=== PATIENT | male | born 1955 | race American Indian/Alaskan Native ===

== ENCOUNTER 2017-05-12 18:43 | Emergency (ER) | payer MEDICAID ==
[2017-05-12 19:01] VITALS: BP 141/79; PULSE 91; RESP 18; TEMP 97.7; O2SAT 96
--- NOTE | 2017-05-12 19:04 | EDPHY ---
H & P Stated Complaint: ETOH, fall R knee pain, cough Time Seen by Provider: 05/12/17 19:04 - Personal History Current Tetanus/Diphtheria Vaccine: Unsure Current Tetanus Diphtheria and Acellular Pertussis (TDAP): Unsure - Medical/Surgical History Hx Asthma: No Hx Chronic Respiratory Disease: No Hx Diabetes: Yes Hx Cardiac Disease: Yes Hx Renal Disease: No Hx Cirrhosis: No Hx Alcoholism: Yes Hx HIV/AIDS: No Hx Splenectomy or Spleen Trauma: No Other PMH: HTN, pre diabetes- non compliant with meds, meth/ETOH addiction - Social History Smoking Status: Current every day smoker Constitutional: Initial Vital Signs Temperature (C) 36.5 C 05/12/17 18:55 Heart Rate 91 05/12/17 18:55 Respiratory Rate 18 05/12/17 18:55 Blood Pressure 141/79 H 05/12/17 18:55 O2 Sat (%) 96 05/12/17 18:55 O2 Delivery Mode Room Air Allergies/Adverse Reactions: mushroom Allergy (Verified 01/18/16 05:50) Home Medications: Medication Instructions Recorded NK [No Known Home Meds] 01/10/16 Medical Decision Making ED Course/Re-evaluation: CHIEF COMPLAINT: Right knee pain, alcohol intoxication HISTORY OF PRESENT ILLNESS: The patient is a 61 y/o male with a history of alcoholism arriving via EMS, complaining of right knee pain after falling because his "knee gave out" on him. He is currently intoxicated. No chest pain, shortness of breath, abdominal pain, urinary or bowel complaints, fever. REVIEW OF SYSTEMS: A 10 point review of systems was performed and is negative with the exception of the elements mentioned in the history of present illness. PHYSICAL EXAM: HR, BP, O2 Sat, RR. Temp noted General Appearance: Alert, slurred speech, well hydrated, appropriate, and non- toxic appearing. Head: Atraumatic without scalp tenderness or obvious injury Eyes: Pupils equal, round, reactive to light and accommodation, EOMI, no trauma , no injection. Ears: Clear bilaterally, no perforation, normal landmarks Nose: Atraumatic, no rhinorrhea, clear. Throat: There is no erythema or exudates, no lesions, normal tonsils, mucus membranes moist. Neck: Supple, 2+ carotid upstroke, nontender, no lymphadenopathy. Respiratory: No retractions, no distress, no wheezes, and no accessory muscle use. Lungs are clear to auscultation bilaterally. Cardiovascular: Regular rate and rhythm, no murmurs, rubs, or gallops. Bilateral carotid, radial, dorsalis pedis, and posterior tibial pulses intact. Good capillary refill all extremities. Gastrointestinal: Abdomen is soft, nontender, non-distended, no masses, no rebound, no guarding, no peritoneal signs. Musculoskeletal: Normal active ROM of all extremities, atraumatic. Neurological: Alert, appropriate, and interactive. Non-focal neuro. Skin: No rashes, good turgor, no nodules on palpation. Past medical history: Hypertension, pre-diabetes (non compliant with meds), meth /alcohol addiction Past surgical history: Denies Family history: Denies Social history: Alcoholic, lives in [place] DIFFERENTIAL DIAGNOSIS: The differential diagnosis for the patient's altered mental status included but was not limited to hypoglycemia, infectious process, electrolyte abnormality, head injury, neurologic process, anemia, cardiac process, and intoxicants. MEDICAL DECISION MAKING: I serially examined this patient since the patient's arrival here in the emergency department. The patient continues to become more and more sober with each examination. I serially questioned the patient and the patient's story given initially has not changed. The patient still denies any trauma, any head injury, and any illicit drug use. At this point, the patient is walking the department freely and is clinically sober. We're discharging the patient to the [facility] in stable condition. Departure - Departure Disposition: Home, Routine, Self-Care Clinical Impression: Alcoholic intoxication Qualifiers: Complication of substance-induced condition: uncomplicated Qualified Code(s): F10.920 - Alcohol use, unspecified with intoxication, uncomplicated Condition: Good Instructions: Alcohol Intoxication (ED), Abuse of Alcohol (ED) Additional Instructions: 1. Please refrain from abusing alcohol. 2. Return to the emergency department immediately for fever, vomiting, confusion , headache, abdominal pain or other worsening of condition. 3. Followup with your primary care physician within 72 hours for reevaluation. Referrals: [facility] Detox 24 Hours [Outside] - As per Instructions Report Scribed for: Ke Strong Report Scribed by: Siria Meza Date of Report: 05/12/17 Time of Report: 19:07
== END 2017-05-12 19:39 | disposition home or self-care (01) ==
LOC: EDUNIT#
DX: F10.920 Alcohol use, unspecified with intoxication, uncomplicated (principal); I10 Essential (primary) hypertension; F17.200 Nicotine dependence, unspecified, uncomplicated; W18.39XA Other fall on same level, initial encounter; Y99.8 Other external cause status

== ENCOUNTER 2017-08-07 10:00 | Emergency (ER) | payer SELFPAY ==
[2017-08-07 10:06] VITALS: BP 199/92
--- NOTE | 2017-08-07 10:13 | EDPHY ---
H & P Stated Complaint: bilat feet and leg swelling/off all meds x 6 months/diabetic Time Seen by Provider: 08/07/17 10:13 - Personal History Current Tetanus/Diphtheria Vaccine: No - Medical/Surgical History Hx Asthma: No Hx Chronic Respiratory Disease: No Hx Diabetes: Yes Hx Cardiac Disease: Yes Hx Renal Disease: No Hx Cirrhosis: No Hx Alcoholism: Yes Hx HIV/AIDS: No Hx Splenectomy or Spleen Trauma: No Other PMH: HTN, pre diabetes- non compliant with meds, meth/ETOH addiction - Social History Smoking Status: Current every day smoker Constitutional: Initial Vital Signs Temperature (C) 36.7 C 08/07/17 10:03 Heart Rate 88 08/07/17 10:03 Respiratory Rate 18 08/07/17 10:03 Blood Pressure 199/92 H 08/07/17 10:03 O2 Sat (%) 96 08/07/17 10:03 O2 Delivery Mode Room Air Allergies/Adverse Reactions: mushroom Allergy (Verified 08/07/17 10:03) Home Medications: Medication Instructions Recorded NK [No Known Home Meds] 01/10/16 Medical Decision Making ED Course/Re-evaluation: CHIEF COMPLAINT: Leg swelling HISTORY OF PRESENT ILLNESS: This patient is a 62 year old male with history of hypertension and diabetes complaining of swelling in his feet and legs. This has been ongoing for several months. He denies ever taking medication for this in the past. The patient additional states he has not taken any medications fo this diabetes or hypertension in several months. He generally follows up at the [facility]. He presents today primarily for evaluation of his swollen legs as he has not seen a physician in a while. He denies fever, difficulty breathing, chest pain, vomiting, diarrhea, or other associated symptoms. He has no further complaints at this time. REVIEW OF SYSTEMS: A 10 point review of systems was performed and is negative with the exception of the elements mentioned in the history of present illness. PHYSICAL EXAM: HR, BP, O2 Sat, RR. Temp noted General Appearance: Alert, well hydrated, appropriate, and non-toxic appearing. Head: Atraumatic without scalp tenderness or obvious injury Eyes: Pupils equal, round, reactive to light and accommodation, EOMI, no trauma , no injection. Ears: Clear bilaterally, no perforation, normal landmarks Nose: Atraumatic, no rhinorrhea, clear. Throat: There is no erythema or exudates, no lesions, normal tonsils, mucus membranes moist. Neck: Supple, 2+ carotid upstroke, nontender, no lymphadenopathy. Respiratory: No retractions, no distress, no wheezes, and no accessory muscle use. Lungs are clear to auscultation bilaterally. Cardiovascular: Regular rate and rhythm, no murmurs, rubs, or gallops. Bilateral carotid, radial, dorsalis pedis, and posterior tibial pulses intact. Good capillary refill all extremities. Gastrointestinal: Abdomen is soft, nontender, non-distended, no masses, no rebound, no guarding, no peritoneal signs. Musculoskeletal: Bilateral edema in lower extremities. Normal active ROM of all extremities, atraumatic. Neurological: Alert, appropriate, and interactive. The patient has normal DTRs and non-focal cranial nerves, motor, sensory, and cerebellar exam. Skin: No cellulitis. No rashes, good turgor, no nodules on palpation. Past medical history: Diabetes, hypertension. History of methamphetamine/ alcohol abuse. Past surgical history: Noncontributory Family history: Noncontributory. Social history: Transient. Lives in [place]. Single. DIAGNOSTICS/PROCEDURES/CRITICAL CARE TIME: None necessary. DIFFERENTIAL DIAGNOSIS: The differential diagnosis for the patient's leg swelling included but was not limited to hypoalbuminemia, congestive heart failure, cor pulmonale, venous stasis, trauma, and DVT. MEDICAL DECISION MAKIN62 year old male presents with bilateral swollen feet and legs. He has followed up with [facility] in the past but has been off his prescribed medications for several months. He states the swelling has slowly increased over a long time , so I do not see a need for any urgent or emergent interventions at this time. Blood pressure at triage 199/92, but patient has known hypertension and has not taken his antihypertensives in several months. Plan to consult with case management. This patient will need to re-establish care with a primary care provider for medication compliance and regular followup. Spoke with case management. The patient is scheduled for an appointment at the [facility] tomorrow at 2:45pm. Plan to discharge home in good condition. Follow up and return precautions discussed. He is comfortable with this plan. Departure - Departure Disposition: Home, Routine, Self-Care Clinical Impression: Peripheral edema, Nonadherence to medication Hypertension Qualifiers: Hypertension type: unspecified Qualified Code(s): I10 - Essential (primary) hypertension Condition: Good Instructions: Leg Edema (ED), Hypertension (ED) Additional Instructions: 1. Please follow up with the [facility] for discussion of your medication regimen and to re-establish primary care. You have an appointment tomorrow afternoon at 2:45pm. PLEASE arrive on time. The contact information for the clinic: The [address] 2. Return to the emergency department for fever, chest pain, shortness of breath , or other worsening of condition. Referrals: [facility],. [Clinic] - As per Instructions Report Scribed for: Ke Strong Report Scribed by: Maris Black Date of Report: 08/07/17 Time of Report: 10:13
--- NOTE | 2017-08-07 10:36 | ASMTCMCOM ---
CM Note CM Note Notes: [facility] contacted regarding patient follow up. Patient is not current with the clinic as he has not followed up there within the past year. I was able to schedule an appointment for the patient for tomorrow at 1445 (arrival time). and have faxed a copy of the patient's ER report to the clinic . Contact information for the clinic provided to patient in his discharge paperwork. I met with patient to discuss the importance of following up with this appointment. He tells me that he understands and will follow up with this appointment. Patient reports that he has an apartment at this time ([address]) which he obtained through the "[employer]" program. Date Signed: 08/07/2017 10:35 AM Electronically Signed By:Carlota Sierra RN
== END 2017-08-07 10:44 | disposition home or self-care (01) ==
DX: R60.0 Localized edema (principal); I10 Essential (primary) hypertension; F17.200 Nicotine dependence, unspecified, uncomplicated; Z91.14 Patient's other noncompliance with medication regimen

== ENCOUNTER 2017-10-02 19:57 | Inpatient (IN) | payer MEDICAID ==
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
[2017-10-02 20:08] LABS: PLATELET COUNT 113 10^3/uL (150-400)
[2017-10-02] MEDS ORDERED: levETIRAcetam 1000MG/NACL 100 ML IV ONE (20:33)
[2017-10-02] MEDS ORDERED: niCARdipine/NACL 200 ML IV ONE (20:35)
[2017-10-02 21:14] LABS: INR 1.81 (0.83-1.16); PROTIME(PATIENT) 21.1 SEC (12.0-15.0)
[2017-10-02] MEDS ORDERED: ONDANSETRON 4 MG/2 ML VIAL IVP PRN (21:18)
[2017-10-02] MEDS ORDERED: PHYTONADIONE 10 MG in NS 50 ML IV ONE (21:42)
[2017-10-02] MEDS ORDERED: FLUMAZENIL 0.5 MG/5 ML MDV IVP PRN (21:44)
[2017-10-02] MEDS: THIAMINE HCL 500 MG in NS 100 ML IV SCH (22:16)
[2017-10-02] MEDS: niCARdipine/NACL 200 ML IV SCH (22:16)
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
--- NOTE | 2017-10-02 23:25 | PDCONSULT ---
Dress Marker Note: Neurosurgery Consult Follow Up I re-examined the patient in the ICU at approximately 22:05. He was more awake than during my prior exam. He was now able to state his full name, Benjamin York, and his , 1955. He followed commands as before with both arms. He was now spontaneously moving both legs, and had sensation to noxious stimulation. He did not move legs to command. I then accompanied patient to radiology for repeat head CT. On my preliminary view, his frontal and temporal intracerebral hemorrhages have increased in size. There is now more conspicuous left frontal subdural hematoma. The right temporal and parietal extra-axial hemorrhages are stable. There are still no surgical indications. Plan neuro checks every hour and repeat CT head in AM. I discussed the new CT and plan with Dr. Goss.
[2017-10-02] MEDS: ACETAMINOPHEN 650 MG SUPP PR SCH (23:31)
[2017-10-03] MEDS: LORazepam 2 MG/ML INJ IVP PRN ×10 (00:04→22:31)
[2017-10-03] MEDS: niCARdipine/NACL 200 ML IV SCH ×7 (01:24→14:25)
[2017-10-03] MEDS ORDERED: ONDANSETRON 4 MG/2 ML VIAL ONE (02:07)
[2017-10-03 04:30] LABS: PLATELET COUNT 137 10^3/uL (150-400)
[2017-10-03 04:38] LABS: INR 1.71 (0.83-1.16); PROTIME(PATIENT) 20.2 SEC (12.0-15.0)
[2017-10-03] MEDS: ACETAMINOPHEN 650 MG SUPP PR SCH ×4 (06:12→21:21)
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
[2017-10-03] MEDS: THIAMINE HCL 500 MG in NS 100 ML IV SCH (08:22)
[2017-10-03] MEDS: PANTOPRAZOLE SODIUM 40 MG VIAL IVP SCH (08:22)
[2017-10-03] MEDS: FOLIC ACID 1 MG TAB PO SCH (08:23)
[2017-10-03] MEDS: MULTIVITAMINS 1 EACH TAB PO SCH (08:23)
--- NOTE | 2017-10-03 09:19 | CPEKG ---
Heart Rate: 106 RR Interval: 566 P-R Interval: 144 QRSD Interval: 100 QT Interval: 360 QTC Interval: 479 P [place]: 67 QRS [place]: 84 T Wave [place]: 54 EKG Severity - ABNORMAL ECG - EKG Impression: SINUS TACHYCARDIA EKG Impression: BORDERLINE RIGHT AXIS DEVIATION EKG Impression: BORDERLINE ST DEPRESSION, ANTEROLATERAL LEADS EKG Impression: BORDERLINE PROLONGED QT INTERVAL Electronically Signed By: Mason Purcell 03-Oct-2017 21:29:00
[2017-10-03] MEDS ORDERED: D50W 25 GM/50 ML SYR IVP PRN (09:45)
[2017-10-03] MEDS: INSULIN REGULAR, HUMAN 100 UNIT/1 ML VIAL LOW SC SCH ×4 (09:57→21:42)
[2017-10-03] MEDS ORDERED: PHYTONADIONE 10 MG in NS 50 ML IV ONE (10:43)
[2017-10-03] MEDS ORDERED: NS 500 ML IV ONE (10:45)
[2017-10-03] MEDS ORDERED: *PHM DO NOT USE-LORazepam 1 MG/ML IV NEWBORN SYR IV PRN (10:49)
--- NOTE | 2017-10-03 10:54 | TRAUMAPNT ---
Trauma Tertiary Progress Note New Findings: None. patient reported "paralysis" last PM but is moving all extremities this AM. Per case management, this "homeless" patient has qualified for a home (x2 years) and is no longer homeless. He is sober in general but when he drinks apparently his interactions become unacceptable. Assessment/Plan: 10/03/2017 Assessment: He became agitated this AM and required ativan. In general a sternal rub is required to get a response. he does withdraw to painful stimuli. FU CT shows a slight further blossom of contusions. INR down minimally (1.7). Dr. Anderson does not feel that chasing it further with FFP is necessary but will continue vit K. Further scans per neurosurgery. SBP maintained < 140 with Cardizem drip at 10mg/hr. Diabetic management. I have asked the hospitalist service to become involved with ETOH withdrawal and diabetic management. Urine output just below minimums. Bolus ordered. Will stop routine CIWA management at this time and just use intermittent Ativan doses Will hand off to Neurosurgery at this time. Subjective: minimally responsive Objective: Vital Signs Temp Pulse Resp BP Pulse Ox 38.1 C 107 H 29 H 139/39 H 96 10/03/17 10:00 10/03/17 10:00 10/03/17 10:00 10/03/17 10:00 10/03/17 10:00 Laboratory Results 10/03/17 04:20 10/03/17 04:20 10/02/17 10/03/17 10/04/17 05:59 05:59 05:59 Intake Total 4528 Output Total 700 Balance 3828 PT 20.2 SEC (12.0-15.0) H 10/03/17 04:20 INR 1.71 (0.83-1.16) H 10/03/17 04:20 - C-Spine Clearance Cervical Spine Cleared: No Physical Exam - Physical Exam General Appearance: WD/WN, no apparent distress, other (Miminally responsive - thought to be due to TBI) EENT: PERRL/EOMI Neck: other (Collar in place) Respiratory: chest non-tender, lungs clear, normal breath sounds Cardiac/Chest: regular rate, rhythm Abdomen: normal bowel sounds, non-tender, soft Male Genitalia: deferred, other (drew in place) Rectal: deferred Skin: normal color, warm/dry Neuro/Psych: other (obtunded, not interactive, spontaneously moves right lower extremity, withdraws left to pain) Time Spent w/Patient (minutes): 35
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
[2017-10-03] MEDS: levETIRAcetam 1000MG/NACL 100 ML IV SCH ×2 (11:15→20:47)
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
--- NOTE | 2017-10-03 15:02 | PDHOSCONS ---
History and Physical - Chief Complaint found down - History of Present Illness 62 yo M found down in [employer] parking lot and brought in as Dewayne Noel. Patient has a hx of HTN and DM and was intoxicated at the time of arrival to the ER. It was noted his BAL was > 200 and he had a GCS of 5. Patient found to have SDH and frontal contusions. He has been noted to be unable to move his lower extremities. Neurosurgery, tratiffaniem have been monitoring and directing his care. At the time of my evaluation patient is able to grunt in response to questions but is otherwise still unresponsive and therefore this history is obtained entirely by chart review. At the time of my eval he is able to move all 4 extremities and follow simple commands. Consult at request of Dr. Goss for eval/mgmt of issues like HTN, DM, etoh abuse. History Information - Allergies/Home Medication List Allergies/Adverse Reactions: No Known Allergies Allergy (Unverified 10/02/17 20:29) Home Medications: NK [No Known Home Meds] 10/02/17 [Last Taken Unknown] I have personally reviewed and updated: family history, medical history, social history, surgical history - Past Medical History diabetes type 2, hypertension Additional medical history: alcohol abuse - Surgical History Reports: no pertinent surgical hx - Family History Additional family history: unoobtainable from patient and not available by chart review - Social History Smoking Status: Unknown if ever smoked Alcohol Use: Heavy Additional social history: social history unknown Review of Systems Review of Systems: unobtainble Physical Exam Physical Exam: Temp Pulse Resp BP Pulse Ox 38.0 C 102 H 27 H 128/42 H 95 10/03/17 14:00 10/03/17 14:00 10/03/17 14:00 10/03/17 14:00 10/03/17 14:00 Constitutional: no apparent distress, appears nourished, unkempt Eyes: PERRL Ears, Nose, Mouth, Throat: poor dentition Cardiovascular: regular rate and rhythym, systolic murmur, edema Respiratory: no respiratory distress, no rales or rhonchi Gastrointestinal: normoactive bowel sounds, soft, non-tender abdomen Skin: warm, normal color Musculoskeletal: full muscle strength Neurologic: No AAOx3 Psychiatric: encephalopathic Lab Data & Imaging Review 10/03/17 04:20 10/03/17 04:20 WBC 9.81 10^3/uL (3.80-9.50) H 10/03/17 04:20 RBC 4.00 10^6/uL (4.40-6.38) L 10/03/17 04:20 Hgb 9.0 g/dL (13.7-17.5) L 10/03/17 04:20 POC Hgb 11.2 gm/dL (13.7-17.5) L 10/02/17 20:13 Hct 29.2 % (40.0-51.0) L 10/03/17 04:20 POC Hct 33 % (40-51) L 10/02/17 20:13 MCV 73.0 fL (81.5-99.8) L 10/03/17 04:20 MCH 22.5 pg (27.9-34.1) L 10/03/17 04:20 MCHC 30.8 g/dL (32.4-36.7) L 10/03/17 04:20 RDW 18.5 % (11.5-15.2) H 10/03/17 04:20 Plt Count 137 10^3/uL (150-400) L 10/03/17 04:20 MPV 9.5 fL (8.7-11.7) 10/03/17 04:20 Neut % (Auto) 83.3 % (39.3-74.2) H 10/03/17 04:20 Lymph % (Auto) 9.2 % (15.0-45.0) L 10/03/17 04:20 Republic % (Auto) 7.0 % (4.5-13.0) 10/03/17 04:20 Eos % (Auto) 0.0 % (0.6-7.6) L 10/03/17 04:20 Baso % (Auto) 0.1 % (0.3-1.7) L 10/03/17 04:20 Nucleat RBC Rel Count 0.0 % (0.0-0.2) 10/03/17 04:20 Absolute Neuts (auto) 8.17 10^3/uL (1.70-6.50) H 10/03/17 04:20 Absolute Lymphs (auto) 0.90 10^3/uL (1.00-3.00) L 10/03/17 04:20 Absolute Monos (auto) 0.69 10^3/uL (0.30-0.80) 10/03/17 04:20 Absolute Eos (auto) 0.00 10^3/uL (0.03-0.40) L 10/03/17 04:20 Absolute Basos (auto) 0.01 10^3/uL (0.02-0.10) L 10/03/17 04:20 Absolute Nucleated RBC 0.00 10^3/uL (0-0.01) 10/03/17 04:20 Immature Gran % 0.4 % (0.0-1.1) 10/03/17 04:20 Immature Gran # 0.04 10^3/uL (0.00-0.10) 10/03/17 04:20 PT 20.2 SEC (12.0-15.0) H 10/03/17 04:20 INR 1.71 (0.83-1.16) H 10/03/17 04:20 Puncture Site LEFT RADIAL 10/02/17 19:55 Patient Temperature 37.0 DEGREES 10/02/17 19:55 pCO2 30 mmHg (34-38) L 10/02/17 19:55 pO2 62 mmHg (65-75) L 10/02/17 19:55 Total CO2 18 mEq/L (23-27) L 10/02/17 19:55 ABG pH 7.38 (7.35-7.45) 10/02/17 19:55 ABG HCO3 17 mEq/L (22-26) L 10/02/17 19:55 ABG O2 Saturation 89 % (92-95) L 10/02/17 19:55 ABG Base Excess -6.4 mEq/L (-2.5-2.5) L 10/02/17 19:55 O2 Concentration % % (0-100) 10/02/17 19:55 POC Sodium 146 mEq/L (135-145) H 10/02/17 20:13 Sodium 142 mEq/L (135-145) 10/03/17 04:20 POC Potassium 3.6 mEq/L (3.3-5.0) 10/02/17 20:13 Potassium 4.1 mEq/L (3.3-5.0) 10/03/17 04:20 POC Chloride 112 mEq/L (97-110) H 10/02/17 20:13 Chloride 116 mEq/L (97-110) H 10/03/17 04:20 Carbon Dioxide 13 mEq/l (22-31) L 10/03/17 04:20 Anion Gap 13 mEq/L (8-16) 10/03/17 04:20 POC BUN 4 mg/dL (7-23) L 10/02/17 20:13 BUN 12 mg/dL (7-23) 10/03/17 04:20 Creatinine 1.0 mg/dL (0.7-1.3) 10/03/17 04:20 POC Creatinine 1.1 mg/dL (0.7-1.3) 10/02/17 20:13 Estimated GFR > 60 10/03/17 04:20 Glucose 203 mg/dL (70-100) H 10/03/17 04:20 POC Glucose 175 mg/dL (70-100) H 10/03/17 11:42 Calcium 8.0 mg/dL (8.5-10.4) L 10/03/17 04:20 Total Bilirubin 2.3 mg/dL (0.1-1.4) H 10/03/17 04:20 Conjugated Bilirubin 0.7 mg/dL (0.0-0.5) H 10/03/17 04:20 Unconjugated Bilirubin 1.6 mg/dL (0.0-1.1) H 10/03/17 04:20 AST 49 IU/L (17-59) 10/03/17 04:20 ALT 29 IU/L (21-72) 10/03/17 04:20 Alkaline Phosphatase 107 IU/L (38-126) 10/03/17 04:20 NT-Pro-B Natriuret Pep 446 pg/mL (0-125) H 10/03/17 04:20 Total Protein 8.0 g/dL (6.3-8.2) 10/03/17 04:20 Albumin 3.6 g/dL (3.5-5.0) 10/03/17 04:20 TSH 2.070 uIU/mL (0.465-4.680) 10/03/17 04:20 Urine Opiates Screen NEGATIVE (NEGATIVE) 10/02/17 22:50 Urine Barbiturates NEGATIVE (NEGATIVE) 10/02/17 22:50 Ur Phencyclidine Scrn NEGATIVE (NEGATIVE) 10/02/17 22:50 Ur Amphetamine Screen NEGATIVE (NEGATIVE) 10/02/17 22:50 U Benzodiazepines Scrn NEGATIVE (NEGATIVE) 10/02/17 22:50 Urine Cocaine Screen NEGATIVE (NEGATIVE) 10/02/17 22:50 U Marijuana (THC) Screen NEGATIVE (NEGATIVE) 10/02/17 22:50 Ethyl Alcohol 225 mg/dL (0-10) H 10/02/17 19:45 Patient ABO/Rh A POSITIVE 10/02/17 20:00 Visualized and Interpreted imaging results: Yes Interpretation: Head CT : right SDH, early epidural hematoma Assessment & Plan Assessment: Traumatic intraparenchymal hemorrhage (Acute) 62 yo w/ hx of etoh abuse, DM2, and HTN found down with traumatic SDH # SDH: s/p trauma with associated parietal skull fracture and coagulopathy, nsg evaluated and following. Repeat head ct with evolution of contusions but overall stable. Will continue to monitor clinically. BP control, no hyponatremia # acute encephalopathy: with GCS of 5 on arrival, in setting of above also acute intoxication and perhaps some withdrawal. He is slowly showing some improvement, working to minimize sedating meds and monitoring # alcohol abuse: with high risk of withdrawal and intoxication on arrival, on ciwa, as above # dm2: continue ssi # htn: currently on cardene drip with goal sbp < 140 # IP status, patient admitted to trauma service Patient new to my care. Care plan reviewed with Dr. Goss.
[2017-10-03] MEDS: NS 1,000 ML IV SCH ×2 (20:48→22:31)
[2017-10-03] MEDS: NS IV SCH (20:50)
[2017-10-03] MEDS: NICARDIPINE IV SCH (20:50)
[2017-10-03] MEDS: DEXMEDETOMIDINE IN 0.9 % NACL 100 ML IV SCH (23:18)
[2017-10-04] MEDS: NS IV SCH ×2 (01:38→21:30)
[2017-10-04] MEDS: NICARDIPINE IV SCH ×2 (01:38→21:30)
[2017-10-04] MEDS: DEXMEDETOMIDINE IN 0.9 % NACL 100 ML IV SCH ×2 (01:47→11:30)
[2017-10-04] MEDS: INSULIN REGULAR, HUMAN 100 UNIT/1 ML VIAL LOW SC SCH ×5 (08:02→22:08)
--- NOTE | 2017-10-04 08:34 | NEUSURGPN ---
Assessment/Plan: 62 yo male sp trauma and has R temporal parietal skull fxs with small SDH and bi frontal temporal contusion -INR elevated on admission possibly from ETOH -On CIWA. ativan and precedex helping with agitation. -RN to discuss low urine output with hospitalist team -Neuro checks continue q1 today -Neuro: Starting to wake up more, not following commands, but to pain stimulus moves everything and opens eyes and localizes -Continue 10mg Vit K daily for 3 days, check INR daily -Repeat CT scan done 10/03 shows small evolution of contusions but overall stable -No planned repeat CT scans today unless exam drastically changes -No sodium goal normal. -Continue strict BP goals 90-14 , continue Cardene -Discussed with Dr. Anderson Subjective: Pt in bed. Chart reviewed. No verbal response. Objective: Pt sleeping in bed VSS NAD PERRL C collar in place MAEx4 withdraws from pain Grunts in response to painful stim Not following commands Urinary Catheter in Place: Yes Urinary Catheter Indication: Acute Urinary Retention Catheter Insertion Date: 10/02/17 - Physician Discussed Patient with Dr.: Other (Justin) Neurosurgery Physical Exam - Vitals, I&O, Labs I and O 10/03/17 10/04/17 10/05/17 05:59 05:59 05:59 Intake Total 4528 6006.3 Output Total 700 600 Balance 3828 5406.3 Weight 108.4 kg Intake: Oral (ml) 0 0 IV Intake (ml) 500 IV Infused (ml) 3461 5506.3 Dexmedetomidine in 0.9 % 85 NaCl 100 ml @ Per Protocol IV CONT JUANA Rx#: [id number] Ns 1,000 ml @ 100 mls/hr 592 3698 IV CONT JUANA Rx#: [id number] niCARdipine 50 mg In Ns 1023.3 500 ml @ Per Protocol IV CONT JUANA Rx#:[id number] niCARdipine/NACL 200 ml @ 869 700 Titrate IV CONT JUANA Rx#: [id number] Fresh Frozen Plasma (ml) 1067 Output: Urine (ml) 700 600 Catheter 200 600 Other: Number of Voids 1 Number of Stools Catheter 0 2 Vital Signs Temp Pulse Resp BP Pulse Ox 36.9 C 73 25 H 112/52 L 96 10/04/17 08:00 10/04/17 08:00 10/04/17 08:00 10/04/17 08:00 10/04/17 08:00 Laboratory Results 10/03/17 04:20 10/04/17 03:30 ICD10 Worksheet Patient Problems: Problems Problem Status Onset Traumatic intraparenchymal hemorrhage Acute
[2017-10-04] MEDS: PANTOPRAZOLE SODIUM 40 MG VIAL IVP SCH (09:28)
[2017-10-04] MEDS: THIAMINE HCL 500 MG in NS 100 ML IV SCH (09:28)
[2017-10-04] MEDS: FOLIC ACID 1 MG TAB PO SCH (09:31)
[2017-10-04] MEDS: levETIRAcetam 1000MG/NACL 100 ML IV SCH ×2 (09:31→22:15)
[2017-10-04] MEDS: MULTIVITAMINS 1 EACH TAB PO SCH (09:31)
[2017-10-04 09:42] LABS: INR 2.01 (0.83-1.16); PROTIME(PATIENT) 22.8 SEC (12.0-15.0)
[2017-10-04] MEDS ORDERED: NS 1,000 ML IV ONE (10:22)
[2017-10-04] MEDS ORDERED: LORazepam 2 MG/ML INJ IVP PRN (10:24)
--- NOTE | 2017-10-04 11:52 | ASMTCMCOM ---
CM Note CM Note Notes: Patient remains unresponsive. Brionna is patient's shelter case manager at [facility] ([phone]). Search for family for MDPOA remains in progress. CM will follow. Date Signed: 10/04/2017 11:52 AM Electronically Signed By:Anabel Ortiz LCSW
--- NOTE | 2017-10-04 13:12 | PDINTPN ---
Stable Cleaner Progress Note Assessment/Plan: Assessment: S/P right temporoparietal non-displaced skull fracture with Bifrontal hemorrhagic contusions, SAH and small subdural/epidural hematoma: Clinically unchanged, with expected depression of mental status. Alcohol intoxication: On admission. History of alcohol abuse, but apparently has been in an alcohol treatment program. ? acute vs. longstanding relapse, risk for withdrawal is uncertain. HTN: Normotensive now Diabetes. BSs mid-100s on SSI. Prophylaxis: PPI. SCDs. No SQ heparin due to ICH. Plan: Continue Precedex with vacations 2-x/day. Will start low-dose scheduled Ativan to help reduce risk of EtOH withdrawal. 10/04/17 13:19 10/04/17 13:21 Subjective: Remains minimally responsive, some agitation and moving all extremities when sedation off, not answering questions. Objective: Vital Signs Temp Pulse Resp BP Pulse Ox 36.6 C 64 25 H 113/93 H 96 10/04/17 12:00 10/04/17 12:00 10/04/17 12:00 10/04/17 12:00 10/04/17 12:00 Laboratory Results 10/03/17 04:20 10/04/17 03:30 10/03/17 10/04/17 10/05/17 05:59 05:59 05:59 Intake Total 4528 6006.3 Output Total 700 600 Balance 3828 5406.3 PT 22.8 SEC (12.0-15.0) H 10/04/17 03:30 INR 2.01 (0.83-1.16) H 10/04/17 03:30 Physical Exam - Physical Exam General Appearance: alert, no apparent distress EENT: normal ENT inspection Neck: normal inspection, other (hard collar), No lymphadenopathy (R), No lymphadenopathy (L) Respiratory: lungs clear, normal breath sounds Cardiac/Chest: regular rate, rhythm, No edema Abdomen: normal bowel sounds, non-tender Skin: normal color, warm/dry Extremities: normal inspection Neuro/Psych: No alert, No normal mood/affect, No oriented x 3 ICD10 Worksheet Patient Problems: Problems Problem Status Onset Traumatic intraparenchymal hemorrhage Acute
--- NOTE | 2017-10-04 13:39 | GCON ---
[f rep st] CONSULTATION PULMONARY/CRITICAL CARE CONSULTATION DATE OF CONSULTATION: 10/03/2017 REFERRING PHYSICIAN: Colin Goss MD REASON FOR CONSULTATION: Evaluation and management of acute alcohol intoxication/withdrawal and head injury. HISTORY: The patient is a 62-year-old male with a history of alcohol abuse who was found down in the parking lot yesterday. He was found to have a subdural hematoma, frontal contusions, and a right-si ded skull fracture. He has been unable to respond to give further history. Since his hospitalizatio n, he has had some tongue fasciculations and intermittent agitation, felt possibly due to alcohol wit hdrawal, so he has received some Ativan. PAST MEDICAL HISTORY: 1. Type 2 diabetes. 2. Hypertension. 3. Alcohol abuse. It is unclear if the patient has been drinking heavily recently. MEDICATIONS: Unknown. ALLERGIES: Unknown. SOCIAL HISTORY: Alcohol abuse as above. Smoking history is unknown. FAMILY HISTORY: Unknown. REVIEW OF SYSTEMS: Unobtainable. PHYSICAL EXAMINATION: GENERAL: The patient is somnolent and has also received some sedation. He is minimally responsive, but does withdraw all 4 extremities to noxious stimuli. He is not following a ny commands. VITAL SIGNS: Blood pressure 140/49 with a heart rate of 103. He is afebrile. Oxygen saturations are 97% on room air. HEENT: Normocephalic and atraumatic. No icterus. NECK: A C-arsen ar is in place. No adenopathy. Trachea is midline. CHEST: Clear to auscultation. CARDIAC: Regula r rate and rhythm without murmur. ABDOMEN: Soft, nontender. Bowel sounds are present. EXTREMITIES : No clubbing, cyanosis, or edema. NEURO: The patient is somnolent and is able to move all extremi ties to noxious stimuli, but is not following commands. Pupils are small and reactive. He has a gag and corneal reflexes. LAB: The chemistry group is unremarkable. Glucose is 203. A hemoglobin is 9.0, down from 10.3. Wh ite blood count is 9.8 and a platelet count is 137. A urine tox screen is negative. Alcohol level w as 225 on admission. IMAGING: A CT scan of the head shows bifrontal contusions/hemorrhage. He has a right parietal tempo ral fracture that is nondisplaced. There is some subarachnoid blood. Images reviewed by me. [place] al spine CT scan shows no definite fracture, but some severe degenerative disk disease. ASSESSMENT: 1. Head injury. The patient has a right temporoparietal fracture with intraparenchymal and subarach noid blood, as well as possible subdural or epidural bleeding near the fracture site. He has a marke dly depressed mental status consistent with head injury. Alcohol intoxication could also be playing a role. 2. Alcohol intoxication. The patient has a history of chronic alcohol use. He is likely at risk of withdrawal symptoms, and has been receiving some low-dose benzodiazepines for some signs of agitatio n. 3. Diabetes. The patient's blood sugars are in the upper 100s to low 200s. 4. History of hypertension. The patient initially had a systolic blood pressure over 180. He was s tarted on a Cardizem drip and this has been able to keep his blood pressure down. Cardizem is now of f. RECOMMENDENDATIONS: 1. Continue to use Cardizem p.r.n. hypertension. 2. Continue frequent neuro checks. 3. Sliding scale insulin for blood sugar control. 4. To use low-dose benzodiazepines to help reduce the risk of alcohol withdrawal seizures. Will als o use Precedex for some mild intermittent agitation. If the patient has escalating signs of alcohol withdrawal, the patient will be placed on [facility] protocol. /[id number]/MODL
[2017-10-04] MEDS: ACETAMINOPHEN 650 MG SUPP PR SCH ×2 (14:47→21:53)
--- NOTE | 2017-10-04 15:55 | HOSPPROG ---
Hospitalist Progress Note Assessment/Plan: 62 yo w/ hx of etoh abuse, DM2, and HTN found down with traumatic SDH # SDH: s/p trauma with associated parietal skull fracture and coagulopathy, nsg evaluated and following. Repeat head ct with evolution of contusions but overall stable. BP controlled off of cardene gtt. # acute encephalopathy: with GCS of 5 on arrival, in setting of above also acute intoxication and perhaps some withdrawal. He is slowly showing some improvement, working to minimize sedating meds and monitoring. Difficult to be sure if there is withdrawal contributing. # alcohol abuse: with high risk of withdrawal and intoxication on arrival, difficult to assess as above, on scheduled ativan for now # dm2: continue ssi # htn: currently on cardene drip with goal sbp < 140 # IP status Care plan reviewed with Dr. Pedroza Subjective: no significant overnight events, patient is still only minimally responsive but does move all extremiteis Objective: Vital Signs Temp Pulse Resp BP Pulse Ox 37.2 C 75 24 H 125/57 H 97 10/04/17 15:00 10/04/17 15:00 10/04/17 15:00 10/04/17 15:00 10/04/17 15:00 Laboratory Results 10/03/17 04:20 10/04/17 03:30 10/03/17 10/04/17 10/05/17 05:59 05:59 05:59 Intake Total 4528 6006.3 Output Total 700 600 Balance 3828 5406.3 PT 22.8 SEC (12.0-15.0) H 10/04/17 03:30 INR 2.01 (0.83-1.16) H 10/04/17 03:30 Constitutional: no apparent distress, appears nourished, unkempt Eyes: PERRL Ears, Nose, Mouth, Throat: poor dentition Cardiovascular: regular rate and rhythym, systolic murmur, edema Respiratory: no respiratory distress, no rales or rhonchi Gastrointestinal: normoactive bowel sounds, soft, non-tender abdomen Skin: warm, normal color Musculoskeletal: full muscle strength Neurologic: No AAOx3 Psychiatric: encephalopathic ICD10 Worksheet Patient Problems: Problems Problem Status Onset Traumatic intraparenchymal hemorrhage Acute
[2017-10-04] MEDS: HYDROmorphONE/DILAUDID 1 MG/ML INJ IVP PRN (21:08)
[2017-10-04 22:19] LABS: INR 1.96 (0.83-1.16); PROTIME(PATIENT) 22.4 SEC (12.0-15.0)
[2017-10-05] MEDS: NS 1,000 ML IV SCH ×2 (02:21→23:47)
[2017-10-05] MEDS: hydrALAZINE 20 MG/ML VIAL IVP PRN ×2 (03:10→07:51)
[2017-10-05 05:23] LABS: INR 1.95 (0.83-1.16); PROTIME(PATIENT) 22.3 SEC (12.0-15.0)
[2017-10-05] MEDS: ACETAMINOPHEN 650 MG SUPP PR SCH ×3 (06:11→20:31)
--- NOTE | 2017-10-05 07:25 | NEUSURGPN ---
Assessment/Plan: 62 yo male sp trauma and has R temporal parietal skull fxs with small SDH and bi frontal temporal contusion -INR elevated on admission possibly from ETOH -On CIWA. ativan and precedex helping with agitation. -urine output improved -Neuro checks continue q1 today -Neuro: Starting to wake up more, not following commands, but to pain stimulus moves everything and opens eyes and localizes -Continue 10mg Vit K daily for 3 days, check INR daily - last INR 1.9 - will give 2 units FFP. Received 2 units FFP yesterday. Goal is INR of 1.6 or better -Repeat CT scan done 10/03 shows small evolution of contusions but overall stable -No planned repeat CT scans today unless exam drastically changes -No sodium goal normal. -Continue strict BP goals 90-14 , continue Cardene/hydralazine PRN -Discussed with Dr. Wilhelm Subjective: Unable to obtain. Pt grunts in response to painful stim. Chart reviewed. Objective: Pt resting in bed C collar in place PERRL Not following commands Grunts in response to painful stim. MAEx4 in response to painful stim Urinary Catheter in Place: Yes Urinary Catheter Indication: Acute Urinary Retention, Accurate I & O Required Catheter Insertion Date: 10/02/17 - Physician Discussed Patient with : [facility] Physical Exam - Vitals, I&O, Labs I and O 10/04/17 10/05/17 10/06/17 05:59 05:59 05:59 Intake Total 6006.3 3959 Output Total 600 775 Balance 5406.3 3184 Intake: Oral (ml) 0 IV Intake (ml) 500 IV Infused (ml) 5506.3 3959 Dexmedetomidine in 0.9 % 85 140 NaCl 100 ml @ Per Protocol IV CONT JUANA Rx#: [id number] Ns 1,000 ml @ 100 mls/hr 3698 2274 IV CONT JUANA Rx#: [id number] Ns 1,000 ml @ 3000 mls/hr 1000 IV ONCE ONE Rx#: [id number] levETIRAcetam 1000MG/NACL 100 100 ml @ 400 mls/hr IV BID JUANA Rx#:[id number] niCARdipine 50 mg In Ns 1023.3 445 500 ml @ Per Protocol IV CONT JUANA Rx#:[id number] niCARdipine/NACL 200 ml @ 700 Titrate IV CONT JUANA Rx#: [id number] Output: Urine (ml) 600 775 Catheter 600 775 Other: Number of Stools Catheter 2 0 Vital Signs Temp Pulse Resp BP Pulse Ox 37.0 C 80 26 H 133/54 H 97 10/05/17 06:00 10/05/17 06:00 10/05/17 06:00 10/05/17 06:00 10/05/17 06:00 Laboratory Results 10/03/17 04:20 10/04/17 03:30 ICD10 Worksheet Patient Problems: Problems Problem Status Onset Traumatic intraparenchymal hemorrhage Acute
[2017-10-05] MEDS: PANTOPRAZOLE SODIUM 40 MG VIAL IVP SCH (08:04)
[2017-10-05] MEDS: INSULIN REGULAR, HUMAN 100 UNIT/1 ML VIAL LOW SC SCH ×4 (08:04→20:50)
[2017-10-05] MEDS: levETIRAcetam 1000MG/NACL 100 ML IV SCH ×2 (08:04→21:00)
[2017-10-05] MEDS: FOLIC ACID 1 MG TAB PO SCH (08:12)
[2017-10-05] MEDS: MULTIVITAMINS 1 EACH TAB PO SCH (08:13)
[2017-10-05] MEDS: THIAMINE HCL 100 MG TAB PO SCH (08:13)
--- NOTE | 2017-10-05 08:41 | HOSPPROG ---
Hospitalist Progress Note Assessment/Plan: #SDH: bilateral frontal/temporal -Cardene for HTN, Precedex for sedation #DM: SSI #Microcytic anemia: no active bleeding here. May need outpatient colonoscopy #Acute encephalopathy: multifactorial with SDH, possible Etoh w/d -followed some commands this morning #Alcohol dependence: PRN Ativan #Social: lives with brother here in [place], sister in [facility] #Dietl IVFs #DVT ppx: SCDs Disp: cont inpatient admission for BP control, neuro checks Subjective: followed some commands this morning Objective: Vital Signs Temp Pulse Resp BP Pulse Ox 37.0 C 94 29 H 161/64 H 100 10/05/17 08:00 10/05/17 08:00 10/05/17 08:00 10/05/17 08:19 10/05/17 08:00 Laboratory Results 10/03/17 04:20 10/04/17 03:30 10/04/17 10/05/17 10/06/17 05:59 05:59 05:59 Intake Total 6006.3 3959 Output Total 600 775 Balance 5406.3 3184 PT 22.3 SEC (12.0-15.0) H 10/05/17 05:00 INR 1.95 (0.83-1.16) H 10/05/17 05:00 - Time Spent With Patient Time Spent with Patient: greater than 35 minutes Time Spent with Patient: Greater than 35 minutes spent on this patients care, greater than 50% of time spent counseling, educating, and coordinating care regarding the above mentioned plan. ICD10 Worksheet Patient Problems: Problems Problem Status Onset Traumatic intraparenchymal hemorrhage Acute
[2017-10-05] MEDS: NICARDIPINE IV SCH (08:48)
[2017-10-05] MEDS: NS IV SCH (08:48)
[2017-10-05] MEDS: LORazepam 2 MG/ML INJ IVP PRN (08:48)
--- NOTE | 2017-10-05 12:06 | PDINTPN ---
Pin Attacher Progress Note Assessment/Plan: Assessment: S/P right temporoparietal non-displaced skull fracture with Bifrontal hemorrhagic contusions, SAH and small subdural/epidural hematoma: Clinically unchanged, with expected depression of mental status. Alcohol intoxication: On admission 10/02. History of alcohol abuse, but apparently has been in an alcohol treatment program. ? acute vs. longstanding relapse, risk for withdrawal is uncertain. HTN: Normotensive now Diabetes. BSs mid-100s on SSI. Prophylaxis: PPI. SCDs. No SQ heparin due to ICH. Anemia: Mild Plan: Will continue low-dose scheduled Ativan to help reduce risk of EtOH withdrawal, in addition to PRN Precedex and Ativan. Recheck H/H 10/05/17 12:06 Subjective: Opened eyes spontaneously, but not following commands. Got quite agitated this morning so sedated again with Precedex and Ativan IVP. Objective: Vital Signs Temp Pulse Resp BP Pulse Ox 36.5 C 79 22 H 103/56 L 98 10/05/17 11:00 10/05/17 11:00 10/05/17 11:00 10/05/17 11:00 10/05/17 11:00 Laboratory Results 10/03/17 04:20 10/04/17 03:30 10/04/17 10/05/17 10/06/17 05:59 05:59 05:59 Intake Total 6006.3 3959 Output Total 600 775 Balance 5406.3 3184 PT 22.3 SEC (12.0-15.0) H 10/05/17 05:00 INR 1.95 (0.83-1.16) H 10/05/17 05:00 Physical Exam - Physical Exam General Appearance: no apparent distress, No alert EENT: normal ENT inspection Neck: normal inspection Respiratory: lungs clear, normal breath sounds Cardiac/Chest: regular rate, rhythm, No edema Abdomen: normal bowel sounds, non-tender Skin: normal color, warm/dry Extremities: normal inspection Neuro/Psych: No alert ICD10 Worksheet Patient Problems: Problems Problem Status Onset Traumatic intraparenchymal hemorrhage Acute
[2017-10-05] MEDS: LORazepam 2 MG/ML INJ IVP SCH ×2 (14:23→20:36)
[2017-10-05] MEDS: DEXMEDETOMIDINE IN 0.9 % NACL 100 ML IV SCH ×2 (14:23→20:36)
[2017-10-05 15:14] LABS: PLATELET COUNT 73 10^3/uL (150-400)
--- NOTE | 2017-10-05 15:25 | ASMTCMCOM ---
CM Note CM Note Notes: Pt on Precedex for increased agitation 2/2 withdrawal. He is still not following commands. CM will continue to follow. Date Signed: 10/05/2017 03:24 PM Electronically Signed By:DUSTIN Vences
[2017-10-06 04:46] LABS: INR 1.81 (0.83-1.16); PROTIME(PATIENT) 21.1 SEC (12.0-15.0)
[2017-10-06] MEDS: ACETAMINOPHEN 650 MG SUPP PR SCH ×3 (04:55→21:15)
--- NOTE | 2017-10-06 06:49 | NEUSURGPN ---
Assessment/Plan: 62 yo male sp trauma and has R temporal parietal skull fxs with small SDH and bi frontal temporal contusion -INR elevated on admission possibly from ETOH - slowly trending down with FFP -On CIWA. ativan and precedex helping with agitation. -urine output improved -Neuro checks continue q1 today -Neuro: Starting to wake up more, following commands for RN yesterday but got very agitated. Continue with precedex. D/w RN we need to give breaks from sedation ofr neuro checks. -Check INR daily - last INR 1.81 - will give 2 units FFP. Received 2 units FFP yesterday. Goal is INR of 1.6 or better -Repeat CT scan done 10/03 shows small evolution of contusions but overall stable -No planned repeat CT scans today unless exam drastically changes -No sodium goal normal. -Continue strict BP goals 90-140 , continue Cardene/hydralazine PRN -Discussed with Dr. Wilhelm Subjective: Pt states "I'm trying" w/mumbled speech when asked to move toes Objective: Sleeping but awakens to voice VSS, NAD Pupils equal C collar on moving arms to command not following commands with legs grimaces in response to painful stim Urinary Catheter in Place: Yes Urinary Catheter Indication: Acute Urinary Retention Catheter Insertion Date: 10/02/17 - Physician Discussed Patient with : [facility] Physical Exam - Vitals, I&O, Labs I and O 10/05/17 10/06/17 10/07/17 05:59 05:59 05:59 Intake Total 3959 2326 Output Total 775 500 Balance 3184 1826 Intake: IV Infused (ml) 3959 1726 Dexmedetomidine in 0.9 % 140 269 NaCl 100 ml @ Per Protocol IV CONT JUANA Rx#: [id number] Ns 1,000 ml @ 100 mls/hr 2274 1234 IV CONT JUANA Rx#: [id number] Ns 1,000 ml @ 3000 mls/hr 1000 IV ONCE ONE Rx#: [id number] levETIRAcetam 1000MG/NACL 100 100 ml @ 400 mls/hr IV BID JUANA Rx#:[id number] niCARdipine 50 mg In Ns 445 223 500 ml @ Per Protocol IV CONT JUANA Rx#:[id number] Fresh Frozen Plasma (ml) 600 Output: Urine (ml) 775 500 Catheter 775 500 Other: Number of Stools Catheter 0 1 Vital Signs Temp Pulse Resp BP Pulse Ox 36.1 C 93 19 120/62 100 10/05/17 20:00 10/06/17 05:00 10/06/17 05:00 10/06/17 05:00 10/06/17 05:00 Laboratory Results 10/05/17 14:34 10/06/17 04:20 ICD10 Worksheet Patient Problems: Problems Problem Status Onset Traumatic intraparenchymal hemorrhage Acute
--- NOTE | 2017-10-06 07:38 | CPEKG ---
Heart Rate: 97 RR Interval: 619 QRSD Interval: 100 QT Interval: 364 QTC Interval: 463 QRS [place]: 23 T Wave [place]: 22 EKG Severity - ABNORMAL ECG - EKG Impression: ATRIAL FIBRILLATION, V-RATE 75-109 Electronically Signed By: Luigi Bowen 06-Oct-2017 09:05:26
[2017-10-06] MEDS: FOLIC ACID 1 MG TAB PO SCH (09:01)
[2017-10-06] MEDS: INSULIN REGULAR, HUMAN 100 UNIT/1 ML VIAL LOW SC SCH ×4 (09:01→21:14)
[2017-10-06] MEDS: MULTIVITAMINS 1 EACH TAB PO SCH (09:02)
[2017-10-06] MEDS: THIAMINE HCL 100 MG TAB PO SCH (09:02)
[2017-10-06] MEDS: levETIRAcetam 1000MG/NACL 100 ML IV SCH ×2 (09:04→21:23)
[2017-10-06] MEDS: PANTOPRAZOLE SODIUM 40 MG VIAL IVP SCH (09:05)
--- NOTE | 2017-10-06 09:45 | HOSPPROG ---
Hospitalist Progress Note Assessment/Plan: #New atrial fibrillation: (EKG personally reviewed). IV Metoprolol. No AC with SDH #SDH: bilateral frontal/temporal -Cardene for goal SBP<140, Precedex for sedation. Transfusing 2 FFP now #DM: SSI #Microcytic anemia: no active bleeding here. May need outpatient colonoscopy #Acute encephalopathy: multifactorial with SDH, possible Etoh w/d -followed some commands this morning #Alcohol dependence: Precedex. Hold BZs today to prevent prolonged delirium #Social: lives with brother here in [place] but cannot reach. CM to speak with sister about being MDPOA #Dietl IVFs #DVT ppx: SCDs Disp: cont inpatient admission for BP control, neuro checks Subjective: agitated when off precedex Objective: Vital Signs Temp Pulse Resp BP Pulse Ox 36.5 C 92 20 149/88 H 100 10/06/17 08:00 10/06/17 08:00 10/06/17 08:00 10/06/17 08:00 10/06/17 08:00 Laboratory Results 10/05/17 14:34 10/06/17 04:20 10/05/17 10/06/17 10/07/17 05:59 05:59 05:59 Intake Total 3959 3760 Output Total 775 1450 Balance 3184 2310 PT 21.1 SEC (12.0-15.0) H 10/06/17 04:20 INR 1.81 (0.83-1.16) H 10/06/17 04:20 - Time Spent With Patient Time Spent with Patient: greater than 35 minutes Time Spent with Patient: Greater than 35 minutes spent on this patients care, greater than 50% of time spent counseling, educating, and coordinating care regarding the above mentioned plan. ICD10 Worksheet Patient Problems: Problems Problem Status Onset Traumatic intraparenchymal hemorrhage Acute
[2017-10-06] MEDS: METOPROLOL TARTRATE 5 MG/5 ML INJ IVP SCH ×4 (09:52→23:24)
[2017-10-06] MEDS: LORazepam 2 MG/ML INJ IVP SCH (09:54)
--- NOTE | 2017-10-06 11:04 | PDINTPN ---
Tray Packer Progress Note Assessment/Plan: Assessment: S/P right temporoparietal non-displaced skull fracture with Bifrontal hemorrhagic contusions, SAH and small subdural/epidural hematoma: Clinically unchanged, with expected depression of mental status. Alcohol intoxication: On admission 10/02. History of alcohol abuse, but apparently has been in an alcohol treatment program. ? acute vs. longstanding relapse, risk for withdrawal is uncertain. HTN: Normal BP-mild hypertension now Diabetes. BSs [id number] on SSI. Prophylaxis: PPI. SCDs. No SQ heparin due to ICH. Anemia: H/H down today. Hypernatremia: Plan: Will stop scheduled Ativan, which is being used to treat EtOH withdrawal ( however not clear that he's been drinking regularly recently), but could be contributing to prolonged delirium/agitation from his head injury. If he shows signs of EtOH withdrawal, Ativan can be restarted PRN. Change IVF to 1/2 NS Follow BP, H/H 10/06/17 11:09 Subjective: Agitated when Precedex overnight, now sedated and minimally responsive on low- dose Precedex. Objective: Vital Signs Temp Pulse Resp BP Pulse Ox 36.5 C 97 20 149/88 H 100 10/06/17 08:00 10/06/17 09:52 10/06/17 08:00 10/06/17 09:52 10/06/17 08:00 Laboratory Results 10/05/17 14:34 10/06/17 04:20 10/05/17 10/06/17 10/07/17 05:59 05:59 05:59 Intake Total 3959 3760 Output Total 771 1450 Balance 3184 2310 PT 21.1 SEC (12.0-15.0) H 10/06/17 04:20 INR 1.81 (0.83-1.16) H 10/06/17 04:20 Physical Exam - Physical Exam General Appearance: alert, no apparent distress EENT: normal ENT inspection Neck: normal inspection Respiratory: lungs clear, normal breath sounds Cardiac/Chest: regular rate, rhythm, No edema Abdomen: normal bowel sounds, non-tender Skin: normal color, warm/dry Extremities: normal inspection Neuro/Psych: alert, normal mood/affect, oriented x 3 ICD10 Worksheet Patient Problems: Problems Problem Status Onset Traumatic intraparenchymal hemorrhage Acute
[2017-10-06] MEDS: 1/2 NS 1,000 ML IV SCH (12:44)
[2017-10-06] MEDS: NS IV SCH ×2 (14:42→15:57)
[2017-10-06] MEDS: NICARDIPINE IV SCH ×2 (14:42→15:57)
[2017-10-06] MEDS: hydrALAZINE 20 MG/ML VIAL IVP PRN (14:59)
[2017-10-06] MEDS: DEXMEDETOMIDINE IN 0.9 % NACL 100 ML IV SCH (15:55)
[2017-10-06] MEDS: LORazepam 2 MG/ML INJ IVP PRN ×2 (17:36→23:21)
[2017-10-06] MEDS: HYDROmorphONE/DILAUDID 1 MG/ML INJ IVP PRN (23:33)
[2017-10-07] MEDS: DEXMEDETOMIDINE IN 0.9 % NACL 100 ML IV SCH ×3 (01:01→21:26)
[2017-10-07] MEDS: NS IV SCH ×3 (02:26→20:17)
[2017-10-07] MEDS: NICARDIPINE IV SCH ×3 (02:26→20:17)
[2017-10-07] MEDS: ACETAMINOPHEN 650 MG SUPP PR SCH ×2 (05:36→13:17)
[2017-10-07] MEDS: METOPROLOL TARTRATE 5 MG/5 ML INJ IVP SCH ×2 (05:42→13:17)
[2017-10-07 06:19] LABS: INR 1.87 (0.83-1.16); PROTIME(PATIENT) 21.6 SEC (12.0-15.0)
--- NOTE | 2017-10-07 07:43 | NEUSURGPN ---
Assessment/Plan: 62 yo male sp trauma and has R temporal parietal skull fxs with small SDH and bi frontal temporal contusion -INR elevated on admission possibly from ETOH - slowly trending down with FFP. INR 1.8 today -On CIWA. ativan and precedex helping with agitation. -Neuro checks continue q1 today -Neuro: Following commands with decreased Precedex per RN, I was unable to to appreciate this on exam this am. Continue with precedex. D/w RN we need to give breaks from sedation ofr neuro checks. -Will get repeat CT head today, if stable may liberalize SBP to 150 and will assess need for more FFP -Will defer to Proof Sorter for nutritional access-consider adding oral hypertensives if able -Repeat CT scan done 10/03 shows small evolution of contusions but overall stable -No sodium goal normal. -Continue strict BP goals 90-140 , continue Cardene/hydralazine PRN -Discussed with Dr. Anderson Subjective: Unable to assess Objective: PERRLA +cough/gag On Precedex-not following commands Withdrawals extremities x4 to painful stim Neuro Check Frequency: per routine Urinary Catheter in Place: Yes Urinary Catheter Indication: Other (Use Comment) Catheter Insertion Date: 10/02/17 - Physician Discussed Patient with Dr.: Other (Dr Anderson) Neurosurgery Physical Exam - Vitals, I&O, Labs I and O 10/06/17 10/07/17 10/08/17 05:59 05:59 05:59 Intake Total 3760 4283 Output Total 1450 1250 Balance 2310 3033 Weight 119.8 kg Intake: IV Intake (ml) 250 IV Infused (ml) 3160 3433 1/2 Ns 1,000 ml @ 100 mls 2192 /hr IV CONT JUANA Rx#: [id number] Dexmedetomidine in 0.9 % 356 179 NaCl 100 ml @ Per Protocol IV CONT JUANA Rx#: [id number] Ns 1,000 ml @ 100 mls/hr 2481 IV CONT JUANA Rx#: [id number] levETIRAcetam 1000MG/NACL 100 100 ml @ 400 mls/hr IV BID JUANA Rx#:[id number] niCARdipine 50 mg In Ns 223 1062 500 ml @ Per Protocol IV CONT JUANA Rx#:[id number] Fresh Frozen Plasma (ml) 600 600 Output: Urine (ml) 1450 1250 Catheter 1450 1250 Other: Number of Stools Catheter 1 Incontinence 2 Vital Signs Temp Pulse Resp BP Pulse Ox 37.8 C 76 22 H 133/58 H 97 10/07/17 06:00 10/07/17 06:00 10/07/17 06:00 10/07/17 06:00 10/07/17 06:00 Laboratory Results 10/05/17 14:34 10/07/17 05:50 ICD10 Worksheet Patient Problems: Problems Problem Status Onset Traumatic intraparenchymal hemorrhage Acute
[2017-10-07] MEDS: INSULIN REGULAR, HUMAN 100 UNIT/1 ML VIAL LOW SC SCH ×3 (07:57→17:57)
[2017-10-07] MEDS: 1/2 NS 1,000 ML IV SCH (07:57)
[2017-10-07] MEDS: PANTOPRAZOLE SODIUM 40 MG VIAL IVP SCH (07:57)
[2017-10-07] MEDS: levETIRAcetam 1000MG/NACL 100 ML IV SCH (07:57)
[2017-10-07] MEDS: FOLIC ACID 1 MG TAB PO SCH (07:58)
[2017-10-07] MEDS: MULTIVITAMINS 1 EACH TAB PO SCH (07:58)
--- NOTE | 2017-10-07 08:35 | PDINTPN ---
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 -repeat CT today * Alcohol intoxication: On admission 10/02. History of alcohol abuse, but apparently has been in an alcohol treatment program. ? acute vs. longstanding relapse, risk for withdrawal is uncertain. -continue CIWA protocol * HTN: Mildly hypertensive now. -continue on Cardene -systolic pressures to remain under 140 * Diabetes- BSs low-[id number] -continue sliding scale * Prophylaxis: PPI. SCDs. No SQ heparin due to ICH. * Anemia: H/H down today. * Hypernatremia: Subjective: Sedated. Poorly responsive. Periods of agitation per nursing. Objective: Vital Signs Temp Pulse Resp BP Pulse Ox 38 C 82 26 H 133/54 H 93 10/07/17 08:00 10/07/17 08:00 10/07/17 08:00 10/07/17 08:00 10/07/17 08:00 Laboratory Results 10/05/17 14:34 10/07/17 05:50 10/06/17 10/07/17 10/08/17 05:59 05:59 05:59 Intake Total 3760 4283 Output Total 1450 1250 Balance 2310 3033 PT 21.6 SEC (12.0-15.0) H 10/07/17 05:50 INR 1.87 (0.83-1.16) H 10/07/17 05:50 - Time Spent With Patient Time Spent With Patient: 35 min of time spent with patient, over 1/2 involved with coordination of care or counseling. Case discussed with nursing. Physical Exam - Physical Exam General Appearance: other (Sedated), No alert EENT: PERRL/EOMI Neck: No lymphadenopathy (R), No lymphadenopathy (L) Respiratory: chest non-tender, lungs clear, normal breath sounds Peripheral Pulses: 2+: carotid (R), carotid (L), femoral (R), femoral (L), dorsalis-pedis (R), dorsalis-pedis (L) Abdomen: normal bowel sounds, non-tender, soft Male Genitalia: deferred Rectal: deferred Skin: normal color, warm/dry Extremities: non-tender Neuro/Psych: No alert ICD10 Worksheet Patient Problems: Problems Problem Status Onset Traumatic intraparenchymal hemorrhage Acute
[2017-10-07] MEDS: D5W 1,000 ML IV SCH ×2 (11:42→20:17)
--- NOTE | 2017-10-07 11:58 | ASMTCMCOM ---
CM Note CM Note Notes: Medical Proxy CM contacted patient's sisterMalka [phone] Address: [address] [place] [phone]. Malka reports that they have a brother, Fernando, who is not interested in knowing about the patient. She said that they are patient's only family and she has no idea who his friends might be. Malka has agreed to be the patient's Medical Proxy. Date Signed: 10/07/2017 11:57 AM Electronically Signed By:Petty Wilde LCSW
--- NOTE | 2017-10-07 12:18 | ASMTCMCOM ---
CM Note CM Note Notes: Patient to have a CT Scan, following some commands, needs a feeding tube. Sister, Malka Bailon gave consent for feeding tube. She reports having a spinal disability, so it's difficult for her to take long rides in the car. She appreciates learning how her brother is doing and would appreciate calls from MD's. She is also interested in participating by phone in a Family Meeting later in the week. Date Signed: 10/07/2017 12:17 PM Electronically Signed By:Petty Wilde LCSW
[2017-10-07] MEDS: THIAMINE HCL 100 MG TAB PO SCH (13:14)
[2017-10-07] MEDS ORDERED: amLODIPine BESYLATE 5 MG TAB PO SCH (14:00)
[2017-10-07] MEDS: amLODIPine BESYLATE 5 MG TAB TUBE SCH (15:37)
--- NOTE | 2017-10-07 16:02 | HOSPPROG ---
Hospitalist Progress Note Assessment/Plan: #New atrial fibrillation: due to acute illness. Now NSR. No AC with SDH. Metoprolol BID #SDH: bilateral frontal/temporal: CTH today stable -Cardene for goal SBP<140, Precedex for sedation. Transfused 2 units FFP #HTN: add Norvasc and uptitrate. Lisinopril would be beneficial with DM once Cr improved #Hypernatremia: Na 150, D5W, repeat BMP this evening #DM: q6hr glucose with TFs #Microcytic anemia: H/H down, likely dilutionsl. No active bleeding here. Rec outpatient colonoscopy #Acute encephalopathy: multifactorial with SDH, possible Etoh w/d -followed some commands this morning #KYLE: monitor closely #Alcohol dependence: Precedex. Hold BZs today to prevent prolonged delirium #Social: lives with brother here in [place] but cannot reach. Sister agreed to be MDPOA #Diet: tube feeds #DVT ppx: SCDs Disp: cont inpatient admission for BP control, neuro checks Subjective: agitated overnight Objective: Vital Signs Temp Pulse Resp BP Pulse Ox 37.3 C 82 21 H 147/51 H 96 10/07/17 15:00 10/07/17 15:00 10/07/17 15:00 10/07/17 15:37 10/07/17 15:00 Laboratory Results 10/05/17 14:34 10/07/17 14:05 10/06/17 10/07/17 10/08/17 05:59 05:59 05:59 Intake Total 3760 4283 Output Total 1450 1250 Balance 2310 3033 PT 21.6 SEC (12.0-15.0) H 10/07/17 05:50 INR 1.87 (0.83-1.16) H 10/07/17 05:50 - Time Spent With Patient Time Spent with Patient: greater than 35 minutes Time Spent with Patient: Greater than 35 minutes spent on this patients care, greater than 50% of time spent counseling, educating, and coordinating care regarding the above mentioned plan. - Physical Exam Constitutional: no apparent distress Eyes: PERRL Ears, Nose, Mouth, Throat: moist mucous membranes Cardiovascular: regular rate and rhythym Respiratory: no respiratory distress Gastrointestinal: normoactive bowel sounds, soft, non-tender abdomen Genitourinary: drew in urethra Skin: warm Musculoskeletal: other (neck collar in place) Psychiatric: encephalopathic ICD10 Worksheet Patient Problems: Problems Problem Status Onset Traumatic intraparenchymal hemorrhage Acute
[2017-10-07] MEDS: hydrALAZINE 20 MG/ML VIAL IVP PRN ×2 (16:29→19:50)
--- NOTE | 2017-10-07 16:36 | WOCRNPDOC ---
WOCRJoe Advanced Assessment Note - Skin Integrity Problem, Advanced Assess Left Jaw Pressure Injury Dressing Type: Open to Air Exudate Amount: Minimal Exudate Characteristic(s): Serous Sandy Wound Tissue: Blanching, Erythema, Non-blanching Wound Bed Constitution: Draining Serous Blister Site Measurement - Head-to-Toe Length X Width X Depth (cm): 1x4.3x0 Pressure Injury Stage: Deep Tissue Injury (DTI), [employer] Related Pressure Injury (C collar) Pressure Injury Present on Admit: No Skin Integrity Problem Comment: Linear pressure injury from plastic edge of C collar pressing on patient's mandible. Patient just switched from a Large size to a Salomon and hopefully this will help. Please cover area with non border mepilex 4x4 foam. Wound care will round again later this week to visualize. RN Marleny in room for care and stabilzed neck and took off collar for wound RN to visualize. Right Jaw Pressure Injury Dressing Type: Open to Air Exudate Amount: None Sandy Wound Tissue: Blanching, Erythema, Non-blanching Site Measurement - Head-to-Toe Length X Width X Depth (cm): 1.2x5x0 Pressure Injury Stage: Deep Tissue Injury (DTI), [employer] Related Pressure Injury (C collar) Pressure Injury Present on Admit: No Skin Integrity Problem Comment: Linear wound from plastic edge of larger c collar pressing along mandible. Left Upper Back Pressure Injury Dressing Type: Open to Air Exudate Amount: None Site Measurement - Head-to-Toe Length X Width X Depth (cm): 6.4x1x0 Pressure Injury Stage: Deep Tissue Injury (DTI), [employer] Related Pressure Injury Skin Integrity Problem Comment: Wound intact at this time. Etiology is the distal portion of C collar pressing on scapula/upper back area. Right Upper Back Pressure Injury Dressing Type: Open to Air Site Measurement - Head-to-Toe Length X Width X Depth (cm): 2x0.3x0 Pressure Injury Stage: Deep Tissue Injury (DTI), [employer] Related Pressure Injury (c collar) Pressure Injury Present on Admit: No Skin Integrity Problem Comment: Wound intact at this time. Etiology is the distal portion of C collar pressing on scapula/upper back area.
[2017-10-07] MEDS: LORazepam 2 MG/ML INJ IVP PRN (17:56)
[2017-10-07] MEDS: levETIRAcetam 500 MG/5 ML UDCUP TUBE SCH (19:50)
[2017-10-07] MEDS: METOPROLOL TARTRATE 25 MG TAB TUBE SCH (19:50)
[2017-10-08] MEDS: INSULIN REGULAR, HUMAN 100 UNIT/1 ML VIAL LOW SC SCH ×4 (00:03→17:13)
[2017-10-08] MEDS: DEXMEDETOMIDINE IN 0.9 % NACL 50 ML IV SCH ×2 (03:10→06:16)
[2017-10-08] MEDS: NS IV SCH ×2 (05:18→09:35)
[2017-10-08] MEDS: NICARDIPINE IV SCH ×2 (05:18→09:35)
[2017-10-08] MEDS: D5W 1,000 ML IV SCH (05:18)
[2017-10-08] MEDS: hydrALAZINE 20 MG/ML VIAL IVP PRN (07:41)
--- NOTE | 2017-10-08 07:48 | NEUSURGPN ---
Assessment/Plan: 62 yo male sp trauma and has R temporal parietal skull fxs with small SDH and bi frontal temporal contusion -INR elevated on admission possibly from ETOH - slowly trending down. Has been given a total of 6 units of FFP. INR 1.87 yesterday, will recheck today -Pt with increased labored breathing this am, pupils pinpoint. Not following commands, precedex just turned off by RN. Will get stat head CT. If patient's neuro status improves while awaiting CT can cancel the scan. -On CIWA. ativan and precedex helping with agitation. -Neuro checks continue q1 today -Neuro: Has been intermittently following commands with decreased Precedex per RN, unable to to appreciate this on exam this am. Continue with precedex. D/w RN we need to give breaks from sedation for neuro checks. -BP goal less than 150, antihypertensives pRN -Will defer to Plant Operations Coordinator for nutritional access-consider adding oral hypertensives if able -Repeat CT scan done 10/07 was stable. -Sodium goal = normal. -Pt seen and discussed with Dr. Anderson Subjective: Unable to obtain Objective: Pt resting in bed Sedated on precedex - RN has just turned off this medication. VSS C collar on Pupils pinpoint Not following commands Not withdrawing from painful stim this am, not arousing with sternal rub Urinary Catheter in Place: Yes Urinary Catheter Indication: Acute Urinary Retention Catheter Insertion Date: 10/02/17 - Physician Discussed Patient with Dr.: Other (Justin) Patient Seen by Dr.: Other (Justin) Neurosurgery Physical Exam - Vitals, I&O, Labs I and O 10/07/17 10/08/17 10/09/17 05:59 05:59 05:59 Intake Total 4283 4935 Output Total 1250 1025 Balance 3033 3910 Weight 124.2 kg Intake: IV Intake (ml) 250 IV Infused (ml) 3433 4559 1/2 Ns 1,000 ml @ 100 mls 2192 /hr IV CONT JUANA Rx#: [id number] D5w 1,000 ml @ 125 mls/hr 2767 IV CONT JUANA Rx#: [id number] Dexmedetomidine in 0.9 % 179 278 NaCl 100 ml @ Per Protocol IV CONT JUANA Rx#: [id number] niCARdipine 50 mg In Ns 1062 1514 500 ml @ Per Protocol IV CONT JUANA Rx#:[id number] Tube Feeding (ml) 226 Tube Flush (ml) 150 Fresh Frozen Plasma (ml) 600 Output: Urine (ml) 1250 1025 Catheter 1250 1025 Other: Number of Stools Catheter 0 Incontinence 2 Vital Signs Temp Pulse Resp BP Pulse Ox 37.1 C 79 26 H 139/88 H 94 10/08/17 06:00 10/08/17 07:00 10/08/17 07:00 10/08/17 07:00 10/08/17 07:00 Laboratory Results 10/05/17 14:34 10/08/17 05:25 ICD10 Worksheet Patient Problems: Problems Problem Status Onset Traumatic intraparenchymal hemorrhage Acute
[2017-10-08] MEDS: levETIRAcetam 500 MG/5 ML UDCUP TUBE SCH ×2 (08:09→19:37)
[2017-10-08] MEDS: METOPROLOL TARTRATE 25 MG TAB TUBE SCH ×2 (08:10→19:37)
[2017-10-08] MEDS: LANSOPRAZOLE SUSP 30MG/10ML UDSYR (Adult) TUBE SCH (08:10)
[2017-10-08] MEDS: FOLIC ACID 1 MG TAB TUBE SCH (08:10)
[2017-10-08] MEDS: amLODIPine BESYLATE 5 MG TAB TUBE SCH (08:10)
[2017-10-08] MEDS: THIAMINE HCL 100 MG TAB TUBE SCH (08:42)
[2017-10-08] MEDS ORDERED: amLODIPine BESYLATE 5 MG TAB TUBE SCH (09:00)
--- NOTE | 2017-10-08 09:08 | PDINTPN ---
Copier Technician Progress Note Assessment/Plan: Assessment/plan: * S/P right temporoparietal non-displaced skull fracture with Bifrontal hemorrhagic contusions, SAH and small subdural/epidural hematoma: Clinically unchanged, with expected depression of mental status. * Alcohol intoxication: On admission 10/02. History of alcohol abuse, but apparently has been in an alcohol treatment program. ? acute vs. longstanding relapse, risk for withdrawal is uncertain. -continue CIWA protocol * Tachypnea-blowing down pCO2. Etiology which is unclear. -will check chest x-ray * HTN: Mildly hypertensive now. -continue on Cardene -systolic pressures to remain under 140 * Diabetes- BSs [id number] -continue sliding scale * Prophylaxis: PPI. SCDs. No SQ heparin due to ICH. * Anemia: H/H down today. * Hypernatremia: Subjective: Obtained. No improvement from mental status standpoint. Tachypnea. Objective: Vital Signs Temp Pulse Resp BP Pulse Ox 37.1 C 81 30 H 147/48 H 96 10/08/17 06:00 10/08/17 08:00 10/08/17 08:00 10/08/17 08:00 10/08/17 08:00 Laboratory Results 10/05/17 14:34 10/08/17 05:25 10/07/17 10/08/17 10/09/17 05:59 05:59 05:59 Intake Total 4283 4935 Output Total 1250 1025 Balance 3033 3910 PT 21.6 SEC (12.0-15.0) H 10/07/17 05:50 INR 1.87 (0.83-1.16) H 10/07/17 05:50 Laboratory Results 10/05/17 14:34 10/08/17 05:25 10/08/17 10/08/17 08:08 05:25 Patient Temperature 37.5 DEGREES DEGREES POC ABG pH 7.44 (7.35 - 7.45) POC ABG pCO2 21 mmHg L mmHg (34 - 38) POC ABG pO2 57 mmHg L mmHg (65 - 75) POC ABG HCO3 14 mEq/L L mEq/L (22 - 26) POC ABG Total CO2 15 mEq/L L mEq/L (23 - 27) POC ABG O2 Sat 90 % L % (92 - 95) POC ABG Base Excess -10.0 mEq/L L mEq/L (-2.5 - 2.5) POC FiO2 21.0000 % % POC Lactic Acid Arter 1.9 mmol/L H mmol/L (0.5 - 1.6) Calcium 7.9 mg/dL L mg/dL (8.5 - 10.4) - Time Spent With Patient Time Spent With Patient: 35 min of time spent with patient, over 1/2 involved with coordination of care or counseling. Case discussed with Nursing and Respiratory therapy Physical Exam - Physical Exam General Appearance: No alert EENT: PERRL/EOMI Neck: other (C collar) Respiratory: lungs clear, other (Acute) Cardiac/Chest: normal peripheral pulses, regular rate, rhythm, systolic murmur Peripheral Pulses: 2+: carotid (R), carotid (L), femoral (R), femoral (L), dorsalis-pedis (R), dorsalis-pedis (L) Abdomen: normal bowel sounds, non-tender, soft Male Genitalia: deferred Rectal: deferred Skin: normal color, warm/dry Extremities: non-tender Neuro/Psych: No alert ICD10 Worksheet Patient Problems: Problems Problem Status Onset Traumatic intraparenchymal hemorrhage Acute
[2017-10-08] MEDS ORDERED: amLODIPine BESYLATE 5 MG TAB TUBE ONE (09:24)
--- NOTE | 2017-10-08 09:27 | HOSPPROG ---
Hospitalist Progress Note Assessment/Plan: #New atrial fibrillation: due to acute illness. Now NSR. No AC with SDH. Metoprolol BID #KYLE: Cr up 1.6 today, check urine lytes, UA #Mild pulm edema: BNP >7000, echo pending. Hold fluids, gentle diuresis #Fever: low-grade, + UA, cultures pending. Ceftriaxone #SDH: bilateral frontal/temporal: CTH today stable -Cardene for goal SBP<140, Precedex for sedation. Transfused 2 units FFP #HTN: increase Norvasc to 10mg. Hold Lisinopril with KYLE. Sched Hydral if not controlled #Hypernatremia: improved with D5W, change to 1/2 NS #DM: q6hr glucose with TFs #Microcytic anemia: H/H down, likely dilutionsl. No active bleeding here. Rec outpatient colonoscopy #Acute encephalopathy: not much improvement. Multifactorial with SDH, Etoh w/d -followed some commands this morning #Alcohol dependence: Precedex. Hold BZs today to prevent prolonged delirium #Social: lives with brother here in [place] but cannot reach. [facility]alk[facility] (sister ) [facility]. Only visitors she wants: family, friend Cirilo #Diet: tube feeds #DVT ppx: SCDs Disp: cont inpatient admission for BP control, neuro checks Critical care time spent: 40 min bedside, reviewing imaging, d/w Dr. Crowe and updating sister Subjective: agitated this morning Objective: Vital Signs Temp Pulse Resp BP Pulse Ox 37.1 C 81 30 H 147/48 H 96 10/08/17 06:00 10/08/17 08:00 10/08/17 08:00 10/08/17 08:00 10/08/17 08:00 Laboratory Results 10/05/17 14:34 10/08/17 05:25 10/07/17 10/08/17 10/09/17 05:59 05:59 05:59 Intake Total 4283 4935 Output Total 1250 1025 Balance 3033 3910 PT 21.6 SEC (12.0-15.0) H 10/07/17 05:50 INR 1.87 (0.83-1.16) H 10/07/17 05:50 - Time Spent With Patient Time Spent with Patient: greater than 35 minutes Time Spent with Patient: Greater than 35 minutes spent on this patients care, greater than 50% of time spent counseling, educating, and coordinating care regarding the above mentioned plan. - Physical Exam Cardiovascular: regular rate and rhythym, edema (+ 2 pitting edema) Respiratory: no respiratory distress Gastrointestinal: normoactive bowel sounds, soft, non-tender abdomen Genitourinary: no bladder fullness Musculoskeletal: other (pulling at NG , C-collar in place) Psychiatric: encephalopathic ICD10 Worksheet Patient Problems: Problems Problem Status Onset Traumatic intraparenchymal hemorrhage Acute
[2017-10-08] MEDS ORDERED: 1/2 NS 1,000 ML IV SCH (09:30)
[2017-10-08 10:12] LABS: INR 1.86 (0.83-1.16); PROTIME(PATIENT) 21.5 SEC (12.0-15.0)
[2017-10-08] MEDS: ACETAMINOPHEN 650 MG/20.3 ML UDCUP TUBE PRN ×2 (12:15→19:37)
[2017-10-08] MEDS ORDERED: FUROSEMIDE 20 MG/2 ML VIAL IVP ONE (15:14)
--- NOTE | 2017-10-08 15:43 | ECHO ---
[email or web address] [address] [address] Main: [phone] Fax: Transthoracic Echocardiogram Name: ANDREW ANTONIO MR#: [id number] Study Date: 10/08/2017 Study Time: 01:25 PM Date of : 1955 Age: 62 year(s) Height: 182.9 cm (72 in.) Weight: 123.83 kg (273 lb.) BSA: 2.43 m2 Gender: Male Examination: Echo Indication: Pt found down, ETOH, Elevated BNP Image Quality: Contrast: Requested by: Shaylee Sumner BP: 125 mmHg/52 mmHg Heart Rate: Rhythm: Normal sinus rhythm Indication: Pt found down, ETOH, Elevated BNP Procedure Staff Sales Representative Adding Machines: Ugo Hunter RDCS Reading Physician: Micky Jara MD Requesting Provider: Conclusions: No pericardial effusion. Normal left ventricular size and function with concentric left ventricular hypertrophy. Ejection fraction 74%. No significant valvular abnormalities by Doppler or 2 dimensional study. Measurements: Chambers Valvular Assessment AV/MV Valvular Assessment TV/PV Normal Normal Normal Name Value Range Name Value Range Name Value Range Ao Precious (MM): 2.8 cm (2.2 cm-3.7 LVOT Vmax: 1.26 m/s (0.7 m/s-1.1 TR Vmax: 3.09 mm/s ( - ) cm) m/s) TR PGmax: 38 mmHg ( - ) IVSd (2D): 1.1 cm (0.6 cm-1.1 MV E Vmax: 1.33 m/s ( - ) syst. PAP: 43 mmHg ( - ) cm) MV A Vmax: 0.77 m/s ( - ) LVDd (2D): 5.9 cm (4.2 cm-5.9 MV E/A: 1.73 ( - ) cm) LVDs (2D): 3.4 cm (2.1 cm-4 cm) LVPWd (2D): 1.1 cm (0.6 cm-1 cm) LVEF (2D): 74 (>=54 %) Continued Measurements: Chambers Valvular Assessment AV/MV Valvular Assessment TV/PV Name Value Name Value Name Value LADs Lon.1 cm MV E/E' Lateral: 8.60 CVP (est.): 5 mmHg LA Area: 22.9 cm2 LA Volume: 72 ml LA Volume Index: 29.6 ml/m2 Patient: ANDREW ANTONIO Study Date: 10/08/2017 Page 1 of 2 01:25 PM Findings: Left Ventricle: Normal size left ventricle. Mild concentric LV hypertrophy. Global hypercontractility of the left ventricle. EF is 74 %. No regional wall motion abnormality. Diastolic dysfunction is present. . Right Ventricle: Normal size right ventricle. Normal RV function. Left Atrium: The left atrium is normal in size. Right Atrium: The right atrium is normal in size. Mitral Valve: The mitral valve is normal in appearance and function. There is no mitral valve regurgitation. Aortic Valve: The aortic valve is tri-leaflet. The aortic valve is normal in appearance and function. Tricuspid Valve: The tricuspid valve is normal in appearance and function. Trivial to mild tricuspid valve regurgitation. The pulmonary artery pressure is normal. Pulmonic Valve: The pulmonic valve is normal in appearance and function. Aorta: The aorta is normal. Pericardium: No pericardial effusion. (No Signature Object) Patient: ANDREW ANTONIO Study Date: 10/08/2017 Page 2 of 2 01:25 PM [id number]
[2017-10-09] MEDS: ACETAMINOPHEN 650 MG/20.3 ML UDCUP TUBE PRN ×3 (04:11→19:44)
[2017-10-09] MEDS: LORazepam 2 MG/ML INJ IVP PRN ×2 (04:12)
[2017-10-09] MEDS: hydrALAZINE 20 MG/ML VIAL IVP PRN ×2 (04:12→10:05)
[2017-10-09] MEDS: INSULIN REGULAR, HUMAN 100 UNIT/1 ML VIAL LOW SC SCH ×4 (06:01→17:40)
[2017-10-09] MEDS: 1/2 NS 1,000 ML IV SCH ×2 (07:13→16:23)
[2017-10-09] MEDS: amLODIPine BESYLATE 5 MG TAB TUBE SCH (07:20)
[2017-10-09] MEDS: levETIRAcetam 500 MG/5 ML UDCUP TUBE SCH ×2 (08:01→21:34)
[2017-10-09] MEDS: METOPROLOL TARTRATE 25 MG TAB TUBE SCH ×2 (08:01→21:34)
[2017-10-09] MEDS: FOLIC ACID 1 MG TAB TUBE SCH (08:01)
[2017-10-09] MEDS: LANSOPRAZOLE SUSP 30MG/10ML UDSYR (Adult) TUBE SCH (08:02)
[2017-10-09] MEDS: THIAMINE HCL 100 MG TAB TUBE SCH (08:02)
--- NOTE | 2017-10-09 08:45 | PDINTPN ---
Section Laborer Progress Note Assessment/Plan: Assessment/plan: * S/P right temporoparietal non-displaced skull fracture with Bifrontal hemorrhagic contusions, SAH and small subdural/epidural hematoma: Clinically unchanged, with expected depression of mental status. * Mental status- no improvement * Fluid overload- improved with diuresis. Echo normal -continue Lasix * Alcohol intoxication: On admission 10/02. History of alcohol abuse, but apparently has been in an alcohol treatment program. ? acute vs. longstanding relapse, risk for withdrawal is uncertain. -continue CIWA protocol * Tachypnea-blowing down pCO2. Etiology which is unclear. Unchanged -chest x-ray with mild fluid overload * HTN: No change -continue on Cardene -systolic pressures to remain under 140 * Diabetes- BSs [id number] -continue sliding scale * Prophylaxis: PPI. SCDs. No SQ heparin due to ICH. * Anemia: H/H down today. * Hypernatremia: Improved * Disposition-slow to improve Subjective: Obtunded, poorly arousable Objective: Vital Signs Temp Pulse Resp BP Pulse Ox 38.1 C 87 34 H 163/56 H 92 10/09/17 08:00 10/09/17 08:00 10/09/17 08:00 10/09/17 08:00 10/09/17 08:00 Laboratory Results 10/09/17 04:20 10/09/17 04:20 10/08/17 10/09/17 10/10/17 05:59 05:59 05:59 Intake Total 4935 2929 Output Total 1025 1500 Balance 3910 1429 PT 21.5 SEC (12.0-15.0) H 10/08/17 09:50 INR 1.86 (0.83-1.16) H 10/08/17 09:50 Chest [id number] by myself. There is mild diffuse pulmonary edema. Cardiac silhouette is enlarged. - Time Spent With Patient Time Spent With Patient: 35 min of time spent with patient, over 1/2 involved with coordination of care or counseling. Case discussed with Respiratory therapy and Nursing Physical Exam - Physical Exam General Appearance: unresponsive, No alert EENT: PERRL/EOMI Neck: other (C collar) Respiratory: chest non-tender, rales (Bibasilar), other (Tachypnea), No wheezing Cardiac/Chest: normal peripheral pulses, regular rate, rhythm Peripheral Pulses: 2+: carotid (R), carotid (L), femoral (R), femoral (L), dorsalis-pedis (R), dorsalis-pedis (L) Abdomen: normal bowel sounds, non-tender, soft Male Genitalia: deferred Rectal: deferred Skin: normal color, warm/dry Extremities: normal range of motion, non-tender, normal inspection, normal capillary refill Neuro/Psych: No alert ICD10 Worksheet Patient Problems: Problems Problem Status Onset Traumatic intraparenchymal hemorrhage Acute
--- NOTE | 2017-10-09 08:53 | SOAPPROG ---
SOAP Progress Note Assessment/Plan: Assessment: 62 yo male sp trauma and has R temporal parietal skull fxs with small SDH and bi frontal temporal contusion. ETOH withdrawal. -INR elevated on admission possibly from ETOH- currently 1.8. - Has been given a total of 6 units of FFP. -Pt with ongoing labored breathing this am. Per RN, Dr. Crowe aware. - Not following commands. He received 2mg of Ativan at 0412 today. -On CIWA. ativan and precedex helping with agitation. -Neuro checks continue q1 today -Neuro: eyes open but not FC. - D/w RN we need to give breaks from sedation for neuro checks. -BP goal less than 150, antihypertensives PRN -Dobhoff in place -Repeat CT scan done 10/07 was stable. -Sodium goal = normal. -Discussed with Dr. Anderson.He does not think CTH is indicated at this time given pt's ETOH w/d and recent Ativan. Will follow exam today. Subjective: Lying in bed, eyes open, mildly labored breathing. Pt was restless overnight and did receive 2mg of Ativan at 0412. He is not following commands or moving limbs spontaneously. Objective: Vital Signs Temp Pulse Resp BP Pulse Ox 38.1 C 87 34 H 163/56 H 92 10/09/17 08:00 10/09/17 08:00 10/09/17 08:00 10/09/17 08:00 10/09/17 08:00 Laboratory Results 10/09/17 04:20 10/09/17 04:20 10/08/17 10/09/17 10/10/17 05:59 05:59 05:59 Intake Total 4935 2929 Output Total 1025 1500 Balance 3910 1429 PT 21.5 SEC (12.0-15.0) H 10/08/17 09:50 INR 1.86 (0.83-1.16) H 10/08/17 09:50 Neuro: Eyes open. PERRLA. Moaning not following commands Moves feet to plantar stimulation Prior to Ativan dose per RN patient was grabbing purposefully for NG tube Urine and blood CX pending. ICD10 Worksheet Patient Problems: Problems Problem Status Onset Traumatic intraparenchymal hemorrhage Acute
[2017-10-09] MEDS ORDERED: METOPROLOL TARTRATE 25 MG TAB TUBE ONE (11:39)
[2017-10-09] MEDS ORDERED: ALTEPLASE 2 MG VIAL IVP PRN (11:42)
--- NOTE | 2017-10-09 11:42 | HOSPPROG ---
Hospitalist Progress Note Assessment/Plan: #New atrial fibrillation: NSR now. BB, no AC with SDH #KYLE: Cr 1.8. Intravascularly dry with diarrhea. Dose albumin, D5W. Stop saline since free-spacing. Discussed with Dr. Zacarias. If not improved, needs formal renal consult #Volume overload: >20kg since admission. Diastolic HF on echo. Diuresis once Cr improved, stable on RA #Mixed metabolic acidosis/resp alkalosis: repeat ABG, check urine Cl. Give albumin #Fever: Enterococcus UTI. Change to Vanc, renally-dosed #SDH: bilateral frontal/temporal: repeat CTH stable #HTN: increase Norvasc 10mg, hydral 25mg TID. Hold ALIE-I for KYLE #Hypernatremia: change to D5W, free water boluses with TFs #DM: q6hr glucose with TFs #Microcytic anemia: H/H. No active bleeding here. Rec outpatient colonoscopy #Acute encephalopathy: not much improvement. Multifactorial with SDH, Etoh w/d. Hold sedative medications and reassess #Alcohol dependence: monitor off benzos to assess MS #Social: lives with brother here in [place] but cannot reach. Malka (sister ) is [facility]. Only visitors she wants: family, friend Cirilo #Diet: tube feeds #DVT ppx: SCDs 50 mii Disp: cont inpatient admission for BP control, neuro checks Critical care time spent: 45 min bedside, reviewing labs. Consulting with Dr. Zacarias, d/w Dr. Crowe Subjective: not following commands Objective: Vital Signs Temp Pulse Resp BP Pulse Ox 38.1 C 88 36 H 157/56 H 93 10/09/17 08:00 10/09/17 11:00 10/09/17 11:00 10/09/17 11:00 10/09/17 11:00 Laboratory Results 10/09/17 04:20 10/09/17 04:20 10/08/17 10/09/17 10/10/17 05:59 05:59 05:59 Intake Total 8814 2929 Output Total 1025 1500 Balance 3910 1429 PT 21.5 SEC (12.0-15.0) H 10/08/17 09:50 INR 1.86 (0.83-1.16) H 10/08/17 09:50 - Time Spent With Patient Time Spent with Patient: greater than 35 minutes Time Spent with Patient: Greater than 35 minutes spent on this patients care, greater than 50% of time spent counseling, educating, and coordinating care regarding the above mentioned plan. ICD10 Worksheet Patient Problems: Problems Problem Status Onset Traumatic intraparenchymal hemorrhage Acute
[2017-10-09] MEDS: hydrALAZINE 10 MG TAB TUBE SCH ×2 (15:01→22:28)
--- NOTE | 2017-10-09 15:29 | ASMTCMCOM ---
CM Note CM Note Notes: Spoke with Malka, patient's sister today and she states she does not need the family meeting by phone since the nurses have been keeping her up to date. She will call us if she needs one in the future. CM will follow. Date Signed: 10/09/2017 03:28 PM Electronically Signed By:Anabel Ortiz LCSW
[2017-10-09] MEDS ORDERED: VANCOMYCIN HCL/NORMAL SALINE 250 ML IV ONE (16:22)
[2017-10-09] MEDS: NICARDIPINE IV SCH (16:23)
[2017-10-09] MEDS: NS IV SCH (16:23)
[2017-10-09] MEDS ORDERED: ALBUMIN 25% 50 ML IV ONE (16:40)
[2017-10-09] MEDS: D5W 1,000 ML IV SCH (16:55)
[2017-10-09] MEDS: VANCOMYCIN HCL/NORMAL SALINE 250 ML IV SCH (17:20)
[2017-10-09] MEDS: HYDROmorphONE/DILAUDID 1 MG/ML INJ IVP PRN (23:50)
[2017-10-10] MEDS: D5W 1,000 ML IV SCH (02:18)
[2017-10-10] MEDS: VANCOMYCIN HCL/NORMAL SALINE 250 ML IV SCH (04:29)
[2017-10-10] MEDS: INSULIN REGULAR, HUMAN 100 UNIT/1 ML VIAL LOW SC SCH ×4 (04:29→18:00)
--- NOTE | 2017-10-10 07:06 | NEUSURGPN ---
Assessment/Plan: Assessment: 62 yo male sp trauma and has R temporal parietal skull fxs with small SDH and bi frontal temporal contusion. ETOH withdrawal. -INR elevated on admission possibly from ETOH- currently 1.86 on 10/08, has been given a total of 6 units of FFP. -Pt with ongoing labored breathing this am. Per RN, Dr. Crowe aware. -Not following commands. He received IV dilaudid appx 3 am today -On CIWA. ativan and precedex helping with agitation - try to limit sedatives -Neuro checks continue q1 today -Neuro: eyes open but not FC. -D/w RN we need to give breaks from sedation for neuro checks. -BP goal less than 150, antihypertensives PRN -Dobhoff in place -Has been on Keppra x 1 week. Will stop this. -C collar on. Unable to clear C spine d/t neuro status -Repeat CT scan done 10/07 was stable. -Sodium goal = normal. 147 this am. -Discussed with Dr. Anderson. He does not think CTH is indicated at this time given pt's ETOH w/d, hepatic encephalopathy, diffuse TBI. Will follow exam today. Subjective: Unable to obtain. Chart reviewed. No overnight events per RN. Objective: Pt sleeping in bed VSS C collar on Pupils equal, not tracking Grunts in response to painful stim, maex4 in response to painful stim not following commands Urinary Catheter in Place: No Catheter Insertion Date: 10/02/17 - Physician Discussed Patient with Dr.: Other (Justin) Neurosurgery Physical Exam - Vitals, I&O, Labs I and O 10/09/17 10/10/17 10/11/17 05:59 05:59 05:59 Intake Total 2929 6383 Output Total 1500 1165 Balance 1429 5218 Weight 128 kg Intake: IV Intake (ml) 50 IV Infused (ml) 1399 3167 1/2 Ns 1,000 ml @ 100 mls 767 /hr IV CONT JUANA Rx#: [id number] 1/2 Ns 1,000 ml @ 100 mls 770 /hr IV CONT JUANA Rx#: [id number] D5w 1,000 ml @ 125 mls/hr 1818 IV CONT JUANA Rx#: [id number] niCARdipine 50 mg In Ns 579 500 ml @ Per Protocol IV CONT JUANA Rx#:[id number] niCARdipine/NACL 200 ml @ 632 Titrate IV CONT JUANA Rx#: [id number] Tube Feeding (ml) 1130 1966 Tube Flush (ml) 400 1200 Output: Urine (ml) 1500 1165 Catheter 1500 850 Incontinence 315 Other: Number of Stools Incontinence 3 0 Vital Signs Temp Pulse Resp BP Pulse Ox 37 C 63 28 H 142/53 H 97 10/10/17 06:00 10/10/17 06:00 10/10/17 06:00 10/10/17 06:00 10/10/17 06:00 Laboratory Results 10/09/17 04:20 10/10/17 05:50 ICD10 Worksheet Patient Problems: Problems Problem Status Onset Traumatic intraparenchymal hemorrhage Acute
[2017-10-10] MEDS: THIAMINE HCL 100 MG TAB TUBE SCH (08:06)
[2017-10-10] MEDS: LANSOPRAZOLE SUSP 30MG/10ML UDSYR (Adult) TUBE SCH (08:06)
[2017-10-10] MEDS: hydrALAZINE 10 MG TAB TUBE SCH ×3 (08:06→21:40)
[2017-10-10] MEDS: FOLIC ACID 1 MG TAB TUBE SCH (08:07)
[2017-10-10] MEDS: METOPROLOL TARTRATE 25 MG TAB TUBE SCH ×2 (08:07→21:39)
--- NOTE | 2017-10-10 09:10 | PDINTPN ---
Sex Crimes Detective Progress Note Assessment/Plan: Assessment/plan: * S/P right temporoparietal non-displaced skull fracture with Bifrontal hemorrhagic contusions, SAH and small subdural/epidural hematoma * Mental status- no improvement * Fluid overload- improved with diuresis. Echo normal -hold further diuresis for now * Acute renal failure-creatinine up to 2.1 -consider nephrology consult. -hold further diuresis * Alcohol intoxication: On admission 10/02. History of alcohol abuse, but apparently has been in an alcohol treatment program. ? acute vs. longstanding relapse, risk for withdrawal is uncertain. -continue CIWA protocol * Tachypnea-blowing down pCO2. Etiology which is unclear. Unchanged -chest x-ray with mild fluid overload * HTN: Controlled -continue on Cardene -systolic pressures to remain under 140 * Diabetes- well controlled -continue sliding scale * Prophylaxis: PPI. SCDs. No SQ heparin due to ICH. * Anemia: H/H down today. * Hypernatremia: Improved * Disposition-slow to improve Subjective: No change in altered mental status. Nonverbal. Not waking up. Objective: Vital Signs Temp Pulse Resp BP Pulse Ox 37 C 66 33 H 132/59 H 91 L 10/10/17 06:00 10/10/17 08:07 10/10/17 07:00 10/10/17 08:07 10/10/17 07:00 Laboratory Results 10/09/17 04:20 10/10/17 05:50 10/09/17 10/10/17 10/11/17 05:59 05:59 05:59 Intake Total 2929 6383 Output Total 1500 1165 Balance 1429 5218 PT 21.5 SEC (12.0-15.0) H 10/08/17 09:50 INR 1.86 (0.83-1.16) H 10/08/17 09:50 - Time Spent With Patient Time Spent With Patient: 35 min of time spent with patient, over 1/2 involved with coordination of care or counseling. Case discussed with nursing Physical Exam - Physical Exam General Appearance: no apparent distress, obtunded, unresponsive, No alert EENT: PERRL/EOMI Neck: other (C collar) Respiratory: rhonchi (Few basilar), No respiratory distress, No wheezing Cardiac/Chest: normal peripheral pulses, regular rate, rhythm Peripheral Pulses: 2+: carotid (R), carotid (L), femoral (R), femoral (L), dorsalis-pedis (R), dorsalis-pedis (L) Abdomen: normal bowel sounds, non-tender, soft Male Genitalia: deferred Rectal: deferred Skin: normal color, warm/dry Extremities: non-tender Neuro/Psych: No alert ICD10 Worksheet Patient Problems: Problems Problem Status Onset Traumatic intraparenchymal hemorrhage Acute
[2017-10-10] MEDS ORDERED: D5W NS W/ 20 KCl/L 1,000 ML IV SCH (11:00)
--- NOTE | 2017-10-10 12:13 | WOCRNPDOC ---
WOJoe Advanced Assessment Note - Skin Integrity Problem, Advanced Assess Left Jaw Pressure Injury Dressing Type: Mepilex, Non-Bordered Foam Dressing Description: Clean/Dry, Intact Exudate Amount: Scant Exudate Color: Yellow Exudate Characteristic(s): Dried, Serosanguinous Integumentary Issue Intervention: Visualized Under Dressing Sandy Wound Tissue: Erythema, Swollen Sandy Wound Swelling: Moderate Wound Bed Color: Rector, Red Wound Bed Constitution: Red/Rector - Non Granular Tissue (100%) Site Measurement - Head-to-Toe Length X Width X Depth (cm): 1.1x0.8x0.1 Pressure Injury Stage: Stage 2, Granite Cutter Related Pressure Injury Skin Integrity Problem Comment: lead shipper related partial thickness pressure injury. Patient responsive only to pain stimulus from KATHIE Bolaños and KATHIE Umanzor. Patient has generalized edema, including to torso, head, and neck. Patient is obtunded and was leaning heavily to left side, placing more pressure on patient's left mandible and upper back. KATHIE Bolaños and KATHIE Umanzor both assisted in sitting up patient and positioning of patient in order to visualize wound. Wound bed cleaned with normal saline and patted dry. Wound may continue to devolve from depp tissue injury. Please reconsult if wound worsens. Wound Care will round again next week. Right Jaw Pressure Injury Dressing Type: Mepilex, Non-Bordered Foam Dressing Description: Clean/Dry, Intact Exudate Amount: None Integumentary Issue Intervention: Visualized Under Dressing Sandy Wound Tissue: Swollen Sandy Wound Swelling: Moderate Site Measurement - Head-to-Toe Length X Width X Depth (cm): 1.2x5x0 Pressure Injury Stage: Deep Tissue Injury (DTI), Granite Cutter Related Pressure Injury Skin Integrity Problem Comment: lead shipper related deep tissue injury from cervical collar. Wound has not changed since previous assessment. KATHIE Bolaños handing over care to KATHIE Umanzor, both present in room for care. Skin is still intact. Please reconsult Wound Care if wound opens or devolves. Wound care will round again next week. Left Upper Back Pressure Injury Dressing Type: Allevyn Life Dressing Description: Clean/Dry, Intact Exudate Amount: Minimal Exudate Color: Reddish/Yellow Exudate Characteristic(s): Serosanguinous Integumentary Issue Intervention: Dressing Changed Sandy Wound Tissue: Erythema, Swollen Sandy Wound Swelling: Moderate Wound Bed Color: Rector, Red Wound Bed Constitution: Red/Rector - Non Granular Tissue Site Measurement - Head-to-Toe Length X Width X Depth (cm): 0.8x1.2x0.1 medial opening, 0.4x0.4x0.1 lateral opening Pressure Injury Stage: Stage 2, Granite Cutter Related Pressure Injury Skin Integrity Problem Comment: lead shipper related pressure injury from cervical collar with 2 partial thickness openings along deep tissue injury. The medial partial thickness opening measures approximately 0.8x1.2x0.1. The deep tissue injury is approximately 6.5x1.2x0. Wound bed cleaned with normal saline and patted dry with gauze. Wound care will round again next week. Right Upper Back Pressure Injury Dressing Type: Allevyn Life Dressing Description: Clean/Dry, Intact Exudate Amount: None Integumentary Issue Intervention: Visualized Under Dressing Site Measurement - Head-to-Toe Length X Width X Depth (cm): 2x0.2x0 Pressure Injury Stage: Deep Tissue Injury (DTI), Granite Cutter Related Pressure Injury Skin Integrity Problem Comment: Wound is unchanged from previous assessment. Skin is intact. Please reconsult if wound opens or devolves. Wound care will round again next week.
--- NOTE | 2017-10-10 13:26 | HOSPPROG ---
Hospitalist Progress Note Assessment/Plan: #New atrial fibrillation: NSR now. BB, no AC with SDH #KYLE: Cr 1.8. Intravascularly dry with diarrhea. Dose albumin, D5W. Stop saline since free-spacing. Previously d/w with Dr. Zacarias -Cr is worse today -will hold off on further diuresis -May need albumin, BP is currently ok #Volume overload: >20kg since admission. Diastolic HF on echo. Diuresis once Cr improved, stable on RA -would give Lasix with Albumin once Cr is improving #Mixed metabolic acidosis/resp alkalosis: repeat ABG, check urine Cl. Give albumin #Fever: Enterococcus UTI. cont Vanc #SDH: bilateral frontal/temporal: repeat CTH stable #HTN: increase Norvasc 10mg, hydral 25mg TID. Hold ALIE-I for KYLE -goal BP is less than 150mmHg per NS #Hypernatremia: -free water boluses with TFs -change IVF to d51/2NS #DM: q6hr glucose with TFs -Hyperglycemia noted -check A1C -cont ISS #Microcytic anemia: H/H. No active bleeding here. Rec outpatient colonoscopy #Acute encephalopathy: not much improvement. Multifactorial with SDH, Etoh w/d. Hold sedative medications and reassess -Traumatic Brain Injury #Alcohol dependence: monitor off benzos to assess MS #Social: lives with brother here in [place] but cannot reach. Malka (sister ) is [facility]. Only visitors she wants: family, friend Cirilo #Diet: tube feeds #DVT ppx: SCDs Disp: cont inpatient admission for BP control, neuro checks Plan: -Cr and BUN is worse likely due to diuresis. He is getting both IVF and fluids per tube. Will hold diuresis today. -He has pedal edema and signs of volume overload including pulm vascular congestion. Will monitor today. May need Albumin vs albumin/Lasix -Cont Vancomycin for Enterococcus UTI -Check ammonia, although encephalopathy is likely as result of TBI -Cont tube feeds -Cont BP mgmt with goals per above -recheck BMP, Cr now total critical care time spent on the mgmt of this patient with volume overload , KYLE, and encephalopathy is 40 minutes. D/W ICU staff. Subjective: does not follow commands. Objective: Vital Signs Temp Pulse Resp BP Pulse Ox 36.9 C 59 L 32 H 151/64 H 93 10/10/17 13:00 10/10/17 13:00 10/10/17 13:00 10/10/17 13:00 10/10/17 13:00 Laboratory Results 10/09/17 04:20 10/10/17 05:50 10/09/17 10/10/17 10/11/17 05:59 05:59 05:59 Intake Total 2929 6383 Output Total 1500 1165 125 Balance 1429 5218 -125 PT 21.5 SEC (12.0-15.0) H 10/08/17 09:50 INR 1.86 (0.83-1.16) H 10/08/17 09:50 - Physical Exam Constitutional: no apparent distress Eyes: PERRL Ears, Nose, Mouth, Throat: moist mucous membranes Cardiovascular: regular rate and rhythym, edema Respiratory: no respiratory distress, reduced air movement Gastrointestinal: normoactive bowel sounds, soft, non-tender abdomen Skin: warm Neurologic: AAOx3 Psychiatric: encephalopathic Lymph, Heme, Immunologic: No petechiae ICD10 Worksheet Patient Problems: Problems Problem Status Onset Traumatic intraparenchymal hemorrhage Acute
[2017-10-10] MEDS ORDERED: D5W 1/2 NS W/ 20 KCl/L 1,000 ML IV SCH (13:30)
[2017-10-10] MEDS ORDERED: ALBUMIN 25% 50 ML IV ONE (13:47)
[2017-10-10] MEDS ORDERED: NS 500 ML IV ONE (15:11)
[2017-10-10 16:35] LABS: CREATINE KINASE 76 IU/L (0-224)
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
[2017-10-10] MEDS ORDERED: VANCOMYCIN HCL/NORMAL SALINE 250 ML IV ONE (17:00)
[2017-10-10 17:34] LABS: PLATELET COUNT 168 10^3/uL (150-400)
[2017-10-11] MEDS: INSULIN REGULAR, HUMAN 100 UNIT/1 ML VIAL LOW SC SCH ×3 (01:04→12:23)
[2017-10-11 06:04] LABS: PLATELET COUNT 136 10^3/uL (150-400)
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
[2017-10-11] MEDS: METOPROLOL TARTRATE 25 MG TAB TUBE SCH ×2 (08:18→21:53)
[2017-10-11] MEDS: THIAMINE HCL 100 MG TAB TUBE SCH (08:18)
[2017-10-11] MEDS: hydrALAZINE 10 MG TAB TUBE SCH ×3 (08:18→21:52)
[2017-10-11] MEDS: LANSOPRAZOLE SUSP 30MG/10ML UDSYR (Adult) TUBE SCH (08:19)
[2017-10-11] MEDS: FOLIC ACID 1 MG TAB TUBE SCH (08:24)
--- NOTE | 2017-10-11 09:11 | ECHO ---
[email or web address] [address] [address] Main: [phone] Fax: Transthoracic Echocardiogram Name: ANDREW ANTONIO MR#: [id number] Study Date: 10/11/2017 Study Time: 07:42 AM Date of : 1955 Age: 62 year(s) Height: 182.9 cm (72 in.) Weight: 127.91 kg (282 lb.) BSA: 2.47 m2 Gender: Male Examination: Echo Indication: F/U Cardiomegaly, Pulmonary Edema, LE Edema Image Quality: Contrast: Requested by: Lisbet Khan BP: 139 mmHg/53 mmHg Heart Rate: Rhythm: Indication: F/U Cardiomegaly, Pulmonary Edema, LE Edema Procedure Staff Pump Mechanic: Ugo Hunter RDCS Reading Physician: Dewayne Erwin MD Requesting Provider: Conclusions: Left ventricle upper limits of normal. Mild concentric LV hypertrophy. Global hypercontractility of the left ventricle. EF is 86 %. The left atrium is mildly dilated. The mitral valve is normal in appearance and function. The aortic valve is tri-leaflet and functions normally. The tricuspid valve is normal in appearance and function. The pulmonary artery pressure is mild to moderately increased. Pulmonary valve not well visualized. Compared to the previous exam of 10/08/17 there has been a increase in the pulmonary pressures. The LV remains hyperdynamic.. Measurements: Chambers Valvular Assessment AV/MV Valvular Assessment TV/PV Normal Normal Normal Name Value Range Name Value Range Name Value Range Ao Precious (MM): 2.9 cm (2.2 cm-3.7 AV Vmax: 2.12 m/s (1 m/s-1.7 TR Vmax: 3.31 mm/s ( - ) cm) m/s) TR PGmax: 44 mmHg ( - ) IVSd (2D): 1.0 cm (0.6 cm-1.1 AV maxP mmHg ( - ) syst. PAP: 54 mmHg ( - ) cm) LVOT Vmax: 1.50 m/s (0.7 m/s-1.1 PV Vmax: 1.29 m/s (0.6 m/s-0.9 LVDd (2D): 6.0 cm (4.2 cm-5.9 m/s) m/s) cm) MV E Vmax: 1.31 m/s ( - ) PV PGmax: 7 mmHg ( - ) LVDs (2D): 2.6 cm (2.1 cm-4 MV A Vmax: 0.84 m/s ( - ) cm) MV E/A: 1.56 ( - ) LVPWd (2D): 1.0 cm (0.6 cm-1 cm) LVEF (2D): 86 (>=54 %) RVDd(2D): 5.2 cm (1.9 cm-3.8 cmmm) Patient: ANDREW ANTONIO Study Date: 10/11/2017 Page 1 of 2 07:42 AM Continued Measurements: Chambers Valvular Assessment AV/MV Valvular Assessment TV/PV Name Value Name Value Name Value LADs: 3.7 cm MV E' Septal: 0.07 m/s CVP (est.): 10 mmHg LADs Lon.8 cm MV E/E' Septal: 18.70 LA Area: 23.9 cm2 MV E/E' Lateral: 34.50 LA Volume: 99 ml LA Volume Index: 40.1 ml/m2 Findings: Left Ventricle: Left ventricle upper limits of normal. Mild concentric LV hypertrophy. Global hypercontractility of the left ventricle. EF is 86 %. No regional wall motion abnormality. Diastolic dysfunction is present. . Right Ventricle: Normal size right ventricle. Normal RV function. Left Atrium: The left atrium is mildly dilated. Right Atrium: The right atrium is normal in size. Mitral Valve: The mitral valve is normal in appearance and function. There is no mitral valve regurgitation. Aortic Valve: The aortic valve is tri-leaflet. The aortic valve is tri-leaflet and functions normally. Tricuspid Valve: The tricuspid valve is normal in appearance and function. The pulmonary artery pressure is mild to moderately increased. Pulmonic Valve: Pulmonary valve not well visualized. Aorta: The aorta is normal. Pericardium: No pericardial effusion. Exam Comments: Compared to the previous exam of 10/08/17 there has been a increase in the pulmonary pressures. The LV remains hyperdynamic.. (No Signature Object) Patient: ANDREW ANTONIO Study Date: 10/11/2017 Page 2 of 2 07:42 AM [id number]
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
--- NOTE | 2017-10-11 13:46 | SOAPPROG ---
SOAP Progress Note Assessment/Plan: Assessment: 1. arf: severely prerenal urinary indices but massively overloaded. Echo with hyperdynamic LV, no comment on dilated RV. LFT's essentially normal but likely some element of liver disease given INR. Rec'd single dose of iv lasix 2 days ago and volume yesterday, neither of which appear to have altered course, though creat increased more today s/p volume yesterday. I question if he could be essentially abdominal compartment syndrome from overload, will check bladder pressure. No indication for hd yet, most likely to develop would be volume. Will challenge with high-dose diuretics and observe response to this. If he continues to decline I think sig discussion should be had re: goals of care prior to proceeding with hd. 2. Overload: massively overloaded but hyperdynamic LV. Will try high-dose diuretics as above. 3. Hyperphos: likely sequela of prerenal state and aggressive proximal tubular reabsorption. Now on renal TF's. 4. Head trauma: doing poorly overall, would stop to consider goals of care prior to dialyzing as above. Plan: 10/11/17 13:39 Subjective: Moans/grunts but no meaningful responses. Off nicardipine currently. Objective: Vital Signs Temp Pulse Resp BP Pulse Ox 36.4 C 58 L 30 H 119/60 93 10/11/17 10:00 10/11/17 12:00 10/11/17 12:00 10/11/17 12:00 10/11/17 12:00 Microbiology 10/08/17 15:15 Urine Culture - Final Urine,Catheterized Enterococcus Faecalis One [place] Type Laboratory Results 10/11/17 05:50 10/11/17 05:50 10/10/17 10/11/17 10/12/17 05:59 05:59 05:59 Intake Total 6383 2177 Output Total 1165 520 Balance 5218 1657 PT 21.5 SEC (12.0-15.0) H 10/08/17 09:50 INR 1.86 (0.83-1.16) H 10/08/17 09:50 Physical Exam - Physical Exam General Appearance: obtunded, obese Respiratory: other (good air entry anteriorly, bs obscured by moaning) Cardiac/Chest: regular rate, rhythm Abdomen: normal bowel sounds, other (obese, +abd wall edema; moans to palpation) Extremities: swelling (++LE/dependent edema; feet warm) ICD10 Worksheet Patient Problems: Problems Problem Status Onset Traumatic intraparenchymal hemorrhage Acute
--- NOTE | 2017-10-11 13:58 | HOSPPROG ---
Hospitalist Progress Note Assessment/Plan: #New atrial fibrillation: NSR now. BB, no AC with SDH -decrease Metoprolol to 12.5 mg bid given slight bradycardia #coagulopathy, likely from liver disease #KYLE: -Nephrology following -will get trial of high dose Lasix today + Zaroxolyn #Volume overload: >20kg since admission. Diastolic HF on echo. Diuresis once Cr improved, stable on RA #Mixed metabolic acidosis/resp alkalosis: #Fever: Enterococcus UTI. -change Vanco to Ancef given sensitivities #SDH: bilateral frontal/temporal: repeat CTH stable #HTN: increase Norvasc 10mg, hydral 25mg TID, Metoprolol 12.5mg bid. Hold ALIE-I for KYLE -goal BP is less than 150mmHg per NS -monitor closely for hypotension given Lasix per above #Hypernatremia: -free water boluses with TFs #DM: q6hr glucose with TFs -Hyperglycemia noted -cont ISS, but will increased to high dose -A1C ordered and pending. May need long acting insulin pending studies and clinical course #Microcytic anemia: H/H. No active bleeding here. Rec outpatient colonoscopy #Acute encephalopathy: not much improvement. Multifactorial -Traumatic Brain Injury vs hepatic encephalopathy vs other vs combination -trial of Lactulose #Alcohol dependence: monitor off benzos to assess MS #Social: lives with brother here in [place] but cannot reach. Malka (sister ) is MDPOA. Only visitors she wants: family, friend Cirilo #Diet: tube feeds #DVT ppx: SCDs Disp: cont inpatient admission for BP control, neuro checks Subjective: encephalopathic. VSS. Cr has increased. Minimal urine output Objective: Vital Signs Temp Pulse Resp BP Pulse Ox 36.4 C 58 L 30 H 119/60 93 10/11/17 10:00 10/11/17 12:00 10/11/17 12:00 10/11/17 12:00 10/11/17 12:00 Microbiology 10/08/17 15:15 Urine Culture - Final Urine,Catheterized Enterococcus Faecalis One [place] Type Laboratory Results 10/11/17 05:50 10/11/17 05:50 10/10/17 10/11/17 10/12/17 05:59 05:59 05:59 Intake Total 6383 2177 Output Total 1165 520 Balance 5218 1657 PT 21.5 SEC (12.0-15.0) H 10/08/17 09:50 INR 1.86 (0.83-1.16) H 10/08/17 09:50 - Physical Exam Constitutional: no apparent distress Eyes: PERRL Ears, Nose, Mouth, Throat: moist mucous membranes Cardiovascular: regular rate and rhythym, edema Respiratory: no respiratory distress, reduced air movement Gastrointestinal: normoactive bowel sounds, soft, non-tender abdomen Skin: warm Neurologic: No AAOx3 Psychiatric: encephalopathic Lymph, Heme, Immunologic: No petechiae ICD10 Worksheet Patient Problems: Problems Problem Status Onset Traumatic intraparenchymal hemorrhage Acute
[2017-10-11] MEDS: FUROSEMIDE 100 MG/10 ML VIAL IVP SCH ×2 (14:15→21:53)
[2017-10-11] MEDS: HYDROmorphONE/DILAUDID 1 MG/ML INJ IVP PRN (14:16)
[2017-10-11] MEDS: LACTULOSE 20 GM/30 ML UDCUP TUBE SCH ×2 (15:42→21:53)
[2017-10-11] MEDS: METOLAZONE 5 MG TAB PO SCH (15:42)
--- NOTE | 2017-10-11 15:49 | ASMTCMCOM ---
CM Note CM Note Notes: PT/OT are recommending SNF for patient at d/c. Patient's sister Malka will need to choose facilities she is interested in. Her number is [phone]. CM will follow. Date Signed: 10/11/2017 03:49 PM Electronically Signed By:Anabel Ortiz LCSW
[2017-10-11] MEDS: INSULIN LISPRO 100 UNIT/ML SC SCH (18:23)
[2017-10-12] MEDS: HYDROmorphONE/DILAUDID 1 MG/ML INJ IVP PRN ×3 (00:08→17:40)
[2017-10-12 03:33] LABS: INR 1.84 (0.83-1.16); PROTIME(PATIENT) 21.3 SEC (12.0-15.0)
[2017-10-12 03:53] LABS: PLATELET COUNT 102 10^3/uL (150-400)
[2017-10-12] MEDS: FUROSEMIDE 100 MG/10 ML VIAL IVP SCH ×3 (05:40→22:00)
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
[2017-10-12] MEDS: INSULIN LISPRO 100 UNIT/ML SC SCH ×3 (08:58→18:20)
--- NOTE | 2017-10-12 09:03 | PDINTPN ---
Photographer Apprentice Lithographic Progress Note Assessment/Plan: Assessment/plan: * S/P right temporoparietal non-displaced skull fracture with Bifrontal hemorrhagic contusions, SAH and small subdural/epidural hematoma * Mental status- still no improvement. On lactulose for mildly elevated ammonia * Nausea and vomiting-query possible aspiration. -placed NG tube * Fluid overload- improved with diuresis. Echo normal -hold further diuresis for now * Acute renal failure-creatinine up to 2.6 -per nephrology * Respiratory-improved. Tachypnea improved. Off supplemental oxygen at this time. -check chest x-ray * HTN: Controlled -continue on Cardene -systolic pressures to remain under 140 * Diabetes- well controlled -continue sliding scale * Prophylaxis: PPI. SCDs. No SQ heparin due to ICH. * Anemia: H/H down today. * Hypernatremia: Improved * Disposition-slow to improve -will call patient's proxy Subjective: Poorly responsive. Moaning. Objective: Vital Signs Temp Pulse Resp BP Pulse Ox 36.5 C 75 26 H 131/51 H 88 L 10/12/17 07:00 10/12/17 08:44 10/12/17 08:44 10/12/17 08:00 10/12/17 08:44 Microbiology 10/08/17 11:45 Blood Panel (PCR) - Final Blood Staph Coagulase Negative Laboratory Results 10/12/17 03:20 10/12/17 03:20 10/11/17 10/12/17 10/13/17 05:59 05:59 05:59 Intake Total 2177 1285 Output Total 520 2000 Balance 1657 -715 PT 21.3 SEC (12.0-15.0) H 10/12/17 03:20 INR 1.84 (0.83-1.16) H 10/12/17 03:20 - Time Spent With Patient Time Spent With Patient: 35 min of time spent with patient, over 1/2 involved with coordination of care or counseling. Case discussed with Nursing, Respiratory therapy and neurosurgery Physical Exam - Physical Exam General Appearance: obtunded, No alert EENT: PERRL/EOMI Neck: other (C collar) Respiratory: rhonchi (Scattered), No respiratory distress, No accessory muscle use, No wheezing Cardiac/Chest: normal peripheral pulses, regular rate, rhythm, systolic murmur Peripheral Pulses: 2+: carotid (R), carotid (L), femoral (R), femoral (L), dorsalis-pedis (R), dorsalis-pedis (L) Abdomen: normal bowel sounds, non-tender, soft Male Genitalia: deferred Rectal: deferred Skin: normal color, warm/dry Extremities: normal range of motion, non-tender, normal inspection, normal capillary refill Neuro/Psych: No alert ICD10 Worksheet Patient Problems: Problems Problem Status Onset Traumatic intraparenchymal hemorrhage Acute
[2017-10-12] MEDS: FOLIC ACID 1 MG TAB TUBE SCH (09:40)
[2017-10-12] MEDS: METOPROLOL TARTRATE 25 MG TAB TUBE SCH (09:40)
[2017-10-12] MEDS: THIAMINE HCL 100 MG TAB TUBE SCH (09:40)
[2017-10-12] MEDS: LANSOPRAZOLE SUSP 30MG/10ML UDSYR (Adult) TUBE SCH (09:40)
[2017-10-12] MEDS: LACTULOSE 20 GM/30 ML UDCUP TUBE SCH ×2 (09:40→16:11)
[2017-10-12] MEDS: METOLAZONE 5 MG TAB PO SCH (09:40)
[2017-10-12] MEDS: hydrALAZINE 10 MG TAB TUBE SCH ×2 (09:40→16:11)
--- NOTE | 2017-10-12 11:16 | HOSPPROG ---
Hospitalist Progress Note Assessment/Plan: 62 yo male admitted following trauma with subsequent SDH and likely TBI: #New atrial fibrillation: NSR now. BB, no AC with SDH -decrease Metoprolol to 12.5 mg bid given slight bradycardia -Monitor closely #coagulopathy, likely from liver disease #KYLE: -Nephrology following -continue high dose Lasix today + Zaroxolyn #Volume overload: >20kg since admission. Diastolic HF on echo. -diuresis per above, modest uop overnight #Mixed metabolic acidosis/resp alkalosis: #Enterococcus UTI. -Ancef #SDH: bilateral frontal/temporal: repeat CTH stable -Neurosurgery following #HTN: -goal BP is less than 150mmHg per NS -cont with scheduled Norvasc, Hydralazine, and Metoprolol. Holding ALIE-I #Hypernatremia: -free water boluses with TFs -slightly increased today #DM: q6hr glucose with TFs -cont with ISS -A1C is 5.7 #Microcytic anemia: H/H. No active bleeding here. Rec outpatient colonoscopy #Acute encephalopathy: not much improvement. Multifactorial -Traumatic Brain Injury vs hepatic encephalopathy vs other vs combination -cont trial of Lactulose #Alcohol dependence: monitor off benzos to assess MS #Social: lives with brother here in [place] but cannot reach. Malka (sister ) is [facility]. Only visitors she wants: family, friend Cirilo #Diet: tube feeds #DVT ppx: SCDs Disp: cont inpatient Plan: very slow progress. Volume overload is improving but still very volume overloaded. CM to arrange family meeting. I will order a palliative consult. Had emesis today, NGT placed, TF's stopped. Will f/u CXR. monitor Resp status. Subjective: good uop. had emesis today. NGT placed. TF's stopped Objective: Vital Signs Temp Pulse Resp BP Pulse Ox 36.5 C 72 23 H 150/56 H 100 10/12/17 07:00 10/12/17 10:00 10/12/17 10:00 10/12/17 10:00 10/12/17 10:00 Microbiology 10/08/17 11:45 Blood Panel (PCR) - Final Blood Staph Coagulase Negative Laboratory Results 10/12/17 03:20 10/12/17 03:20 10/11/17 10/12/17 10/13/17 05:59 05:59 05:59 Intake Total 2177 1285 Output Total 520 1999 Balance 1657 -715 PT 21.3 SEC (12.0-15.0) H 10/12/17 03:20 INR 1.84 (0.83-1.16) H 10/12/17 03:20 - Physical Exam Constitutional: no apparent distress Ears, Nose, Mouth, Throat: moist mucous membranes Cardiovascular: regular rate and rhythym Respiratory: no respiratory distress, reduced air movement, other Gastrointestinal: normoactive bowel sounds Skin: warm Neurologic: No AAOx3 Psychiatric: encephalopathic Lymph, Heme, Immunologic: No petechiae ICD10 Worksheet Patient Problems: Problems Problem Status Onset Traumatic intraparenchymal hemorrhage Acute
[2017-10-12] MEDS: PANTOPRAZOLE SODIUM 40 MG VIAL IVP SCH ×2 (13:48→22:00)
--- NOTE | 2017-10-12 13:49 | SOAPPROG ---
SOAP Progress Note Assessment/Plan: Assessment: KYLE, nonoliguric, rate of rise is slowing hypernatremia (brain trauma) anasarca, diuretics on hold resp failure, on vent HTN, on IV nicardipine vomiting earlier today, op oral meds hydral, zarox, lopressor remains on Ancef Plan: continue supportive care no urgent dialysis needs, with rate of rise of creat slowing, hopefully will start to see renal recovery in the next couple of days sodium levels per neurosurg recs 10/12/17 13:44 Objective: Vital Signs Temp Pulse Resp BP Pulse Ox 36.6 C 69 19 145/57 H 100 10/12/17 12:00 10/12/17 12:00 10/12/17 12:00 10/12/17 12:00 10/12/17 12:00 Microbiology 10/08/17 11:45 Blood Panel (PCR) - Final Blood Staph Coagulase Negative Laboratory Results 10/12/17 11:45 10/12/17 03:20 10/11/17 10/12/17 10/13/17 05:59 05:59 05:59 Intake Total 2177 1285 Output Total 520 2000 Balance 1657 -715 PT 21.3 SEC (12.0-15.0) H 10/12/17 03:20 INR 1.84 (0.83-1.16) H 10/12/17 03:20 Physical Exam - Physical Exam General Appearance: unresponsive Respiratory: other (coarse bs bilat with rales and occas wh) Cardiac/Chest: other (reg, no rub) Abdomen: other (quiet except for NG) Extremities: other (diffuse edema/anasarca) Neuro/Psych: other (unresponsive on the vent) ICD10 Worksheet Patient Problems: Problems Problem Status Onset Traumatic intraparenchymal hemorrhage Acute
[2017-10-13] MEDS: HYDROmorphONE/DILAUDID 1 MG/ML INJ IVP PRN ×5 (01:00→22:03)
[2017-10-13] MEDS: METOPROLOL TARTRATE 25 MG TAB TUBE SCH ×2 (01:18→04:18)
[2017-10-13] MEDS: hydrALAZINE 10 MG TAB TUBE SCH ×2 (01:18→10:34)
[2017-10-13] MEDS: LACTULOSE 20 GM/30 ML UDCUP TUBE SCH ×4 (01:18→21:04)
[2017-10-13] MEDS: hydrALAZINE 20 MG/ML VIAL IVP PRN ×2 (03:12→19:53)
[2017-10-13] MEDS: METOLAZONE 5 MG TAB PO SCH (04:18)
[2017-10-13 05:31] LABS: INR 1.93 (0.83-1.16); PROTIME(PATIENT) 22.1 SEC (12.0-15.0)
[2017-10-13 06:02] LABS: PLATELET COUNT 60 10^3/uL (150-400)
--- NOTE | 2017-10-13 07:32 | NEUSURGPN ---
Assessment/Plan: 62 yo male sp trauma and has R temporal parietal skull fxs with small SDH and bi frontal temporal contusion stable on repeat imaging and continued encephalopathy. Neuro stable, maybe minor improvement. -Will Speak to medicine about taking over as primary today at this point as primary issues continue to be medical. -INR elevated on admission possibly from ETOH, appreciate critical care management -On CIWA. ativan and precedex helping with agitation. -management of KYLE and other issues per medical team -Neuro checks q2 -continue to follow INR, 1.93 today, trending up, -No planned repeat CT scans today unless exam drastically changes -continue CCollar until can clear. -Normal sodium goal. -Continue BP goals 90-150, continue Cardene/hydralazine PRN -Discussed with Dr. Anderson Subjective: no definitive progress with neuro status, dw with nursing team. Medicine continues to manage HTN and fluid overload. Objective: VSS opens eyes spontaneously, does not appear to track PEARLA moaning May have briefly lifted left arm to command but did not repeat any other commands. withdraws to painful stimuli Catheter Insertion Date: 10/02/17 Neurosurgery Physical Exam - Vitals, I&O, Labs I and O 10/12/17 10/13/17 10/14/17 05:59 05:59 05:59 Intake Total 1285 193 0 Output Total 1999 8200 Balance -715 -8007 0 Weight 128.8 kg Intake: Oral (ml) 0 IV Intake (ml) 82 123 Tube Feeding (ml) 903 70 Tube Flush (ml) 300 Output: Urine (ml) 2000 7400 Catheter 200 7400 Incontinence 1800 Liquid Stool (ml) 150 Catheter 150 Emesis (ml) 250 NG Tube Output (ml) 400 Small Bore (5-12 [place]) 400 Weighted Left Naris Stomach Other: Number of Stools Catheter 20 Incontinence 3 Microbiology 10/08/17 11:45 Blood Panel (PCR) - Final Blood Staph Coagulase Negative Vital Signs Temp Pulse Resp BP Pulse Ox 36.6 C 68 16 169/65 H 100 10/13/17 07:00 10/13/17 07:00 10/13/17 07:00 10/13/17 07:00 10/13/17 07:00 Laboratory Results 10/13/17 05:00 10/13/17 05:00 ICD10 Worksheet Patient Problems: Problems Problem Status Onset Traumatic intraparenchymal hemorrhage Acute
[2017-10-13] MEDS: POTASSIUM Cl (KCl) 100 ML IV SCH ×6 (07:36→19:56)
[2017-10-13] MEDS: FUROSEMIDE 100 MG/10 ML VIAL IVP SCH (07:38)
[2017-10-13] MEDS: INSULIN LISPRO 100 UNIT/ML SC SCH ×3 (08:58→18:18)
--- NOTE | 2017-10-13 09:04 | PDINTPN ---
Weight Loss Consultant Progress Note Assessment/Plan: Assessment/plan: * S/P right temporoparietal non-displaced skull fracture with Bifrontal hemorrhagic contusions, SAH and small subdural/epidural hematoma * Mental status- still no improvement. On lactulose for mildly elevated ammonia * Nausea and vomiting-query possible aspiration. -placed NG tube * Fluid overload- improved with diuresis. Echo normal -hold further diuresis for now * Acute renal failure-creatinine up as well as BUN. -per nephrology. Query if patient will require dialysis * Respiratory-improved. Tachypnea improved. Off supplemental oxygen at this time. -check chest x-ray * Hypernatremia * HTN: Controlled -continue on Cardene -systolic pressures to remain under 140 * Diabetes- well controlled -continue sliding scale * Prophylaxis: PPI. SCDs. No SQ heparin due to ICH. * Anemia * Disposition-little to no improvement in the last week. -family meeting next week Subjective: Obtunded. Opens eyes. Moaning. Objective: Vital Signs Temp Pulse Resp BP Pulse Ox 36.6 C 61 17 168/65 H 100 10/13/17 07:00 10/13/17 08:00 10/13/17 08:00 10/13/17 08:00 10/13/17 08:00 Microbiology 10/08/17 11:45 Blood Panel (PCR) - Final Blood Staph Coagulase Negative Laboratory Results 10/13/17 05:00 10/13/17 05:00 10/12/17 10/13/17 10/14/17 05:59 05:59 05:59 Intake Total 1285 193 0 Output Total 2000 8200 Balance -715 -8007 0 PT 22.1 SEC (12.0-15.0) H 10/13/17 05:00 INR 1.93 (0.83-1.16) H 10/13/17 05:00 - Time Spent With Patient Time Spent With Patient: 35 min of time spent with patient, over 1/2 involved with coordination of care or counseling Physical Exam - Physical Exam General Appearance: No alert EENT: PERRL/EOMI Neck: other (C collar) Respiratory: rhonchi (Bibasilar) Cardiac/Chest: normal peripheral pulses, regular rate, rhythm Peripheral Pulses: 2+: carotid (R), carotid (L), femoral (R), femoral (L), dorsalis-pedis (R), dorsalis-pedis (L) Abdomen: normal bowel sounds, non-tender, soft Male Genitalia: deferred Rectal: deferred Skin: normal color, warm/dry Extremities: non-tender Neuro/Psych: No alert ICD10 Worksheet Patient Problems: Problems Problem Status Onset Traumatic intraparenchymal hemorrhage Acute
[2017-10-13] MEDS: FOLIC ACID 1 MG TAB TUBE SCH (10:33)
[2017-10-13] MEDS: PANTOPRAZOLE SODIUM 40 MG VIAL IVP SCH ×2 (10:34→19:57)
[2017-10-13] MEDS: THIAMINE HCL 100 MG TAB TUBE SCH (10:34)
--- NOTE | 2017-10-13 11:38 | HOSPPROG ---
Hospitalist Progress Note Assessment/Plan: 62 yo male admitted following trauma with subsequent SDH and likely TBI: #GIB -Hgb is stable -cont Protonix IV BID -NGT -Hold tube feeds -Hold off on GI consult for now #New atrial fibrillation: NSR now. BB, no AC with SDH -As TF are off, stop oral Metoprolol and schedule IV Metoprolol #coagulopathy, likely from liver disease -Monitor INR closely #KYLE: -Nephrology following. Query dialysis -will stop diuretics given high Na and BUN. Cr slightly increased from yesterday -If further diuresis is needed, would consider Diuretics/albumin combo #Volume overload: improving with diuretics which will be held temporarily #Mixed metabolic acidosis/resp alkalosis: #Enterococcus UTI. -Ancef #SDH: bilateral frontal/temporal: repeat CTH stable -Neurosurgery following -No plans for reimaging at this time #HTN: -Hold Norvasc, Hydralazine, and Metoprolol as not tube feeds -schedule Hydralazine and Metoprolol -Hydralazine PRN -Holding ALIE-I #Hypernatremia: -free water boluses with TFs are on hold -significantly increased today, will start D5W #DM: q6hr glucose with TFs -cont with ISS -A1C is 5.7 -Hyperglycemia today due to not giving Insulin per scale, this will be restarted today #Microcytic anemia: H/H. No active bleeding here. Rec outpatient colonoscopy #Acute encephalopathy: not much improvement. Multifactorial -Traumatic Brain Injury vs hepatic encephalopathy vs other vs combination -cont trial of Lactulose although suspect underlying etiology is TBI #Alcohol dependence: monitor off benzos to assess MS #Social: lives with brother here in [place] but cannot reach. Malka (sister ) is [facility]. Only visitors she wants: family, friend Cirilo -Family meeting this afternoon #Diet: NPO #DVT ppx: SCDs Disp: cont inpatient Plan: family meeting today to discuss goals of care medical mgmt per above await nephrology reccs monitor platelets, hgb, and INR closely total critical care time is 35 minutes for mgmt of this pt with active GI bleed , HTN, acute renal failure, intravascular depletion. Subjective: does not follow commands. Went into afib last night. BP elevated overnight, now better Objective: Vital Signs Temp Pulse Resp BP Pulse Ox 36.6 C 65 20 144/45 H 100 10/13/17 07:00 10/13/17 10:00 10/13/17 10:00 10/13/17 10:00 10/13/17 10:00 Microbiology 10/08/17 11:45 Blood Panel (PCR) - Final Blood Staph Coagulase Negative Laboratory Results 10/13/17 05:00 10/13/17 05:00 10/12/17 10/13/17 10/14/17 05:59 05:59 05:59 Intake Total 1285 193 0 Output Total 1999 8200 Balance -123 -7748 0 PT 22.1 SEC (12.0-15.0) H 10/13/17 05:00 INR 1.93 (0.83-1.16) H 10/13/17 05:00 - Physical Exam Constitutional: no apparent distress Eyes: PERRL Ears, Nose, Mouth, Throat: dry mucous membranes Cardiovascular: regular rate and rhythym, edema Respiratory: no respiratory distress, reduced air movement Gastrointestinal: normoactive bowel sounds Skin: warm Neurologic: No AAOx3 Psychiatric: encephalopathic, No interacting appropriately Lymph, Heme, Immunologic: No petechiae ICD10 Worksheet Patient Problems: Problems Problem Status Onset Traumatic intraparenchymal hemorrhage Acute
[2017-10-13] MEDS: METOPROLOL TARTRATE 5 MG/5 ML INJ IVP SCH ×2 (12:17→18:18)
[2017-10-13] MEDS ORDERED: POTASSIUM Cl (KCl) 100 ML IV ONE (13:40)
[2017-10-13] MEDS: hydrALAZINE 20 MG/ML VIAL IVP SCH ×2 (14:26→21:51)
[2017-10-13] MEDS: D5W 1,000 ML IV SCH (14:33)
--- NOTE | 2017-10-13 14:37 | SOAPPROG ---
SOAP Progress Note Assessment/Plan: Assessment: KYLE, nonoliguric, rate of rise is slowing hypernatremia (brain trauma) target leve for Na now 135-145 anasarca, diuretics on hold, had a brisk free water diuresis yesterday resp failure, off vent today HTN, on IV nicardipine, op oral meds hydral, zarox, lopressor vomiting Saturday, possible aspiration remains on Ancef hypokalemia Plan: continue supportive care no urgent dialysis needs, with rate of rise of creat slowing, hopefully will start to see renal recovery in the next couple of days sodium levels per neurosurg recs supplement K follow Na and K levels closely family at bedside, discussed renal issues, still no urgent HD needs 10/12/17 13:44 10/13/17 14:33 Subjective: off vent seems to respond to stimuli moving both upper extremities Objective: Vital Signs Temp Pulse Resp BP Pulse Ox 36.7 C 66 17 164/51 H 99 10/13/17 12:00 10/13/17 14:00 10/13/17 14:00 10/13/17 14:26 10/13/17 14:00 Microbiology 10/08/17 11:45 Blood Panel (PCR) - Final Blood Staph Coagulase Negative Laboratory Results 10/13/17 05:00 10/13/17 05:00 10/12/17 10/13/17 10/14/17 05:59 05:59 05:59 Intake Total 1285 193 0 Output Total 1999 8200 1850 Balance -715 -5527 -5270 PT 22.1 SEC (12.0-15.0) H 10/13/17 05:00 INR 1.93 (0.83-1.16) H 10/13/17 05:00 Physical Exam - Physical Exam General Appearance: other (not communicative, off vent) Neck: normal inspection Cardiac/Chest: regular rate, rhythm, edema (better), No friction rub Abdomen: normal bowel sounds, non-tender, soft Extremities: pedal edema (moving upper extremities on his own today) ICD10 Worksheet Patient Problems: Problems Problem Status Onset Traumatic intraparenchymal hemorrhage Acute
[2017-10-14] MEDS: METOPROLOL TARTRATE 5 MG/5 ML INJ IVP SCH ×5 (00:10→23:57)
[2017-10-14] MEDS: POTASSIUM Cl (KCl) 100 ML IV SCH ×4 (01:16→08:49)
[2017-10-14] MEDS: HYDROmorphONE/DILAUDID 1 MG/ML INJ IVP PRN ×2 (04:06→04:56)
[2017-10-14] MEDS ORDERED: LORazepam 2 MG/ML INJ IVP ONE (04:48)
[2017-10-14] MEDS: hydrALAZINE 20 MG/ML VIAL IVP SCH ×3 (05:25→21:32)
--- NOTE | 2017-10-14 05:44 | NEUSURGPN ---
Assessment/Plan: 62 yo male sp trauma and has R temporal parietal skull fxs with small SDH and bi frontal temporal contusion stable on repeat imaging and continued encephalopathy. -HCT this am: with slight increase in left subdural hygroma. Overall stable with evolving changes -INR elevated on admission possibly from ETOH, appreciate critical care management -On CIWA. ativan and precedex helping with agitation. -management of KYLE and other issues per medical team -Neuro checks q2 -continue CCollar until can clear clinically or for 6wks. -Normal sodium goal. -Continue BP goals 90-150, continue Cardene/hydralazine PRN -Patient received sedative medications for CT scan today. If exam stable this afternoon will s/o and follow peripherally. -Discussed with Dr. Anderson Subjective: Unable to obtain, aphasia. Objective: Oz WINTERS Catheter Insertion Date: 10/02/17 - Physician Discussed Patient with Dr.: Other (navid) Neurosurgery Physical Exam - Vitals, I&O, Labs I and O 10/12/17 10/13/17 10/14/17 05:59 05:59 05:59 Intake Total 3908 168 6989 Output Total 1999 8200 5800 Balance -694 -3033 -1491 Weight 128.8 kg 113 kg Intake: Oral (ml) 0 IV Intake (ml) 82 123 906 IV Infused (ml) 1197 D5w 1,000 ml @ 75 mls/hr 1197 IV CONT JUANA Rx#: [id number] Tube Feeding (ml) 903 70 Tube Flush (ml) 300 Output: Urine (ml) 2000 7400 5200 Catheter 200 7400 5200 Incontinence 1800 Liquid Stool (ml) 150 0 Catheter 150 0 Emesis (ml) 250 NG Tube Output (ml) 400 600 Right Naris Stomach 600 Small Bore (5-12 [place]) 400 Weighted Left Naris Stomach Other: Number of Stools Catheter 20 Incontinence 3 Microbiology 10/08/17 11:45 Blood Panel (PCR) - Final Blood Staph Coagulase Negative Vital Signs Temp Pulse Resp BP Pulse Ox 36.8 C 71 13 140/50 H 87 L 10/14/17 04:00 10/14/17 05:15 10/14/17 05:15 10/14/17 05:15 10/14/17 05:15 Laboratory Results 10/14/17 04:15 ICD10 Worksheet Patient Problems: Problems Problem Status Onset Traumatic intraparenchymal hemorrhage Acute
[2017-10-14] MEDS: INSULIN LISPRO 100 UNIT/ML SC SCH ×4 (06:08→23:56)
[2017-10-14] MEDS: THIAMINE HCL 100 MG TAB TUBE SCH (08:58)
[2017-10-14] MEDS: FOLIC ACID 1 MG TAB TUBE SCH (08:58)
[2017-10-14] MEDS: LACTULOSE 20 GM/30 ML UDCUP TUBE SCH (08:58)
[2017-10-14] MEDS: PANTOPRAZOLE SODIUM 40 MG VIAL IVP SCH ×2 (08:59→21:36)
--- NOTE | 2017-10-14 09:30 | SOAPPROG ---
SOAP Progress Note Assessment/Plan: Assessment: 1. KYLE Hemodynamic plus/minus ATN, peaked at 2.7, now 2.1. Polyuric. This could be an osmotic diuresis, but need to rule out DI. He is total body overloaded, and may be returning to better volume status. Continue to monitor. 2. Hypernatremia I suspect this is due to an osmotic diuresis post ATN, and hyperglycemia. Latter may be exacerbated by his lactulose, and his dextrose containing IVF's. Will check urine osmolality. Will continue hypotonic IVF, and try to correct hyperglycemia. I will discuss whether we can hold his lactulose. 3. Hypokalemia He has received 20 meq this am. He will need more. 4. Neuro Sedated. Underlying status difficult to assess. NS following. 5. Plan of Care Sister is GUR[facility]. She is to come from [facility] to meet with team. 6. BP Controlled with IV Meds, goal 110 to 150 per NS 7. Anemia Slight downward drift, no indication for transfusion. 8. Thrombocytopenia Stable. No obvious new bleeding. Plan: 10/14/17 09:22 10/14/17 09:23 Subjective: Sedated, snoring Objective: Vital Signs Temp Pulse Resp BP Pulse Ox 36.8 C 63 14 127/43 H 97 10/14/17 04:00 10/14/17 06:00 10/14/17 06:00 10/14/17 06:00 10/14/17 06:00 Microbiology 10/08/17 11:45 Blood Culture - Final Blood Staphylococcus Sp Coag Neg Blood Panel (PCR) - Final Staph Coagulase Negative 10/08/17 12:00 Blood Culture - Final Blood Laboratory Results 10/14/17 04:11 10/14/17 04:15 10/13/17 10/14/17 10/15/17 05:59 05:59 05:59 Intake Total 193 2103 Output Total 8200 5800 Balance -8007 -3697 PT 22.1 SEC (12.0-15.0) H 10/13/17 05:00 INR 1.93 (0.83-1.16) H 10/13/17 05:00 Physical Exam - Physical Exam General Appearance: obtunded Respiratory: other (rhonchi, upper airway sounds) Cardiac/Chest: regular rate, rhythm Abdomen: soft, distended Male Genitalia: other (drew) Extremities: pedal edema ICD10 Worksheet Patient Problems: Problems Problem Status Onset Traumatic intraparenchymal hemorrhage Acute
[2017-10-14] MEDS ORDERED: D50W 25 GM/50 ML SYR IVP PRN (10:33)
[2017-10-14] MEDS: INSULIN GLARGINE 100 UNITS/ML UNIT SC SCH (11:43)
--- NOTE | 2017-10-14 12:26 | HOSPPROG ---
Hospitalist Progress Note Assessment/Plan: 62 yo male admitted following trauma with subsequent SDH and likely TBI: #GIB, stable or stopped, Hgb slightly decreased -cont Protonix IV BID -NGT -Hold tube feeds -Hold off on GI consult for now #New atrial fibrillation: NSR now. BB, no AC with SDH -As TF are off, schedule IV Metoprolol #coagulopathy, likely from liver disease -Monitor INR closely #KYLE with likely osmotic diuresis -Nephrology following. No urgent needs for dialysis #Volume overload #Mixed metabolic acidosis/resp alkalosis: #Enterococcus UTI. -Ancef #SDH: bilateral frontal/temporal: repeat CTH stable -Neurosurgery following -repeat scan shows improvement, NS will follow peripherally #HTN: -Hold Norvasc, Hydralazine, and Metoprolol as no tube feeds -cont schedule IV Hydralazine and IV Metoprolol -Hydralazine PRN -Holding ALIE-I #Hypernatremia: -free water boluses with TFs are on hold -cont D5W, will increase slightly pending renal reccs #DM: q6hr glucose with TFs -cont with ISS -A1C is 5.7 -unclear why ISS was stopped. He will be started on Lantus and ISS restarted #Microcytic anemia: H/H. No active bleeding here. Rec outpatient colonoscopy #Acute encephalopathy: not much improvement. Multifactorial -Traumatic Brain Injury vs hepatic encephalopathy vs other vs combination -stop Lactulose. Has not been getting it. Difficult to correct electrolytes. #Alcohol dependence: monitor off benzos to assess MS #Social: lives with brother here in [place] but cannot reach. Malka (sister ) is [facility]. Only visitors she wants: family, friend Cirilo -Family meeting this afternoon #Diet: NPO #DVT ppx: SCDs Disp: cont inpatient Plan: Await Nephrology reccs cont D5W at 100 while awaiting reccs Stop Lactulose Start Lantus and ISS Await decision from family regarding goals of care. Palliative care will arrange a meeting as well. monitor platelets, hgb, and INR closely Cont Cefazolin Cont Protonix total critical care time is 30 minutes for mgmt of this pt with active GI bleed , osmotic diuresis, hypernatremia. 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 Encephalopathic Objective: Vital Signs Temp Pulse Resp BP Pulse Ox 36.8 C 63 14 127/43 H 97 10/14/17 04:00 10/14/17 06:00 10/14/17 06:00 10/14/17 06:00 10/14/17 06:00 Microbiology 10/08/17 11:45 Blood Culture - Final Blood Staphylococcus Sp Coag Neg Blood Panel (PCR) - Final Staph Coagulase Negative 10/08/17 12:00 Blood Culture - Final Blood Laboratory Results 10/14/17 04:11 10/14/17 04:15 10/13/17 10/14/17 10/15/17 05:59 05:59 05:59 Intake Total 193 2103 Output Total 8200 5800 Balance -9748 -9508 PT REJ 10/14/17 10:08 INR REJ 10/14/17 10:08 - Physical Exam Constitutional: no apparent distress, not in pain Eyes: PERRL Cardiovascular: regular rate and rhythym, edema Respiratory: reduced air movement Gastrointestinal: normoactive bowel sounds, distension Skin: warm Neurologic: No AAOx3 Psychiatric: encephalopathic, No interacting appropriately Lymph, Heme, Immunologic: No petechiae ICD10 Worksheet Patient Problems: Problems Problem Status Onset Traumatic intraparenchymal hemorrhage Acute
[2017-10-14 14:00] LABS: INR 1.97 (0.83-1.16); PROTIME(PATIENT) 22.5 SEC (12.0-15.0)
--- NOTE | 2017-10-14 14:55 | PDINTPN ---
[employer] Progress Note Assessment/Plan: Assessment: 62-year-old chronic alcoholic admitted 10/02 with a severe closed head injury. Multiple issues present as outlined below. The primary ongoing problem is his mental status: He remains unresponsive after 12 days, with no signs of significant improvement. * S/P right temporoparietal non-displaced skull fracture with Bifrontal hemorrhagic contusions, SAH and small subdural/epidural hematoma follow-up CT scan of the head evolving/improving. * Mental status- still no improvement. Secondary to above. Has been on lactulose for mildly elevated pneumonia. Will stop this today as hepatic encephalopathy likely not playing a a significant role at this time. * History of chronic alcohol abuse. BAL 225 on admission. CIWA difficult to assess secondary to closed head injury. * Nausea and vomiting-query possible aspiration. -placed NG tube * Fluid overload- improved with diuresis. Echo normal -hold further diuresis for now * Acute renal failure-creatinine up as well as BUN. Osmotic diuresis present with elevated sodium -per nephrology. * Respiratory-improved. Tachypnea improved. Off supplemental oxygen at this time. -check chest x-ray * Hypernatremia: Doubt DI. Sodium 153. On hypotonic fluids. * Coag-negative staph in blood cultures, urine. On cephazolin. No evidence of sepsis. * HTN: Controlled -continue on Cardene as needed -systolic pressures to remain under 140 * Diabetes- glucoses well controlled -continue sliding scale * Prophylaxis: PPI. SCDs. No SQ heparin due to ICH. * Anemia: Hematocrit 27.5. Stable. Without evidence of active bleeding. * Nutrition: On tube feedings * Disposition-little to no improvement in the last week. -family meeting later this week Plan: Continue supportive care, antibiotics, hypotonic fluids. Renal issues per Dr. Mai. Increase insulin sliding scale and add Lantus. Follow laboratory, x-ray. Repeat ABG in the a.m.. Continue tube feedings. Continue other medications. I will try to arrange a family conference with the patient' s sister and POA for later this week. Prognosis appears to be poor. Cor status needs to be discussed. Palliative care and possibly even comfort measures need to be discussed. 35 min of critical care time spent directly with the patient. Discussed with family members present this morning, nursing, respiratory, psychiatric social worker supervisor, and the ICU multi disciplinary team. Subjective: Sleeping, arouses weakly. Not verbal, will not track or follow commands. Objective: Vital Signs Temp Pulse Resp BP Pulse Ox 36.8 C 65 14 131/59 H 97 10/14/17 08:00 10/14/17 14:00 10/14/17 14:00 10/14/17 14:00 10/14/17 14:00 Microbiology 10/08/17 11:45 Blood Culture - Final Blood Staphylococcus Sp Coag Neg Blood Panel (PCR) - Final Staph Coagulase Negative 10/08/17 12:00 Blood Culture - Final Blood Laboratory Results 10/14/17 04:11 10/14/17 04:15 10/13/17 10/14/17 10/15/17 05:59 05:59 05:59 Intake Total 193 2103 Output Total 8200 5800 1250 Balance -8007 -3697 -1250 PT 22.5 SEC (12.0-15.0) H 10/14/17 13:10 INR 1.97 (0.83-1.16) H 10/14/17 13:10 Laboratory Tests 10/10/17 10/14/17 10/14/17 13:40 04:15 11:30 PT INR Calcium 8.1 L Phosphorus 4.4 Urine Osmolality 458.5 Ur Random Sodium < 5 L 10/14/17 13:10 PT 22.5 H INR 1.97 H Calcium Phosphorus Urine Osmolality Ur Random Sodium Repeat CT scan of the head: Overall improved. Evolving/resolving intraparenchymal hemorrhage. Subarachnoid hemorrhage much better Physical Exam - Physical Exam General Appearance: obtunded (Arouses weakly), No alert, No no apparent distress EENT: PERRL/EOMI, other (Nasal cannula in place.) Neck: normal inspection (Large neck) Respiratory: lungs clear (Anteriorly), decreased breath sounds (At bases), No rhonchi Cardiac/Chest: regular rate, rhythm Abdomen: normal bowel sounds, non-tender, soft Skin: warm/dry Extremities: pedal edema Neuro/Psych: cognition abnormalities (Unchanged, largely unresponsive), No no motor/sensory deficits ICD10 Worksheet Patient Problems: Problems Problem Status Onset Traumatic intraparenchymal hemorrhage Acute
--- NOTE | 2017-10-14 15:18 | ASMTCMCOM ---
CM Note CM Note Notes: Our Medicaid rep is checking with patient's employer to determine his Medicaid eligibility. He will need Medicaid for possible LTC. Date Signed: 10/14/2017 03:17 PM Electronically Signed By:Petty Wilde LCSW
--- NOTE | 2017-10-14 15:49 | WOCRNPDOC ---
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 Partial thickness, no evidence of infection and wound care has no concerns. Healing very well. Wound care will check in again in a couple of weeks. KATHIE Gavin in room for care. Right Jaw Pressure Injury Dressing Type: Mepilex Wound Bed Constitution: Healed Left Upper Back Pressure Injury Dressing Type: Allevyn Life Dressing Description: Clean/Dry, Intact Exudate Amount: None Integumentary Issue Intervention: Dressing Changed Site Measurement - Head-to-Toe Length X Width X Depth (cm): 8.5x1x0 Pressure Injury Stage: Deep Tissue Injury (DTI), Gas Truck Driver Related Pressure Injury (C collar) Pressure Injury Present on Admit: No Skin Integrity Problem Comment: DTPI that is continuing to evolve.. no presents as mostly a thin layer of eshcar with one very small area (less than 0.5x0.5x0.1 ) of partial thickness opening. However there are still a few areas within the linear wound that are dark purple and have not yet declared themselves. Allevyn life removed and replaced with allevyn gentle dressing to continue to pad the area. Wound care will follow. Right Upper Back Pressure Injury Dressing Type: Mepilex Integumentary Issue Intervention: Visualized Under Dressing Wound Bed Constitution: Healed
[2017-10-14] MEDS ORDERED: LACTULOSE 20 GM/30 ML UDCUP PO SCH (16:00)
[2017-10-14] MEDS ORDERED: POTASSIUM Cl (KCl) 100 ML IV ONE (18:15)
[2017-10-15] MEDS: POTASSIUM Cl (KCl) 50 ML IV SCH ×2 (01:01→02:03)
[2017-10-15 04:15] LABS: INR 1.98 (0.83-1.16); PROTIME(PATIENT) 22.6 SEC (12.0-15.0)
[2017-10-15 04:17] LABS: PLATELET COUNT 58 10^3/uL (150-400)
[2017-10-15] MEDS: INSULIN LISPRO 100 UNIT/ML SC SCH ×3 (05:54→17:56)
[2017-10-15] MEDS: hydrALAZINE 20 MG/ML VIAL IVP SCH ×3 (05:55→21:28)
[2017-10-15] MEDS: METOPROLOL TARTRATE 5 MG/5 ML INJ IVP SCH ×3 (05:56→17:47)
--- NOTE | 2017-10-15 07:52 | SOAPPROG ---
SOAP Progress Note Assessment/Plan: Assessment: KYLE, nonoliguric, creat improving hypernatremia (brain trauma) target level for Na now 135-145, continues to increase, will increase D5W to 100 and increase free water TF flush to 75cc/hr, Uosm about 460 (can concentrate his urine) anasarca, diuretics on hold, had a brisk free water diuresis yesterday resp failure, off vent today HTN, on IV nicardipine, op oral meds hydral, zarox, lopressor vomiting Saturday, possible aspiration remains on Ancef hypokalemia, supplement Plan: continue supportive care no urgent dialysis needs, with rate of rise of creat slowing, hopefully will start to see renal recovery in the next couple of days sodium levels per neurosurg recs supplement K follow Na and K levels closely still no urgent HD needs 10/12/17 13:44 10/13/17 14:33 10/15/17 07:49 Subjective: eyes open, tracks me when I move around not able to answer questions moaning Objective: Vital Signs Temp Pulse Resp BP Pulse Ox 37.6 C 80 19 131/57 H 93 10/15/17 05:58 10/15/17 05:58 10/15/17 05:58 10/15/17 05:58 10/15/17 05:58 Microbiology 10/08/17 11:45 Blood Culture - Final Blood Staphylococcus Sp Coag Neg Blood Panel (PCR) - Final Staph Coagulase Negative 10/08/17 12:00 Blood Culture - Final Blood Laboratory Results 10/15/17 04:00 10/14/17 10/15/17 10/16/17 05:59 05:59 05:59 Intake Total 2103 2760 Output Total 3388 2675 Balance -5992 -574 PT 22.6 SEC (12.0-15.0) H 10/15/17 04:00 INR 1.98 (0.83-1.16) H 10/15/17 04:00 Physical Exam - Physical Exam General Appearance: other (awake) Neck: normal inspection Respiratory: rhonchi, No wheezing Cardiac/Chest: other (reg, no rub) Abdomen: other (bs+ mild dist nt) Extremities: swelling (awake, tracks me with his eyes) ICD10 Worksheet Patient Problems: Problems Problem Status Onset Traumatic intraparenchymal hemorrhage Acute
[2017-10-15] MEDS: POTASSIUM Cl (KCl) 100 ML IV SCH ×6 (08:13→22:29)
[2017-10-15] MEDS: INSULIN GLARGINE 100 UNITS/ML UNIT SC SCH (09:55)
[2017-10-15] MEDS: PANTOPRAZOLE SODIUM 40 MG VIAL IVP SCH ×2 (09:58→21:27)
--- NOTE | 2017-10-15 10:30 | HOSPPROG ---
Hospitalist Progress Note Assessment/Plan: 62 yo male admitted following trauma with subsequent SDH and likely TBI: GIB, stable or stopped, Hgb slightly decreased cont Protonix IV BID NGT no evidence of blood loss- can likely restart tube feeds New atrial fibrillation: NSR now. BB, no AC with SDH As TF are off, schedule IV Metoprolol follow coagulopathy, likely from liver disease Monitor INR closely KYLE with likely osmotic diuresis Nephrology following. No urgent needs for dialysis cr trending down Volume overload Mixed metabolic acidosis/resp alkalosis: Enterococcus UTI. Ancef SDH: bilateral frontal/temporal: repeat CTH stable Neurosurgery following 10/14 scan shows improvement following commands, apparently for first time today HTN: Hold Norvasc, Hydralazine, and Metoprolol as no tube feeds cont schedule IV Hydralazine and IV Metoprolol Hydralazine PRN Holding ALIE-I Hypernatremia: free water boluses restarted today cont D5W, will increase slightly pending renal recs appreciate renal input DM: q6hr glucose with TFs cont with ISS A1C is 5.7 unclear why ISS was stopped. He will be started on Lantus and ISS restarted Microcytic anemia: H/H. No active bleeding here. Rec outpatient colonoscopy Acute encephalopathy: perhaps improved in that follwoing commands today this is my first day w him Traumatic Brain Injury vs hepatic encephalopathy vs other vs combination stop Lactulose. Has not been getting it. Difficult to correct electrolytes. Alcohol dependence: monitor off benzos to assess MS Social: lives with brother here in [place] but cannot reach. Malka (sister) is MDPOA. Only visitors she wants: family, friend Cirilo Diet: NPO DVT ppx: SCDs Disp: cont inpatient Subjective: case d/w dr regalado. abdominal film w feeding tube and NG tube in stomach Objective: Vital Signs Temp Pulse Resp BP Pulse Ox 36.7 C 82 22 H 132/59 H 94 10/15/17 08:00 10/15/17 08:00 10/15/17 08:00 10/15/17 08:00 10/15/17 08:00 Microbiology 10/08/17 11:45 Blood Culture - Final Blood Staphylococcus Sp Coag Neg Blood Panel (PCR) - Final Staph Coagulase Negative 10/08/17 12:00 Blood Culture - Final Blood Laboratory Results 10/15/17 04:00 10/15/17 07:30 10/14/17 10/15/17 10/16/17 05:59 05:59 05:59 Intake Total 4970 1010 Output Total 6720 8948 400 Balance -3697 -765 -400 PT 22.6 SEC (12.0-15.0) H 10/15/17 04:00 INR 1.98 (0.83-1.16) H 10/15/17 04:00 - Physical Exam Constitutional: no apparent distress, appears nourished Eyes: PERRL, anicteric sclera Ears, Nose, Mouth, Throat: moist mucous membranes, hearing normal Cardiovascular: regular rate and rhythym, no murmur, rub, or gallop Respiratory: no respiratory distress, other (rhoncorous anterolat) Gastrointestinal: normoactive bowel sounds, soft, non-tender abdomen Genitourinary: drew in urethra Skin: warm, normal color Musculoskeletal: other (BLOCK) Neurologic: other (following simple commands but remains encephalopathic), No AAOx3 ICD10 Worksheet Patient Problems: Problems Problem Status Onset Traumatic intraparenchymal hemorrhage Acute
[2017-10-15] MEDS: POTASSIUM CL 20 MEQ/15 ML UDCUP PO SCH (11:22)
--- NOTE | 2017-10-15 15:29 | PDINTPN ---
[employer] Progress Note Assessment/Plan: Assessment: 62-year-old chronic alcoholic admitted 10/02 with a severe closed head injury. Multiple issues present as outlined below. The primary ongoing problem is his mental status: He remains poorly responsive after 12 days, but is now showing some signs of improvement. * S/P right temporoparietal non-displaced skull fracture with Bifrontal hemorrhagic contusions, SAH and small subdural/epidural hematoma follow-up CT scan of the head evolving/improving. * Mental status- some improvement today. Metabolic issues likely contributing. Hepatic encephalopathy unlikely. * History of chronic alcohol abuse. BAL 225 on admission. CIWA was difficult to assess secondary to closed head injury. Likely over any withdrawal as he has been here 2 weeks now. * Nausea and vomiting-query possible aspiration. Resolved. * Fluid overload- improved with diuresis. Echo normal -hold further diuresis for now * Acute renal failure-creatinine up as well as BUN comma but stable. Osmotic diuresis present with elevated sodium - per nephrology. * Respiratory-improved. Tachypnea improved. Off supplemental oxygen at this time. Still with left basilar atelectasis/effusion. * Hypernatremia: Doubt DI. Sodium 156. On hypotonic fluids. * Coag-negative staph in blood cultures, urine. On cephazolin. No evidence of sepsis. * HTN: Controlled -continue on Cardene as needed -systolic pressures to remain under 140 * Diabetes- glucoses well controlled -continue sliding scale * Prophylaxis: PPI. SCDs. No SQ heparin due to ICH. * Anemia: Hematocrit 28.5. Stable. Without evidence of active bleeding. * Nutrition: On tube feedings * Disposition-some improvement in his mental status as of today, but prognosis for meaningful recovery may be poor.. -family meeting later this week Plan: Continue supportive care, antibiotics, hypotonic fluids. Renal issues per Dr. Mai. Continue insulin sliding scale and Lantus. Follow laboratory, x-ray. Continue tube feedings and other medications. I will try to arrange a family conference with the patient's sister and POA for later this week. Prognosis may be poor. Cor status needs to be discussed. Palliative care and possibly even comfort measures need to be discussed. 40 min of critical care time spent directly with the patient. Discussed with nursing, respiratory, medical social worker, and the ICU multi disciplinary team. Subjective: Machine Hand today, moaning. Response to some simple commands. Has simple verbal responses at times. Objective: Vital Signs Temp Pulse Resp BP Pulse Ox 36.8 C 68 23 H 112/59 L 98 10/15/17 12:00 10/15/17 14:00 10/15/17 14:00 10/15/17 14:02 10/15/17 14:00 Laboratory Results 10/15/17 04:00 10/15/17 07:30 10/14/17 10/15/17 10/16/17 05:59 05:59 05:59 Intake Total 2103 2760 Output Total 5800 3525 400 Balance -3697 -765 -400 PT 22.6 SEC (12.0-15.0) H 10/15/17 04:00 INR 1.98 (0.83-1.16) H 10/15/17 04:00 CXR: Left basilar opacity/atelectasis/effusion/consolidation persists. Physical Exam - Physical Exam General Appearance: mild distress, obtunded (Machine Hand, moaning), obese EENT: PERRL/EOMI, other (On room air. NG tube in place) Neck: other Respiratory: decreased breath sounds (Course), rales (Few rales at bases), wheezing (Minimal), No rhonchi Cardiac/Chest: regular rate, rhythm, No gallop Abdomen: normal bowel sounds (Tolerating tube feeding), non-tender, soft ( Overweight) Male Genitalia: other (Pizarro catheter in place, good urine output. Slowing down compared to 2 days ago.) Skin: normal color, warm/dry Extremities: pedal edema (Trace +) Neuro/Psych: no motor/sensory deficits (Moves all extremities), cognition abnormalities (A little director of religious activities today, starting to respond a bit more to simple commands. Some limited verbal responses well.) ICD10 Worksheet Patient Problems: Problems Problem Status Onset Traumatic intraparenchymal hemorrhage Acute
[2017-10-15] MEDS: D5W 1,000 ML IV SCH ×2 (16:50)
[2017-10-15] MEDS: HYDROmorphONE/DILAUDID 1 MG/ML INJ IVP PRN (22:34)
[2017-10-16] MEDS: INSULIN LISPRO 100 UNIT/ML SC SCH ×4 (00:17→18:10)
[2017-10-16] MEDS: METOPROLOL TARTRATE 5 MG/5 ML INJ IVP SCH ×4 (00:17→18:09)
[2017-10-16] MEDS: D5W 1,000 ML IV SCH ×2 (00:21→11:37)
[2017-10-16] MEDS ORDERED: POTASSIUM Cl (KCl) 50 ML IV ONE ×2 (00:30→01:30)
[2017-10-16] MEDS: hydrALAZINE 20 MG/ML VIAL IVP SCH ×2 (06:16→16:14)
[2017-10-16 06:19] LABS: PLATELET COUNT 59 10^3/uL (150-400)
--- NOTE | 2017-10-16 07:22 | SOAPPROG ---
SOAP Progress Note Assessment/Plan: Assessment: KYLE, nonoliguric, creat improving hypernatremia (brain trauma) target level for Na now 135-145 Na 158 yesterday, appropriately down to 151 today Uosm about 460 (can concentrate his urine) anasarca, diuretics on hold, had a brisk free water diuresis yesterday resp failure, off vent today HTN, on IV nicardipine, op oral meds hydral, zarox, lopressor, BP good today, 122/57 vomiting Saturday, possible aspiration, Ancef hypokalemia, supplement Plan: continue supportive care no urgent dialysis needs, creat improving sodium levels target 135-145, continue free water supps as is for now, appropriate decrease in Na level supplement K follow Na and K levels closely still no urgent HD needs 10/12/17 13:44 10/13/17 14:33 10/15/17 07:49 10/16/17 07:19 10/16/17 07:25 Subjective: opens eyes to stimuli not following commands unable to answer questions Objective: Vital Signs Temp Pulse Resp BP Pulse Ox 37.1 C 73 22 H 122/57 H 94 10/16/17 06:00 10/16/17 06:16 10/16/17 06:00 10/16/17 06:16 10/16/17 06:00 Laboratory Results 10/16/17 06:05 10/16/17 06:05 10/15/17 10/16/17 10/17/17 05:59 05:59 05:59 Intake Total 2760 5749 Output Total 3525 2700 Balance -765 3049 PT 22.6 SEC (12.0-15.0) H 10/15/17 04:00 INR 1.98 (0.83-1.16) H 10/15/17 04:00 Physical Exam - Physical Exam General Appearance: other (awake, eyes open, moans) Neck: normal inspection Respiratory: No rhonchi, No wheezing Cardiac/Chest: regular rate, rhythm, edema, systolic murmur Abdomen: normal bowel sounds, non-tender Extremities: swelling Neuro/Psych: other (awake, not responding to commands) ICD10 Worksheet Patient Problems: Problems Problem Status Onset Traumatic intraparenchymal hemorrhage Acute
[2017-10-16] MEDS: INSULIN GLARGINE 100 UNITS/ML UNIT SC SCH (09:22)
[2017-10-16] MEDS: POTASSIUM CL 20 MEQ/15 ML UDCUP PO SCH (09:22)
[2017-10-16] MEDS: PANTOPRAZOLE SODIUM 40 MG VIAL IVP SCH ×2 (09:22→21:19)
--- NOTE | 2017-10-16 10:31 | HOSPPROG ---
Hospitalist Progress Note Assessment/Plan: 62 yo male admitted following trauma with subsequent SDH and likely TBI: GIB, stable or stopped, Hgb slightly decreased cont Protonix IV BID NGT no evidence of blood loss- can likely restart tube feeds New atrial fibrillation: NSR now. BB, no AC with SDH As TF are off, schedule IV Metoprolol follow coagulopathy, likely from liver disease Monitor INR closely KYLE with likely osmotic diuresis Nephrology following. No urgent needs for dialysis cr trending down Volume overload Mixed metabolic acidosis/resp alkalosis: Enterococcus UTI. had been treated w ancef which will not cover enetrococcus dc abx and follow clear urine SDH: bilateral frontal/temporal: repeat CTH stable Neurosurgery following 10/14 scan shows improvement following commands, apparently for first time today HTN: restart scheduled hydralazine abdominal distension: film 10/15 w no air (interp by me) remove NGT Hypernatremia: free water boluses restarted today cont D5W, will increase slightly pending renal recs appreciate renal input 151 this AM appropriate rate of [id number] DM: q6hr glucose with TFs cont with ISS A1C is 5.7 unclear why ISS was stopped. He will be started on Lantus and ISS restarted Microcytic anemia: H/H. No active bleeding here. Rec outpatient colonoscopy Acute encephalopathy: perhaps improved in that following commands today this is my first day w him Traumatic Brain Injury vs hepatic encephalopathy vs other vs combination stop Lactulose. Has not been getting it. Difficult to correct electrolytes. Alcohol dependence: monitor off benzos to assess MS Social: lives with brother here in [place] but cannot reach. Malka (sister) is MDPOA. Only visitors she wants: family, friend Cirilo Diet: NPO DVT ppx: SCDs Disp: cont inpatient Subjective: sodium trending down. case d/w dr regalado Objective: Vital Signs Temp Pulse Resp BP Pulse Ox 37.3 C 76 22 H 125/45 H 94 10/16/17 10:00 10/16/17 10:00 10/16/17 10:00 10/16/17 10:00 10/16/17 10:00 Laboratory Results 10/16/17 06:05 10/16/17 06:05 10/15/17 10/16/17 10/17/17 05:59 05:59 05:59 Intake Total 0180 5749 Output Total 5595 7963 Balance -765 9389 PT 22.6 SEC (12.0-15.0) H 10/15/17 04:00 INR 1.98 (0.83-1.16) H 10/15/17 04:00 - Physical Exam Constitutional: no apparent distress, other (withdraws w interaction but not following commands. somnolent) Eyes: PERRL, anicteric sclera Ears, Nose, Mouth, Throat: moist mucous membranes, hearing normal Cardiovascular: regular rate and rhythym, no murmur, rub, or gallop Respiratory: no respiratory distress, no rales or rhonchi Gastrointestinal: normoactive bowel sounds, soft, non-tender abdomen, distension Genitourinary: drew in urethra Skin: warm, normal color Musculoskeletal: No full muscle strength Neurologic: No AAOx3 Psychiatric: No interacting appropriately ICD10 Worksheet Patient Problems: Problems Problem Status Onset Traumatic intraparenchymal hemorrhage Acute
[2017-10-16] MEDS ORDERED: INSULIN GLARGINE 100 UNITS/ML UNIT SC SCH (15:06)
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
[2017-10-16] MEDS ORDERED: hydrALAZINE 20 MG/ML VIAL IVP PRN (16:14)
[2017-10-16] MEDS: hydrALAZINE 10 MG TAB TUBE SCH ×2 (16:42→21:18)
[2017-10-17] MEDS: INSULIN LISPRO 100 UNIT/ML SC SCH ×4 (00:26→18:00)
[2017-10-17] MEDS: METOPROLOL TARTRATE 5 MG/5 ML INJ IVP SCH ×2 (00:26→06:16)
[2017-10-17 05:01] LABS: PLATELET COUNT 55 10^3/uL (150-400)
[2017-10-17] MEDS ORDERED: POTASSIUM CL 20 MEQ/15 ML UDCUP PO ONE (06:07)
[2017-10-17] MEDS: PANTOPRAZOLE SODIUM 40 MG VIAL IVP SCH (08:39)
[2017-10-17] MEDS: hydrALAZINE 10 MG TAB TUBE SCH ×3 (08:39→22:12)
[2017-10-17] MEDS: POTASSIUM CL 20 MEQ/15 ML UDCUP PO SCH (08:39)
[2017-10-17] MEDS: D5W 1,000 ML IV SCH (08:40)
--- NOTE | 2017-10-17 09:19 | SOAPPROG ---
SOAP Progress Note Assessment/Plan: Assessment: KYLE, nonoliguric, creat improving hypernatremia (brain trauma) target level for Na now 135-145 Na 158 yesterday, appropriately down to 151 yesterday Uosm about 460 (can concentrate his urine) anasarca, diuretics on hold resp failure, off vent today HTN, on IV nicardipine, op oral meds hydral, zarox, lopressor, BP good today, 131/63 vomiting Saturday, possible aspiration, Ancef hypokalemia, supplement Plan: continue supportive care no urgent dialysis needs, creat improving sodium levels target 135-145, continue free water supps, increas TF flush to 100cc/hr, follow Na supplement K as needed follow Na and K levels closely still no urgent HD needs 10/12/17 13:44 10/13/17 14:33 10/15/17 07:49 10/16/17 07:19 10/16/17 07:25 10/17/17 09:15 Objective: Vital Signs Temp Pulse Resp BP Pulse Ox 37.5 C 81 20 131/63 H 93 10/17/17 08:00 10/17/17 08:00 10/17/17 08:00 10/17/17 08:39 10/17/17 08:00 Laboratory Results 10/17/17 04:35 10/17/17 04:35 10/16/17 10/17/17 10/18/17 05:59 05:59 05:59 Intake Total 5749 4767 Output Total 2700 2100 Balance 3049 2667 PT 22.6 SEC (12.0-15.0) H 10/15/17 04:00 INR 1.98 (0.83-1.16) H 10/15/17 04:00 Physical Exam - Physical Exam General Appearance: other (eyes open, not following commands) Neck: normal inspection Respiratory: No rhonchi, No wheezing, No pleural rub Cardiac/Chest: regular rate, rhythm, edema, No friction rub Abdomen: normal bowel sounds, non-tender Skin: warm/dry Extremities: swelling Neuro/Psych: other (not following commands) ICD10 Worksheet Patient Problems: Problems Problem Status Onset Traumatic intraparenchymal hemorrhage Acute
[2017-10-17] MEDS ORDERED: INSULIN GLARGINE 100 UNITS/ML UNIT SC SCH (09:34)
[2017-10-17] MEDS ORDERED: FUROSEMIDE 40 MG/4 ML VIAL IVP ONE (09:38)
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
[2017-10-17] MEDS: LANSOPRAZOLE SUSP 30MG/10ML UDSYR (Adult) TUBE SCH (22:15)
[2017-10-18] MEDS: INSULIN LISPRO 100 UNIT/ML SC SCH ×4 (00:19→17:50)
[2017-10-18] MEDS: HYDROmorphONE/DILAUDID 1 MG/ML INJ IVP PRN (00:41)
[2017-10-18 05:37] LABS: PLATELET COUNT 61 10^3/uL (150-400)
[2017-10-18] MEDS: LANSOPRAZOLE SUSP 30MG/10ML UDSYR (Adult) TUBE SCH ×2 (09:13→21:32)
[2017-10-18] MEDS: POTASSIUM CL 20 MEQ/15 ML UDCUP PO SCH (09:13)
[2017-10-18] MEDS: hydrALAZINE 10 MG TAB TUBE SCH ×3 (09:13→21:31)
[2017-10-18] MEDS ORDERED: FUROSEMIDE 40 MG/4 ML VIAL IVP ONE (09:54)
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
--- NOTE | 2017-10-18 11:08 | ASMTCMCOM ---
CM Note CM Note Notes: Spoke with [facility] who states they have obtained some of patient's paychecks and will be able to make some progress on qualifying patient for Medicaid. We are still awaiting the outcome of his application. Patient will need Medicaid to receive any LTC. CM will follow. Date Signed: 10/18/2017 11:07 AM Electronically Signed By:Anabel Ortiz LCSW
[2017-10-18] MEDS: HYDROCOD/APAP 7.5/325 IN 15ML UDCUP PO PRN ×2 (13:11→21:30)
--- NOTE | 2017-10-18 13:15 | SOAPPROG ---
SOAP Progress Note Assessment/Plan: Assessment: 1. arf: now essentially resolved. 2. Overload: remains sig overloaded but much improved from a week ago. Diurese ad ally, watch Na. May require higher doses based on response last weekend. 3. 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 Off D5W, can titrate enteral water as needed. Will be impacted by successful diuresis and therefore may need to be increased as this occurs. Will sign off, please call with questions. Plan: 10/11/17 13:39 10/18/17 13:11 Subjective: Hemodynamically stable, has been more responsive than when I last saw him a week ago. Objective: Vital Signs Temp Pulse Resp BP Pulse Ox 37 C 79 20 119/59 L 95 10/18/17 12:00 10/18/17 12:00 10/18/17 12:00 10/18/17 12:00 10/18/17 08:00 Laboratory Results 10/18/17 04:20 10/18/17 04:20 10/17/17 10/18/17 10/19/17 05:59 05:59 05:59 Intake Total 4767 3902 Output Total 2100 2750 Balance 2667 1152 PT 22.6 SEC (12.0-15.0) H 10/15/17 04:00 INR 1.98 (0.83-1.16) H 10/15/17 04:00 Physical Exam - Physical Exam General Appearance: no apparent distress Respiratory: lungs clear (anteriorly) Cardiac/Chest: regular rate, rhythm Abdomen: non-tender, distended Extremities: swelling (dependent edema but much improved from a week ago) ICD10 Worksheet Patient Problems: Problems Problem Status Onset Traumatic intraparenchymal hemorrhage Acute
[2017-10-18] MEDS ORDERED: MIDAZOLAM 2 MG/2 ML VIAL IVP ONE (13:47)
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
[2017-10-19] MEDS: INSULIN LISPRO 100 UNIT/ML SC SCH ×4 (00:07→17:43)
[2017-10-19] MEDS: HYDROCOD/APAP 7.5/325 IN 15ML UDCUP PO PRN ×2 (04:04→16:36)
[2017-10-19 04:27] LABS: PLATELET COUNT 62 10^3/uL (150-400)
[2017-10-19] MEDS: POTASSIUM CL 20 MEQ/15 ML UDCUP PO SCH (08:20)
[2017-10-19] MEDS: INSULIN GLARGINE 100 UNITS/ML UNIT SC SCH (08:20)
[2017-10-19] MEDS: LANSOPRAZOLE SUSP 30MG/10ML UDSYR (Adult) TUBE SCH ×2 (08:20→21:26)
[2017-10-19] MEDS: hydrALAZINE 10 MG TAB TUBE SCH ×3 (08:21→21:24)
[2017-10-19] MEDS ORDERED: POTASSIUM CL 20 MEQ/15 ML UDCUP PO ONE (09:22)
--- NOTE | 2017-10-19 09:25 | HOSPPROG ---
Hospitalist Progress Note Assessment/Plan: 62 yo male admitted following trauma with subsequent SDH and likely TBI: back pain: no fracture on ct's Volume overload: daily lasix Mixed metabolic acidosis/resp alkalosis: Enterococcus UTI. had been treated w ancef which will not cover enterococcus dc abx and follow clear urine follow off abx SDH: bilateral frontal/temporal: repeat CTH stable Neurosurgery following 10/14 scan shows improvement following commands, apparently for first time today HTN: restart scheduled hydralazine abdominal distension: film 10/15 w no air (interp by me) remove NGT Hypernatremia: free water boluses restarted today at 100 q4 has improved w lasix follow bid GIB: stable or stopped, Hgb slightly decreased cont Protonix IV BID appears to have resolved New atrial fibrillation: NSR now. BB, no AC with SDH As TF are off, schedule IV Metoprolol follow none recently (10/19 none on tele) stop BB coagulopathy, likely from liver disease Monitor INR closely has received vit K x 2 KYLE with likely osmotic diuresis Nephrology following. No urgent needs for dialysis cr trending down DM: q6hr glucose with TFs cont with ISS A1C is 5.7 unclear why ISS was stopped. He will be started on Lantus and ISS restarted Microcytic anemia: H/H. No active bleeding here. Rec outpatient colonoscopy Acute encephalopathy: perhaps improved in that following commands today has been stable over last few days suspected will improve w normalization of sodium Alcohol dependence: monitor off benzos to assess MS Social: lives with brother here in [place] but cannot reach. Malka (sister) is MDPOA. Only visitors she wants: family, friend Cirilo Diet: tube feeds DVT ppx: SCDs Disp: cont inpatient Subjective: more alert. able to answer simple questions. case d/w dr regalado Objective: Vital Signs Temp Pulse Resp BP Pulse Ox 36.9 C 82 20 122/54 H 93 10/19/17 08:00 10/19/17 08:00 10/19/17 08:00 10/19/17 08:00 10/19/17 08:00 Laboratory Results 10/19/17 04:15 10/19/17 04:15 10/18/17 10/19/17 10/20/17 05:59 05:59 05:59 Intake Total 3902 2944 Output Total 2750 1975 Balance 1152 969 PT 22.6 SEC (12.0-15.0) H 10/15/17 04:00 INR 1.98 (0.83-1.16) H 10/15/17 04:00 - Physical Exam Constitutional: no apparent distress, appears nourished Eyes: PERRL, anicteric sclera Ears, Nose, Mouth, Throat: moist mucous membranes, hearing normal, other (neck in hard collar) Cardiovascular: regular rate and rhythym, no murmur, rub, or gallop Respiratory: no respiratory distress, no rales or rhonchi Gastrointestinal: normoactive bowel sounds, soft, non-tender abdomen Genitourinary: no bladder fullness, drew in urethra Skin: warm, normal color Musculoskeletal: full muscle strength Neurologic: other (weak LLE), No AAOx3 Psychiatric: No interacting appropriately ICD10 Worksheet Patient Problems: Problems Problem Status Onset Traumatic intraparenchymal hemorrhage Acute
[2017-10-19] MEDS: ENOXAPARIN 40 MG/0.4 ML SYR SC SCH (11:04)
[2017-10-19] MEDS: FUROSEMIDE 40 MG/4 ML VIAL IVP SCH (11:04)
--- NOTE | 2017-10-19 12:38 | PDINTPN ---
Case Preparer And Liner Progress Note Assessment/Plan: Assessment: 62-year-old chronic alcoholic admitted 10/02 with a severe closed head injury. Multiple issues present as outlined below. The primary ongoing problem has been his mental status: Over the last several days he has demonstrated significant improvement. Now verbal, appropriate at times, but remains lethargic. * S/P right temporoparietal non-displaced skull fracture with bifrontal hemorrhagic contusions, SAH and small subdural/epidural hematoma. Follow-up CT scans of the head evolving/improving. * Mental status- improvement over the last few days: Significant head injury certainly involved. Metabolic issues likely contributing but also improving. Hepatic encephalopathy unlikely. * History of chronic alcohol abuse. BAL 225 on admission. CIWA was difficult to assess secondary to closed head injury. Likely over any withdrawal as he has been here 2 weeks now. * Nausea and vomiting-query possible aspiration. Resolved. * Fluid overload- volume overloaded with edema/anasarca. Diuresing again with improvement. * Acute renal failure - improving BUN and creatinine. Osmotic diuresis resolved - Nephrology following. * Respiratory-improved. Tachypnea resolved. On room air. Has had left basilar atelectasis/effusion on x-ray. * Hypernatremia: Improving. Sodium 145, stable. On hypotonic fluids and free water flushes. * Coag-negative staph in blood cultures, urine. Off cephazolin after a full course. Did not have signs or symptoms of sepsis.. * HTN: Controlled. On hydralazine. Amlodipine on hold. Getting daily Lasix. * Diabetes- glucoses remain high -on increased sliding scale coverage and Lantus * Prophylaxis: PPI. SCDs. Can start low molecular weight heparin. * Anemia: Hematocrit 28.5. Stable. No evidence of active bleeding. Thrombocytopenia noted. Approximately 60,000, stable. Will follow. * Nutrition: On tube feedings * Disposition-continued slow improvement in neurologic status, prognosis appears better. Sister is medical proxy. Now with Medicaid pending. Plan: Continue supportive care, cont hypotonic fluids, blood pressure control. Renal continuing to follow. Continue insulin sliding scale and Lantus. Follow laboratory, x-ray intermittently. Continue tube feedings and other medications. Swallow evaluation as he continues to wake up. May need video swallow study. If cannot swallow safely at some point he will need a PEG tube. Continue to work with therapies: Advance as tolerated. He can transfer to a medical-surgical/neuro bed from my standpoint. Began to look at long term facility placement. 35 min of critical care time spent directly with the patient. Discussed with nursing, hospitalist, and the ICU multi disciplinary team. Subjective: Unchanged. Still with some back pain. Somnolent, arousable. Moaning at times. Some short appropriate verbal responses. Oriented to person and place Objective: Vital Signs Temp Pulse Resp BP Pulse Ox 36.9 C 82 20 122/54 H 93 10/19/17 08:00 10/19/17 08:00 10/19/17 08:00 10/19/17 08:00 10/19/17 08:00 Laboratory Results 10/19/17 04:15 10/19/17 04:15 10/18/17 10/19/17 10/20/17 05:59 05:59 05:59 Intake Total 3902 2944 Output Total 2750 1975 Balance 1152 969 PT 22.6 SEC (12.0-15.0) H 10/15/17 04:00 INR 1.98 (0.83-1.16) H 10/15/17 04:00 Laboratory Tests 10/19/17 04:15 Calcium 7.5 L Phosphorus 3.8 Total Bilirubin 1.0 AST 74 H ALT 48 Albumin 2.4 L [address] and thoracic CT scans were negative regarding the spine. Rib fracture noted right 10th rib Physical Exam - Physical Exam General Appearance: no apparent distress, obtunded (Lethargic, arouses), obese EENT: PERRL/EOMI, other (On room air) Neck: No normal inspection (Collar in place) Respiratory: lungs clear (Anteriorly), decreased breath sounds (At bases) Cardiac/Chest: regular rate, rhythm (Distant heart tones) Abdomen: normal bowel sounds, non-tender, soft (Obese, mildly distended), other (Tolerating tube feeding) Male Genitalia: other (Catheter in place) Skin: normal color, warm/dry Extremities: pedal edema (1+) Neuro/Psych: no motor/sensory deficits (Not moving left leg), cognition abnormalities (About the same, improved but remains quite slow with limited responses) ICD10 Worksheet Patient Problems: Problems Problem Status Onset Traumatic intraparenchymal hemorrhage Acute
[2017-10-20] MEDS: INSULIN LISPRO 100 UNIT/ML SC SCH ×4 (00:21→22:01)
[2017-10-20 06:07] LABS: PLATELET COUNT 62 10^3/uL (150-400)
[2017-10-20] MEDS: HYDROCOD/APAP 7.5/325 IN 15ML UDCUP PO PRN (08:59)
[2017-10-20] MEDS: FUROSEMIDE 40 MG/4 ML VIAL IVP SCH (09:01)
[2017-10-20] MEDS: POTASSIUM CL 20 MEQ/15 ML UDCUP PO SCH (09:01)
[2017-10-20] MEDS: ENOXAPARIN 40 MG/0.4 ML SYR SC SCH (09:01)
[2017-10-20] MEDS: hydrALAZINE 10 MG TAB TUBE SCH ×3 (09:02→21:56)
[2017-10-20] MEDS ORDERED: HYDROCOD/APAP 7.5/325 IN 15ML UDCUP TUBE PRN (09:33)
[2017-10-20] MEDS: LANSOPRAZOLE SUSP 30MG/10ML UDSYR (Adult) TUBE SCH ×2 (10:36→22:29)
[2017-10-20] MEDS: INSULIN GLARGINE 100 UNITS/ML UNIT SC SCH (12:33)
--- NOTE | 2017-10-20 14:08 | HOSPPROG ---
Hospitalist Progress Note Assessment/Plan: 62 yo male admitted following trauma with subsequent SDH and likely TBI: back pain: no fracture on ct's oropharynx: appreciate care from BODY BUILDER Volume overload: daily lasix Mixed metabolic acidosis/resp alkalosis: Enterococcus UTI. had been treated w ancef which will not cover enterococcus dc abx and follow clear urine follow off abx SDH: bilateral frontal/temporal: repeat CTH stable Neurosurgery following 10/14 scan shows improvement following commands, apparently for first time today HTN: restart scheduled hydralazine abdominal distension: film 10/15 w no air (interp by me) remove NGT Hypernatremia: free water boluses restarted today at 100 q4 has improved w lasix follow bid GIB: stable or stopped, Hgb slightly decreased cont Protonix IV BID appears to have resolved New atrial fibrillation: NSR now. BB, no AC with SDH As TF are off, schedule IV Metoprolol follow none recently (10/19 none on tele) stop BB coagulopathy, likely from liver disease Monitor INR closely has received vit K x 2 KYLE with likely osmotic diuresis Nephrology following. No urgent needs for dialysis cr trending down DM: q6hr glucose with TFs cont with ISS A1C is 5.7 unclear why ISS was stopped. He will be started on Lantus and ISS restarted Microcytic anemia: H/H. No active bleeding here. Rec outpatient colonoscopy Acute encephalopathy: perhaps improved in that following commands today has been stable over last few days suspected will improve w normalization of sodium Alcohol dependence: monitor off benzos to assess MS Social: lives with brother here in [place] but cannot reach. Malka (sister) is MDPOA. Only visitors she wants: family, friend Cirilo Diet: tube feeds DVT ppx: SCDs Disp: cont inpatient Subjective: cxr w no infiltrate (intrerp by me). BODY BUILDER removing a SIGNIFICANT amount of inspissated gunk in oropharynx Objective: Vital Signs Temp Pulse Resp BP Pulse Ox 37.1 C 87 20 125/69 H 92 10/20/17 12:01 10/20/17 12:01 10/20/17 12:01 10/20/17 12:01 10/20/17 12:01 Laboratory Results 10/20/17 05:30 10/20/17 05:30 10/19/17 10/20/17 10/21/17 05:59 05:59 05:59 Intake Total 2947 1475 Output Total 3944 6135 Balance 969 -375 PT 22.6 SEC (12.0-15.0) H 10/15/17 04:00 INR 1.98 (0.83-1.16) H 10/15/17 04:00 - Physical Exam Constitutional: no apparent distress, other (more alert) Eyes: PERRL, anicteric sclera Ears, Nose, Mouth, Throat: other (a lot of dried gunk in oropharynx) Cardiovascular: regular rate and rhythym, no murmur, rub, or gallop Respiratory: no respiratory distress, no rales or rhonchi Gastrointestinal: normoactive bowel sounds, soft, non-tender abdomen Genitourinary: no bladder fullness, No drew in urethra Skin: warm, normal color Musculoskeletal: full muscle strength Neurologic: other (LLE weakness), No AAOx3 ICD10 Worksheet Patient Problems: Problems Problem Status Onset Traumatic intraparenchymal hemorrhage Acute
[2017-10-20] MEDS: MBX SOLN 30 ML BOTTLE PO PRN (14:56)
[2017-10-21] MEDS: INSULIN LISPRO 100 UNIT/ML SC SCH ×4 (01:14→18:44)
[2017-10-21 05:04] LABS: PLATELET COUNT 64 10^3/uL (150-400)
[2017-10-21] MEDS: FUROSEMIDE 40 MG/4 ML VIAL IVP SCH ×2 (09:08→10:32)
[2017-10-21] MEDS: ENOXAPARIN 40 MG/0.4 ML SYR SC SCH (09:08)
[2017-10-21] MEDS: hydrALAZINE 10 MG TAB TUBE SCH ×3 (09:08→21:35)
[2017-10-21] MEDS: INSULIN GLARGINE 100 UNITS/ML UNIT SC SCH (09:10)
[2017-10-21] MEDS: POTASSIUM CL 20 MEQ/15 ML UDCUP TUBE SCH (09:11)
[2017-10-21] MEDS: LANSOPRAZOLE SUSP 30MG/10ML UDSYR (Adult) TUBE SCH ×2 (09:12→21:35)
[2017-10-21] MEDS: FUROSEMIDE 40 MG TAB TUBE SCH (11:09)
--- NOTE | 2017-10-21 11:25 | HOSPPROG ---
Hospitalist Progress Note Assessment/Plan: 62 yo male admitted following trauma with subsequent SDH and likely TBI: back pain: no fracture on ct's oropharynx: appreciate care from PILOT PLANT TECHNICIAN this needs to be cleared out before we can do a proper swallow eval as that will determine tghe need for PEG and ultimate disposition Volume overload: daily lasix Mixed metabolic acidosis/resp alkalosis: resolved Enterococcus UTI. had been treated w ancef which will not cover enterococcus dc abx and follow clear urine follow off abx SDH: bilateral frontal/temporal: repeat CTH stable Neurosurgery following 10/14 scan shows improvement following commands, apparently for first time today HTN: restart scheduled hydralazine abdominal distension: film 10/15 w no air (interp by me) remove NGT Hypernatremia: free water boluses restarted today at 100 q4 has improved w lasix follow bid GIB: stable or stopped, Hgb slightly decreased cont Protonix IV BID appears to have resolved New atrial fibrillation: NSR now. BB, no AC with SDH As TF are off, schedule IV Metoprolol follow none recently (10/19 none on tele) stop BB coagulopathy, likely from liver disease has received vit K x 2 check 10/22 currently on LMWHG proph 9started 10/19) KYLE with likely osmotic diuresis Nephrology following. No urgent needs for dialysis cr trending down DM: q6hr glucose with TFs cont with ISS A1C is 5.7 unclear why ISS was stopped. He will be started on Lantus and ISS restarted Microcytic anemia: H/H. No active bleeding here. Rec outpatient colonoscopy Acute encephalopathy: perhaps improved in that following commands today has been stable over last few days suspected will improve w normalization of sodium 10/21- he has become more alert over the last 7 days, but stioll not following commands or really speaking he will need fci placement, possibly LTAC probably depends on outcome of PILOT PLANT TECHNICIAN eval Alcohol dependence: has been in hospital long enough to be out Social: lives with brother here in [place] but cannot reach. Malka (sister) is MDPOA. Only visitors she wants: family, friend Cirilo Diet: tube feeds DVT ppx: SCDs Disp: cont inpatient Subjective: alert, not really following commands Objective: Vital Signs Temp Pulse Resp BP Pulse Ox 37.0 C 83 18 143/63 H 93 10/21/17 08:00 10/21/17 08:00 10/21/17 08:00 10/21/17 09:08 10/21/17 08:00 Laboratory Results 10/21/17 04:44 10/21/17 04:44 10/20/17 10/21/17 10/22/17 05:59 05:59 05:59 Intake Total 1475 950 Output Total 1850 1425 Balance -375 -475 PT 22.6 SEC (12.0-15.0) H 10/15/17 04:00 INR 1.98 (0.83-1.16) H 10/15/17 04:00 - Physical Exam Constitutional: no apparent distress, appears nourished Eyes: PERRL, anicteric sclera Ears, Nose, Mouth, Throat: other (o/p w inspissated gink throughout) Cardiovascular: regular rate and rhythym, no murmur, rub, or gallop Respiratory: no respiratory distress, no rales or rhonchi Gastrointestinal: normoactive bowel sounds, soft, non-tender abdomen Genitourinary: no bladder fullness, No drew in urethra Skin: warm, normal color Musculoskeletal: other (LLE weakness), No full muscle strength Neurologic: No AAOx3 Psychiatric: No interacting appropriately ICD10 Worksheet Patient Problems: Problems Problem Status Onset Traumatic intraparenchymal hemorrhage Acute
--- NOTE | 2017-10-21 16:46 | ASMTCMCOM ---
CM Note CM Note Notes: Pt was found down in a parking lot, hx of homelessness, admitted to hospital with a TBI. Pt has a sister who is mdpoa, pt will need placement but per Arely in [place], we are waiting for his sister to sign Medicaid forms. Pt has a rn case management at [facility] [phone] Referral sent to ALEJANDRO Perez w/f. DC Plan: LTAC vs SNF Date Signed: 10/21/2017 04:45 PM Electronically Signed By:Melissa Romero RN
[2017-10-21] MEDS: MBX SOLN 30 ML BOTTLE PO PRN (21:35)
[2017-10-22] MEDS: INSULIN LISPRO 100 UNIT/ML SC SCH ×4 (01:19→18:13)
[2017-10-22 05:39] LABS: INR 1.76 (0.83-1.16); PROTIME(PATIENT) 20.6 SEC (12.0-15.0)
[2017-10-22] MEDS: ENOXAPARIN 40 MG/0.4 ML SYR SC SCH (09:02)
[2017-10-22] MEDS: FUROSEMIDE 40 MG TAB TUBE SCH (09:03)
[2017-10-22] MEDS: hydrALAZINE 10 MG TAB TUBE SCH (09:03)
[2017-10-22] MEDS: INSULIN GLARGINE 100 UNITS/ML UNIT SC SCH (09:05)
[2017-10-22] MEDS: LANSOPRAZOLE SUSP 30MG/10ML UDSYR (Adult) TUBE SCH ×2 (09:06→21:13)
[2017-10-22] MEDS: POTASSIUM CL 20 MEQ/15 ML UDCUP TUBE SCH (09:06)
[2017-10-22 10:54] LABS: PLATELET COUNT 71 10^3/uL (150-400)
[2017-10-22] MEDS: D5W 1,000 ML IV SCH (11:40)
[2017-10-22] MEDS: hydrALAZINE 25 MG TAB TUBE SCH ×3 (13:50→21:13)
[2017-10-22] MEDS ORDERED: LIDOCAINE 1% 300 MG/30 ML SDV ONE (14:10)
[2017-10-22] MEDS ORDERED: LORazepam 2 MG/ML INJ IVP ONE (14:50)
[2017-10-22] MEDS ORDERED: LORazepam 2 MG/ML INJ ONE (15:12)
--- NOTE | 2017-10-22 17:53 | HOSPPROG ---
Hospitalist Progress Note Assessment/Plan: Assessment: 62 yo male p/w traumatic SDH c/b ongoing encephalopathy Plan: # Acute diastolic CHF exacerbation. Evidenced by LVH/diastolic dysfunction on Echo, bilat infiltrates on CXR (personally interpreted), elevated BNP rising on 10/08/17, ongoing edema -cont lasix # Mixed metabolic acidosis/resp alkalosis. Resolved # Suspected Enterococcus UTI. Repeat UA today w/ ongoing LE/WBC, leukocytosis on CBC, will tx w/ Abx given ongoing impaired mentation -D#04/03 amoxicillin # SDH. Acute, traumatic, bilateral frontal/temporal w/ repeat CTH stable -appreciate NSGY ongoing care, will require outpt f/u # HTN. Chronic, increased hydralazine to qid, cont amlodipine # Ascites. Acute, new problem, further w/u indicated. Unclear if 2/2 liver disease vs. poor oncotic pressure and volume overload -get diagnostic and therapeutic para today -send cytology # Hypernatremia. Acute worsening, cont free water boluses at 150ml q4 + D5W 100/ hr -monitor daily # GIB. Acute, w/ microcytic anemia, likely upper source, cont ppi IV bid -monitor Hgb, rec outpt colonoscopy # New onset atrial fibrillation. Restart bblocker if reoccurs, no anticoagulation/ASA 2/2 SDH -monitor on tele # Coagulopathy, likely from liver disease. S/p Vit K # KYLE. Ongoing osmotic diuresis -monitor daily while giving lasix # DM. Chronic, cont q6hr glucose with TFs -cont with ISS # Acute encephalopathy. Likely multifactoral, 2/2 metabolic effects of acidosis/ KYLE/infxn/hypernatremia + structural effects of SDH -following some commands today -ongoing therapies, working w/ CM for placement when medically stable # Alcoholism. Rec ongoing sobriety Code. Full, Malka (sister) is MDPOA. Only visitors she wants: family, friend Cirilo Diet: tube feeds DVT ppx: SCDs Disp: cont inpatient Subjective: patient resistant to paracentesis, but calmed w/ ativan Objective: Vital Signs Temp Pulse Resp BP Pulse Ox 37.5 C 85 20 146/65 H 91 L 10/22/17 16:43 10/22/17 16:43 10/22/17 16:43 10/22/17 16:43 10/22/17 16:43 Laboratory Results 10/22/17 10:45 10/22/17 10:45 10/21/17 10/22/17 10/23/17 05:59 05:59 05:59 Intake Total 950 1170 Output Total 1425 Balance -475 1170 PT 20.6 SEC (12.0-15.0) H 10/22/17 05:11 INR 1.76 (0.83-1.16) H 10/22/17 05:11 - Physical Exam Constitutional: no apparent distress, not in pain, chronically ill appearing, obese, No uncomfortable Cardiovascular: regular rate and rhythym, no murmur, rub, or gallop, edema (1+ bilat LE) Respiratory: inspiratory crackles (bilat), No reduced air movement, No expiratory wheeze, No bronchial breath sounds Gastrointestinal: normoactive bowel sounds, tenderness (mild), ascites, distension (severe), No guarding Neurologic: weakness (RUE/RLE), No AAOx3 (AAOx0), No facial droop Psychiatric: encephalopathic, flat affect, poor insight, poor memory, other ( follows some commands, minimal verbalization to questions) ICD10 Worksheet Patient Problems: Problems Problem Status Onset Traumatic intraparenchymal hemorrhage Acute
[2017-10-22] MEDS ORDERED: ALBUMIN 25% 100 ML IV ONE (18:30)
[2017-10-22] MEDS: AMOXICILLIN 400 MG/5 ML BTL TUBE SCH (21:13)
[2017-10-23] MEDS: INSULIN LISPRO 100 UNIT/ML SC SCH ×5 (00:18→23:59)
[2017-10-23] MEDS: D5W 1,000 ML IV SCH (04:29)
[2017-10-23] MEDS: hydrALAZINE 25 MG TAB TUBE SCH ×4 (06:08→21:30)
[2017-10-23 06:17] LABS: PLATELET COUNT 50 10^3/uL (150-400)
[2017-10-23] MEDS: INSULIN GLARGINE 100 UNITS/ML UNIT SC SCH (09:55)
[2017-10-23] MEDS: POTASSIUM CL 20 MEQ/15 ML UDCUP TUBE SCH (09:55)
[2017-10-23] MEDS: AMOXICILLIN 400 MG/5 ML BTL TUBE SCH ×2 (09:57→21:31)
[2017-10-23] MEDS: LANSOPRAZOLE SUSP 30MG/10ML UDSYR (Adult) TUBE SCH (12:12)
[2017-10-23] MEDS: ENOXAPARIN 40 MG/0.4 ML SYR SC SCH (12:12)
--- NOTE | 2017-10-23 17:17 | HOSPPROG ---
Hospitalist Progress Note Assessment/Plan: Assessment: 62 yo male p/w traumatic SDH c/b ongoing encephalopathy Plan: # Acute diastolic CHF exacerbation. Evidenced by LVH/diastolic dysfunction on Echo, bilat infiltrates on CXR (personally interpreted), elevated BNP rising on 10/08/17, ongoing edema # Mixed metabolic acidosis/resp alkalosis. Resolved # Suspected Enterococcus UTI. Tx as possible contributor to mental status impairment -D#2/10 amoxicillin # SDH. Acute, traumatic, bilateral frontal/temporal w/ repeat CTH stable -appreciate NSGY ongoing care, will require outpt f/u -care needs d/w case mgmt, currently awaiting [place] to sign appropriate medicaid forms so that patient can appropriately be considered at either LTAC vs. SNF long-term care # HTN. Chronic, cont hydralazine to qid, cont amlodipine, added propranolol # Ascites and suspected end-stage liver disease (cirrhosis). No e/o SBP, 5.5L symptomatically removed via US -restart lasix/aldactone tomorrow -start low dose propranolol as possible varices # Hypernatremia. Increase free water boluses at 200ml q4, stop D5W given edema -monitor daily # GIB. Acute, w/ microcytic anemia, likely upper source and possible varices -stop ppi given potential exacerbation of diarrhea -monitor Hgb, rec outpt colonoscopy # New onset atrial fibrillation. No anticoagulation/ASA 2/2 SDH -monitor on tele # Coagulopathy, likely from liver disease. S/p Vit K # KYLE. Ongoing osmotic diuresis -monitor daily while giving lasix # DM. Chronic, cont q6hr glucose with TFs -cont with ISS # Acute encephalopathy. Likely multifactoral, 2/2 metabolic effects of acidosis/ KYLE/infxn/hypernatremia + structural effects of SDH -following some commands intermittently -ongoing therapies, working w/ CM for placement when medically stable # Alcoholism. Rec ongoing sobriety Code. Full, Malka (sister) is [place]. Only visitors she wants: family, friend Cirilo Diet: tube feeds DVT ppx: lovenox 40 Disp: cont inpatient High level of medical complexity, high risk for worsening morbidity and mortality 2/2 issues outlined above Subjective: patient w/ episode of diarrhea today, no distress, cooperating Objective: Vital Signs Temp Pulse Resp BP Pulse Ox 37.0 C 87 18 137/64 H 94 08/01/18 15:38 10/23/17 15:38 10/23/17 15:38 10/23/17 15:38 10/23/17 15:38 Microbiology 10/22/17 15:50 Gram Stain - Final Peritoneal Fluid - Aspirate Laboratory Results 10/23/17 05:13 10/23/17 05:13 10/22/17 10/23/17 10/24/17 05:59 05:59 05:59 Intake Total 1170 2856 Balance 1170 2856 PT 20.6 SEC (12.0-15.0) H 10/22/17 05:11 INR 1.76 (0.83-1.16) H 10/22/17 05:11 - Physical Exam Constitutional: no apparent distress, not in pain, chronically ill appearing, unkempt, No uncomfortable Cardiovascular: systolic murmur (I/ at sternum), edema (2+ bilat LE), No irregularly irregular, No tachycardia Respiratory: reduced air movement (bilat bases), No expiratory wheeze, No inspiratory crackles, No bronchial breath sounds Gastrointestinal: normoactive bowel sounds, ascites, distension (moderate), No guarding Neurologic: weakness (bilat LE, moving both UE), No AAOx3 (AAOx0), No facial droop Psychiatric: encephalopathic, flat affect, poor insight, poor judgement, poor memory, other (follows some commands) ICD10 Worksheet Patient Problems: Problems Problem Status Onset Traumatic intraparenchymal hemorrhage Acute
[2017-10-23] MEDS: PROPRANOLOL HCL 10 MG TAB TUBE SCH (21:30)
[2017-10-24] MEDS: INSULIN LISPRO 100 UNIT/ML SC SCH ×3 (05:59→17:30)
[2017-10-24] MEDS: hydrALAZINE 25 MG TAB TUBE SCH ×4 (06:00→21:28)
[2017-10-24 08:08] LABS: HEPATITIS A ANTIBODY IGM (BCH) REACTIVE (NEGATIVE); HEPATITIS B CORE AB IGM NEGATIVE (NEGATIVE); HEPATITIS B SURFACE ANTIGEN NEGATIVE (NEGATIVE); HEPATITIS C ANTIBODY TOTAL REACTIVE (NEGATIVE)
[2017-10-24] MEDS: INSULIN GLARGINE 100 UNITS/ML UNIT SC SCH (09:12)
[2017-10-24] MEDS: POTASSIUM CL 20 MEQ/15 ML UDCUP TUBE SCH (09:13)
[2017-10-24] MEDS: PROPRANOLOL HCL 10 MG TAB TUBE SCH ×3 (09:13→21:28)
[2017-10-24] MEDS: ENOXAPARIN 40 MG/0.4 ML SYR SC SCH (09:13)
[2017-10-24] MEDS: AMOXICILLIN 400 MG/5 ML BTL TUBE SCH ×2 (09:14→21:28)
--- NOTE | 2017-10-24 10:00 | SOAPPROG ---
SOAP Progress Note Assessment/Plan: Assessment: 1. Hypernatremia. Was polyuric and Uosm previously was 453 c/w osmotic diuresis, either TFs or post ATN. Recovered now worsening again in setting of frequent diarrhea. Likely free H2O losses d/t diarrhea. 5.5 L free H2O deficit. Will increase free H2O to 200cc/h, check Na this pm. Check uosm/Na to eval for any central DI. UOP/weights not quantified but was polyuric before. 2. Diarrhea. TFs/abx/malabsorption? RD eval for low residue formula. D/c amox when able. Start probiotic. C diff neg. 3. SDH. MSE slowly improving per RN. 4. UTI. On amox. D/c when able. Plan: 10/24/17 10:00 Subjective: Asked to reconsult on this gentleman for hypernatremia. Admitted first half of September, found down in parking lot, had SDH, EtOH intoxication, developed KYLE probably due to ATN, anasarca, hypernatremia due to post ATN diuresis. KYLE and Na normalized but now Na back to 153. Per RN patient has had diarrhea q4h x 3-4 days. D5W stopped several days ago. Getting free H2O flushes currently, TFs at 60cc/h, on amoxicillin for UTI, waking up more. Had 5 L paracentesis yesterday Objective: Vital Signs Temp Pulse Resp BP Pulse Ox 36.5 C 79 19 130/66 H 95 10/24/17 08:00 10/24/17 08:00 10/24/17 08:00 10/24/17 08:00 10/24/17 08:00 Microbiology 10/22/17 15:50 Gram Stain - Final Peritoneal Fluid - Aspirate Laboratory Results 10/23/17 05:13 10/24/17 04:59 10/23/17 10/24/17 10/25/17 05:59 05:59 05:59 Intake Total 2856 2174 Output Total 300 Balance 2856 2174 -300 PT 20.6 SEC (12.0-15.0) H 10/22/17 05:11 INR 1.76 (0.83-1.16) H 10/22/17 05:11 Awake, in c-collar. Nods to questions, does not vocalize. Had incontinent BM/urine. RRR, no m/g/r CTAB Abdom quite distended, dull to percussion 1+ below knee pitting edema ICD10 Worksheet Patient Problems: Problems Problem Status Onset Traumatic intraparenchymal hemorrhage Acute
--- NOTE | 2017-10-24 15:32 | HOSPPROG ---
Hospitalist Progress Note Assessment/Plan: Assessment: 62 yo male p/w traumatic SDH c/b ongoing encephalopathy and recurrent, acute hypernatremia Plan: # Acute diastolic CHF exacerbation. Evidenced by LVH/diastolic dysfunction on Echo, bilat infiltrates on CXR, elevated BNP rising on 10/08/17, ongoing edema # Mixed metabolic acidosis/resp alkalosis. Resolved # Suspected Enterococcus UTI. Tx as possible contributor to mental status impairment -D#06/01 amoxicillin -if diarrhea worsening or not improving w/ imodium, will shorten Abx course # SDH. Acute, traumatic, bilateral frontal/temporal w/ repeat CTH stable -will require outpt NSGY f/u -ANN has signed medicaid manuel, either LTAC vs. SNF long-term care # HTN. Chronic, cont hydralazine to qid, cont amlodipine, added propranolol # Ascites and suspected end-stage liver disease (cirrhosis). No e/o SBP, 5.5L symptomatically removed via US -restart lasix/aldactone once free water needs met -started low dose propranolol as possible varices # Hypernatremia. Increase free water boluses at 200ml q1h, off D5W -d/w Dr. Coombs, consult appreciated, he reports >5L free water deficit and will repeat labs this afternoon -monitor daily # GIB. Acute, w/ microcytic anemia, likely upper source and possible varices -stop ppi given potential exacerbation of diarrhea -monitor Hgb, rec outpt colonoscopy # New onset atrial fibrillation. No anticoagulation/ASA 2/2 SDH -monitor on tele # Coagulopathy, likely from liver disease. S/p Vit K # KYLE. Ongoing osmotic diuresis -monitor daily while giving lasix # DM. Chronic, cont q6hr glucose with TFs -cont with ISS # Acute encephalopathy. Likely multifactoral, 2/2 metabolic effects of acidosis/ KYLE/infxn/hypernatremia + structural effects of SDH -following some commands more consistently today, opening eyes to verbal stim -ongoing therapies, working w/ CM for placement when medically stable # Alcoholism. Rec ongoing sobriety Code. Full, Malka (sister) is MDPOA. Only visitors she wants: family, friend Cirilo Diet: tube feeds DVT ppx: lovenox 40 Disp: cont inpatient High level of medical complexity, high risk for worsening morbidity and mortality 2/2 issues outlined above Subjective: ongoing diarrhea q2 Objective: Vital Signs Temp Pulse Resp BP Pulse Ox 37.3 C 64 18 147/80 H 95 10/24/17 12:00 10/24/17 12:00 10/24/17 12:00 10/24/17 12:00 10/24/17 12:00 Microbiology 10/22/17 15:50 Gram Stain - Final Peritoneal Fluid - Aspirate Laboratory Results 10/23/17 05:13 10/24/17 04:59 10/23/17 10/24/17 10/25/17 05:59 05:59 05:59 Intake Total 2856 2174 240 Output Total 550 Balance 2856 2174 -310 PT 20.6 SEC (12.0-15.0) H 10/22/17 05:11 INR 1.76 (0.83-1.16) H 10/22/17 05:11 - Physical Exam Constitutional: no apparent distress, not in pain, chronically ill appearing, obese, unkempt, No uncomfortable Eyes: EOMI Cardiovascular: edema (1+ bilat LE), No systolic murmur, No irregularly irregular, No tachycardia Respiratory: reduced air movement (bilat bases), No expiratory wheeze, No inspiratory crackles, No bronchial breath sounds, No respiratory distress Gastrointestinal: ascites, distension (moderate), No normoactive bowel sounds, No tenderness, No guarding Neurologic: weakness (bilat LE, movement in RLE, motor 5/5 bilat UE), facial droop (R mouth), No AAOx3 (AAOX2 (person and place)) Psychiatric: not anxious, encephalopathic, flat affect, poor insight, No agitated ICD10 Worksheet Patient Problems: Problems Problem Status Onset Traumatic intraparenchymal hemorrhage Acute
--- NOTE | 2017-10-24 15:59 | ASMTCMCOM ---
CM Note CM Note Notes: Note by CM Isaac Giron not saved in [employer] 10/23/17: Pt still not ready for d/c. His sister Malka (lives in [facility]) is supposed to sign the Medicaid LTC application and send in today per Arely from [facility]. The [facility] Medicaid rep Ebony is checking into other LTACs that accept LTC Medicaid. Currently [facility] is the [facility] a referral has been sent to. CM will continue to follow. Date Signed: 10/24/2017 03:59 PM Electronically Signed By:DUSTIN Baca
[2017-10-24] MEDS: LOPERAMIDE HCL 1 MG/5 ML UDL PO SCH ×2 (17:30→21:28)
[2017-10-25] MEDS: INSULIN LISPRO 100 UNIT/ML SC SCH ×6 (00:33→21:26)
[2017-10-25] MEDS: LOPERAMIDE HCL 1 MG/5 ML UDL PO SCH (05:57)
[2017-10-25] MEDS: hydrALAZINE 25 MG TAB TUBE SCH (05:57)
[2017-10-25] MEDS ORDERED: HYDROCODONE/APAP 5/325 TAB PO PRN (09:26)
[2017-10-25] MEDS ORDERED: AMOXICILLIN 400 MG/5 ML BTL PO SCH (09:30)
[2017-10-25] MEDS ORDERED: POTASSIUM CL 20 MEQ TAB PO SCH (09:30)
[2017-10-25] MEDS ORDERED: PROPRANOLOL HCL 10 MG TAB PO SCH (09:30)
[2017-10-25] MEDS: ENOXAPARIN 40 MG/0.4 ML SYR SC SCH (09:52)
[2017-10-25] MEDS: INSULIN GLARGINE 100 UNITS/ML UNIT SC SCH (09:52)
[2017-10-25] MEDS: PROPRANOLOL HCL 10 MG TAB PO SCH ×3 (10:00→21:58)
[2017-10-25] MEDS: POTASSIUM CL 20 MEQ/15 ML UDCUP PO SCH (10:00)
--- NOTE | 2017-10-25 10:12 | SOAPPROG ---
SOAP Progress Note Assessment/Plan: Assessment: 1. KYLE Resolved. 2. Hypernatremia This has been a recurrent issue. He has often been hyperglycemic. This may be exacerbating an osmotic diuresis. Would recommend adjusting insulin, consider a diabetic tube feed, resolving diarrhea. 3. Hypokalemia His K is ok on scheduled dosing. 4. Neuro Gradual improvement. 5. Plan of Care Sister is GURJIT. She is to come from [facility] to meet with team. 6. BP Controlled with IV Meds, goal 110 to 150 per NS 7. Anemia Hg has decreased. Continue to monitor. 8. Thrombocytopenia Stable but low. Subjective: Arouses Objective: Vital Signs Temp Pulse Resp BP Pulse Ox 36.8 C 72 18 131/65 H 96 10/25/17 08:00 10/25/17 08:00 10/25/17 08:00 10/25/17 08:00 10/25/17 08:00 Microbiology 10/22/17 15:50 Gram Stain - Final Peritoneal Fluid - Aspirate Laboratory Results 10/23/17 05:13 10/25/17 05:05 10/24/17 10/25/17 10/26/17 05:59 05:59 05:59 Intake Total 2174 340 4471 Output Total 850 Balance 2174 -510 4471 PT 20.6 SEC (12.0-15.0) H 10/22/17 05:11 INR 1.76 (0.83-1.16) H 10/22/17 05:11 Physical Exam - Physical Exam General Appearance: mild distress Respiratory: lungs clear Cardiac/Chest: regular rate, rhythm Abdomen: soft Extremities: pedal edema, other (2+ thigh edema) ICD10 Worksheet Patient Problems: Problems Problem Status Onset Traumatic intraparenchymal hemorrhage Acute
[2017-10-25] MEDS: AMOXICILLIN 400 MG/5 ML BTL TUBE SCH (11:04)
[2017-10-25] MEDS: POTASSIUM CL 20 MEQ/15 ML UDCUP TUBE SCH (11:04)
[2017-10-25] MEDS: PROPRANOLOL HCL 10 MG TAB TUBE SCH (11:05)
[2017-10-25] MEDS: hydrALAZINE 25 MG TAB PO SCH ×3 (12:27→21:57)
--- NOTE | 2017-10-25 16:15 | ASMTCMCOM ---
CM Note CM Note Notes: Pt becoming increasingly responsive, communicating a little now. Pt has progressed to dysphagia 1 diet. Pt is still Medicaid pending status. Pt sister Malka has signed Medicaid forms, Medicaid and LTC Mdcd apps have been sent in to [facility] by [employer] staff. left for Malka to update her. Updates sent to [facility], left for Saroj to check on status. At this point pt likely does not qualify for LTAC level of care. Several SNF referrals sent in Xuan. [facility] with [facility] on site today for assessment, he will also communicate with Josie at [facility] for consideration there. Several SNFs have already declined due to lack of Medicaid bed availability. Several referrals pending and Roxy with [facility] to complete on-site. Pt will likely need LTC, ULTC-100 completed today and faxed to [facility]. CM to follow. D/c Plan: SNF vs. LTAC Date Signed: 10/25/2017 04:14 PM Electronically Signed By:DUSTIN Baca
--- NOTE | 2017-10-25 17:21 | HOSPPROG ---
Hospitalist Progress Note Assessment/Plan: Assessment: 62 yo male p/w traumatic SDH c/b ongoing encephalopathy and recurrent, acute hypernatremia, possible UTI Plan: # SDH. Acute, traumatic, bilateral frontal/temporal w/ repeat HCT stable -will require outpt NSGY f/u -ANN has signed medicaid manuel, either LTAC vs. SNF long-term care, currently Medicaid pending # Acute encephalopathy. Likely multifactoral, 2/2 metabolic effects of acidosis/ KYLE/infxn/hypernatremia + structural effects of SDH -following some commands inconsistently today, opening eyes to verbal stim -ongoing therapies, working w/ CM for placement when medically stable # Hypernatremia. High intravascular free water deficit 2/2 diarrheal losses, poor oncotic pressure w/ 3rd spacing/ascites -d/w Dr. Mai, consult appreciated, recs continued q1hr free water boluses via NGT -d/w dietary, the glucerna TF adjustment has increased free water content, so vol of additional free water bolues adjusted appropriately -monitor sNa # Possible Enterococcus and Enterobacter UTIs. Tx as possible contributor to mental status impairment -s/p 4 days of amoxicillin (for E. faecalis), stopping and adjusting to IV Cefepime 2g q8 (for enterobacter), getting ID consult for carbepenemase- resistant organism and guidance on tx # Ascites and suspected end-stage liver disease (cirrhosis). No e/o SBP, 5.5L symptomatically removed via US -restart lasix/aldactone once free water needs met -started low dose propranolol as possible varices # GIB. Acute, w/ microcytic anemia, likely upper source and possible varices -stopped ppi given potential exacerbation of diarrhea -monitor Hgb, rec outpt colonoscopy # New onset atrial fibrillation. No anticoagulation/ASA 2/2 SDH -monitor on tele # KYLE. Ongoing osmotic diuresis -monitor daily while giving lasix # DM w/ hyperglycemia. Chronic, cont q6hr glucose with TFs -cont with ISS # Acute diastolic CHF exacerbation. Evidenced by LVH/diastolic dysfunction on Echo, bilat infiltrates on CXR, ongoing edema # Mixed metabolic acidosis/resp alkalosis. Resolved # HTN. Chronic, cont hydralazine to qid, cont amlodipine, added propranolol # Coagulopathy, likely from liver disease. S/p Vit K # Alcoholism. Rec ongoing sobriety Code. Full, Malka (sister) is MDPOA. Only visitors she wants: family, friend Cirilo Diet: tube feeds DVT ppx: lovenox 40 Disp: cont inpatient High level of medical complexity, high risk for worsening morbidity and mortality 2/2 issues outlined above Subjective: patient intermittently following commands today, denies pain Objective: Vital Signs Temp Pulse Resp BP Pulse Ox 37.8 C 76 18 134/73 H 90 L 10/25/17 16:00 10/25/17 16:00 10/25/17 16:00 10/25/17 16:00 10/25/17 16:00 Microbiology 10/22/17 15:50 Gram Stain - Final Peritoneal Fluid - Aspirate Body Fluid Culture - Final Laboratory Results 10/23/17 05:13 10/25/17 14:20 10/24/17 10/25/17 10/26/17 05:59 05:59 05:59 Intake Total 2174 340 4851 Output Total 850 Balance 2174 -510 4851 PT 20.6 SEC (12.0-15.0) H 10/22/17 05:11 INR 1.76 (0.83-1.16) H 10/22/17 05:11 - Physical Exam Constitutional: no apparent distress, not in pain, chronically ill appearing, obese, unkempt, No uncomfortable Cardiovascular: edema (2+ bilat LE), No systolic murmur, No irregularly irregular, No tachycardia Respiratory: reduced air movement (bilat bases), No expiratory wheeze, No inspiratory crackles, No bronchial breath sounds, No respiratory distress Gastrointestinal: normoactive bowel sounds, ascites, distension (moderate w/ umbilical hernia), No guarding Neurologic: weakness (not moving bilat LE), facial droop (R mouth palsy), other (motor 5/5 bilat sql tech strength), No AAOx3 (AAOx1 (place)) Psychiatric: not anxious, encephalopathic, flat affect, poor insight, poor memory, other (only follows some commands), No agitated ICD10 Worksheet Patient Problems: Problems Problem Status Onset Traumatic intraparenchymal hemorrhage Acute
[2017-10-25] MEDS ORDERED: INSULIN GLARGINE 100 UNITS/ML UNIT SC ONE (17:23)
[2017-10-25] MEDS ORDERED: INSULIN GLARGINE 100 UNITS/ML UNIT SC SCH (17:24)
[2017-10-25] MEDS: CEFEPIME HCL 2 GM in NS 100 ML IV SCH (17:33)
[2017-10-26] MEDS: INSULIN LISPRO 100 UNIT/ML SC SCH ×7 (00:49→23:56)
[2017-10-26] MEDS: CEFEPIME HCL 2 GM in NS 100 ML IV SCH ×2 (02:24→10:00)
[2017-10-26 04:53] LABS: PLATELET COUNT 60 10^3/uL (150-400)
[2017-10-26] MEDS: hydrALAZINE 25 MG TAB PO SCH ×4 (06:23→20:57)
--- NOTE | 2017-10-26 09:58 | SOAPPROG ---
SOAP Progress Note Assessment/Plan: Assessment: 1. KYLE Resolved. 2. Hypernatremia This was due to diarrhea, osmotic diuresis (hyperglycemia), and being unable to drink freely. Diarrhea is better, glucose levels are better, and free water has been increased. Na better today. 3. Hypokalemia His K is ok on scheduled dosing. 4. Neuro Appears clear this am. 5. DM Will resume lantus at half previous dose with change to diabetic tube feeds. He has FSBS and SSI q6h. 10/26/17 09:55 Subjective: Appears more clear Objective: Vital Signs Temp Pulse Resp BP Pulse Ox 37.0 C 84 18 140/75 H 94 10/26/17 07:28 10/26/17 07:28 10/26/17 07:28 10/26/17 07:28 10/26/17 07:28 Microbiology 10/22/17 15:50 Gram Stain - Final Peritoneal Fluid - Aspirate Body Fluid Culture - Final Laboratory Results 10/26/17 04:35 10/26/17 04:35 10/25/17 10/26/17 10/27/17 05:59 05:59 05:59 Intake Total 340 5881 Output Total 850 Balance -510 5881 PT 20.6 SEC (12.0-15.0) H 10/22/17 05:11 INR 1.76 (0.83-1.16) H 10/22/17 05:11 Physical Exam - Physical Exam General Appearance: mild distress Respiratory: lungs clear Cardiac/Chest: regular rate, rhythm Abdomen: soft Extremities: pedal edema (3+ thigh and le edema) Neuro/Psych: oriented x 3 ICD10 Worksheet Patient Problems: Problems Problem Status Onset Traumatic intraparenchymal hemorrhage Acute
[2017-10-26] MEDS: POTASSIUM CL 20 MEQ/15 ML UDCUP PO SCH (11:00)
[2017-10-26] MEDS: PROPRANOLOL HCL 10 MG TAB PO SCH ×3 (11:00→21:15)
[2017-10-26] MEDS: ENOXAPARIN 40 MG/0.4 ML SYR SC SCH (11:01)
[2017-10-26] MEDS: INSULIN GLARGINE 100 UNITS/ML UNIT SC SCH (11:07)
--- NOTE | 2017-10-26 11:48 | GCON ---
[f rep st] CONSULTATION INFECTIOUS DISEASE CONSULTATION DATE OF CONSULTATION: 10/26/2017 REFERRING PHYSICIAN: Dewayne Franco MD REASON FOR CONSULTATION: Possible UTI due to his Enterobacter cloacae which is possible carbapenemas e photo producer. HISTORY OF PRESENT ILLNESS: The patient is a 62-year-old male with a past medical history of alcohol abuse and end-stage liver disease, who was hospitalized on 10/02/2017 after being found down and sub sequently noted to have subdural hematoma. The patient has had persistent encephalopathy which is fe lt to be multifactorial, but has included evaluation for UTI as possible etiology. The patient did h ave preceding indwelling Pizarro catheter, which appears to have been removed on October 20. The patient had urine samples obtained on 10/08/2017 showing 50-182 white blood cells. Culture showed presence o f Enterococcus faecalis with greater than 100,000 colony-forming units. The patient was initially on ceftriaxone and subsequently cefazolin through October 16. On October 22, he was started on amoxicillin w hich was discontinued yesterday. He has had persistent encephalopathy with repeat urine studies perf ormed on the showing 50-182 white blood cells and 50-182 red blood cells with urine culture show ing greater than 100,000 Enterobacter cloacae, which is a possible carbapenemase photo producer; this is ba sed on intermediate susceptibility to ertapenem noting that meropenem susceptibility is retained. Ad ditionally, the isolate is susceptible to several other antimicrobial agents. The patient also has u nderlying ascites and paracentesis was also performed on 10/22/2017 without evidence of SBP. Culture s have remained negative of the ascitic fluid. Serologic testing was performed for acute hepatitis o n 10/24/2017 which showed reactivity for both hepatitis C antibody and hepatitis a IgM. The patient' s liver enzymes have been elevated during the course of his hospitalization, but have not been in exc ess of 184 by AST testing. Today, the patient is able to answer simple questions and follow commands . He complains of back pain. He does not complain of dysuria or abdominal pain. He has now been st arted on cefepime as of 10/25/2017. Based on growth of Enterobacter as outlined above. Given the ab ove findings and possible presence of carbapenemase, I am now asked to assist in his ongoing manageme nt. PAST MEDICAL HISTORY: Probable end-stage liver disease, atrial fibrillation, acute diastolic heart f ailure, diabetes mellitus, history of acute kidney injury which has now resolved, encephalopathy, and subdural hematoma as outlined above; subdural hematoma has been managed conservatively. PAST SURGICAL HISTORY: None reported. CURRENT MEDICATIONS: Cefepime 2 g IV q.8 hours, Norvasc 10 mg orally daily, Lovenox 40 mg subcu nilton y, hydralazine 25 mg p.o. four times daily, Lantus 15 units subcu daily, Humalog sliding scale, Magic Mouthwash as needed, multivitamin p.o. daily, Inderal 10 mg p.o. three times daily, potassium chlori de 20 mEq p.o. daily. ALLERGIES: No known drug allergies. SOCIAL HISTORY: The patient states he previously smoked. Alcohol use noted to be heavy previously. Additional social history cannot be obtained. FAMILY HISTORY: Cannot be obtained. REVIEW OF SYSTEMS: Outside of that noted in the HPI, the remainder of 10-system review is either ladan btainable or unremarkable. PHYSICAL EXAMINATION: VITAL SIGNS: Temperature 37.0, heart rate 84, respiratory rate 18, blood pres sure 140/75, oxygen saturation 94% on room air. GENERAL: Patient is awake, alert and able to follow simple commands. HEENT: There is no scleral icterus, conjunctival injection, or conjunctival petec hiae. The oropharynx shows thick brown coating on tongue with dry mucous membranes. There is no dom al discharge. A feeding tube is in place. NECK: C-collar is in place. CHEST: Clear to auscultati on bilaterally without adventitious sounds. Respiratory effort is normal. CARDIOVASCULAR: Regular rate and rhythm without murmurs, gallops, or rubs. ABDOMEN: Distended with ascites, nontender. The re is no suprapubic tenderness. Bowel sounds are present. No palpable organomegaly although signifi cantly limited by distention. MUSCULOSKELETAL: The patient is in protective foot boots bilaterally. SKIN: Multiple tattoos present. No stigmata of endocarditis. Skin is warm and dry to touch. KESHAWN ROLOGIC: Patient is alert and states he is in [place] at the hospital, but unable to state the year. He is able to calculate 2 + 2. He states he wants to go to [place]. LYMPHATICS: No cervical or supraclavicular nodes. LABORATORY DATA: White blood cell count 4.3, hematocrit 29.3, platelets 60, neutrophils 70%, lymphoc ytes 15%. Serum creatinine 1.0, bicarbonate 25, AST 184, ALT 87, alkaline phosphatase 168, bilirubin 1.0, albumin 2.4. Urinalysis shows 50-182 red blood cells and white blood cells with nitrates being negative. Ascitic fluid shows 231 white blood cells, 1338 red blood cells, neutrophils 5%, protein less than 2. Hepatitis A IgM is positive, hepatitis B surface antigen and core IgM are negative, hep atitis C antibody is positive. Urine culture as outlined in the history of present illness with prev ious urine culture on 10/08/2017 showing Enterococcus faecalis which is ampicillin, vancomycin suscep tible blood. Cultures on 10/08/2017 showed 1 of 2 sets with coagulase-negative Staph. IMPRESSION: 1. Positive urine culture for possible carbapenemase producing enterobacter: The patient has enceph alopathy, which is likely multifactorial given presence of subdural hematoma and underlying cirrhosis . He does not have any urinary complaints currently. I doubt urinary tract infection is contributin g to his persistent encephalopathy. The patient's urinary isolate shows intermediate susceptibility to ertapenem but has retained susceptibility to meropenem which is unusual for hcyfcnd-auxs-qqopyhwug production. The isolate is susceptible to several other antimicrobial classes as well. 2. Positive hepatitis A IgM: Laboratory findings are unusual for acute hepatitis A as typically thi s would be associated with much higher elevations and aminotransferases. Will obtain hepatitis A IgG to determine if he has previously been exposed to hepatitis A. Unclear if this may represent false positive finding due to polyclonal antibody response. 3. Hepatitis C antibody positive: This would portend significantly poor prognosis in the setting of alcoholic liver disease with cirrhosis. RECOMMENDATIONS: 1. Discontinue cefepime and observe off antibiotics. 2. Continue contact precautions. 3. Will check hepatitis A IgG total antibody. 4. Follow clinical course over time. Thank you for this consultation. /[id number]/MODL
--- NOTE | 2017-10-26 15:17 | HOSPPROG ---
Hospitalist Progress Note Assessment/Plan: DIAGNOSES: * acute encephalopathy multifactorial with intoxication, head injury and bleed, acute renal failure, hypernatremia, and notably many other causes present * Improving nicely at this time * acute closed head injury with subdural hematoma, stable on repeat imaging surgery not indicated * acute kidney injury * hypernatremia, likely due to hypovolemia and resolving with replacement * hematuria, urinary white blood cells, uncertain etiology; the timing of onset of this finding corresponds closely with the timing of onset of his acute kidney injury, and I strongly suspect presence of these cells was due to acute kidney injury along with irritation from Pizarro catheter * I agree with Dr. Coffey but this does not likely represent actual infection * Agree with current decision to stop antibiotic * gait instability, multifactorial * new onset atrial fibrillation * off anticoagulant due to subdural hematoma and suspected GI bleeding * type 2 diabetes mellitus * Was with excellent control at home hemoglobin A1c 5.7 * Sugars have been higher here likely due to stress of injuries along with multiple dextrose containing infusions * anemia severe, initially microcytic * Cause of this is unclear but he did have some bleeding here. It is curious that his MCV has gone up after he blood here and not down. The blood bank records indicate that we have given him plasma but no red cells. Certainly he is at risk for both varices from his drinking and liver disease as well as stress ulcer disease from his acute injury and ICU stay. He is also at very high risk given the need for ongoing anticoagulation eventually once risk from subdural hematoma has resolved. * It would seem prudent that we need to assess the cause of his bleeding given all of the above. Has not been seen by Gastroenterology at this time * advanced cirrhosis with ascites (fluid appeared likely transudative but an albumin was not measured at the time of paracentesis) * Patient alcoholism and hepatitis-C * Complicated by coagulopathy as well, and suspect possibly varices * Some mild alcohol induced hepatitis is present * alcoholism * diastolic CHF acute on chronic PLANS: * Continue therapies * Nutrition supplements * Thiamin * Will resume Protonix at this time * Will review the case with Gastroenterology, determine which diagnostic studies to do and when * I will review with Neurosurgery regarding when it is safe to resume anticoagulation, this may not be determined until after they see him in follow- up as an outpatient; * continue off all anticoagulants at this time due to bleeding brain and bleed and had * Continue rate control for AFib * Observe off antibiotics at this time * Continue discharge planning efforts SUBJECTIVE: Patient states " there is nothing wrong. I want to go home." He will not talk to be about anything else at this time. He will not answer any other questions. He does not allow me to examine him at the bedside. OBJECTIVE Vitals reviewed: Mild hypertension otherwise normal without fever Exam: alert; conversation is limited and my ability to examine his mentation is very limited due to this He does not allow physical examination His skin appears of normal color and he does not appear to have any respiratory distress. His nasogastric feeding tube in place and he is receiving standard tube feeds through that iv site ok Laboratory data: CBC stable with improved hemoglobin today at 8.6 Metabolic panel showing improved sodium at 152, improved creatinine at 1.6 Sugars remain a bit high 180-220 Objective: Vital Signs Temp Pulse Resp BP Pulse Ox 37.0 C 84 18 140/75 H 94 10/26/17 07:28 10/26/17 07:28 10/26/17 07:28 10/26/17 07:28 10/26/17 07:28 Microbiology 10/22/17 15:50 Gram Stain - Final Peritoneal Fluid - Aspirate Body Fluid Culture - Final Laboratory Results 10/26/17 04:35 10/26/17 04:35 10/25/17 10/26/17 10/27/17 06:59 06:59 06:59 Intake Total 4811 1410 Output Total 550 Balance 4261 1410 PT 20.6 SEC (12.0-15.0) H 10/22/17 05:11 INR 1.76 (0.83-1.16) H 10/22/17 05:11 ICD10 Worksheet Patient Problems: Problems Problem Status Onset Traumatic intraparenchymal hemorrhage Acute
[2017-10-26] MEDS: PANTOPRAZOLE SODIUM 40 MG TAB PO SCH (20:56)
[2017-10-27] MEDS: INSULIN LISPRO 100 UNIT/ML SC SCH ×5 (04:49→20:30)
[2017-10-27] MEDS: hydrALAZINE 25 MG TAB PO SCH ×3 (05:42→15:45)
[2017-10-27] MEDS: INSULIN GLARGINE 100 UNITS/ML UNIT SC SCH (10:15)
[2017-10-27] MEDS: ENOXAPARIN 40 MG/0.4 ML SYR SC SCH (10:17)
[2017-10-27] MEDS: PROPRANOLOL HCL 10 MG TAB PO SCH ×3 (10:18→21:53)
[2017-10-27] MEDS: PANTOPRAZOLE SODIUM 40 MG TAB PO SCH ×2 (10:18→21:53)
[2017-10-27] MEDS: LOPERAMIDE HCL 1 MG/5 ML UDL PO PRN ×2 (10:19→18:32)
[2017-10-27] MEDS: POTASSIUM CL 20 MEQ/15 ML UDCUP PO SCH (10:19)
--- NOTE | 2017-10-27 11:06 | SOAPPROG ---
SOAP Progress Note Assessment/Plan: Assessment: 1. KYLE Resolved. 2. Hypernatremia This was due to diarrhea, osmotic diuresis (hyperglycemia), and being unable to drink freely. This now appears resolved, with better glucose control, and resolution of diarrhea. Will continue tube flushes at 100ml q2h 3. Hypokalemia His K is ok on scheduled dosing. 4. Neuro Appears clear this am. 5. DM Will increase lantus to 25 units qam 6. Edema Will start diuretics. We will sign off. Thanks! 10/26/17 09:55 10/27/17 11:04 10/27/17 11:06 Subjective: MS clear Objective: Vital Signs Temp Pulse Resp BP Pulse Ox 36.4 C 69 18 137/69 H 92 10/27/17 08:00 10/27/17 08:00 10/27/17 08:00 10/27/17 08:00 10/27/17 08:00 Microbiology 10/22/17 11:15 Urine Culture - Final Urine,Clean Catch Enterobacter Cloacae Cre Laboratory Results 10/26/17 04:35 10/27/17 04:54 10/26/17 10/27/17 10/28/17 05:59 05:59 05:59 Intake Total 5881 Output Total 500 Balance 5881 -500 PT 20.6 SEC (12.0-15.0) H 10/22/17 05:11 INR 1.76 (0.83-1.16) H 10/22/17 05:11 Physical Exam - Physical Exam General Appearance: mild distress, other (uncomfortable being positioned on side. Alerted RN.) Respiratory: lungs clear Cardiac/Chest: regular rate, rhythm Extremities: pedal edema Neuro/Psych: oriented x 3 ICD10 Worksheet Patient Problems: Problems Problem Status Onset Traumatic intraparenchymal hemorrhage Acute
--- NOTE | 2017-10-27 14:30 | ASMTCMCOM ---
CM Note CM Note Notes: I attempted to talk to patient about discharge planning, but he was not very conversant. Unclear whether this is by choice or ability. Per last PT note, he is max assist and volodymyr lift transfer. This doesn't alistair well for him going home. Sadly, he's done well over the past few years, going from homeless to housed and employed. Per his case assembler at [facility], he is at risk of losing his housing if he cannot pay rent (which, without working, he can't). We're waiting to see if he is approved for Medicaid. A few SNFs are considering him - [facility] are to let us know tomorrow. I called [facility] for an update, and they are supposed to let me know, as well. I gave Brionna from [facility] an update today, and she'll visit him tomorrow. Date Signed: 10/27/2017 02:29 PM Electronically Signed By:Starr Stephen RN
[2017-10-27] MEDS ORDERED: FUROSEMIDE 20 MG TAB TUBE SCH (15:00)
--- NOTE | 2017-10-27 17:06 | HOSPPROG ---
Hospitalist Progress Note Assessment/Plan: DIAGNOSES: * acute encephalopathy multifactorial with intoxication, head injury and bleed, acute renal failure, hypernatremia, and notably many other causes present * Improving nicely at this time * acute closed head injury with subdural hematoma, stable on repeat imaging surgery not indicated * acute kidney injury * hypernatremia, likely due to hypovolemia and resolving with replacement * hematuria, urinary white blood cells, uncertain etiology; the timing of onset of this finding corresponds closely with the timing of onset of his acute kidney injury, and I strongly suspect presence of these cells was due to acute kidney injury along with irritation from Pizarro catheter * I agree with Dr. Coffey but this does not likely represent actual infection * Agree with current decision to stop antibiotic * gait instability, multifactorial * new onset atrial fibrillation * off anticoagulant due to subdural hematoma and suspected GI bleeding * type 2 diabetes mellitus * Was with excellent control at home hemoglobin A1c 5.7 * Sugars have been higher here likely due to stress of injuries along with multiple dextrose containing infusions * anemia severe, initially microcytic * Cause of this is unclear but he did have some bleeding here. It is curious that his MCV has gone up after he blood here and not down. The blood bank records indicate that we have given him plasma but no red cells. Certainly he is at risk for both varices from his drinking and liver disease as well as stress ulcer disease from his acute injury and ICU stay. He is also at very high risk given the need for ongoing anticoagulation eventually once risk from subdural hematoma has resolved. * It would seem prudent that we need to assess the cause of his bleeding given all of the above. Has not been seen by Gastroenterology at this time * advanced cirrhosis with ascites (fluid appeared likely transudative but an albumin was not measured at the time of paracentesis) * Ascites and edema are worsening; now with stabilized renal function and electrolytes will want to get him on some aggressive diuresis and if this does not improve his condition may need another paracentesis * Patient with both alcoholism and hepatitis-C * Complicated by coagulopathy as well, and suspect possibly varices * Some mild alcohol induced hepatitis is present * alcoholism * diastolic CHF acute on chronic Review today with Dr. Mai PLANS: * I have increased his Lasix doses and added Aldactone, follow his ascites and peripheral edema and electrolytes closely * Continue therapies * Nutrition supplements * Thiamin * Continue Protonix at this time * Will review the case with Gastroenterology, determine which diagnostic studies to do and when * I will review with Neurosurgery regarding when it is safe to resume anticoagulation, this may not be determined until after they see him in follow- up as an outpatient; * continue off all anticoagulants at this time due to bleeding brain and bleed and had * Continue rate control for AFib * Continue to Observe off antibiotics at this time * Continue discharge planning efforts; he is definitely not safe to trying get home, will need some type of rehabilitation setting SUBJECTIVE: Still does not seem to comprehend that he has any medical problems of concern, feels that he should be able to just go home now Does admit to some increasing abdominal pain and distension, says he is not hungry but tolerating tube feeds okay No symptoms of fever or dyspnea OBJECTIVE Vitals reviewed: normal without fever Exam: Alert and talkative, more cooperative for examination today Clearly some orientation and memory issues Appears relaxed, skin warm and dry good color Respirations not labored Lungs clear but diminished breath sounds Heart regular Abdomen very distended and a bit tense with ascites, some mild diffuse tenderness without rebound Pitting edema at both ankles iv site ok Laboratory data: Sugars improved today overall Electrolytes good creatinine stable 0.9 Objective: Vital Signs Temp Pulse Resp BP Pulse Ox 36.4 C 69 18 137/69 H 92 10/27/17 08:00 10/27/17 08:00 10/27/17 08:00 10/27/17 08:00 10/27/17 08:00 Microbiology 10/22/17 11:15 Urine Culture - Final Urine,Clean Catch Enterobacter Cloacae Cre Laboratory Results 10/26/17 04:35 10/27/17 04:54 10/26/17 10/27/17 10/28/17 06:59 06:59 06:59 Intake Total 1410 Output Total 500 Balance 1410 -500 PT 20.6 SEC (12.0-15.0) H 10/22/17 05:11 INR 1.76 (0.83-1.16) H 10/22/17 05:11 ICD10 Worksheet Patient Problems: Problems Problem Status Onset Traumatic intraparenchymal hemorrhage Acute
[2017-10-27] MEDS: SPIRONOLACTONE 50 MG TAB TUBE SCH (18:35)
[2017-10-27] MEDS: THIAMINE HCL 100 MG TAB PO SCH (18:35)
[2017-10-28] MEDS: INSULIN LISPRO 100 UNIT/ML SC SCH ×7 (01:14→23:32)
[2017-10-28 05:56] LABS: HEPATITIS A ANTIBODY TOTAL POSITIVE (NEGATIVE)
[2017-10-28 06:22] LABS: HEPATITIS A ANTIBODY IGM (BCH) REACTIVE (NEGATIVE)
--- NOTE | 2017-10-28 07:50 | NEUSURGPN ---
Assessment/Plan: Assessment: 62 yo male s/p trauma and has R temporal parietal skull fxs with small SDH and bi frontal temporal contusion stable on repeat imaging with continued encephalopathy Plan -prior HCT: with slight increase in left subdural hygroma. Overall stable with evolving changes -INR elevated on admission possibly from ETOH, appreciate critical care management -On [facility] protocol -management of other issues per medical team -Neuro checks q4 -continue CCollar-ordered F/E xrays today as pt is not wearing collar and removing it on his own. He is twisting and bending his head -Normal sodium goal -Continue BP goals 90-150, continue hydralazine PRN -discussed with Dr. Anderson Subjective: Awake and alert. Follows commands. No new concerns per RN. Objective: Awake and alert. Follows commands PERRLA/EOMI no droop DARBY x 4 no midline pain or crepitance to C spine +cms/nv intact x 4 Neuro Check Frequency: per routine Urinary Catheter in Place: No Catheter Insertion Date: 10/02/17 - Physician Discussed Patient with Dr.: Other (Justin) Neurosurgery Physical Exam - Vitals, I&O, Labs I and O 10/27/17 10/28/17 10/29/17 05:59 05:59 05:59 Intake Total 735 Output Total 500 400 Balance -500 335 Weight 103.9 kg Intake: Tube Feeding (ml) 600 Tube Flush (ml) 135 Output: Urine (ml) 500 400 Incontinence 500 400 Other: Number of Voids Incontinence 1 1 Number of Stools Incontinence 1 Vital Signs Temp Pulse Resp BP Pulse Ox 36.4 C 70 18 119/58 L 90 L 10/27/17 08:00 10/27/17 21:55 10/27/17 21:55 10/27/17 21:55 10/27/17 21:55 Laboratory Results 10/26/17 04:35 10/28/17 06:38 ICD10 Worksheet Patient Problems: Problems Problem Status Onset Traumatic intraparenchymal hemorrhage Acute
[2017-10-28] MEDS: POTASSIUM CL 20 MEQ/15 ML UDCUP PO SCH (10:03)
[2017-10-28] MEDS: INSULIN GLARGINE 100 UNITS/ML UNIT SC SCH (10:46)
[2017-10-28] MEDS: ENOXAPARIN 40 MG/0.4 ML SYR SC SCH (10:46)
[2017-10-28] MEDS: THIAMINE HCL 100 MG TAB PO SCH ×2 (10:47→11:18)
[2017-10-28] MEDS: PANTOPRAZOLE SODIUM 40 MG TAB PO SCH ×2 (11:17→21:34)
[2017-10-28] MEDS: PROPRANOLOL HCL 10 MG TAB PO SCH ×3 (11:17→21:34)
[2017-10-28] MEDS: FUROSEMIDE 20 MG TAB TUBE SCH ×2 (11:17→16:37)
[2017-10-28] MEDS: SPIRONOLACTONE 50 MG TAB TUBE SCH (11:17)
[2017-10-28] MEDS: LORazepam 0.5 MG TAB PO PRN (13:44)
--- NOTE | 2017-10-28 16:17 | WOCRNPDOC ---
WOCRN Advanced Assessment Note - Skin Integrity Problem, Advanced Assess Left Jaw Pressure Injury Dressing Type: Open to Air Wound Bed Constitution: Healed Right Jaw Pressure Injury Dressing Type: Open to Air Wound Bed Constitution: Healed Left Upper Back Pressure Injury Dressing Type: Open to Air Site Measurement - Head-to-Toe Length X Width X Depth (cm): 6x1.5x0.1 Pressure Injury Stage: Deep Tissue Injury (DTI) Pressure Injury Present on Admit: No Skin Integrity Problem Comment: DTI that is improving. Right Upper Back Pressure Injury Dressing Type: Open to Air Wound Bed Constitution: Healed
--- NOTE | 2017-10-28 17:55 | HOSPPROG ---
Hospitalist Progress Note Assessment/Plan: DIAGNOSES: * acute encephalopathy multifactorial with intoxication, head injury and bleed, acute renal failure, hypernatremia, and notably many other causes present * Some improvement but still fairly debilitated, this is interfering with his care as he is not able to cooperate with nursing care * acute closed head injury with subdural hematoma, stable on repeat imaging surgery not indicated * acute kidney injury * hypernatremia, likely due to hypovolemia and resolving with replacement * hematuria, urinary white blood cells, uncertain etiology; the timing of onset of this finding corresponds closely with the timing of onset of his acute kidney injury, and I strongly suspect presence of these cells was due to acute kidney injury along with irritation from Pizarro catheter * I agree with Dr. Coffey but this does not likely represent actual infection * Continue off antibiotic at this point * gait instability, multifactorial * new onset atrial fibrillation * off anticoagulant due to subdural hematoma and suspected GI bleeding * type 2 diabetes mellitus * Was with excellent control at home hemoglobin A1c 5.7 * Sugars high early on but improved now * anemia severe, initially microcytic * Cause of this is unclear but he did have some bleeding here. It is curious that his MCV has gone up after he blood here and not down. The blood bank records indicate that we have given him plasma but no red cells. Certainly he is at risk for both varices from his drinking and liver disease as well as stress ulcer disease from his acute injury and ICU stay. He is also at very high risk given the need for ongoing anticoagulation eventually once risk from subdural hematoma has resolved. * It would seem prudent that we need to assess the cause of his bleeding given all of the above. Has not been seen by Gastroenterology at this time * advanced cirrhosis with ascites (fluid appeared likely transudative but an albumin was not measured at the time of paracentesis) * Ascites and edema are worsening; now with stabilized renal function and electrolytes will want to get him on some aggressive diuresis and if this does not improve his condition may need another paracentesis * Patient with both alcoholism and hepatitis-C * Complicated by coagulopathy as well, and suspect possibly varices * Some mild alcohol induced hepatitis is present * alcoholism * diastolic CHF acute on chronic Review today with Dr. aMi PLANS: * Continue increased Lasix doses and added Aldactone, follow his ascites and peripheral edema and electrolytes closely * Continue therapies * Nutrition supplements * Thiamin * Continue Protonix at this time * Will review the case with Gastroenterology, determine if further studies will be helpful in their opinion * I will review with Neurosurgery regarding when it is safe to resume anticoagulation, this may not be determined until after they see him in follow- up as an outpatient; appreciate neuro surgeries input regarding his cervical spine collar * continue off all anticoagulants at this time due to bleeding brain and bleed and had * Continue rate control for AFib * Continue to Observe off antibiotics at this time * Continue discharge planning efforts; he is definitely not safe to trying get home, will need some type of rehabilitation setting SUBJECTIVE: He has been a bit more agitated again today, is not really cooperating with nursing care today He has taken his cervical spine collar off twice today. He did get some excessive tube feeding as the rate had been apparently set high on the pump, however he tolerated this well overall without any problems OBJECTIVE Vitals reviewed: normal without fever Exam: Alert not talkative or cooperative for examination Respirations not labored Lungs clear but diminished breath sounds Heart regular Abdomen remains distended but he will not allow complete exam today Pitting edema at both ankles is a bit less so far today iv site ok Laboratory data: Sugars remain in good range Objective: Vital Signs Temp Pulse Resp BP Pulse Ox 37.8 C 73 18 141/69 H 96 10/28/17 15:37 10/28/17 16:36 10/28/17 15:37 10/28/17 16:36 10/28/17 15:37 Laboratory Results 10/26/17 04:35 10/28/17 06:38 10/27/17 10/28/17 10/29/17 06:59 06:59 06:59 Intake Total 735 400 Output Total 500 400 Balance -500 335 400 PT 20.6 SEC (12.0-15.0) H 10/22/17 05:11 INR 1.76 (0.83-1.16) H 10/22/17 05:11 - Time Spent With Patient Time Spent with Patient: greater than 35 minutes Time Spent with Patient: Greater than 35 minutes spent on this patients care, greater than 50% of time spent counseling, educating, and coordinating care regarding the above mentioned plan. ICD10 Worksheet Patient Problems: Problems Problem Status Onset Traumatic intraparenchymal hemorrhage Acute
[2017-10-29] MEDS: INSULIN LISPRO 100 UNIT/ML SC SCH ×5 (04:25→20:44)
[2017-10-29] MEDS: INSULIN GLARGINE 100 UNITS/ML UNIT SC SCH (09:23)
[2017-10-29] MEDS: ENOXAPARIN 40 MG/0.4 ML SYR SC SCH (09:23)
[2017-10-29] MEDS: FUROSEMIDE 20 MG TAB TUBE SCH (09:25)
[2017-10-29] MEDS: SPIRONOLACTONE 50 MG TAB TUBE SCH (09:26)
[2017-10-29] MEDS: THIAMINE HCL 100 MG TAB PO SCH (09:26)
[2017-10-29] MEDS: PROPRANOLOL HCL 10 MG TAB PO SCH ×3 (09:26→20:44)
[2017-10-29] MEDS: PANTOPRAZOLE SODIUM 40 MG TAB PO SCH ×2 (09:26→20:44)
[2017-10-29] MEDS: POTASSIUM CL 20 MEQ/15 ML UDCUP PO SCH (09:27)
--- NOTE | 2017-10-29 15:01 | HOSPPROG ---
Hospitalist Progress Note Assessment/Plan: DIAGNOSES: * acute encephalopathy multifactorial with intoxication, head injury and bleed, acute renal failure, hypernatremia, and notably many other causes present * Some improvement but still fairly debilitated, and with very poor insight; this is interfering with his care as he is not able to cooperate with nursing care * acute closed head injury with subdural hematoma, stable on repeat imaging surgery not indicated * acute kidney injury * hypernatremia, likely due to hypovolemia and resolving with replacement * hematuria, urinary white blood cells, uncertain etiology; the timing of onset of this finding corresponds closely with the timing of onset of his acute kidney injury, and I strongly suspect presence of these cells was due to acute kidney injury along with irritation from Pizarro catheter * I agree with Dr. Coffey but this does not likely represent actual infection * Continue off antibiotic at this point * gait instability, multifactorial * new onset atrial fibrillation * off anticoagulant due to subdural hematoma and suspected GI bleeding * type 2 diabetes mellitus * Was with excellent control at home hemoglobin A1c 5.7 * Sugars high early on but improved now * anemia severe, initially microcytic * Cause of this is unclear but he did have some bleeding here. It is curious that his MCV has gone up after he blood here and not down. The blood bank records indicate that we have given him plasma but no red cells. Certainly he is at risk for both varices from his drinking and liver disease as well as stress ulcer disease from his acute injury and ICU stay. He is also at very high risk given the indication for ongoing anticoagulation for AFib once risk from subdural hematoma has resolved, but the real possibility that he has varices. * It would seem prudent that we need to assess the cause of his bleeding given all of the above. Has not been seen by Gastroenterology at this time * advanced cirrhosis with ascites (fluid appeared likely transudative but an albumin was not measured at the time of paracentesis) * Ascites and edema are now improving with diuretic, will continue to follow this and hope to avoid further paracenteses * Patient with both alcoholism and hepatitis-C * Complicated by coagulopathy as well * alcoholism * diastolic CHF acute on chronic Review today with Dr. Mai PLANS: * Continue increased Lasix doses and added Aldactone, follow his ascites and peripheral edema and electrolytes closely * Will repeat renal function and electrolytes tomorrow on lab studies * Continue therapies * Nutrition supplements * Thiamin * Continue Protonix at this time * Will review the case with Gastroenterology, determine if further studies will be helpful in their opinion * I will review with Neurosurgery regarding when it is safe to resume anticoagulation, this may not be determined until after they see him in follow- up as an outpatient; appreciate neuro surgeries input regarding his cervical spine collar; either way I am mostly lean towards avoiding anticoagulation due to high risk of varices * continue off all anticoagulants at this time due to bleeding brain and bleed and had * Continue rate control for AFib * Continue to Observe off antibiotics at this time * Continue discharge planning efforts; he is definitely not safe to trying get home, will need some type of rehabilitation setting SUBJECTIVE: Less agitated today but still not cooperating well with nursing care Denies pain or discomfort Says he is hungry but is not willing to try and eat orally, doing okay with the tube feeds OBJECTIVE Vitals reviewed: normal without fever Exam: Alert not talkative or cooperative for examination Respirations not labored Lungs clear but diminished breath sounds Heart regular Abdomen ascites seems a bit less on exam today Pitting still with pitting edema bilaterally but less on exam today than last 2 days iv site ok Laboratory data: Sugars remain in good range Renal function and potassium been sodium all stable today Objective: Vital Signs Temp Pulse Resp BP Pulse Ox 37.1 C 71 18 152/78 H 94 10/29/17 08:00 10/29/17 09:26 10/29/17 08:00 10/29/17 09:26 10/29/17 08:00 Laboratory Results 10/26/17 04:35 10/29/17 04:51 10/28/17 10/29/17 10/30/17 06:59 06:59 06:59 Intake Total 735 1150 Output Total 400 400 Balance 335 750 PT 20.6 SEC (12.0-15.0) H 10/22/17 05:11 INR 1.76 (0.83-1.16) H 10/22/17 05:11 ICD10 Worksheet Patient Problems: Problems Problem Status Onset Traumatic intraparenchymal hemorrhage Acute
[2017-10-29] MEDS: FUROSEMIDE 20 MG TAB PO SCH (16:25)
--- NOTE | 2017-10-29 16:39 | ASMTCMCOM ---
CM Note CM Note Notes: [place], [place] and [place] decline pt due to ETOH use. Several additional SNF referrals sent out across [place]. Pt assigned [facility] worker is Steph Arevalo [phone], she was out today for functional assessment. CM will continue to follow. Date Signed: 10/29/2017 03:42 PM Electronically Signed By:DUSTIN Baca
[2017-10-29] MEDS: LORazepam 0.5 MG TAB PO PRN (18:10)
[2017-10-30] MEDS: INSULIN LISPRO 100 UNIT/ML SC SCH ×6 (00:15→21:45)
[2017-10-30] MEDS: SPIRONOLACTONE 50 MG TAB PO SCH (10:24)
[2017-10-30] MEDS: PROPRANOLOL HCL 10 MG TAB PO SCH ×3 (10:24→21:45)
[2017-10-30] MEDS: LORazepam 0.5 MG TAB PO PRN ×2 (10:24→16:30)
[2017-10-30] MEDS: PANTOPRAZOLE SODIUM 40 MG TAB PO SCH ×2 (10:25→21:45)
[2017-10-30] MEDS: THIAMINE HCL 100 MG TAB PO SCH (10:25)
[2017-10-30] MEDS: FUROSEMIDE 20 MG TAB PO SCH ×2 (10:25→16:29)
[2017-10-30] MEDS: ENOXAPARIN 40 MG/0.4 ML SYR SC SCH (10:27)
[2017-10-30] MEDS: INSULIN GLARGINE 100 UNITS/ML UNIT SC SCH (10:27)
[2017-10-30] MEDS: LOPERAMIDE HCL 1 MG/5 ML UDL PO PRN ×2 (10:27→16:30)
[2017-10-30] MEDS: POTASSIUM CL 20 MEQ/15 ML UDCUP PO SCH (10:27)
--- NOTE | 2017-10-30 12:51 | HOSPPROG ---
Hospitalist Progress Note Assessment/Plan: DIAGNOSES: * acute encephalopathy multifactorial with intoxication, head injury and bleed, acute renal failure, hypernatremia, and notably many other causes present * Some improvement but still fairly debilitated, and with very poor insight; this is interfering with his care as he is not able to cooperate with nursing care * acute closed head injury with subdural hematoma, stable on repeat imaging surgery not indicated * acute kidney injury * hypernatremia, likely due to hypovolemia and resolving with replacement * hematuria, urinary white blood cells, uncertain etiology; the timing of onset of this finding corresponds closely with the timing of onset of his acute kidney injury, and I strongly suspect presence of these cells was due to acute kidney injury along with irritation from Pizarro catheter * I agree with Dr. Coffey but this does not likely represent actual infection * Continue off antibiotic at this point * gait instability, multifactorial * new onset atrial fibrillation * off anticoagulant due to subdural hematoma and suspected GI bleeding * type 2 diabetes mellitus * Was with excellent control at home hemoglobin A1c 5.7 * Sugars high early on but improved now * anemia severe, initially microcytic * Cause of this is unclear but he did have some bleeding here. It is curious that his MCV has gone up after he blood here and not down. The blood bank records indicate that we have given him plasma but no red cells. Certainly he is at risk for both varices from his drinking and liver disease as well as stress ulcer disease from his acute injury and ICU stay. He is also at very high risk given the indication for ongoing anticoagulation for AFib once risk from subdural hematoma has resolved, but the real possibility that he has varices. * It would seem prudent that we need to assess the cause of his bleeding given all of the above. Has not been seen by Gastroenterology at this time * advanced cirrhosis with ascites (fluid appeared likely transudative but an albumin was not measured at the time of paracentesis) * Ascites and edema are now improving with diuretic, will continue to follow this and hope to avoid further paracenteses * Patient with both alcoholism and hepatitis-C * Complicated by coagulopathy as well * alcoholism * diastolic CHF acute on chronic At this time we are still waiting to get the patient into some type of senior living center. This comes down to good getting Medicaid set up and other logistic issues. Among the logistic issues is that he is still has an NG tube in a [facility] will not accept an NG tube. Plan on going to try and wean him away from his NG feeds and see if we can get him to start eating. Will try again to see if we are able to get x-rays of his spine to determine if his collar can come off safely. This is difficult due to patient's inability to cooperate with getting x-rays. PLANS: * Continue increased Lasix doses and added Aldactone, follow his ascites and peripheral edema and electrolytes closely * Continue therapies * Nutrition supplements * Thiamin * 8 weeks of Protonix total and continue propranolol due to his GI bleed which could be either from varices or ulcer * continue off all anticoagulants at this time due to bleeding brain and bleed; me be a better idea to have him off anticoagulant definitely due to possibility of esophageal varices * Continue rate control for AFib * Continue to Observe off antibiotics at this time * Continue discharge planning efforts; he is definitely not safe to trying get home, will need some type of rehabilitation setting * Will start decreasing his tube feeds at this time and continue efforts to get him to take oral food in. Continue to try get x-rays of his cervical spine SUBJECTIVE: Patient has nothing in particular to mention when asked for complaints other than not wanting to be here Despite fact that he has set often that he is hungry, he is pretty much declining to eat orally though is tolerating the tube feeds well. Nursing has found him taking his C-collar off frequently. He declined to cooperate with getting cervical spine x-rays 2 days ago to see if we can get the collar off safely OBJECTIVE Vitals reviewed: normal without fever Exam: Alert not talkative or cooperative for examination Respirations not labored Lungs clear but diminished breath sounds Heart regular Abdomen ascites seems a bit less on exam today Pitting still with pitting edema bilaterally but less on exam today than last 2 days iv site ok Laboratory data: Sugars remain in good range Objective: Vital Signs Temp Pulse Resp BP Pulse Ox 36.7 C 71 18 150/86 H 96 10/30/17 11:08 10/30/17 11:08 10/30/17 11:08 10/30/17 11:08 10/30/17 11:08 Laboratory Results 10/26/17 04:35 10/30/17 04:24 10/29/17 10/30/17 10/31/17 06:59 06:59 06:59 Intake Total 1150 1860 Output Total 400 350 Balance 750 1510 PT 20.6 SEC (12.0-15.0) H 10/22/17 05:11 INR 1.76 (0.83-1.16) H 10/22/17 05:11 ICD10 Worksheet Patient Problems: Problems Problem Status Onset Traumatic intraparenchymal hemorrhage Acute
--- NOTE | 2017-10-30 15:24 | ASMTCMCOM ---
CM Note CM Note Notes: Pt still "Medicaid pending" status. Josie with [facility] declines pt today due to ETOH use. Several referrals still pending but no payer source and ETOH use continue to be barriers to placement. Voicemail left for pt sister updating her. Steph Arevalo with [facility] reports her paperwork is complete, once there is an accepting facility [facility] to let her know. Pt PASRR does not trigger, pt unable to communicate and there is a lack of medical history. Date Signed: 10/30/2017 03:23 PM Electronically Signed By:DUSTIN Baca
[2017-10-30] MEDS ORDERED: INSULIN LISPRO 100 UNIT/ML SC SCH (17:00)
[2017-10-31] MEDS: POTASSIUM CL 20 MEQ/15 ML UDCUP PO SCH (09:14)
[2017-10-31] MEDS: INSULIN LISPRO 100 UNIT/ML SC SCH ×4 (09:15→20:48)
[2017-10-31] MEDS: ENOXAPARIN 40 MG/0.4 ML SYR SC SCH (09:16)
[2017-10-31] MEDS: PANTOPRAZOLE SODIUM 40 MG TAB PO SCH ×2 (09:19→20:44)
[2017-10-31] MEDS: PROPRANOLOL HCL 10 MG TAB PO SCH ×3 (09:21→20:41)
[2017-10-31] MEDS: SPIRONOLACTONE 50 MG TAB PO SCH (09:22)
[2017-10-31] MEDS: INSULIN GLARGINE 100 UNITS/ML UNIT SC SCH (09:26)
[2017-10-31] MEDS: FUROSEMIDE 20 MG TAB PO SCH ×2 (11:21→16:21)
[2017-10-31] MEDS: THIAMINE HCL 100 MG TAB PO SCH (11:21)
--- NOTE | 2017-10-31 18:13 | HOSPPROG ---
Hospitalist Progress Note Assessment/Plan: DIAGNOSES: * acute encephalopathy multifactorial with intoxication, head injury and bleed, acute renal failure, hypernatremia, and notably many other causes present * Some improvement but still fairly debilitated, and with very poor insight; this is interfering with his care as he is not able to cooperate with nursing care * acute closed head injury with subdural hematoma, stable on repeat imaging surgery not indicated * acute kidney injury * hypernatremia, likely due to hypovolemia and resolving with replacement * hematuria, urinary white blood cells, uncertain etiology; the timing of onset of this finding corresponds closely with the timing of onset of his acute kidney injury, and I strongly suspect presence of these cells was due to acute kidney injury along with irritation from Pizarro catheter * I agree with Dr. Coffey but this does not likely represent actual infection * Continue off antibiotic at this point * gait instability, multifactorial * new onset atrial fibrillation * off anticoagulant due to subdural hematoma and suspected GI bleeding * type 2 diabetes mellitus * Was with excellent control at home hemoglobin A1c 5.7 * Sugars high early on but improved now * anemia severe, initially microcytic * Cause of this is unclear but he did have some bleeding here. It is curious that his MCV has gone up after he blood here and not down. The blood bank records indicate that we have given him plasma but no red cells. Certainly he is at risk for both varices from his drinking and liver disease as well as stress ulcer disease from his acute injury and ICU stay. He is also at very high risk given the indication for ongoing anticoagulation for AFib once risk from subdural hematoma has resolved, but the real possibility that he has varices. * It would seem prudent that we need to assess the cause of his bleeding given all of the above. Has not been seen by Gastroenterology at this time * advanced cirrhosis with ascites (fluid appeared likely transudative but an albumin was not measured at the time of paracentesis) * Ascites and edema are now improving with diuretic, will continue to follow this and hope to avoid further paracenteses * Patient with both alcoholism and hepatitis-C * Complicated by coagulopathy as well * alcoholism * diastolic CHF acute on chronic At this time we are still waiting to get the patient into some type of fdc center. This comes down to good getting Medicaid set up and other logistic issues. Among the logistic issues is that he is still has an NG tube in a [facility] will not accept an NG tube. Plan on going to try and wean him away from his NG feeds and see if we can get him to start eating. Will try again to see if we are able to get x-rays of his spine to determine if his collar can come off safely. This is difficult due to patient's inability to cooperate with getting x-rays. PLANS: * Will take his NG tube out is is nonfunctional and we are unable to get unclogged. Will continue to encourage oral intake but if he does not get sufficient calories fluid or protein may need to consider replacement of an NG tube again verses PEG tube * Continue increased Lasix doses and added Aldactone, follow his ascites and peripheral edema and electrolytes closely * Continue therapies * Nutrition supplements * Thiamin * 8 weeks of Protonix total and continue propranolol due to his GI bleed which could be either from varices or ulcer * continue off all anticoagulants at this time due to bleeding brain and bleed; * I reviewed his case in detail with Dr. Ray rodriguez. Given the possibility of varices and/or ulcer, history of AFib, his difficult mentation, his alcohol use history, and his very significant issues here with compliance and cooperation, we feel that despite some risk of stroke he is actually at much higher risk of bleeding issues and would not anticoagulate him; it also would not be likely very helpful at this point to do an endoscopy if he is not bleeding. If he has further bleeding considering endoscopy so that any varices might be banded or clipped is reasonable * Continue rate control for AFib * Continue discharge planning efforts; he is definitely not safe to trying get home, will need some type of rehabilitation setting SUBJECTIVE: His NG tube has become clogged and unusable. Today he has actually eaten 50% of a usual breakfast and 50% of a usual lunch. Does not complain of any abdominal pain or nausea OBJECTIVE Vitals reviewed: normal without fever Exam: Alert not talkative or cooperative for examination Respirations not labored Lungs clear but diminished breath sounds Heart regular Abdomen ascites seems a bit less on exam today Pitting still with pitting edema bilaterally but less on exam today than last 2 days iv site ok Laboratory data: Unremarkable chemistry panel, good sugars Objective: Vital Signs Temp Pulse Resp BP Pulse Ox 36.7 C 70 17 174/81 H 95 10/31/17 08:00 10/31/17 16:21 10/31/17 08:00 10/31/17 16:21 10/31/17 08:00 Laboratory Results 10/26/17 04:35 10/31/17 04:48 10/30/17 10/31/17 11/01/17 06:59 06:59 06:59 Intake Total 1860 200 Output Total 350 Balance 1510 200 PT 20.6 SEC (12.0-15.0) H 10/22/17 05:11 INR 1.76 (0.83-1.16) H 10/22/17 05:11 ICD10 Worksheet Patient Problems: Problems Problem Status Onset Traumatic intraparenchymal hemorrhage Acute
[2017-11-01] MEDS: INSULIN LISPRO 100 UNIT/ML SC SCH ×4 (07:51→21:42)
[2017-11-01] MEDS: ENOXAPARIN 40 MG/0.4 ML SYR SC SCH (07:59)
[2017-11-01] MEDS: INSULIN GLARGINE 100 UNITS/ML UNIT SC SCH (07:59)
[2017-11-01] MEDS: THIAMINE HCL 100 MG TAB PO SCH (08:00)
[2017-11-01] MEDS: POTASSIUM CL 20 MEQ/15 ML UDCUP PO SCH (08:00)
[2017-11-01] MEDS: SPIRONOLACTONE 50 MG TAB PO SCH (08:02)
[2017-11-01] MEDS: FUROSEMIDE 20 MG TAB PO SCH ×2 (08:02→17:05)
[2017-11-01] MEDS: PROPRANOLOL HCL 10 MG TAB PO SCH ×3 (08:04→21:11)
[2017-11-01] MEDS: PANTOPRAZOLE SODIUM 40 MG TAB PO SCH ×2 (08:23→21:11)
--- NOTE | 2017-11-01 11:26 | HOSPPROG ---
Hospitalist Progress Note Assessment/Plan: DIAGNOSES: * acute encephalopathy multifactorial * intoxication, head injury and subdural bleed, acute renal failure, hypernatremia, and notably many other causes present * Improved since admission but still quite debilitated; I expect that he probably has some significant baseline dementia or disability from other causes , and is unclear how much better he will actually get * cervical spine not yet cleared due to patient's inability to cooperate with getting spine x-rays * Recommendation has been for 6 weeks of collar protection unless we can get imaging studies * acute head injury with subdural hematoma, parenchymal hemorrhages, skull fracture, zygomatic arch fracture, * stable on repeat imaging surgery not indicated * acute kidney injury resolved * hypernatremia, likely due to hypovolemia and resolving with replacement * gait instability, * multifactorial with alcoholism, head injury with bleed and other factors * new onset atrial fibrillation * off anticoagulant due to subdural hematoma and suspected GI bleeding * Due to his confusion, alcoholism, high likelihood of esophageal varices with a GI bleed here, advanced liver disease etc he is not a great candidate to start anticoagulation in the future, however should he recover to the point of good mentation and long-term sobriety it might be considered * nutrition * He had been refusing to eat despite stating hunger so had been receiving all food through NG tube; on 10/31 his NG tube became clogged and we are unable to get it open so it was removed. He is now eating about 50% of her regular diet * Will need to watch very carefully how well he eats and keeps himself hydrated * type 2 diabetes mellitus * Was with excellent control at home hemoglobin A1c 5.7 * Sugars high early on but improved now * anemia severe, initially microcytic at the time of admission * Cause uncertain but low RBC count would suggest iron deficiency * Paradoxically despite significant upper GI bleed here his MCV has gone up throughout his hospital stay (no red cell transfusions); question if this is due to improve nutrition here; has not received iron supplements * Given his inability to participate in meaningful care plan discussions, inability to give informed consent, and his lack of ability to cooperate even with getting a cervical spine x-ray series, we have so far elected to not do endoscopies (reviewed with Dr. Purcell); this could be reconsidered in the future if his situation allows * advanced cirrhosis with ascites (transudate fluid is likely but albumin was not measured) * Status post large volume paracentesis x1 * Ascites and edema are now improving with diuretic, will continue to follow this and hope to avoid further paracenteses * Patient with both alcoholism and hepatitis-C; reviewed with Dr. Purcell - as patient has been quite noncompliant with any recommended therapies here and unable to meaningfully participate in discussion around treatment, have a elected not to further pursue full assessment and treatment of hepatitis-C * Complicated by coagulopathy as well * alcoholism * diastolic CHF acute on chronic * Resolved at this time DISPOSITION: He is in need of placement in the setting with halfway. At this point we are still waiting for Medicaid application, and waiting for facilities to except him, though the DC planning process has been slow and difficult. I had long discussion with adult protective caseworker today about the prospects for getting him into a facility; no specific breakthroughs at this time PLANS: * Follow oral fluid and food intake closely * Continue increased Lasix doses and added Aldactone for his ascites and edema of liver disease * Nutrition supplements * Thiamin * 8 weeks of Protonix total and continue propranolol due to his GI bleed which could be either from varices or ulcer * continue off all anticoagulants at this time due to bleeding brain and GI bleed bleed; * I reviewed his case in detail with Dr. Ray Purcell. Given the possibility of varices and/or ulcer, history of AFib, his difficult mentation, his alcohol use history, and his very significant issues here with compliance and cooperation, we feel that despite some risk of stroke he is actually at much higher risk of bleeding issues and would not anticoagulate him; it also would not be likely very helpful at this point to do an endoscopy if he is not bleeding. If he has further bleeding considering endoscopy so that any varices might be banded or clipped is reasonable * Continue rate control for AFib * Continue discharge planning efforts; he is definitely not safe to trying get home, will need some type of rehabilitation setting and likely long-term residential supervised setting SUBJECTIVE: More alert and talkative today Says he hurts all over but no specific or severe pain Has been eating a little bit better with solid foods. OBJECTIVE Vitals reviewed: normal without fever Exam: Alert and much more talkative today, more relaxed; remains with some confusion and disorientation, hard to know what his baseline actually is Lying in bed with cervical collar on Respirations not labored Lungs clear but diminished breath sounds Heart regular Abdomen ascites still present but continues to decrease each day with diuretic Pitting notably less edema in legs and feet at this time but still present iv site ok Laboratory data: Unremarkable basic metabolic panel, good sugars Albumin low at 2.4 unchanged from most recent measure Objective: Vital Signs Temp Pulse Resp BP Pulse Ox 36.3 C 62 17 174/88 H 94 11/01/17 08:00 11/01/17 08:00 11/01/17 08:00 11/01/17 08:04 11/01/17 08:00 Laboratory Results 10/26/17 04:35 11/01/17 04:32 10/31/17 11/01/17 11/02/17 06:59 06:59 06:59 Intake Total 200 436 Balance 200 436 PT 20.6 SEC (12.0-15.0) H 10/22/17 05:11 INR 1.76 (0.83-1.16) H 10/22/17 05:11 - Time Spent With Patient Time Spent with Patient: greater than 35 minutes Time Spent with Patient: Greater than 35 minutes spent on this patients care, greater than 50% of time spent counseling, educating, and coordinating care regarding the above mentioned plan. ICD10 Worksheet Patient Problems: Problems Problem Status Onset Traumatic intraparenchymal hemorrhage Acute
[2017-11-02] MEDS: INSULIN LISPRO 100 UNIT/ML SC SCH ×4 (08:38→22:51)
[2017-11-02] MEDS: INSULIN GLARGINE 100 UNITS/ML UNIT SC SCH (08:42)
[2017-11-02] MEDS: FUROSEMIDE 20 MG TAB PO SCH ×2 (08:43→15:42)
[2017-11-02] MEDS: PROPRANOLOL HCL 10 MG TAB PO SCH ×3 (08:44→22:43)
[2017-11-02] MEDS: SPIRONOLACTONE 50 MG TAB PO SCH (08:44)
[2017-11-02] MEDS: POTASSIUM CL 20 MEQ/15 ML UDCUP PO SCH (08:45)
[2017-11-02] MEDS: THIAMINE HCL 100 MG TAB PO SCH (08:45)
[2017-11-02] MEDS: PANTOPRAZOLE SODIUM 40 MG TAB PO SCH (08:53)
[2017-11-02] MEDS: ENOXAPARIN 40 MG/0.4 ML SYR SC SCH (11:24)
[2017-11-02] MEDS: LANSOPRAZOLE SUSP 30MG/10ML UDSYR (Adult) PO SCH ×2 (11:26→22:51)
[2017-11-02] MEDS: MULTIVITAMINS 1 EACH TAB PO SCH (11:29)
--- NOTE | 2017-11-02 16:10 | ASMTCMCOM ---
CM Note CM Note Notes: Spoke with pt's cousins who came to visit. They said he could remember some family hx. They were curious about status of pt, informed them we could not share information and encouraged them to contact his sister, Malka. Date Signed: 11/02/2017 04:10 PM Electronically Signed By:DUSTIN Vences
--- NOTE | 2017-11-02 17:45 | HOSPPROG ---
Hospitalist Progress Note Assessment/Plan: DIAGNOSES: * acute encephalopathy multifactorial * intoxication, head injury and subdural bleed, acute renal failure, hypernatremia, and notably many other causes present * Improved since admission but still quite debilitated; I expect that he probably has some significant baseline dementia or disability from other causes , and is unclear how much better he will actually get * cervical spine not yet cleared due to patient's inability to cooperate with getting spine x-rays * Recommendation has been for 6 weeks of collar protection unless we can get imaging studies * acute head injury with subdural hematoma, parenchymal hemorrhages, skull fracture, zygomatic arch fracture, * stable on repeat imaging surgery not indicated * acute kidney injury resolved * hypernatremia, likely due to hypovolemia and resolving with replacement * gait instability, * multifactorial with alcoholism, head injury with bleed and other factors * new onset atrial fibrillation * off anticoagulant due to subdural hematoma and suspected GI bleeding * Due to his confusion, alcoholism, high likelihood of esophageal varices with a GI bleed here, advanced liver disease etc he is not a great candidate to start anticoagulation in the future, however should he recover to the point of good mentation and long-term sobriety it might be considered * nutrition * He had been refusing to eat despite stating hunger so had been receiving all food through NG tube; on 10/31 his NG tube became clogged and we are unable to get it open so it was removed. He is now eating about 50% of her regular diet * Will need to watch very carefully how well he eats and keeps himself hydrated * type 2 diabetes mellitus * Was with excellent control at home hemoglobin A1c 5.7 * Sugars high early on but improved now * anemia severe, initially microcytic at the time of admission * Cause uncertain but low RBC count would suggest iron deficiency * Paradoxically despite significant upper GI bleed here his MCV has gone up throughout his hospital stay (no red cell transfusions); question if this is due to improve nutrition here; has not received iron supplements * Given his inability to participate in meaningful care plan discussions, inability to give informed consent, and his lack of ability to cooperate even with getting a cervical spine x-ray series, we have so far elected to not do endoscopies (reviewed with Dr. Purcell); this could be reconsidered in the future if his situation allows * advanced cirrhosis with ascites (transudate fluid is likely but albumin was not measured) * Status post large volume paracentesis x1 * Ascites and edema are now improving with diuretic, will continue to follow this and hope to avoid further paracenteses * Patient with both alcoholism and hepatitis-C; reviewed with Dr. Purcell - as patient has been quite noncompliant with any recommended therapies here and unable to meaningfully participate in discussion around treatment, have a elected not to further pursue full assessment and treatment of hepatitis-C * Complicated by coagulopathy as well * alcoholism * diastolic CHF acute on chronic * Resolved at this time DISPOSITION: He is in need of placement in the setting with halfway. At this point we are still waiting for Medicaid application, and waiting for facilities to except him, though the DC planning process has been slow and difficult. I had long discussion with child support case officer today about the prospects for getting him into a facility; no specific breakthroughs at this time PLANS: * Follow oral fluid and food intake closely * Continue increased Lasix doses and added Aldactone for his ascites and edema of liver disease * Nutrition supplements * Thiamin * 8 weeks of Protonix total and continue propranolol due to his GI bleed which could be either from varices or ulcer * continue off all anticoagulants at this time due to bleeding brain and GI bleed bleed; * Despite some risk of stroke he is actually at much higher risk of bleeding issues and would not anticoagulate him; it also would not be likely very helpful at this point to do an endoscopy if he is not bleeding. If he has further bleeding considering endoscopy so that any varices might be banded or clipped is reasonable * Continue rate control for AFib * Continue discharge planning efforts; he is definitely not safe to trying get home, will need some type of rehabilitation setting and likely long-term residential supervised setting Subjective: Patient reports he has some abdominal discomfort this afternoon. He is passing gas and denies diarrhea/constipation Objective: Vital Signs Temp Pulse Resp BP Pulse Ox 36.6 C 62 12 176/85 H 97 11/02/17 15:49 11/02/17 15:49 11/02/17 15:49 11/02/17 15:49 11/02/17 15:49 Laboratory Results 10/26/17 04:35 11/02/17 05:20 11/01/17 11/02/17 11/03/17 05:59 05:59 05:59 Intake Total 200 1436 Output Total 400 0 Balance 200 1036 0 PT 20.6 SEC (12.0-15.0) H 10/22/17 05:11 INR 1.76 (0.83-1.16) H 10/22/17 05:11 - Physical Exam Constitutional: no apparent distress Eyes: EOMI Ears, Nose, Mouth, Throat: moist mucous membranes Cardiovascular: regular rate and rhythym Respiratory: no respiratory distress Gastrointestinal: normoactive bowel sounds Skin: warm Musculoskeletal: full muscle strength Neurologic: other (Only oriented to person) Psychiatric: poor insight, poor memory ICD10 Worksheet Patient Problems: Problems Problem Status Onset Traumatic intraparenchymal hemorrhage Acute
[2017-11-03] MEDS: INSULIN GLARGINE 100 UNITS/ML UNIT SC SCH (09:54)
[2017-11-03] MEDS: FUROSEMIDE 20 MG TAB PO SCH ×2 (09:54→16:02)
[2017-11-03] MEDS: SPIRONOLACTONE 50 MG TAB PO SCH (09:54)
[2017-11-03] MEDS: ENOXAPARIN 40 MG/0.4 ML SYR SC SCH (09:55)
[2017-11-03] MEDS: POTASSIUM CL 20 MEQ/15 ML UDCUP PO SCH (09:55)
[2017-11-03] MEDS: PROPRANOLOL HCL 10 MG TAB PO SCH ×3 (09:55→22:09)
[2017-11-03] MEDS: MULTIVITAMINS 1 EACH TAB PO SCH (09:55)
[2017-11-03] MEDS: THIAMINE HCL 100 MG TAB PO SCH (09:55)
[2017-11-03] MEDS: INSULIN LISPRO 100 UNIT/ML SC SCH ×4 (10:00→22:09)
[2017-11-03] MEDS: LANSOPRAZOLE SUSP 30MG/10ML UDSYR (Adult) PO SCH ×2 (10:09→22:09)
[2017-11-03] MEDS: ACETAMINOPHEN 500 MG TAB PO PRN ×2 (10:11→22:29)
--- NOTE | 2017-11-03 13:56 | HOSPPROG ---
Hospitalist Progress Note Assessment/Plan: DIAGNOSES: * acute encephalopathy multifactorial * intoxication, head injury and subdural bleed, acute renal failure, hypernatremia, and notably many other causes present * Improved since admission but still quite debilitated; I expect that he probably has some significant baseline dementia or disability from other causes , and is unclear how much better he will actually get * cervical spine not yet cleared due to patient's inability to cooperate with getting spine x-rays * Recommendation has been for 6 weeks of collar protection unless we can get imaging studies * acute head injury with subdural hematoma, parenchymal hemorrhages, skull fracture, zygomatic arch fracture, * stable on repeat imaging surgery not indicated * acute kidney injury resolved * hypernatremia, likely due to hypovolemia and resolving with replacement * gait instability, * multifactorial with alcoholism, head injury with bleed and other factors * new onset atrial fibrillation * off anticoagulant due to subdural hematoma and suspected GI bleeding * Due to his confusion, alcoholism, high likelihood of esophageal varices with a GI bleed here, advanced liver disease etc he is not a great candidate to start anticoagulation in the future, however should he recover to the point of good mentation and long-term sobriety it might be considered * nutrition * He had been refusing to eat despite stating hunger so had been receiving all food through NG tube; on 10/31 his NG tube became clogged and we are unable to get it open so it was removed. He is now eating about 50% of her regular diet * Will need to watch very carefully how well he eats and keeps himself hydrated * type 2 diabetes mellitus * Was with excellent control at home hemoglobin A1c 5.7 * Sugars high early on but improved now * anemia severe, initially microcytic at the time of admission * Cause uncertain but low RBC count would suggest iron deficiency * Paradoxically despite significant upper GI bleed here his MCV has gone up throughout his hospital stay (no red cell transfusions); question if this is due to improve nutrition here; has not received iron supplements * Given his inability to participate in meaningful care plan discussions, inability to give informed consent, and his lack of ability to cooperate even with getting a cervical spine x-ray series, we have so far elected to not do endoscopies (reviewed with Dr. Purcell); this could be reconsidered in the future if his situation allows * advanced cirrhosis with ascites (transudate fluid is likely but albumin was not measured) * Status post large volume paracentesis x1 * Ascites and edema are now improving with diuretic, will continue to follow this and hope to avoid further paracenteses * Patient with both alcoholism and hepatitis-C; reviewed with Dr. Purcell - as patient has been quite noncompliant with any recommended therapies here and unable to meaningfully participate in discussion around treatment, have a elected not to further pursue full assessment and treatment of hepatitis-C * Complicated by coagulopathy as well * alcoholism * diastolic CHF acute on chronic * Resolved at this time DISPOSITION: He is in need of placement in the setting with [facility]. At this point we are still waiting for Medicaid application, and waiting for facilities to except him, though the DC planning process has been slow and difficult. I had long discussion with clinical case manager today about the prospects for getting him into a facility; no specific breakthroughs at this time PLANS: * Follow oral fluid and food intake closely * Continue increased Lasix doses and added Aldactone for his ascites and edema of liver disease * Nutrition supplements * Thiamin * 8 weeks of Protonix total and continue propranolol due to his GI bleed which could be either from varices or ulcer * continue off all anticoagulants at this time due to bleeding brain and GI bleed bleed; * Despite some risk of stroke he is actually at much higher risk of bleeding issues and would not anticoagulate him; it also would not be likely very helpful at this point to do an endoscopy if he is not bleeding. If he has further bleeding considering endoscopy so that any varices might be banded or clipped is reasonable * Continue rate control for AFib * Continue discharge planning efforts; he is definitely not safe to trying get home, will need some type of rehabilitation setting and likely long-term residential supervised setting Objective: Vital Signs Temp Pulse Resp BP Pulse Ox 36.7 C 64 13 128/59 H 96 11/03/17 08:00 11/03/17 09:55 11/03/17 08:00 11/03/17 09:55 11/03/17 08:00 Laboratory Results 10/26/17 04:35 11/02/17 05:20 11/02/17 11/03/17 11/04/17 05:59 05:59 05:59 Intake Total 1436 500 300 Output Total 400 0 1 Balance 1036 500 299 PT 20.6 SEC (12.0-15.0) H 10/22/17 05:11 INR 1.76 (0.83-1.16) H 10/22/17 05:11 - Physical Exam Constitutional: no apparent distress Eyes: anicteric sclera, EOMI Ears, Nose, Mouth, Throat: moist mucous membranes Cardiovascular: regular rate and rhythym, no murmur, rub, or gallop Respiratory: no respiratory distress Gastrointestinal: normoactive bowel sounds, soft, non-tender abdomen Genitourinary: no bladder tenderness Skin: warm Musculoskeletal: full muscle strength Neurologic: No AAOx3 Psychiatric: poor insight ICD10 Worksheet Patient Problems: Problems Problem Status Onset Traumatic intraparenchymal hemorrhage Acute
[2017-11-04 04:58] LABS: PLATELET COUNT 73 10^3/uL (150-400)
[2017-11-04] MEDS: PROPRANOLOL HCL 10 MG TAB PO SCH ×3 (10:25→21:58)
[2017-11-04] MEDS: ACETAMINOPHEN 500 MG TAB PO PRN (10:25)
[2017-11-04] MEDS: POTASSIUM CL 20 MEQ/15 ML UDCUP PO SCH (10:25)
[2017-11-04] MEDS: ENOXAPARIN 40 MG/0.4 ML SYR SC SCH (10:25)
[2017-11-04] MEDS: MULTIVITAMINS 1 EACH TAB PO SCH (10:26)
[2017-11-04] MEDS: SPIRONOLACTONE 50 MG TAB PO SCH (10:26)
[2017-11-04] MEDS: FUROSEMIDE 20 MG TAB PO SCH ×2 (10:26→15:50)
[2017-11-04] MEDS: THIAMINE HCL 100 MG TAB PO SCH (10:26)
[2017-11-04] MEDS: INSULIN LISPRO 100 UNIT/ML SC SCH ×4 (10:45→21:56)
[2017-11-04] MEDS: INSULIN GLARGINE 100 UNITS/ML UNIT SC SCH (11:51)
[2017-11-04] MEDS: LANSOPRAZOLE SUSP 30MG/10ML UDSYR (Adult) PO SCH ×2 (11:58→21:56)
--- NOTE | 2017-11-04 13:21 | HOSPPROG ---
Hospitalist Progress Note Assessment/Plan: DIAGNOSES: * acute encephalopathy multifactorial * intoxication, head injury and subdural bleed, acute renal failure, hypernatremia, and notably many other causes present * Improved since admission but still quite debilitated; I expect that he probably has some significant baseline dementia or disability from other causes , and is unclear how much better he will actually get * cervical spine not yet cleared due to patient's inability to cooperate with getting spine x-rays * Recommendation has been for 6 weeks of collar protection unless we can get imaging studies * acute head injury with subdural hematoma, parenchymal hemorrhages, skull fracture, zygomatic arch fracture, * stable on repeat imaging surgery not indicated * acute kidney injury resolved * hypernatremia, likely due to hypovolemia and resolving with replacement * gait instability, * multifactorial with alcoholism, head injury with bleed and other factors * new onset atrial fibrillation * off anticoagulant due to subdural hematoma and suspected GI bleeding * Due to his confusion, alcoholism, high likelihood of esophageal varices with a GI bleed here, advanced liver disease etc he is not a great candidate to start anticoagulation in the future, however should he recover to the point of good mentation and long-term sobriety it might be considered * nutrition * He had been refusing to eat despite stating hunger so had been receiving all food through NG tube; on 10/31 his NG tube became clogged and we are unable to get it open so it was removed. He is now eating about 50% of her regular diet * Will need to watch very carefully how well he eats and keeps himself hydrated * type 2 diabetes mellitus * Was with excellent control at home hemoglobin A1c 5.7 * Sugars high early on but improved now * anemia severe, initially microcytic at the time of admission * Cause uncertain but low RBC count would suggest iron deficiency * Paradoxically despite significant upper GI bleed here his MCV has gone up throughout his hospital stay (no red cell transfusions); question if this is due to improve nutrition here; has not received iron supplements * Given his inability to participate in meaningful care plan discussions, inability to give informed consent, and his lack of ability to cooperate even with getting a cervical spine x-ray series, we have so far elected to not do endoscopies (reviewed with Dr. Purcell); this could be reconsidered in the future if his situation allows * advanced cirrhosis with ascites (transudate fluid is likely but albumin was not measured) * Status post large volume paracentesis x1 * Ascites and edema are now improving with diuretic, will continue to follow this and hope to avoid further paracenteses * Patient with both alcoholism and hepatitis-C; reviewed with Dr. Purcell - as patient has been quite noncompliant with any recommended therapies here and unable to meaningfully participate in discussion around treatment, have a elected not to further pursue full assessment and treatment of hepatitis-C * Complicated by coagulopathy as well * alcoholism * diastolic CHF acute on chronic * Resolved at this time DISPOSITION: He is in need of placement in the setting with long term. At this point we are still waiting for Medicaid application, and waiting for facilities to except him, though the DC planning process has been slow and difficult. I had long discussion with supervisor case loading today about the prospects for getting him into a facility; no specific breakthroughs at this time PLANS: * Follow oral fluid and food intake closely * Continue increased Lasix doses and added Aldactone for his ascites and edema of liver disease * Nutrition supplements * Thiamin * 8 weeks of Protonix total and continue propranolol due to his GI bleed which could be either from varices or ulcer * continue off all anticoagulants at this time due to bleeding brain and GI bleed bleed; * Despite some risk of stroke he is actually at much higher risk of bleeding issues and would not anticoagulate him; it also would not be likely very helpful at this point to do an endoscopy if he is not bleeding. If he has further bleeding considering endoscopy so that any varices might be banded or clipped is reasonable * Continue rate control for AFib * Continue discharge planning efforts; he is definitely not safe to trying get home, will need some type of rehabilitation setting and likely long-term residential supervised setting Subjective: Patient reports increase in back pain this morning. Objective: Vital Signs Temp Pulse Resp BP Pulse Ox 36.7 C 59 L 18 130/65 H 94 11/04/17 07:44 11/04/17 10:25 11/04/17 07:44 11/04/17 10:25 11/04/17 07:44 Laboratory Results 11/04/17 04:34 11/04/17 04:34 11/03/17 11/04/17 11/05/17 05:59 05:59 05:59 Intake Total 500 900 680 Output Total 0 401 Balance 500 499 680 PT 20.6 SEC (12.0-15.0) H 10/22/17 05:11 INR 1.76 (0.83-1.16) H 10/22/17 05:11 - Physical Exam Constitutional: no apparent distress Eyes: PERRL Ears, Nose, Mouth, Throat: moist mucous membranes Cardiovascular: regular rate and rhythym Respiratory: no respiratory distress Gastrointestinal: normoactive bowel sounds Skin: warm Musculoskeletal: pain with ROM Neurologic: No AAOx3 (Oriented to person and place) Psychiatric: interacting appropriately ICD10 Worksheet Patient Problems: Problems Problem Status Onset Traumatic intraparenchymal hemorrhage Acute
[2017-11-05] MEDS: ACETAMINOPHEN 500 MG TAB PO PRN ×2 (02:18→15:05)
[2017-11-05] MEDS: SPIRONOLACTONE 50 MG TAB PO SCH (08:49)
[2017-11-05] MEDS: MULTIVITAMINS 1 EACH TAB PO SCH (08:49)
[2017-11-05] MEDS: PROPRANOLOL HCL 10 MG TAB PO SCH ×3 (08:49→20:52)
[2017-11-05] MEDS: THIAMINE HCL 100 MG TAB PO SCH (08:49)
[2017-11-05] MEDS: FUROSEMIDE 20 MG TAB PO SCH ×2 (08:49→15:05)
[2017-11-05] MEDS: ENOXAPARIN 40 MG/0.4 ML SYR SC SCH (08:49)
[2017-11-05] MEDS: POTASSIUM CL 20 MEQ/15 ML UDCUP PO SCH (08:50)
[2017-11-05] MEDS: INSULIN GLARGINE 100 UNITS/ML UNIT SC SCH (08:50)
[2017-11-05] MEDS: LANSOPRAZOLE SUSP 30MG/10ML UDSYR (Adult) PO SCH ×2 (09:00→20:52)
[2017-11-05] MEDS: INSULIN LISPRO 100 UNIT/ML SC SCH (10:07)
--- NOTE | 2017-11-05 13:15 | HOSPPROG ---
Hospitalist Progress Note Assessment/Plan: DIAGNOSES: * acute encephalopathy multifactorial * intoxication, head injury and subdural bleed, acute renal failure, hypernatremia, and notably many other causes present * Improved since admission but still quite debilitated; I expect that he probably has some significant baseline dementia or disability from other causes , and is unclear how much better he will actually get * cervical spine not yet cleared due to patient's inability to cooperate with getting spine x-rays * Recommendation has been for 6 weeks of collar protection unless we can get imaging studies * acute head injury with subdural hematoma, parenchymal hemorrhages, skull fracture, zygomatic arch fracture, * stable on repeat imaging surgery not indicated * acute kidney injury resolved * hypernatremia, likely due to hypovolemia and resolving with replacement * gait instability, * multifactorial with alcoholism, head injury with bleed and other factors * new onset atrial fibrillation * off anticoagulant due to subdural hematoma and suspected GI bleeding * Due to his confusion, alcoholism, high likelihood of esophageal varices with a GI bleed here, advanced liver disease etc he is not a great candidate to start anticoagulation in the future, however should he recover to the point of good mentation and long-term sobriety it might be considered * nutrition * He had been refusing to eat despite stating hunger so had been receiving all food through NG tube; on 10/31 his NG tube became clogged and we are unable to get it open so it was removed. He is now eating about 50% of her regular diet * Will need to watch very carefully how well he eats and keeps himself hydrated * type 2 diabetes mellitus * Was with excellent control at home hemoglobin A1c 5.7 * Sugars high early on but improved now * anemia severe, initially microcytic at the time of admission * Cause uncertain but low RBC count would suggest iron deficiency * Paradoxically despite significant upper GI bleed here his MCV has gone up throughout his hospital stay (no red cell transfusions); question if this is due to improve nutrition here; has not received iron supplements * Given his inability to participate in meaningful care plan discussions, inability to give informed consent, and his lack of ability to cooperate even with getting a cervical spine x-ray series, we have so far elected to not do endoscopies (reviewed with Dr. Purcell); this could be reconsidered in the future if his situation allows * advanced cirrhosis with ascites (transudate fluid is likely but albumin was not measured) * Status post large volume paracentesis x1 * Ascites and edema are now improving with diuretic, will continue to follow this and hope to avoid further paracenteses * Patient with both alcoholism and hepatitis-C; reviewed with Dr. Purcell - as patient has been quite noncompliant with any recommended therapies here and unable to meaningfully participate in discussion around treatment, have a elected not to further pursue full assessment and treatment of hepatitis-C * Complicated by coagulopathy as well * alcoholism * diastolic CHF acute on chronic * Resolved at this time DISPOSITION: He is in need of placement in the setting with [facility]. At this point we are still waiting for Medicaid application, and waiting for facilities to except him, though the DC planning process has been slow and difficult. I had long discussion with mental health case manager today about the prospects for getting him into a facility; no specific breakthroughs at this time PLANS: * Follow oral fluid and food intake closely * Continue increased Lasix doses and added Aldactone for his ascites and edema of liver disease * Nutrition supplements * Thiamin * 8 weeks of Protonix total and continue propranolol due to his GI bleed which could be either from varices or ulcer * continue off all anticoagulants at this time due to bleeding brain and GI bleed bleed; * Despite some risk of stroke he is actually at much higher risk of bleeding issues and would not anticoagulate him; it also would not be likely very helpful at this point to do an endoscopy if he is not bleeding. If he has further bleeding considering endoscopy so that any varices might be banded or clipped is reasonable * Continue rate control for AFib * Continue discharge planning efforts; he is definitely not safe to trying get home, will need some type of rehabilitation setting and likely long-term residential supervised setting Subjective: Patient sitting up in chair this morning. States he had some dizziness when transferring over. Objective: Vital Signs Temp Pulse Resp BP Pulse Ox 36.7 C 57 L 14 131/67 H 97 11/05/17 08:00 11/05/17 08:49 11/05/17 08:00 11/05/17 08:49 11/05/17 08:00 Laboratory Results 11/04/17 04:34 11/04/17 04:34 11/04/17 11/05/17 11/06/17 05:59 05:59 05:59 Intake Total 900 1230 500 Output Total 401 451 Balance 499 779 500 PT 20.6 SEC (12.0-15.0) H 10/22/17 05:11 INR 1.76 (0.83-1.16) H 10/22/17 05:11 - Physical Exam Constitutional: no apparent distress Eyes: PERRL Ears, Nose, Mouth, Throat: moist mucous membranes, hearing normal Cardiovascular: regular rate and rhythym Respiratory: no respiratory distress Gastrointestinal: normoactive bowel sounds Genitourinary: No drew in urethra Skin: warm Musculoskeletal: no muscle tenderness Neurologic: weakness, No AAOx3 Psychiatric: not anxious, poor insight Lymph, Heme, Immunologic: No ecchymoses, No petechiae ICD10 Worksheet Patient Problems: Problems Problem Status Onset Traumatic intraparenchymal hemorrhage Acute
--- NOTE | 2017-11-05 15:22 | ASMTCMCOM ---
CM Note CM Note Notes: Pt conversing more, is 1:1 assist with meals. [employer] staff report pt Medicaid is still pending and will call [facility] again Saturday. Still no accepting facility for placement for pt. Date Signed: 11/05/2017 03:21 PM Electronically Signed By:DUSTIN Baca
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
[2017-11-06] MEDS: ACETAMINOPHEN 500 MG TAB PO PRN (05:38)
[2017-11-06] MEDS: FUROSEMIDE 20 MG TAB PO SCH ×2 (10:40→16:33)
[2017-11-06] MEDS: PROPRANOLOL HCL 10 MG TAB PO SCH ×3 (10:41→21:20)
[2017-11-06] MEDS: POTASSIUM CL 20 MEQ/15 ML UDCUP PO SCH (10:43)
[2017-11-06] MEDS: INSULIN GLARGINE 100 UNITS/ML UNIT SC SCH ×2 (10:44→15:53)
--- NOTE | 2017-11-06 10:44 | HOSPPROG ---
Hospitalist Progress Note Assessment/Plan: 62 yo male admitted following trauma with subsequent SDH and likely TBI: DIAGNOSES: *Right Arm numbness -new as of this morning, woke up with it, onset unclear. denies weakness or motor deficits -refuses physical exam -will get a STAT CT Brain * acute encephalopathy multifactorial * intoxication, head injury and subdural bleed, acute renal failure, hypernatremia, and notably many other causes present * Improved since admission but still quite debilitated; I expect that he probably has some significant baseline dementia or disability from other causes , and is unclear how much better he will actually get * cervical spine not yet cleared due to patient's inability to cooperate with getting spine x-rays * Recommendation has been for 6 weeks of collar protection unless we can get imaging studies * acute head injury with subdural hematoma, parenchymal hemorrhages, skull fracture, zygomatic arch fracture, * stable on repeat imaging surgery not indicated * acute kidney injury resolved * hypernatremia, Resolving * gait instability, * multifactorial with alcoholism, head injury with bleed and other factors * new onset atrial fibrillation * off anticoagulant due to subdural hematoma and suspected GI bleeding * Due to his confusion, alcoholism, high likelihood of esophageal varices with a GI bleed here, advanced liver disease etc he is not a great candidate to start anticoagulation in the future, however should he recover to the point of good mentation and long-term sobriety it might be considered * nutrition * He had been refusing to eat despite stating hunger so had been receiving all food through NG tube; on 10/31 his NG tube became clogged and we are unable to get it open so it was removed. He is now eating about 50% of her regular diet * Will need to watch very carefully how well he eats and keeps himself hydrated * type 2 diabetes mellitus * Was with excellent control at home hemoglobin A1c 5.7 * Sugars high early on but improved now * anemia severe, initially microcytic at the time of admission * Cause uncertain but low RBC count would suggest iron deficiency * Paradoxically despite significant upper GI bleed here his MCV has gone up throughout his hospital stay (no red cell transfusions); question if this is due to improve nutrition here; has not received iron supplements * Given his inability to participate in meaningful care plan discussions, inability to give informed consent, and his lack of ability to cooperate even with getting a cervical spine x-ray series, we have so far elected to not do endoscopies (reviewed with Dr. Purcell); this could be reconsidered in the future if his situation allows * advanced cirrhosis with ascites (transudate fluid is likely but albumin was not measured) * Status post large volume paracentesis x1 * Ascites and edema are now improving with diuretic, will continue to follow this and hope to avoid further paracenteses * Patient with both alcoholism and hepatitis-C; reviewed with Dr. Purcell - as patient has been quite noncompliant with any recommended therapies here and unable to meaningfully participate in discussion around treatment, have a elected not to further pursue full assessment and treatment of hepatitis-C * Complicated by coagulopathy as well * alcoholism * diastolic CHF acute on chronic * Resolved at this time DISPOSITION: He is in need of placement in the setting with senior care. At this point we are still waiting for Medicaid application, and waiting for facilities to except him, though the DC planning process has been slow and difficult. I had long discussion with adult protective caseworker today about the prospects for getting him into a facility; no specific breakthroughs at this time PLANS: * Follow oral fluid and food intake closely * Continue increased Lasix doses and added Aldactone for his ascites and edema of liver disease * Nutrition supplements * Thiamin * 8 weeks of Protonix total and continue propranolol due to his GI bleed which could be either from varices or ulcer * continue off all anticoagulants at this time due to bleeding brain and GI bleed bleed; * Despite some risk of stroke he is actually at much higher risk of bleeding issues and would not anticoagulate him; it also would not be likely very helpful at this point to do an endoscopy if he is not bleeding. If he has further bleeding considering endoscopy so that any varices might be banded or clipped is reasonable * Continue rate control for AFib * Continue discharge planning efforts; he is definitely not safe to trying get home, will need some type of rehabilitation setting and likely long-term residential supervised setting * await CT scan Subjective: called to bedside as pt reports new onset of right arm numbness. He is a poor historian. He is non cooperative and refuses a physical exam. He is able to shake my hand and squeeze. He can move his arm. He report full arm numbness. Objective: Vital Signs Temp Pulse Resp BP Pulse Ox 36.6 C 57 L 15 130/64 H 98 11/06/17 08:00 11/06/17 08:00 11/06/17 08:00 11/06/17 08:00 11/06/17 08:00 Laboratory Results 11/04/17 04:34 11/04/17 04:34 11/05/17 11/06/17 11/07/17 05:59 05:59 05:59 Intake Total 1230 1770 500 Output Total 451 800 Balance 779 970 500 PT 20.6 SEC (12.0-15.0) H 10/22/17 05:11 INR 1.76 (0.83-1.16) H 10/22/17 05:11 - Physical Exam Constitutional: no apparent distress Eyes: EOMI Ears, Nose, Mouth, Throat: moist mucous membranes, hearing normal Cardiovascular: No edema Respiratory: no respiratory distress Gastrointestinal: No distension Skin: warm Psychiatric: agitated, No interacting appropriately Lymph, Heme, Immunologic: No petechiae ICD10 Worksheet Patient Problems: Problems Problem Status Onset Traumatic intraparenchymal hemorrhage Acute
[2017-11-06] MEDS: THIAMINE HCL 100 MG TAB PO SCH (10:46)
[2017-11-06] MEDS: MULTIVITAMINS 1 EACH TAB PO SCH (10:46)
[2017-11-06] MEDS: SPIRONOLACTONE 50 MG TAB PO SCH (10:55)
[2017-11-06] MEDS: ENOXAPARIN 40 MG/0.4 ML SYR SC SCH (15:52)
[2017-11-06] MEDS: LANSOPRAZOLE SUSP 30MG/10ML UDSYR (Adult) PO SCH ×2 (15:54→21:20)
[2017-11-07 05:40] LABS: PLATELET COUNT 78 10^3/uL (150-400)
[2017-11-07] MEDS: ENOXAPARIN 40 MG/0.4 ML SYR SC SCH (07:40)
[2017-11-07] MEDS: SPIRONOLACTONE 50 MG TAB PO SCH (10:15)
[2017-11-07] MEDS: FUROSEMIDE 20 MG TAB PO SCH ×2 (10:15→17:27)
[2017-11-07] MEDS: POTASSIUM CL 20 MEQ/15 ML UDCUP PO SCH (10:16)
[2017-11-07] MEDS: THIAMINE HCL 100 MG TAB PO SCH (10:16)
[2017-11-07] MEDS: MULTIVITAMINS 1 EACH TAB PO SCH (10:17)
[2017-11-07] MEDS: PROPRANOLOL HCL 10 MG TAB PO SCH ×3 (10:24→21:58)
[2017-11-07] MEDS: LANSOPRAZOLE SUSP 30MG/10ML UDSYR (Adult) PO SCH ×2 (10:26→21:58)
[2017-11-07] MEDS: INSULIN GLARGINE 100 UNITS/ML UNIT SC SCH (10:27)
--- NOTE | 2017-11-07 12:08 | ASMTCMCOM ---
CM Note CM Note Notes: Complex Care Meeting Note: Discussed this patient's case in Complex Care Team Meeting on Saturday, 11/06. this patient remains a difficult placement as he is currently Self-Pay (Medicaid Pending). Yeti Datata will check with the county on status of Medicaid, Wednesday 11/08, and report back to CM. This patient is a well-known client at [facility] in [place]. Ginger Ewing working with Director of [facility] on accessing patient's bank account for pay stubs to submit to [employer] for LT Medicaid. Patient's apartment will be saved until the end of November. A possible solution for this placement may include a contract between [facility] and [facility]. This will more than likely be a case where Medicaid will need to be approved before a facility will accept. CM will continue to discuss possible placement resolution - Director involved. Date Signed: 11/07/2017 12:07 PM Electronically Signed By:Clemencia Patterson RN
[2017-11-07] MEDS ORDERED: MAGNESIUM SULF 2 GM/WATER 50 ML IV ONE (14:10)
[2017-11-07] MEDS ORDERED: PROTOCOL MAGNESIUM 1 DOSE IV PRN (14:11)
--- NOTE | 2017-11-07 14:13 | HOSPPROG ---
Hospitalist Progress Note Assessment/Plan: 62 yo male admitted following trauma with subsequent SDH and likely TBI: DIAGNOSES: *Right Arm numbness: -no e/o stroke on CT -resolved * acute encephalopathy multifactorial * intoxication, head injury and subdural bleed, acute renal failure, hypernatremia, and notably many other causes present * Improved since admission but still quite debilitated; I expect that he probably has some significant baseline dementia or disability from other causes , and is unclear how much better he will actually get * cervical spine not yet cleared due to patient's inability to cooperate with getting spine x-rays * Recommendation has been for 6 weeks of collar protection unless we can get imaging studies * acute head injury with subdural hematoma, parenchymal hemorrhages, skull fracture, zygomatic arch fracture, * stable on repeat imaging surgery not indicated * acute kidney injury resolved * hypernatremia, Resolved * gait instability, * multifactorial with alcoholism, head injury with bleed and other factors * new onset atrial fibrillation * off anticoagulant due to subdural hematoma and suspected GI bleeding * Due to his confusion, alcoholism, high likelihood of esophageal varices with a GI bleed here, advanced liver disease etc he is not a great candidate to start anticoagulation in the future, however should he recover to the point of good mentation and long-term sobriety it might be considered * type 2 diabetes mellitus * Was with excellent control at home hemoglobin A1c 5.7 * Sugars high early on but improved now * anemia severe, initially microcytic at the time of admission * Cause uncertain but low RBC count would suggest iron deficiency * Paradoxically despite significant upper GI bleed here his MCV has gone up throughout his hospital stay (no red cell transfusions); question if this is due to improve nutrition here; has not received iron supplements * Given his inability to participate in meaningful care plan discussions, inability to give informed consent, and his lack of ability to cooperate even with getting a cervical spine x-ray series, we have so far elected to not do endoscopies (reviewed with Dr. Purcell); this could be reconsidered in the future if his situation allows * advanced cirrhosis with ascites * Status post large volume paracentesis x1 * Ascites and edema are now improving with diuretic, will continue to follow this and hope to avoid further paracenteses * Patient with both alcoholism and hepatitis-C; reviewed with Dr. Purcell - as patient has been quite noncompliant with any recommended therapies here and unable to meaningfully participate in discussion around treatment, have a elected not to further pursue full assessment and treatment of hepatitis-C * Complicated by coagulopathy as well * alcoholism * diastolic CHF acute on chronic * Resolved at this time *Hypomagnesemia: replace DISPOSITION: He is in need of placement in the setting with group home. At this point we are still waiting for Medicaid application, and waiting for facilities to except him, though the DC planning process has been slow and difficult. I had long discussion with block and case maker today about the prospects for getting him into a facility; no specific breakthroughs at this time PLANS: * Follow oral fluid and food intake closely * Continue Lasix and Aldactone for his ascites and edema of liver disease * Nutrition supplements * Thiamin * 8 weeks of Protonix total and continue propranolol due to his GI bleed which could be either from varices or ulcer * continue off all anticoagulants at this time due to bleeding brain and GI bleed bleed; * Despite some risk of stroke he is actually at much higher risk of bleeding issues and would not anticoagulate him; it also would not be likely very helpful at this point to do an endoscopy if he is not bleeding. If he has further bleeding considering endoscopy so that any varices might be banded or clipped is reasonable * Continue rate control for AFib * Continue discharge planning efforts; he is definitely not safe to trying get home, will need some type of rehabilitation setting and likely long-term residential supervised setting * await CT scan Subjective: no overnight events. mg is low Objective: Vital Signs Temp Pulse Resp BP Pulse Ox 36.7 C 60 15 133/73 H 94 11/07/17 08:00 11/07/17 10:24 11/07/17 08:00 11/07/17 10:24 11/07/17 08:00 Laboratory Results 11/07/17 05:17 11/07/17 05:17 11/06/17 11/07/17 11/08/17 05:59 05:59 05:59 Intake Total 1770 1150 Output Total 800 Balance 970 1150 PT 20.6 SEC (12.0-15.0) H 10/22/17 05:11 INR 1.76 (0.83-1.16) H 10/22/17 05:11 - Physical Exam Constitutional: no apparent distress, not in pain Eyes: PERRL, EOMI Ears, Nose, Mouth, Throat: moist mucous membranes, hearing normal Cardiovascular: regular rate and rhythym, No edema Respiratory: no respiratory distress, no rales or rhonchi Gastrointestinal: normoactive bowel sounds, soft, non-tender abdomen Skin: warm Neurologic: No AAOx3 Psychiatric: interacting appropriately, not anxious, encephalopathic Lymph, Heme, Immunologic: No petechiae ICD10 Worksheet Patient Problems: Problems Problem Status Onset Traumatic intraparenchymal hemorrhage Acute
[2017-11-07] MEDS: MAGNESIUM OXIDE 400 MG TAB PO SCH (21:58)
[2017-11-08] MEDS: ENOXAPARIN 40 MG/0.4 ML SYR SC SCH (09:30)
[2017-11-08] MEDS: FUROSEMIDE 20 MG TAB PO SCH ×2 (09:30→15:19)
[2017-11-08] MEDS: MAGNESIUM OXIDE 400 MG TAB PO SCH ×2 (09:31→21:44)
[2017-11-08] MEDS: MULTIVITAMINS 1 EACH TAB PO SCH (09:32)
[2017-11-08] MEDS: POTASSIUM CL 20 MEQ/15 ML UDCUP PO SCH (09:32)
[2017-11-08] MEDS: PROPRANOLOL HCL 10 MG TAB PO SCH ×3 (09:33→21:44)
[2017-11-08] MEDS: THIAMINE HCL 100 MG TAB PO SCH (09:35)
[2017-11-08] MEDS: SPIRONOLACTONE 50 MG TAB PO SCH (09:35)
[2017-11-08] MEDS: LANSOPRAZOLE SUSP 30MG/10ML UDSYR (Adult) PO SCH ×2 (09:45→21:47)
[2017-11-08] MEDS: INSULIN GLARGINE 100 UNITS/ML UNIT SC SCH (09:46)
--- NOTE | 2017-11-08 15:09 | HOSPPROG ---
Hospitalist Progress Note Assessment/Plan: 62 yo male admitted following trauma with subsequent SDH and likely TBI: DIAGNOSES: *Right Arm numbness: -no e/o stroke on CT -resolved * acute encephalopathy multifactorial. Persists. Mild improvement * TBI, intoxication, head injury and subdural bleed, acute renal failure, hypernatremia, and notably many other causes present * Improved since admission but still quite debilitated * cervical spine not yet cleared due to patient's inability to cooperate with getting spine x-rays * Recommendation has been for 6 weeks of collar protection unless we can get imaging studies. Can likely get NS opinion toward the end of October * acute head injury with subdural hematoma, parenchymal hemorrhages, skull fracture, zygomatic arch fracture, * stable on repeat imaging surgery not indicated * acute kidney injury resolved * hypernatremia, Resolved * gait instability, * multifactorial with alcoholism, head injury with bleed and other factors * new onset atrial fibrillation * off anticoagulant due to subdural hematoma and suspected GI bleeding * Due to his confusion, alcoholism, high likelihood of esophageal varices with a GI bleed here, advanced liver disease etc he is not a great candidate to start anticoagulation in the future, however should he recover to the point of good mentation and long-term sobriety it might be considered * type 2 diabetes mellitus * Was with excellent control at home hemoglobin A1c 5.7 * Sugars high early on but improved now * anemia severe, initially microcytic at the time of admission * Cause uncertain but low RBC count would suggest iron deficiency * Paradoxically despite significant upper GI bleed here his MCV has gone up throughout his hospital stay (no red cell transfusions); question if this is due to improve nutrition here; has not received iron supplements * Given his inability to participate in meaningful care plan discussions, inability to give informed consent, and his lack of ability to cooperate even with getting a cervical spine x-ray series, we have so far elected to not do endoscopies (reviewed with Dr. Purcell); this could be reconsidered in the future if his situation allows * advanced cirrhosis with ascites * Status post large volume paracentesis x1 * Ascites and edema are now improving with diuretic, will continue to follow this and hope to avoid further paracenteses * Patient with both alcoholism and hepatitis-C; reviewed with Dr. Purcell - as patient has been quite noncompliant with any recommended therapies here and unable to meaningfully participate in discussion around treatment, have a elected not to further pursue full assessment and treatment of hepatitis-C * Complicated by coagulopathy as well * cont diuretics as is * alcoholism * diastolic CHF acute on chronic * Euvolemic at this time *Hypomagnesemia: replace DISPOSITION: He is in need of placement in the setting with custodial. At this point we are still waiting for Medicaid application, and waiting for facilities to except him, though the DC planning process has been slow and difficult. PLANS: * Continue Lasix and Aldactone for his ascites and edema of liver disease * Nutrition supplements * Thiamin * 8 weeks of Protonix total and continue propranolol due to his GI bleed which could be either from varices or ulcer * continue off all anticoagulants at this time due to bleeding brain and GI bleed bleed; * Despite some risk of stroke he is actually at much higher risk of bleeding issues and would not anticoagulate him; it also would not be likely very helpful at this point to do an endoscopy if he is not bleeding. If he has further bleeding considering endoscopy so that any varices might be banded or clipped is reasonable * Continue BB * Continue discharge planning efforts; he is not safe to trying get home, will need some type of rehabilitation setting and likely long-term residential supervised setting Subjective: no overnight events. no cp or sob. no n/v Objective: Vital Signs Temp Pulse Resp BP Pulse Ox 36.8 C 84 18 143/63 H 97 11/08/17 11:44 11/08/17 11:44 11/08/17 11:44 11/08/17 11:44 11/08/17 11:44 Laboratory Results 11/07/17 05:17 11/07/17 05:17 11/07/17 11/08/17 11/09/17 05:59 05:59 05:59 Intake Total 1150 1000 2570 Balance 1150 1000 2570 PT 20.6 SEC (12.0-15.0) H 10/22/17 05:11 INR 1.76 (0.83-1.16) H 10/22/17 05:11 - Physical Exam Constitutional: no apparent distress Eyes: PERRL, EOMI Ears, Nose, Mouth, Throat: moist mucous membranes, hearing normal Cardiovascular: regular rate and rhythym, No edema Respiratory: no respiratory distress, no rales or rhonchi Gastrointestinal: normoactive bowel sounds, soft, non-tender abdomen Skin: warm Neurologic: No AAOx3 Psychiatric: interacting appropriately, not anxious, not encephalopathic Lymph, Heme, Immunologic: No petechiae ICD10 Worksheet Patient Problems: Problems Problem Status Onset Traumatic intraparenchymal hemorrhage Acute
[2017-11-09] MEDS: LANSOPRAZOLE SUSP 30MG/10ML UDSYR (Adult) PO SCH ×2 (09:46→23:07)
[2017-11-09] MEDS: PROPRANOLOL HCL 10 MG TAB PO SCH ×3 (09:47→23:07)
[2017-11-09] MEDS: FUROSEMIDE 20 MG TAB PO SCH ×2 (09:47→16:39)
[2017-11-09] MEDS: POTASSIUM CL 20 MEQ/15 ML UDCUP PO SCH (09:47)
[2017-11-09] MEDS: MAGNESIUM OXIDE 400 MG TAB PO SCH ×2 (09:47→23:10)
[2017-11-09] MEDS: THIAMINE HCL 100 MG TAB PO SCH (09:47)
[2017-11-09] MEDS: SPIRONOLACTONE 50 MG TAB PO SCH (09:48)
[2017-11-09] MEDS: MULTIVITAMINS 1 EACH TAB PO SCH (09:48)
[2017-11-09] MEDS: INSULIN GLARGINE 100 UNITS/ML UNIT SC SCH (09:48)
[2017-11-09] MEDS: ENOXAPARIN 40 MG/0.4 ML SYR SC SCH (09:48)
--- NOTE | 2017-11-09 13:37 | HOSPPROG ---
Hospitalist Progress Note Assessment/Plan: 62 yo male admitted following trauma with subsequent SDH and likely TBI: DIAGNOSES: *Right Arm numbness: -no e/o stroke on CT -resolved * acute encephalopathy multifactorial. Persists. Mild improvement * TBI, intoxication, head injury and subdural bleed, acute renal failure, hypernatremia, and notably many other causes present * Improved since admission but still quite debilitated * cervical spine not yet cleared due to patient's inability to cooperate with getting spine x-rays * Recommendation has been for 6 weeks of collar protection unless we can get imaging studies. Can likely get NS opinion toward the end of October * acute head injury with subdural hematoma, parenchymal hemorrhages, skull fracture, zygomatic arch fracture, * stable on repeat imaging surgery not indicated * acute kidney injury resolved * hypernatremia, Resolved * gait instability, * multifactorial with alcoholism, head injury with bleed and other factors * new onset atrial fibrillation * off anticoagulant due to subdural hematoma and suspected GI bleeding * Due to his confusion, alcoholism, high likelihood of esophageal varices with a GI bleed here, advanced liver disease etc he is not a great candidate to start anticoagulation in the future, however should he recover to the point of good mentation and long-term sobriety it might be considered * type 2 diabetes mellitus * hyperglycemia overnight as he refused his Lantus yesterday * He received Lantus today and will monitor glucose today * anemia severe, initially microcytic at the time of admission * Cause uncertain but low RBC count would suggest iron deficiency * Paradoxically despite significant upper GI bleed here his MCV has gone up throughout his hospital stay (no red cell transfusions); question if this is due to improve nutrition here; has not received iron supplements * Given his inability to participate in meaningful care plan discussions, inability to give informed consent, and his lack of ability to cooperate even with getting a cervical spine x-ray series, we have so far elected to not do endoscopies (reviewed with Dr. Purcell); this could be reconsidered in the future if his situation allows * advanced cirrhosis with ascites * Status post large volume paracentesis x1 * Ascites and edema are now improving with diuretic, will continue to follow this and hope to avoid further paracenteses * Patient with both alcoholism and hepatitis-C; reviewed with Dr. Purcell - as patient has been quite noncompliant with any recommended therapies here and unable to meaningfully participate in discussion around treatment, have a elected not to further pursue full assessment and treatment of hepatitis-C * Complicated by coagulopathy as well * cont diuretics as is * alcoholism * diastolic CHF acute on chronic * Euvolemic at this time *Hypomagnesemia: replace DISPOSITION: He is in need of placement in the setting with fpc. At this point we are still waiting for Medicaid application, and waiting for facilities to except him, though the DC planning process has been slow and difficult. PLANS: * Continue Lasix and Aldactone for his ascites and edema of liver disease * Nutrition supplements * Thiamin * 8 weeks of Protonix total and continue propranolol due to his GI bleed which could be either from varices or ulcer * continue off all anticoagulants at this time due to bleeding brain and GI bleed bleed; * Despite some risk of stroke he is actually at much higher risk of bleeding issues and would not anticoagulate him; it also would not be likely very helpful at this point to do an endoscopy if he is not bleeding. If he has further bleeding considering endoscopy so that any varices might be banded or clipped is reasonable * Continue BB * Continue discharge planning efforts; he is not safe to trying get home, will need some type of rehabilitation setting and likely long-term residential supervised setting Awaiting placement. Subjective: no overnight events. refused Lantus yesterday. He did take it today Objective: Vital Signs Temp Pulse Resp BP Pulse Ox 36.8 C 68 18 113/62 97 11/09/17 08:00 11/09/17 09:47 11/09/17 08:00 11/09/17 09:47 11/09/17 08:00 Laboratory Results 11/07/17 05:17 11/07/17 05:17 11/08/17 11/09/17 11/10/17 05:59 05:59 05:59 Intake Total 1000 5720 Balance 1000 5720 PT 20.6 SEC (12.0-15.0) H 10/22/17 05:11 INR 1.76 (0.83-1.16) H 10/22/17 05:11 - Physical Exam Constitutional: no apparent distress Eyes: PERRL, EOMI Ears, Nose, Mouth, Throat: moist mucous membranes Cardiovascular: regular rate and rhythym Respiratory: no respiratory distress Gastrointestinal: normoactive bowel sounds, distension (mild distention) Skin: warm Neurologic: AAOx3 Psychiatric: interacting appropriately, encephalopathic Lymph, Heme, Immunologic: No petechiae ICD10 Worksheet Patient Problems: Problems Problem Status Onset Traumatic intraparenchymal hemorrhage Acute
[2017-11-10] MEDS: PROPRANOLOL HCL 10 MG TAB PO SCH ×3 (09:22→23:11)
[2017-11-10] MEDS: MULTIVITAMINS 1 EACH TAB PO SCH (09:22)
[2017-11-10] MEDS: FUROSEMIDE 20 MG TAB PO SCH ×2 (09:23→17:08)
[2017-11-10] MEDS: MAGNESIUM OXIDE 400 MG TAB PO SCH ×2 (09:23→20:43)
[2017-11-10] MEDS: SPIRONOLACTONE 50 MG TAB PO SCH (09:23)
[2017-11-10] MEDS: THIAMINE HCL 100 MG TAB PO SCH (09:23)
[2017-11-10] MEDS: LANSOPRAZOLE SUSP 30MG/10ML UDSYR (Adult) PO SCH ×2 (09:23→20:44)
[2017-11-10] MEDS: INSULIN GLARGINE 100 UNITS/ML UNIT SC SCH (09:23)
[2017-11-10] MEDS: ENOXAPARIN 40 MG/0.4 ML SYR SC SCH (09:27)
[2017-11-10] MEDS: POTASSIUM CL 20 MEQ/15 ML UDCUP PO SCH (11:12)
--- NOTE | 2017-11-10 12:59 | HOSPPROG ---
Hospitalist Progress Note Assessment/Plan: 62 yo male admitted following trauma with subsequent SDH and likely TBI: DIAGNOSES: *Right Arm numbness: -no e/o stroke on CT -resolved * acute encephalopathy multifactorial. Persists. Mild improvement * TBI, intoxication, head injury and subdural bleed, acute renal failure, hypernatremia, and notably many other causes present * Improved since admission but still quite debilitated * cervical spine not yet cleared due to patient's inability to cooperate with getting spine x-rays * Recommendation has been for 6 weeks of collar protection unless we can get imaging studies. Can likely get NS opinion toward the end of October * acute head injury with subdural hematoma, parenchymal hemorrhages, skull fracture, zygomatic arch fracture, * stable on repeat imaging surgery not indicated * acute kidney injury resolved * hypernatremia, Resolved * gait instability, * multifactorial with alcoholism, head injury with bleed and other factors * new onset atrial fibrillation * off anticoagulant due to subdural hematoma and suspected GI bleeding * Due to his confusion, alcoholism, high likelihood of esophageal varices with a GI bleed here, advanced liver disease etc he is not a great candidate to start anticoagulation in the future, however should he recover to the point of good mentation and long-term sobriety it might be considered * type 2 diabetes mellitus * glucose with better control now that he is taking his Lantus * anemia severe, initially microcytic at the time of admission * Cause uncertain but low RBC count would suggest iron deficiency * Paradoxically despite significant upper GI bleed here his MCV has gone up throughout his hospital stay (no red cell transfusions); question if this is due to improve nutrition here; has not received iron supplements * Given his inability to participate in meaningful care plan discussions, inability to give informed consent, and his lack of ability to cooperate even with getting a cervical spine x-ray series, we have so far elected to not do endoscopies (reviewed with Dr. Purcell); this could be reconsidered in the future if his situation allows * advanced cirrhosis with ascites * Status post large volume paracentesis x1 * Ascites and edema are now improving with diuretic, will continue to follow this and hope to avoid further paracenteses * Patient with both alcoholism and hepatitis-C; reviewed with Dr. Purcell - as patient has been quite noncompliant with any recommended therapies here and unable to meaningfully participate in discussion around treatment, have a elected not to further pursue full assessment and treatment of hepatitis-C * Complicated by coagulopathy as well * cont diuretics as is * alcoholism * diastolic CHF acute on chronic * Euvolemic at this time *Hypomagnesemia: replace DISPOSITION: He is in need of placement in the setting with alf. At this point we are still waiting for Medicaid application, and waiting for facilities to except him, though the DC planning process has been slow and difficult. PLANS: the patient is awaiting placement Medically he is stable Subjective: no overnight events. no complaints Objective: Vital Signs Temp Pulse Resp BP Pulse Ox 37.8 C 71 16 130/69 H 96 11/10/17 08:00 11/10/17 09:22 11/10/17 08:00 11/10/17 09:22 11/10/17 08:00 Laboratory Results 11/07/17 05:17 11/07/17 05:17 11/09/17 11/10/17 11/11/17 05:59 05:59 05:59 Intake Total 5720 500 780 Balance 5720 500 780 PT 20.6 SEC (12.0-15.0) H 10/22/17 05:11 INR 1.76 (0.83-1.16) H 10/22/17 05:11 - Physical Exam Constitutional: no apparent distress Eyes: PERRL Ears, Nose, Mouth, Throat: moist mucous membranes, hearing normal Cardiovascular: regular rate and rhythym, No edema Respiratory: no respiratory distress, no rales or rhonchi, clear to auscultation Gastrointestinal: normoactive bowel sounds Skin: warm Neurologic: No AAOx3 Psychiatric: interacting appropriately, encephalopathic Lymph, Heme, Immunologic: No petechiae ICD10 Worksheet Patient Problems: Problems Problem Status Onset Traumatic intraparenchymal hemorrhage Acute
[2017-11-11] MEDS: ENOXAPARIN 40 MG/0.4 ML SYR SC SCH (09:40)
[2017-11-11] MEDS: INSULIN GLARGINE 100 UNITS/ML UNIT SC SCH (09:41)
[2017-11-11] MEDS: POTASSIUM CL 20 MEQ/15 ML UDCUP PO SCH (09:42)
[2017-11-11] MEDS: LANSOPRAZOLE SUSP 30MG/10ML UDSYR (Adult) PO SCH ×2 (09:43→21:32)
[2017-11-11] MEDS: THIAMINE HCL 100 MG TAB PO SCH (09:44)
[2017-11-11] MEDS: FUROSEMIDE 20 MG TAB PO SCH ×2 (09:44→15:46)
[2017-11-11] MEDS: MAGNESIUM OXIDE 400 MG TAB PO SCH ×2 (09:44→21:32)
[2017-11-11] MEDS: PROPRANOLOL HCL 10 MG TAB PO SCH ×3 (09:44→23:47)
[2017-11-11] MEDS: SPIRONOLACTONE 50 MG TAB PO SCH (09:44)
[2017-11-11] MEDS: MULTIVITAMINS 1 EACH TAB PO SCH (09:44)
[2017-11-11 14:35] LABS: PLATELET COUNT 77 10^3/uL (150-400)
--- NOTE | 2017-11-11 17:16 | HOSPPROG ---
Hospitalist Progress Note Assessment/Plan: # acute encephalopathy - multifactorial, d/t etOH, head injury - check ammonia tomorrow # c-spine - apparently has been cleared after 6 weeks in c-collar # subdural hematoma/skull fracture/intraparenchymal hemorrhages/zygomatic arch fx - no intervention per nsg # cirrhosis - c/b ascites, coagulopathy - s/p large volume paracentesis on 10/22 - volume status stable on lasix and aldactone # HCV+ - outpatient eval could be considered # etOH abuse # new onset a-fib - was on metop,now on propranolol - no full dose AC given SDH, fall risk # DM2 - elevated glucs on glargine - consider SSI # hyperNa - resolved # KYLE - resolved # microcytic anemia - no GI w/u at this time d/t mental status; consider as outpatient # DVT ppx - lovenox Subjective: no acute overnight events Objective: Vital Signs Temp Pulse Resp BP Pulse Ox 36.5 C 64 16 134/74 H 96 11/11/17 16:00 11/11/17 16:00 11/11/17 16:00 11/11/17 16:00 11/11/17 16:00 Laboratory Results 11/11/17 14:24 11/07/17 05:17 11/10/17 11/11/17 11/12/17 05:59 05:59 05:59 Intake Total 500 1330 1050 Balance 500 1330 1050 PT 20.6 SEC (12.0-15.0) H 10/22/17 05:11 INR 1.76 (0.83-1.16) H 10/22/17 05:11 chart reviewed imaging reviewed - Physical Exam Constitutional: no apparent distress, appears nourished Cardiovascular: regular rate and rhythym, no murmur, rub, or gallop Respiratory: no respiratory distress, no rales or rhonchi, clear to auscultation Gastrointestinal: soft, non-tender abdomen, no palpable masses, No guarding, No rebound, No distension ICD10 Worksheet Patient Problems: Problems Problem Status Onset Traumatic intraparenchymal hemorrhage Acute
--- NOTE | 2017-11-11 21:25 | ASMTCMCOM ---
CM Note CM Note Notes: Spoke with Arely with [facility] today - patient's Medicaid still pending as of . Discussed case with CM Director, Ginger, today. We may be at a point where we ([facility]) considers some type of contract with an accepting facility. I have reached out to both [facility] and [facility] inquiring about acceptance with a contract via [employer] messaging. I also spoke with Shade at [facility] today - he seems to think his facility would consider this. Shade will discuss this potential plan with his DON and General Doc on Saturday and follow-up with CM. If they are willing to consider, it would probably be best to connect their medical record administrator with our director, Ginger, to work out details. I also left a vm for [facility] [employer] Lead #[phone], to update there is still no accepting facility. D/W Dr. Antoine. CM will follow. Plan: Hopefully SNF Date Signed: 11/11/2017 09:24 PM Electronically Signed By:Clemencia Patterson RN
[2017-11-12] MEDS: POTASSIUM CL 20 MEQ/15 ML UDCUP PO SCH ×2 (10:00→15:02)
[2017-11-12] MEDS: ENOXAPARIN 40 MG/0.4 ML SYR SC SCH ×2 (10:00→14:57)
[2017-11-12] MEDS: INSULIN GLARGINE 100 UNITS/ML UNIT SC SCH ×2 (10:00→14:58)
[2017-11-12] MEDS: PROPRANOLOL HCL 10 MG TAB PO SCH ×4 (10:00→21:06)
[2017-11-12] MEDS: THIAMINE HCL 100 MG TAB PO SCH ×2 (10:00→15:02)
[2017-11-12] MEDS: MULTIVITAMINS 1 EACH TAB PO SCH ×2 (10:00→15:01)
[2017-11-12] MEDS: MAGNESIUM OXIDE 400 MG TAB PO SCH ×3 (10:00→20:50)
[2017-11-12] MEDS: LANSOPRAZOLE SUSP 30MG/10ML UDSYR (Adult) PO SCH ×3 (10:00→20:50)
[2017-11-12 12:42] LABS: PLATELET COUNT 91 10^3/uL (150-400)
[2017-11-12] MEDS ORDERED: NS 500 ML IV SCH (13:30)
[2017-11-12] MEDS ORDERED: NS 1,000 ML IV ONE (13:30)
[2017-11-12] MEDS: FUROSEMIDE 20 MG TAB PO SCH (15:05)
[2017-11-12] MEDS: SPIRONOLACTONE 50 MG TAB PO SCH (15:05)
[2017-11-12] MEDS: metFORMIN HCL 500 MG TAB PO SCH (15:32)
--- NOTE | 2017-11-12 16:51 | ASMTCMCOM ---
CM Note CM Note Notes: [employer] staff report pt is still Medicaid pending. Updated clinicals sent to [facility] who [facility] willing to re-assess pt with a financial contract from [facility]. Jatin with [facility] completed on-site today. Steph with [facility] will fax [facility] pt non-triggering [facility] per Jatin's request. CM Director Kaylin drafting a contract. Pt states he ideally would like a SNF in [place] because that is where his grandchildren are. CM will follow up with [facility] tomorrow. Date Signed: 11/12/2017 04:50 PM Electronically Signed By:DUSTIN Baca
[2017-11-13] MEDS: ACETAMINOPHEN 500 MG TAB PO PRN (05:14)
[2017-11-13] MEDS: LOPERAMIDE HCL 1 MG/5 ML UDL PO PRN (05:20)
[2017-11-13] MEDS: MULTIVITAMINS 1 EACH TAB PO SCH (09:12)
[2017-11-13] MEDS: LANSOPRAZOLE SUSP 30MG/10ML UDSYR (Adult) PO SCH ×2 (09:12→21:55)
[2017-11-13] MEDS: PROPRANOLOL HCL 10 MG TAB PO SCH ×3 (09:12→21:56)
[2017-11-13] MEDS: MAGNESIUM OXIDE 400 MG TAB PO SCH ×2 (09:12→21:55)
[2017-11-13] MEDS: INSULIN GLARGINE 100 UNITS/ML UNIT SC SCH (09:12)
[2017-11-13] MEDS: THIAMINE HCL 100 MG TAB PO SCH (09:12)
[2017-11-13] MEDS: ENOXAPARIN 40 MG/0.4 ML SYR SC SCH (09:13)
[2017-11-13] MEDS: POTASSIUM CL 20 MEQ/15 ML UDCUP PO SCH (09:13)
[2017-11-13] MEDS: metFORMIN HCL 500 MG TAB PO SCH (09:13)
[2017-11-13] MEDS: LORazepam 0.5 MG TAB PO PRN ×2 (11:17→21:55)
--- NOTE | 2017-11-13 13:48 | HOSPPROG ---
Hospitalist Progress Note Assessment/Plan: # acute encephalopathy - stable, d/t head injury and etOH # c-spine - apparently has been cleared after 6 weeks in c-collar # subdural hematoma/skull fracture/intraparenchymal hemorrhages/zygomatic arch fx - no intervention per nsg # cirrhosis - c/b ascites, coagulopathy - s/p large volume paracentesis on 10/22 - volume status stable on lasix and aldactone # hypoNa - recheck u-lytes - restart lasix today, hold aldactone and recheck tomorrow # HCV+ - outpatient eval could be considered # etOH abuse # new onset a-fib - was on metop,now on propranolol - no full dose AC given SDH, fall risk # DM2 - elevated glucs on glargine - consider SSI # hyperNa - resolved # KYLE - resolved # microcytic anemia - no GI w/u at this time d/t mental status; consider as outpatient # DVT ppx - lovenox # dispo - difficult; medicaid pending; CM working on arrangements with SNF Subjective: confused, in chair Objective: Vital Signs Temp Pulse Resp BP Pulse Ox 36.5 C 60 17 114/66 97 11/13/17 08:00 11/13/17 09:12 11/13/17 08:00 11/13/17 09:12 11/13/17 08:00 Laboratory Results 11/12/17 04:52 11/13/17 09:08 11/12/17 11/13/17 11/14/17 05:59 05:59 05:59 Intake Total 1350 1010 Output Total 1 Balance 1350 1009 PT 20.6 SEC (12.0-15.0) H 10/22/17 05:11 INR 1.76 (0.83-1.16) H 10/22/17 05:11 - Physical Exam Constitutional: appears nourished Cardiovascular: regular rate and rhythym, no murmur, rub, or gallop Respiratory: no rales or rhonchi, clear to auscultation, No expiratory wheeze, No inspiratory crackles Gastrointestinal: soft, non-tender abdomen, no palpable masses, No guarding, No rebound, No distension ICD10 Worksheet Patient Problems: Problems Problem Status Onset Traumatic intraparenchymal hemorrhage Acute
--- NOTE | 2017-11-13 15:16 | ASMTCMCOM ---
CM Note CM Note Notes: Draft contract sent to [facility] in [employer]. Shade with [facility] reports they received updated clinicals and are assessing pt. Pt approved for [place] Medicaid, state ID# [id number], effective September 22, [facility] and [facility] updated. Date Signed: 11/13/2017 03:15 PM Electronically Signed By:DUSTIN Baca
[2017-11-13] MEDS: FUROSEMIDE 40 MG TAB PO SCH (15:25)
[2017-11-14 05:23] LABS: PLATELET COUNT 89 10^3/uL (150-400)
[2017-11-14] MEDS: ENOXAPARIN 40 MG/0.4 ML SYR SC SCH (09:37)
[2017-11-14] MEDS: POTASSIUM CL 20 MEQ/15 ML UDCUP PO SCH (09:37)
[2017-11-14] MEDS: PROPRANOLOL HCL 10 MG TAB PO SCH ×3 (09:37→21:31)
[2017-11-14] MEDS: INSULIN GLARGINE 100 UNITS/ML UNIT SC SCH (09:37)
[2017-11-14] MEDS: MAGNESIUM OXIDE 400 MG TAB PO SCH (09:38)
[2017-11-14] MEDS: THIAMINE HCL 100 MG TAB PO SCH (09:38)
[2017-11-14] MEDS: MULTIVITAMINS 1 EACH TAB PO SCH (09:38)
[2017-11-14] MEDS: metFORMIN HCL 500 MG TAB PO SCH ×2 (09:38→18:03)
[2017-11-14] MEDS: LANSOPRAZOLE SUSP 30MG/10ML UDSYR (Adult) PO SCH ×2 (09:38→21:31)
[2017-11-14] MEDS: FUROSEMIDE 40 MG TAB PO SCH (09:38)
--- NOTE | 2017-11-14 15:31 | ASMTCMCOM ---
CM Note CM Note Notes: Still no SNF placement for pt. [facility] still declines pt, [employer] note states pt needs are too acute and pt verbalized to Jatin in admissions only wanting to go to SNF in [place]. [facility] is still assessing: spoke today with Jesusita Harris supervisor road administrator who reports they are still reviewing clinicals. Referrals sent again to all SNFs contacted in [employer] with the update pt now has Medicaid. Date Signed: 11/14/2017 03:30 PM Electronically Signed By:DUSTIN aBca
--- NOTE | 2017-11-14 15:59 | HOSPPROG ---
Hospitalist Progress Note Assessment/Plan: * SDH/skull fracture/IPH/Zygomatic arch fracture -no intervention per neurosurgery * Cirrhosis - due to Hep C and Etoh -consider Hep C tx as outpatient * Ascites s/p >5L paracentesis -continue lasix + spironolactone * Encephalopathy -recheck ammonia * Hyponatremia -fluid restrict * Afib -propranolol -high risk for anti-coag * DM -home metformin * Possible UGIB -treated with empiric PPI - stable * ? positive Hep A IgM Subjective: seems confused, thinks his problems is caused by virus that his family is also suffering from at this time Objective: Vital Signs Temp Pulse Resp BP Pulse Ox 36.8 C 63 14 119/66 93 11/14/17 08:00 11/14/17 09:37 11/14/17 08:00 11/14/17 09:37 11/14/17 08:00 Laboratory Results 11/14/17 04:55 11/14/17 04:55 11/13/17 11/14/17 11/15/17 05:59 05:59 05:59 Intake Total 1010 600 Output Total 1 250 Balance 1009 350 PT 20.6 SEC (12.0-15.0) H 10/22/17 05:11 INR 1.76 (0.83-1.16) H 10/22/17 05:11 CXR viewed, my personal interpretation is - possible CHF HEad CT - bleeding improved - Physical Exam Constitutional: no apparent distress, appears nourished, not in pain Cardiovascular: regular rate and rhythym, no murmur, rub, or gallop Respiratory: no respiratory distress, no rales or rhonchi, clear to auscultation Gastrointestinal: normoactive bowel sounds, soft, non-tender abdomen, no palpable masses Skin: no rashes or abrasions, no fluctuance, no induration Neurologic: No AAOx3 Psychiatric: encephalopathic, poor insight, poor judgement, poor memory, No interacting appropriately, No anxious, No depressed, No agitated ICD10 Worksheet Patient Problems: Problems Problem Status Onset Traumatic intraparenchymal hemorrhage Acute
[2017-11-15 05:12] LABS: INR 1.45 (0.83-1.16); PROTIME(PATIENT) 17.8 SEC (12.0-15.0)
--- NOTE | 2017-11-15 09:31 | ASMTCMCOM ---
CM Note CM Note Notes: [facility] has declined pt again. Other referrals deny due to lack of male bed availability and inability to meet pt needs. Even with Medicaid now in effect and [employer] functional approval placement is still presenting a challenge. CM management alerted. CM to follow. Date Signed: 11/15/2017 09:30 AM Electronically Signed By:DUSTIN Baca
[2017-11-15] MEDS: metFORMIN HCL 500 MG TAB PO SCH ×2 (09:39→17:18)
[2017-11-15] MEDS: MULTIVITAMINS 1 EACH TAB PO SCH (09:40)
[2017-11-15] MEDS: PROPRANOLOL HCL 10 MG TAB PO SCH ×3 (09:40→23:04)
[2017-11-15] MEDS: FUROSEMIDE 40 MG TAB PO SCH (09:40)
[2017-11-15] MEDS: THIAMINE HCL 100 MG TAB PO SCH (09:40)
[2017-11-15] MEDS: LANSOPRAZOLE SUSP 30MG/10ML UDSYR (Adult) PO SCH ×2 (09:41→23:04)
[2017-11-15] MEDS: SPIRONOLACTONE 25 MG TAB PO SCH (09:41)
[2017-11-15] MEDS: LACTULOSE 20 GM/30 ML UDCUP PO SCH ×2 (09:52→23:04)
--- NOTE | 2017-11-15 15:44 | ASMTCMCOM ---
CM Note CM Note Notes: The [facility]F in [place] is re-assessing pt. Roxy with [facility] completed an on-site assessment today and will let us know next week if they can accept pt. [employer] staff are helping with Medicaid/LTC/disabilty, unknown how much specific information pt may be able to relay for the disability application which requires specifics. CM to follow. Date Signed: 11/15/2017 03:43 PM Electronically Signed By:DUSTIN Baca
--- NOTE | 2017-11-15 16:48 | HOSPPROG ---
Hospitalist Progress Note Assessment/Plan: * SDH/skull fracture/IPH/Zygomatic arch fracture -no intervention per neurosurgery * Cirrhosis - due to Hep C and Etoh -consider Hep C tx as outpatient * Ascites s/p >5L paracentesis -continue lasix + spironolactone * Encephalopathy -ammonia elevated - restart Lactulose * Hyponatremia -fluid restrict * Afib -propranolol -high risk for anti-coag * DM -home metformin * Possible UGIB -treated with empiric PPI - stable * ? positive Hep A IgM -LFT improved - if he had it, he has recovered Subjective: Agitated and angry regarding lack of transfer to "[place]" Objective: Vital Signs Temp Pulse Resp BP Pulse Ox 37.0 C 70 14 131/66 H 98 11/15/17 08:00 11/15/17 09:40 11/15/17 08:00 11/15/17 09:40 11/15/17 08:00 Laboratory Results 11/14/17 04:55 11/15/17 04:55 11/14/17 11/15/17 11/16/17 05:59 05:59 05:59 Intake Total 600 1250 Output Total 250 Balance 350 1250 PT 17.8 SEC (12.0-15.0) H 11/15/17 04:55 INR 1.45 (0.83-1.16) H 11/15/17 04:55 - Physical Exam Constitutional: no apparent distress, appears nourished, not in pain Cardiovascular: regular rate and rhythym, no murmur, rub, or gallop Respiratory: no respiratory distress, no rales or rhonchi, clear to auscultation Gastrointestinal: normoactive bowel sounds, soft, non-tender abdomen, no palpable masses Skin: no rashes or abrasions, no fluctuance, no induration Neurologic: AAOx3, sensation intact bilaterally Psychiatric: encephalopathic, agitated, poor insight, poor judgement, poor memory, No interacting appropriately ICD10 Worksheet Patient Problems: Problems Problem Status Onset Traumatic intraparenchymal hemorrhage Acute
[2017-11-16] MEDS: MULTIVITAMINS 1 EACH TAB PO SCH (10:18)
[2017-11-16] MEDS: PROPRANOLOL HCL 10 MG TAB PO SCH ×4 (10:18→21:49)
[2017-11-16] MEDS: FUROSEMIDE 40 MG TAB PO SCH (10:22)
[2017-11-16] MEDS: THIAMINE HCL 100 MG TAB PO SCH (10:22)
[2017-11-16] MEDS: metFORMIN HCL 500 MG TAB PO SCH ×2 (10:24→17:25)
[2017-11-16] MEDS: LACTULOSE 20 GM/30 ML UDCUP PO SCH (10:25)
[2017-11-16] MEDS: SPIRONOLACTONE 25 MG TAB PO SCH (10:26)
[2017-11-16] MEDS: LANSOPRAZOLE SUSP 30MG/10ML UDSYR (Adult) PO SCH ×2 (13:15→21:49)
--- NOTE | 2017-11-16 19:54 | HOSPPROG ---
Hospitalist Progress Note Assessment/Plan: * SDH/skull fracture/IPH/Zygomatic arch fracture -no intervention per neurosurgery * Cirrhosis - due to Hep C and Etoh -consider Hep C tx as outpatient * Ascites s/p >5L paracentesis -continue lasix + spironolactone * Encephalopathy -ammonia elevated - restart Lactulose * Hyponatremia -fluid restrict * Afib -propranolol -high risk for anti-coag * DM -home metformin * Possible UGIB -treated with empiric PPI - stable * ? positive Hep A IgM -LFT improved - if he had it, he has recovered Subjective: no complaints Objective: Vital Signs Temp Pulse Resp BP Pulse Ox 36.6 C 65 16 138/97 H 98 11/16/17 16:00 11/16/17 16:00 11/16/17 16:00 11/16/17 16:00 11/16/17 16:00 Laboratory Results 11/14/17 04:55 11/15/17 04:55 11/15/17 11/16/17 11/17/17 05:59 05:59 05:59 Intake Total 1250 1150 Output Total 600 Balance 1250 1150 -600 PT 17.8 SEC (12.0-15.0) H 11/15/17 04:55 INR 1.45 (0.83-1.16) H 11/15/17 04:55 - Physical Exam Constitutional: no apparent distress, appears nourished, not in pain Cardiovascular: regular rate and rhythym, no murmur, rub, or gallop Respiratory: no respiratory distress, no rales or rhonchi, clear to auscultation Gastrointestinal: normoactive bowel sounds, soft, non-tender abdomen, no palpable masses Skin: no rashes or abrasions, no fluctuance, no induration Neurologic: AAOx3, sensation intact bilaterally Psychiatric: encephalopathic, anxious, agitated, poor insight, poor judgement, poor memory, No interacting appropriately, No thought process linear ICD10 Worksheet Patient Problems: Problems Problem Status Onset Traumatic intraparenchymal hemorrhage Acute
[2017-11-17] MEDS: LANSOPRAZOLE SUSP 30MG/10ML UDSYR (Adult) PO SCH ×2 (11:02→22:25)
[2017-11-17] MEDS: PROPRANOLOL HCL 10 MG TAB PO SCH ×3 (11:03→22:26)
[2017-11-17] MEDS: FUROSEMIDE 40 MG TAB PO SCH (11:03)
[2017-11-17] MEDS: SPIRONOLACTONE 25 MG TAB PO SCH (11:03)
[2017-11-17] MEDS: THIAMINE HCL 100 MG TAB PO SCH (11:04)
[2017-11-17] MEDS: metFORMIN HCL 500 MG TAB PO SCH ×2 (11:04→17:32)
[2017-11-17] MEDS: MULTIVITAMINS 1 EACH TAB PO SCH (11:04)
[2017-11-17] MEDS: LACTULOSE 20 GM/30 ML UDCUP PO SCH (11:05)
--- NOTE | 2017-11-17 15:58 | HOSPPROG ---
Hospitalist Progress Note Assessment/Plan: * SDH/skull fracture/IPH/Zygomatic arch fracture -no intervention per neurosurgery * Cirrhosis - due to Hep C and Etoh -consider Hep C tx as outpatient * Ascites s/p >5L paracentesis -continue lasix + spironolactone * Hepatic Encephalopathy -Lactulose * Hyponatremia -fluid restrict * Afib -propranolol -high risk for anti-coag * DM -home metformin * Possible UGIB -treated with empiric PPI - stable * ? positive Hep A IgM -LFT improved - if he had it, he has recovered Subjective: Agitated and angry per his usual Objective: Vital Signs Temp Pulse Resp BP Pulse Ox 36.4 C 66 15 129/71 H 97 11/17/17 08:00 11/17/17 11:03 11/17/17 08:00 11/17/17 11:03 11/17/17 08:00 Laboratory Results 11/14/17 04:55 11/17/17 05:01 11/16/17 11/17/17 11/18/17 05:59 05:59 05:59 Intake Total 1150 200 250 Output Total 600 200 Balance 1150 -400 50 PT 17.8 SEC (12.0-15.0) H 11/15/17 04:55 INR 1.45 (0.83-1.16) H 11/15/17 04:55 - Physical Exam Constitutional: no apparent distress, appears nourished, not in pain Cardiovascular: regular rate and rhythym, no murmur, rub, or gallop Respiratory: no respiratory distress, no rales or rhonchi, clear to auscultation Gastrointestinal: normoactive bowel sounds, soft, non-tender abdomen, no palpable masses Skin: no rashes or abrasions, no fluctuance, no induration Neurologic: AAOx3, sensation intact bilaterally Psychiatric: agitated, poor insight, No interacting appropriately, No encephalopathic ICD10 Worksheet Patient Problems: Problems Problem Status Onset Traumatic intraparenchymal hemorrhage Acute
[2017-11-17] MEDS: ACETAMINOPHEN 500 MG TAB PO PRN (22:28)
[2017-11-18] MEDS: THIAMINE HCL 100 MG TAB PO SCH (10:04)
[2017-11-18] MEDS: PROPRANOLOL HCL 10 MG TAB PO SCH ×3 (10:04→21:22)
[2017-11-18] MEDS: MULTIVITAMINS 1 EACH TAB PO SCH (10:04)
[2017-11-18] MEDS: FUROSEMIDE 40 MG TAB PO SCH (10:04)
[2017-11-18] MEDS: SPIRONOLACTONE 25 MG TAB PO SCH (10:04)
[2017-11-18] MEDS: metFORMIN HCL 500 MG TAB PO SCH ×2 (10:06→19:03)
[2017-11-18] MEDS: LANSOPRAZOLE SUSP 30MG/10ML UDSYR (Adult) PO SCH ×2 (10:24→21:22)
[2017-11-18] MEDS: LACTULOSE 20 GM/30 ML UDCUP PO SCH (10:24)
--- NOTE | 2017-11-18 16:41 | ASMTCMCOM ---
CM Note CM Note Notes: Roxy with [facility] confirms [facility] cannot take pt. Alana Maurer with [facility] inpatient rehab contacted, will consult with Dr. Maldonado to see if it would be appropriate to assess. Pt not able to currently participate in 3 hours of therapy daily. Pt is improving, KATHIE Carmichael reporting pt was able to stand/pivot over the weekend, he got himself back into bed today with an aid. CM franchise manager updated. Date Signed: 11/18/2017 04:40 PM Electronically Signed By:DUSTIN Baca
--- NOTE | 2017-11-18 17:24 | HOSPPROG ---
Hospitalist Progress Note Assessment/Plan: * SDH/skull fracture/IPH/Zygomatic arch fracture -no intervention per neurosurgery * Cirrhosis - due to Hep C and Etoh -consider Hep C tx as outpatient * Ascites s/p >5L paracentesis -continue lasix + spironolactone * Hepatic Encephalopathy -Lactulose * Hyponatremia -fluid restrict * Afib -propranolol -high risk for anti-coag * DM -home metformin * Possible UGIB -treated with empiric PPI - stable * ? positive Hep A IgM -LFT improved - if he had it, he has recovered * Agitation - very difficult for staff to care for him -start low dose Risperidone BID Difficult dispo due to behavioral issues. Hopefully with better control of his hepatic encephalopathy and agitation with medication, will make placement easier. Subjective: perserverating regarding getting to [facility] Objective: Vital Signs Temp Pulse Resp BP Pulse Ox 36.4 C 62 14 107/62 95 11/18/17 15:15 11/18/17 15:15 11/18/17 15:15 11/18/17 15:15 11/18/17 15:15 Laboratory Results 11/14/17 04:55 11/17/17 05:01 11/17/17 11/18/17 11/19/17 05:59 05:59 05:59 Intake Total 200 250 950 Output Total 600 1000 200 Balance -400 -750 750 PT 17.8 SEC (12.0-15.0) H 11/15/17 04:55 INR 1.45 (0.83-1.16) H 11/15/17 04:55 - Physical Exam Constitutional: no apparent distress, appears nourished, not in pain, chronically ill appearing, unkempt Cardiovascular: regular rate and rhythym, no murmur, rub, or gallop Respiratory: no respiratory distress, no rales or rhonchi, clear to auscultation Gastrointestinal: normoactive bowel sounds, soft, non-tender abdomen, no palpable masses, ascites, distension Skin: no rashes or abrasions, no fluctuance, no induration Neurologic: AAOx3, sensation intact bilaterally Psychiatric: interacting appropriately, not anxious, encephalopathic, agitated, poor insight, poor judgement, poor memory, No thought process linear ICD10 Worksheet Patient Problems: Problems Problem Status Onset Traumatic intraparenchymal hemorrhage Acute
[2017-11-18] MEDS: risperiDONE 0.5 MG TAB PO SCH (21:22)
[2017-11-19] MEDS: LANSOPRAZOLE SUSP 30MG/10ML UDSYR (Adult) PO SCH ×2 (10:17→22:44)
[2017-11-19] MEDS: FUROSEMIDE 40 MG TAB PO SCH (10:17)
[2017-11-19] MEDS: MULTIVITAMINS 1 EACH TAB PO SCH (10:17)
[2017-11-19] MEDS: risperiDONE 0.5 MG TAB PO SCH ×2 (10:18→22:44)
[2017-11-19] MEDS: PROPRANOLOL HCL 10 MG TAB PO SCH ×3 (10:18→22:44)
[2017-11-19] MEDS: THIAMINE HCL 100 MG TAB PO SCH (10:18)
[2017-11-19] MEDS: LACTULOSE 20 GM/30 ML UDCUP PO SCH (10:18)
[2017-11-19] MEDS: SPIRONOLACTONE 25 MG TAB PO SCH (10:18)
[2017-11-19] MEDS: metFORMIN HCL 500 MG TAB PO SCH ×2 (10:22→18:53)
--- NOTE | 2017-11-19 16:58 | ASMTCMCOM ---
CM Note CM Note Notes: Discussed this case with Director of CM, Ginger Ewing. Ginger plans on discussing/brainstorming ideas with script coordinator as well. We continue to face barriers for LTC d/c. Also spoke with [facility], their team plans on discussing the case to see if they have any further ideas to assist in this discharge plan. CM will also work on sending out more referrals across the state to see if a SNF will take interest. CM will continue to work on this complex discharge case. Plan: TBD Date Signed: 11/19/2017 04:57 PM Electronically Signed By:Clemencia Patterson RN
--- NOTE | 2017-11-19 18:45 | HOSPPROG ---
Hospitalist Progress Note Assessment/Plan: * SDH/skull fracture/IPH/Zygomatic arch fracture -no intervention per neurosurgery * Cirrhosis - due to Hep C and Etoh -consider Hep C tx as outpatient * Ascites s/p >5L paracentesis -continue lasix + spironolactone * Hepatic Encephalopathy -Lactulose * Hyponatremia -fluid restrict * Afib -propranolol -high risk for anti-coag * DM -home metformin * Possible UGIB -treated with empiric PPI - stable * ? positive Hep A IgM -LFT improved - if he had it, he has recovered * Agitation - very difficult for staff to care for him -start low dose Risperidone BID Difficult dispo due to behavioral issues. Hopefully with better control of his hepatic encephalopathy and agitation with medication, will make placement easier. Subjective: A little less agitated today Objective: Vital Signs Temp Pulse Resp BP Pulse Ox 36.7 C 71 18 123/74 H 99 11/19/17 11:55 11/19/17 11:55 11/19/17 11:55 11/19/17 11:55 11/19/17 11:55 Laboratory Results 11/14/17 04:55 11/19/17 05:03 11/18/17 11/19/17 11/20/17 05:59 05:59 05:59 Intake Total 250 1250 Output Total 1000 700 700 Balance -750 550 -700 PT 17.8 SEC (12.0-15.0) H 11/15/17 04:55 INR 1.45 (0.83-1.16) H 11/15/17 04:55 - Physical Exam Constitutional: no apparent distress, appears nourished, not in pain Cardiovascular: regular rate and rhythym, no murmur, rub, or gallop Respiratory: no respiratory distress, no rales or rhonchi, clear to auscultation Gastrointestinal: normoactive bowel sounds, soft, non-tender abdomen, no palpable masses Skin: no rashes or abrasions, no fluctuance, no induration Psychiatric: agitated, poor insight, poor judgement, poor memory, No interacting appropriately, No thought process linear ICD10 Worksheet Patient Problems: Problems Problem Status Onset Traumatic intraparenchymal hemorrhage Acute
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
[2017-11-20] MEDS: SPIRONOLACTONE 25 MG TAB PO SCH (10:25)
[2017-11-20] MEDS: metFORMIN HCL 500 MG TAB PO SCH ×2 (10:25→18:41)
[2017-11-20] MEDS: FUROSEMIDE 40 MG TAB PO SCH (10:25)
[2017-11-20] MEDS: THIAMINE HCL 100 MG TAB PO SCH (10:27)
[2017-11-20] MEDS: risperiDONE 0.5 MG TAB PO SCH ×2 (10:28→23:37)
[2017-11-20] MEDS: MULTIVITAMINS 1 EACH TAB PO SCH (10:28)
[2017-11-20] MEDS: PROPRANOLOL HCL 10 MG TAB PO SCH ×3 (10:29→23:37)
[2017-11-20] MEDS: LACTULOSE 20 GM/30 ML UDCUP PO SCH (10:32)
[2017-11-20] MEDS: LANSOPRAZOLE SUSP 30MG/10ML UDSYR (Adult) PO SCH ×2 (11:50→23:37)
--- NOTE | 2017-11-20 12:38 | ASMTCMCOM ---
CM Note CM Note Notes: Pt newly prescribed low dose of Risperidone BID, this CM called [employer] worker Steph Basilfabien and left a voicemail updating her as this could impact the PAS[facility]. Paulette with [facility] sent updates, she will re-review pt with her clinical team. Date Signed: 11/20/2017 12:37 PM Electronically Signed By:DUSTIN Baca
--- NOTE | 2017-11-20 15:06 | ASMTCMCOM ---
CM Note CM Note Notes: Consult with [facility]: reports typical barrier to placement is the pending Medicaid LTC which is pt current status. Recommends referrals to [facility] and [facility] SNFs. Referrals had already been sent to these facilities but updates were sent today in [employer]. Will reports she knows of no TBI specific SNF. New referrals sent to [facility] SNFs where pt sister Malka lives. Date Signed: 11/20/2017 03:06 PM Electronically Signed By:DUSTIN Baca
--- NOTE | 2017-11-20 18:23 | ASMTCMCOM ---
ALEJANDRO Note CM Note Notes: Case discussed today in Complex Care Meeting: [facility]. More referrals need to be sent across the state of [place], will also follow-up as able to with the SNFs that recently declined d/t bed availability. CM will continue to work on this case. Date Signed: 11/20/2017 06:22 PM Electronically Signed By:Clemencia Patterson RN
[2017-11-21 06:00] LABS: PLATELET COUNT 72 10^3/uL (150-400)
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
[2017-11-21] MEDS: ACETAMINOPHEN 500 MG TAB PO PRN (10:01)
[2017-11-21] MEDS: metFORMIN HCL 500 MG TAB PO SCH ×2 (10:01→17:11)
[2017-11-21] MEDS: PROPRANOLOL HCL 10 MG TAB PO SCH ×3 (10:01→22:48)
[2017-11-21] MEDS: MULTIVITAMINS 1 EACH TAB PO SCH (10:01)
[2017-11-21] MEDS: THIAMINE HCL 100 MG TAB PO SCH (10:02)
[2017-11-21] MEDS: FUROSEMIDE 40 MG TAB PO SCH (10:02)
[2017-11-21] MEDS: risperiDONE 0.5 MG TAB PO SCH ×2 (10:02→22:51)
[2017-11-21] MEDS: SPIRONOLACTONE 25 MG TAB PO SCH (10:02)
[2017-11-21] MEDS: LACTULOSE 20 GM/30 ML UDCUP PO SCH (10:04)
[2017-11-21] MEDS: LANSOPRAZOLE SUSP 30MG/10ML UDSYR (Adult) PO SCH ×2 (10:12→22:51)
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
[2017-11-22] MEDS: SPIRONOLACTONE 25 MG TAB PO SCH (08:50)
[2017-11-22] MEDS: PROPRANOLOL HCL 10 MG TAB PO SCH ×3 (08:51→22:36)
[2017-11-22] MEDS: FUROSEMIDE 40 MG TAB PO SCH (08:51)
[2017-11-22] MEDS: MULTIVITAMINS 1 EACH TAB PO SCH (08:52)
[2017-11-22] MEDS: THIAMINE HCL 100 MG TAB PO SCH (08:52)
[2017-11-22] MEDS: metFORMIN HCL 500 MG TAB PO SCH ×2 (08:52→16:36)
[2017-11-22] MEDS: risperiDONE 0.5 MG TAB PO SCH ×2 (08:52→22:35)
[2017-11-22] MEDS: LANSOPRAZOLE SUSP 30MG/10ML UDSYR (Adult) PO SCH ×3 (08:53→22:36)
[2017-11-22] MEDS: LACTULOSE 20 GM/30 ML UDCUP PO SCH ×2 (08:53→12:12)
--- NOTE | 2017-11-22 10:04 | ASMTCMCOM ---
CM Note CM Note Notes: I filled out Medicaid Disability application with patient and with some assistance from [facility] ALEJANDRO [place]. Form was given to Arely Kramer to send to [facility]. Date Signed: 11/22/2017 10:04 AM Electronically Signed By:Starr Stephen RN
--- NOTE | 2017-11-22 14:22 | HOSPPROG ---
Hospitalist Progress Note Assessment/Plan: 62 yo male s/p trauma and has R temporal parietal skull fxs with small SDH and bi frontal temporal contusion stable on repeat imaging with continued encephalopathy. 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 * ? positive Hep A IgM -LFT improved - if he had it, he has recovered * Agitation - very difficult for staff to care for him -start low dose Risperidone BID -he is calmer and cooperative per staff *hyponatremia -will cont fluid restriction *plan: CM looking at placement, patient is calm and wants to go home. Subjective: Leonidas wants a ride out of the hospital and wants to go home. Objective: Vital Signs Temp Pulse Resp BP Pulse Ox 36.6 C 64 18 133/77 H 99 11/22/17 08:00 11/22/17 08:00 11/22/17 08:00 11/22/17 08:00 11/22/17 08:00 Laboratory Results 11/21/17 05:21 11/21/17 05:21 11/21/17 11/22/17 11/23/17 05:59 05:59 05:59 Intake Total 1050 750 300 Output Total 900 200 700 Balance 150 550 -400 PT 17.8 SEC (12.0-15.0) H 11/15/17 04:55 INR 1.45 (0.83-1.16) H 11/15/17 04:55 - Physical Exam Constitutional: not in pain, chronically ill appearing Eyes: PERRL Ears, Nose, Mouth, Throat: hearing normal Cardiovascular: regular rate and rhythym Respiratory: no respiratory distress Gastrointestinal: normoactive bowel sounds, ascites Skin: warm Musculoskeletal: generalized weakness Neurologic: AAOx3 Psychiatric: interacting appropriately ICD10 Worksheet Patient Problems: Problems Problem Status Onset Traumatic intraparenchymal hemorrhage Acute
--- NOTE | 2017-11-23 08:14 | HOSPPROG ---
Hospitalist Progress Note Assessment/Plan: 62 yo male s/p trauma and has R temporal parietal skull fxs with small SDH and bi frontal temporal contusion stable on repeat imaging with continued encephalopathy. * SDH/skull fracture/IPH/Zygomatic arch fracture -no intervention per neurosurgery * Cirrhosis - due to Hep C and Etoh -consider Hep C tx as outpatient * Ascites s/p >5L paracentesis -continue Lasix + spironolactone -abdomen w ascites, but soft * Hepatic Encephalopathy (alert and oriented to himself and place, doesn't have insight) -Lactulose * Afib -propranolol -high risk for anti-coag * DM -home metformin * Possible UGIB -treated with empiric PPI - stable -recheck labs in the a.m. * ? positive Hep A IgM -LFT improved - if he had it, he has recovered * Agitation - very difficult for staff to care for him -start low dose Risperidone BID -he is calmer and cooperative per staff *hyponatremia -will cont fluid restriction *plan: CM looking at placement, patient is calm Subjective: Leonidas has no complaints. Objective: Vital Signs Temp Pulse Resp BP Pulse Ox 37.1 C 62 16 131/75 H 97 11/23/17 08:00 11/23/17 08:00 11/23/17 08:00 11/23/17 08:00 11/23/17 08:00 Laboratory Results 11/21/17 05:21 11/21/17 05:21 11/22/17 11/23/17 11/24/17 05:59 05:59 05:59 Intake Total 750 418 Output Total 200 1025 200 Balance 550 -607 -200 PT 17.8 SEC (12.0-15.0) H 11/15/17 04:55 INR 1.45 (0.83-1.16) H 11/15/17 04:55 - Physical Exam Constitutional: chronically ill appearing Eyes: PERRL Ears, Nose, Mouth, Throat: hearing normal Respiratory: no respiratory distress Gastrointestinal: normoactive bowel sounds Musculoskeletal: generalized weakness Psychiatric: interacting appropriately, poor insight, poor memory ICD10 Worksheet Patient Problems: Problems Problem Status Onset Traumatic intraparenchymal hemorrhage Acute
[2017-11-23] MEDS: SPIRONOLACTONE 25 MG TAB PO SCH (10:17)
[2017-11-23] MEDS: LANSOPRAZOLE SUSP 30MG/10ML UDSYR (Adult) PO SCH ×2 (10:18→23:09)
[2017-11-23] MEDS: risperiDONE 0.5 MG TAB PO SCH ×2 (10:18→23:05)
[2017-11-23] MEDS: FUROSEMIDE 40 MG TAB PO SCH (10:18)
[2017-11-23] MEDS: PROPRANOLOL HCL 10 MG TAB PO SCH ×3 (10:18→23:03)
[2017-11-23] MEDS: MULTIVITAMINS 1 EACH TAB PO SCH (10:18)
[2017-11-23] MEDS: ACETAMINOPHEN 500 MG TAB PO PRN (10:18)
[2017-11-23] MEDS: THIAMINE HCL 100 MG TAB PO SCH (10:18)
[2017-11-23] MEDS: LACTULOSE 20 GM/30 ML UDCUP PO SCH (10:19)
[2017-11-23] MEDS ORDERED: GABAPENTIN 100 MG CAP PO ONE (12:14)
[2017-11-23] MEDS: metFORMIN HCL 500 MG TAB PO SCH ×2 (13:58→18:17)
[2017-11-24] MEDS: GABAPENTIN 100 MG CAP PO SCH (09:31)
[2017-11-24] MEDS: FUROSEMIDE 40 MG TAB PO SCH (09:31)
[2017-11-24] MEDS: LACTULOSE 20 GM/30 ML UDCUP PO SCH (09:31)
[2017-11-24] MEDS: metFORMIN HCL 500 MG TAB PO SCH ×2 (09:31→18:11)
[2017-11-24] MEDS: ACETAMINOPHEN 500 MG TAB PO PRN (09:32)
[2017-11-24] MEDS: risperiDONE 0.5 MG TAB PO SCH ×2 (09:32→22:46)
[2017-11-24] MEDS: MULTIVITAMINS 1 EACH TAB PO SCH (09:32)
[2017-11-24] MEDS: SPIRONOLACTONE 25 MG TAB PO SCH (09:32)
[2017-11-24] MEDS: THIAMINE HCL 100 MG TAB PO SCH (09:32)
[2017-11-24] MEDS: PROPRANOLOL HCL 10 MG TAB PO SCH ×3 (09:32→22:47)
--- NOTE | 2017-11-24 09:32 | HOSPPROG ---
Hospitalist Progress Note Assessment/Plan: 62 yo male s/p trauma and has R temporal parietal skull fxs with small SDH and bi frontal temporal contusion stable on repeat imaging with continued encephalopathy. * SDH/skull fracture/IPH/Zygomatic arch fracture -no intervention per neurosurgery * Cirrhosis - due to Hep C and Etoh -consider Hep C tx as outpatient * Ascites s/p >5L paracentesis -continue Lasix + spironolactone -abdomen w ascites, but soft * Hepatic Encephalopathy (alert and oriented to himself and place, doesn't have insight) -Lactulose, recheck ammonia level and is elevated at 28 * Afib -propranolol -high risk for anti-coag * DM -home metformin * Possible UGIB -treated with empiric PPI - stable -recheck labs in the a.m. * ? positive Hep A IgM -LFT improved - if he had it, he has recovered * Agitation - very difficult for staff to care for him -start low dose Risperidone BID -he is calmer and cooperative per staff *hyponatremia -will cont fluid restriction -Na trending down a bit, concerned he is drinking too many fluids, nursing staff to continue monitoring *plan: cont monitoring, will place parameters as when to hold the propranolol Subjective: Leonidas wants to go home. Objective: Vital Signs Temp Pulse Resp BP Pulse Ox 36.6 C 69 16 122/72 H 97 11/24/17 08:00 11/24/17 08:00 11/24/17 08:00 11/24/17 08:00 11/24/17 08:00 Laboratory Results 11/21/17 05:21 11/24/17 04:45 11/23/17 11/24/17 11/25/17 05:59 05:59 05:59 Intake Total 418 950 Output Total 1025 1095 350 Balance -607 -145 -350 PT 17.8 SEC (12.0-15.0) H 11/15/17 04:55 INR 1.45 (0.83-1.16) H 11/15/17 04:55 - Physical Exam Constitutional: no apparent distress, appears nourished, not in pain, chronically ill appearing Eyes: PERRL Ears, Nose, Mouth, Throat: hearing normal Cardiovascular: irregularly irregular Respiratory: no respiratory distress Gastrointestinal: normoactive bowel sounds, ascites Skin: warm Musculoskeletal: generalized weakness (extremely weak in lower extremities, more on the left leg) Psychiatric: interacting appropriately, poor insight, poor judgement, poor memory ICD10 Worksheet Patient Problems: Problems Problem Status Onset Traumatic intraparenchymal hemorrhage Acute
[2017-11-24] MEDS: LANSOPRAZOLE SUSP 30MG/10ML UDSYR (Adult) PO SCH ×2 (09:33→22:46)
[2017-11-25] MEDS: FUROSEMIDE 40 MG TAB PO SCH (10:09)
[2017-11-25] MEDS: SPIRONOLACTONE 25 MG TAB PO SCH (10:10)
[2017-11-25] MEDS: THIAMINE HCL 100 MG TAB PO SCH (10:10)
[2017-11-25] MEDS: GABAPENTIN 100 MG CAP PO SCH (10:10)
[2017-11-25] MEDS: MULTIVITAMINS 1 EACH TAB PO SCH (10:10)
[2017-11-25] MEDS: risperiDONE 0.5 MG TAB PO SCH ×2 (10:10→22:40)
[2017-11-25] MEDS: LACTULOSE 20 GM/30 ML UDCUP PO SCH (10:10)
[2017-11-25] MEDS: PROPRANOLOL HCL 10 MG TAB PO SCH ×3 (10:11→22:03)
[2017-11-25] MEDS: LANSOPRAZOLE SUSP 30MG/10ML UDSYR (Adult) PO SCH ×2 (10:25→22:02)
[2017-11-25] MEDS: metFORMIN HCL 500 MG TAB PO SCH ×2 (10:25→17:05)
--- NOTE | 2017-11-25 10:30 | HOSPPROG ---
Hospitalist Progress Note Assessment/Plan: 62 yo male s/p trauma and has R temporal parietal skull fxs with small SDH and bi frontal temporal contusion stable on repeat imaging with continued encephalopathy. * SDH/skull fracture/IPH/Zygomatic arch fracture -no intervention per neurosurgery * Cirrhosis - due to Hep C and Etoh -consider Hep C tx as outpatient * Ascites s/p >5L paracentesis -continue Lasix + spironolactone -abdomen w ascites, but soft * Hepatic Encephalopathy (alert and oriented to himself and place, doesn't have insight) -Lactulose, recheck ammonia level and is elevated at 28 * Afib -propranolol -high risk for anti-coag * DM -home metformin * Possible UGIB -treated with empiric PPI - stable -recheck labs in the a.m. * ? positive Hep A IgM -LFT improved - if he had it, he has recovered * Agitation - very difficult for staff to care for him -start low dose Risperidone BID -he is calmer and cooperative per staff *hyponatremia -will cont fluid restriction -Na trending down a bit, concerned he is drinking too many fluids, nursing staff to continue monitoring *plan: awaiting placement. Gabapentin was added for some leg nerve pain. Subjective: Leonidas wants to go home. Tired of being here. Objective: Vital Signs Temp Pulse Resp BP Pulse Ox 36.7 C 66 16 117/60 96 11/25/17 08:00 11/25/17 10:11 11/25/17 08:00 11/25/17 10:11 11/25/17 08:00 Laboratory Results 11/21/17 05:21 11/24/17 04:45 11/24/17 11/25/17 11/26/17 05:59 05:59 05:59 Intake Total 950 680 300 Output Total 1095 350 300 Balance -145 330 0 PT 17.8 SEC (12.0-15.0) H 11/15/17 04:55 INR 1.45 (0.83-1.16) H 11/15/17 04:55 - Physical Exam Constitutional: not in pain, chronically ill appearing Eyes: PERRL Ears, Nose, Mouth, Throat: hearing normal Cardiovascular: regular rate and rhythym Respiratory: no respiratory distress Skin: warm Musculoskeletal: generalized weakness Neurologic: AAOx3 Psychiatric: interacting appropriately, poor insight, poor judgement, poor memory ICD10 Worksheet Patient Problems: Problems Problem Status Onset Traumatic intraparenchymal hemorrhage Acute
--- NOTE | 2017-11-25 15:34 | ASMTCMCOM ---
CM Note CM Note Notes: CM left messages for Shade Lee at [facility]. CM spoke to a covering liaison at [facility] and [facility]. The liaison report that they are awaiting waiting on disability application approval. The contact center director is Arlin at [facility]. She will be back in the office tomorrow. CM to follow. Plan: TBD Date Signed: 11/25/2017 03:33 PM Electronically Signed By:FLORIN Mensah
--- NOTE | 2017-11-25 16:15 | ASMTCMCOM ---
CM Note CM Note Notes: Shade from [facility] called to say that he would come Saturday and reassess patient in afternoon. This CM suggested that if our Acute Rehab knew patient had a discharge plan that they might consider taking him for rehab before he goes to [facility]. Need to take to Acute Rehab on Saturday. Date Signed: 11/25/2017 04:14 PM Electronically Signed By:Petty Wilde LCSW
[2017-11-25] MEDS: ACETAMINOPHEN 500 MG TAB PO PRN (17:38)
[2017-11-26] MEDS: metFORMIN HCL 500 MG TAB PO SCH ×2 (09:41→17:08)
[2017-11-26] MEDS: LACTULOSE 20 GM/30 ML UDCUP PO SCH (09:42)
[2017-11-26] MEDS: GABAPENTIN 100 MG CAP PO SCH (09:42)
[2017-11-26] MEDS: FUROSEMIDE 40 MG TAB PO SCH (09:42)
[2017-11-26] MEDS: SPIRONOLACTONE 25 MG TAB PO SCH (09:43)
[2017-11-26] MEDS: THIAMINE HCL 100 MG TAB PO SCH (09:43)
[2017-11-26] MEDS: risperiDONE 0.5 MG TAB PO SCH ×2 (09:43→22:48)
[2017-11-26] MEDS: PROPRANOLOL HCL 10 MG TAB PO SCH ×3 (09:43→22:44)
[2017-11-26] MEDS: MULTIVITAMINS 1 EACH TAB PO SCH (09:43)
[2017-11-26] MEDS: LANSOPRAZOLE SUSP 30MG/10ML UDSYR (Adult) PO SCH (10:56)
--- NOTE | 2017-11-26 15:08 | HOSPPROG ---
Hospitalist Progress Note Assessment/Plan: 62 yo male s/p trauma and has R temporal parietal skull fxs with small SDH and bi frontal temporal contusion stable on repeat imaging with continued encephalopathy. First encounter, lengthy chart review. D/W CM. * SDH/skull fracture/IPH/Zygomatic arch fracture -no intervention per neurosurgery * Cirrhosis - due to Hep C and Etoh -consider Hep C tx as outpatient * Ascites s/p >5L paracentesis -continue Lasix + spironolactone -abdomen w ascites, but soft * Hepatic Encephalopathy (alert and oriented to himself and place, doesn't have insight) -Lactulose, recheck ammonia level and is elevated at 28 * Afib -propranolol -high risk for anti-coag * DM -home metformin * Possible UGIB -treated with empiric PPI - stable -recheck labs in the a.m. * ? positive Hep A IgM -LFT improved - if he had it, he has recovered * Agitation - very difficult for staff to care for him -start low dose Risperidone BID -he is calmer and cooperative per staff *hyponatremia -will cont fluid restriction -Na trending down a bit, concerned he is drinking too many fluids, nursing staff to continue monitoring *plan: awaiting placement. Gabapentin was added for some leg nerve pain. Subjective: Feeling fine. Wants to leave hospital. no pain currently. Objective: Vital Signs Temp Pulse Resp BP Pulse Ox 36.9 C 68 16 118/69 95 11/26/17 08:00 11/26/17 09:43 11/26/17 08:00 11/26/17 09:43 11/26/17 08:00 Laboratory Results 11/21/17 05:21 11/24/17 04:45 11/25/17 11/26/17 11/27/17 05:59 05:59 05:59 Intake Total 680 800 Output Total 350 860 300 Balance 330 -60 -300 PT 17.8 SEC (12.0-15.0) H 11/15/17 04:55 INR 1.45 (0.83-1.16) H 11/15/17 04:55 - Physical Exam Constitutional: no apparent distress, appears nourished, chronically ill appearing Eyes: PERRL, anicteric sclera, EOMI Ears, Nose, Mouth, Throat: moist mucous membranes, hearing normal, ears appear normal Cardiovascular: No JVD, No tachycardia, No edema Respiratory: no respiratory distress, no rales or rhonchi, reduced air movement Gastrointestinal: normoactive bowel sounds, No tenderness, No ascites Skin: warm, normal color, No mottled Musculoskeletal: muscular tenderness, abnormal gait, generalized weakness Psychiatric: not anxious, poor insight, poor judgement, poor memory, No thought process linear ICD10 Worksheet Patient Problems: Problems Problem Status Onset Traumatic intraparenchymal hemorrhage Acute
--- NOTE | 2017-11-26 16:56 | ASMTCMCOM ---
CM Note CM Note Notes: Received a call from Shade [phone]-[facility], he was unable to make it to [facility] today but plans on reassessing patient Saturday at 9AM. Shade will check in with CM after his visit. Our In-pt Rehab is unable to admit patient w/o Therapy notes. Patient has been refusing therapy. RN steves he needs structure, expectations and possibly a male to relate. Date Signed: 11/26/2017 04:55 PM Electronically Signed By:Petty Wilde LCSW
[2017-11-26] MEDS: PANTOPRAZOLE SODIUM 40 MG TAB PO SCH (22:44)
[2017-11-27] MEDS: metFORMIN HCL 500 MG TAB PO SCH ×2 (08:55→17:45)
[2017-11-27] MEDS: SPIRONOLACTONE 25 MG TAB PO SCH (08:55)
[2017-11-27] MEDS: risperiDONE 0.5 MG TAB PO SCH ×2 (08:56→22:24)
[2017-11-27] MEDS: MULTIVITAMINS 1 EACH TAB PO SCH (08:56)
[2017-11-27] MEDS: FUROSEMIDE 40 MG TAB PO SCH (08:56)
[2017-11-27] MEDS: THIAMINE HCL 100 MG TAB PO SCH (08:56)
[2017-11-27] MEDS: PROPRANOLOL HCL 10 MG TAB PO SCH ×3 (08:56→22:26)
[2017-11-27] MEDS: PANTOPRAZOLE SODIUM 40 MG TAB PO SCH ×2 (08:56→22:24)
[2017-11-27] MEDS: GABAPENTIN 100 MG CAP PO SCH (08:56)
[2017-11-27] MEDS: LACTULOSE 20 GM/30 ML UDCUP PO SCH (08:57)
--- NOTE | 2017-11-27 14:50 | HOSPPROG ---
Hospitalist Progress Note Assessment/Plan: 62 yo male s/p trauma and has R temporal parietal skull fxs with small SDH and bi frontal temporal contusion stable on repeat imaging with continued encephalopathy. D/W CM. * SDH/skull fracture/IPH/Zygomatic arch fracture -no intervention per neurosurgery * Cirrhosis - due to Hep C and Etoh -consider Hep C tx as outpatient * Ascites s/p >5L paracentesis -continue Lasix + spironolactone -abdomen w ascites, but soft * Hepatic Encephalopathy (alert and oriented to himself and place, doesn't have insight) -Lactulose, recheck ammonia level and is elevated at 28 * Afib -propranolol -high risk for anti-coag * DM -home metformin * Possible UGIB -treated with empiric PPI - stable -recheck labs in the a.m. * ? positive Hep A IgM -LFT improved - if he had it, he has recovered * Agitation - very difficult for staff to care for him -start low dose Risperidone BID -he is calmer and cooperative per staff *hyponatremia -will cont fluid restriction -Na trending down a bit, concerned he is drinking too many fluids, nursing staff to continue monitoring *plan: awaiting placement. Gabapentin was added for some leg nerve pain. Subjective: No issues. Objective: Vital Signs Temp Pulse Resp BP Pulse Ox 36.6 C 60 14 123/58 H 97 11/27/17 08:00 11/27/17 08:56 11/27/17 08:00 11/27/17 08:56 11/27/17 08:00 Laboratory Results 11/21/17 05:21 11/24/17 04:45 11/26/17 11/27/17 11/28/17 05:59 05:59 05:59 Intake Total 800 1440 559 Output Total 860 1415 600 Balance -60 25 -41 PT 17.8 SEC (12.0-15.0) H 11/15/17 04:55 INR 1.45 (0.83-1.16) H 11/15/17 04:55 - Physical Exam Constitutional: not in pain, chronically ill appearing Eyes: PERRL, anicteric sclera Ears, Nose, Mouth, Throat: moist mucous membranes, hearing normal Cardiovascular: No JVD, No edema Respiratory: no respiratory distress, reduced air movement Gastrointestinal: No tenderness, No ascites Skin: warm, normal color Musculoskeletal: no joint effusions, pain with ROM Psychiatric: not anxious, poor insight, poor judgement ICD10 Worksheet Patient Problems: Problems Problem Status Onset Traumatic intraparenchymal hemorrhage Acute
[2017-11-28] MEDS: PANTOPRAZOLE SODIUM 40 MG TAB PO SCH ×2 (09:56→23:40)
[2017-11-28] MEDS: FUROSEMIDE 40 MG TAB PO SCH (09:57)
[2017-11-28] MEDS: LACTULOSE 20 GM/30 ML UDCUP PO SCH (09:57)
[2017-11-28] MEDS: GABAPENTIN 100 MG CAP PO SCH (09:57)
[2017-11-28] MEDS: MULTIVITAMINS 1 EACH TAB PO SCH (09:57)
[2017-11-28] MEDS: THIAMINE HCL 100 MG TAB PO SCH (09:57)
[2017-11-28] MEDS: PROPRANOLOL HCL 10 MG TAB PO SCH ×3 (09:57→23:17)
[2017-11-28] MEDS: metFORMIN HCL 500 MG TAB PO SCH ×2 (09:57→17:24)
[2017-11-28] MEDS: SPIRONOLACTONE 25 MG TAB PO SCH (09:57)
[2017-11-28] MEDS: risperiDONE 0.5 MG TAB PO SCH ×2 (09:57→23:19)
--- NOTE | 2017-11-28 11:11 | ASMTCMCOM ---
CM Note CM Note Notes: Pt does not qualify for [facility] inpatient rehab, pt is still refusing therapy. Shade with [facility] did visit pt again yesterday but had no new information, stated Paulette with [facility] was supposed to contact CM management (updated CM management who will reach out to Paulette). Still no SNF placement, barriers continue to be lack of Medicaid SNF beds, SNFs inability to take Medicaid without disability in place, pt behavior, pt needs exceed capacity, and ETOH use. Date Signed: 11/28/2017 11:10 AM Electronically Signed By:DUSTIN Baca
--- NOTE | 2017-11-28 14:16 | HOSPPROG ---
Hospitalist Progress Note Assessment/Plan: 62 yo male s/p trauma and has R temporal parietal skull fxs with small SDH and bi frontal temporal contusion stable on repeat imaging with continued encephalopathy. D/W CM. * SDH/skull fracture/IPH/Zygomatic arch fracture -no intervention per neurosurgery * Cirrhosis - due to Hep C and Etoh -consider Hep C tx as outpatient * Ascites s/p >5L paracentesis -continue Lasix + spironolactone -abdomen w ascites, but soft * Hepatic Encephalopathy (alert and oriented to himself and place, doesn't have insight) -Lactulose, recheck ammonia level and is elevated at 28 * Afib -propranolol -high risk for anti-coag * DM -home metformin * Possible UGIB -treated with empiric PPI - stable -recheck labs in the a.m. * ? positive Hep A IgM -LFT improved - if he had it, he has recovered * Agitation - very difficult for staff to care for him -start low dose Risperidone BID -he is calmer and cooperative per staff *hyponatremia -will cont fluid restriction -Na trending down a bit, concerned he is drinking too many fluids, nursing staff to continue monitoring *plan: awaiting placement. Gabapentin was added for some leg nerve pain. Subjective: Wants out of the hospital. Objective: Vital Signs Temp Pulse Resp BP Pulse Ox 36.7 C 69 17 122/68 H 96 11/28/17 08:00 11/28/17 09:57 11/28/17 08:00 11/28/17 09:57 11/28/17 08:00 Laboratory Results 11/21/17 05:21 11/24/17 04:45 11/27/17 11/28/17 11/29/17 05:59 05:59 05:59 Intake Total 1440 2038 Output Total 1415 1825 250 Balance 25 213 -250 PT 17.8 SEC (12.0-15.0) H 11/15/17 04:55 INR 1.45 (0.83-1.16) H 11/15/17 04:55 - Physical Exam Constitutional: no apparent distress, appears nourished Eyes: PERRL, anicteric sclera Ears, Nose, Mouth, Throat: moist mucous membranes, hearing normal Cardiovascular: No JVD, No edema Respiratory: no respiratory distress, reduced air movement Gastrointestinal: No tenderness, No ascites Skin: warm, normal color Musculoskeletal: no joint effusions, generalized weakness Psychiatric: not anxious, not encephalopathic, poor judgement ICD10 Worksheet Patient Problems: Problems Problem Status Onset Traumatic intraparenchymal hemorrhage Acute
[2017-11-29] MEDS: FUROSEMIDE 40 MG TAB PO SCH (07:52)
[2017-11-29] MEDS: SPIRONOLACTONE 25 MG TAB PO SCH (07:52)
[2017-11-29] MEDS: MULTIVITAMINS 1 EACH TAB PO SCH (07:52)
[2017-11-29] MEDS: PANTOPRAZOLE SODIUM 40 MG TAB PO SCH ×2 (07:52→21:49)
[2017-11-29] MEDS: risperiDONE 0.5 MG TAB PO SCH ×2 (07:53→21:49)
[2017-11-29] MEDS: THIAMINE HCL 100 MG TAB PO SCH (07:53)
[2017-11-29] MEDS: PROPRANOLOL HCL 10 MG TAB PO SCH ×3 (07:53→21:47)
[2017-11-29] MEDS: LACTULOSE 20 GM/30 ML UDCUP PO SCH ×3 (07:54→21:49)
[2017-11-29] MEDS: GABAPENTIN 100 MG CAP PO SCH ×2 (07:54→21:49)
[2017-11-29] MEDS: metFORMIN HCL 500 MG TAB PO SCH ×2 (07:54→18:03)
--- NOTE | 2017-11-29 10:12 | HOSPPROG ---
Hospitalist Progress Note Assessment/Plan: 62 yo male s/p trauma and has R temporal parietal skull fxs with small SDH and bi frontal temporal contusion stable on repeat imaging with continued encephalopathy. * SDH/skull fracture/IPH/Zygomatic arch fracture -no intervention per neurosurgery * Cirrhosis - due to Hep C and Etoh -consider Hep C tx as outpatient * Ascites s/p >5L paracentesis -continue Lasix + spironolactone -abdomen w ascites, but soft * Hepatic Encephalopathy (alert and oriented to himself and place, doesn't have insight) -Lactulose, recheck ammonia level and is elevated at 28 * Afib -propranolol -high risk for anti-coag * DM -home metformin * Possible UGIB -treated with empiric PPI - stable -recheck labs in the a.m. * ? positive Hep A IgM -LFT improved - if he had it, he has recovered * Agitation - very difficult for staff to care for him -start low dose Risperidone BID -he is calmer and cooperative per staff *hyponatremia -recheck today *peripheral neuropathy -increased gabapentin today *plan: awaiting placement. recheck na and ammonia Subjective: Leonidas said his feet hurt. Objective: Vital Signs Temp Pulse Resp BP Pulse Ox 37.2 C 58 L 16 132/72 H 98 11/29/17 07:59 11/29/17 07:59 11/29/17 07:59 11/29/17 07:59 11/29/17 07:59 Laboratory Results 11/21/17 05:21 11/24/17 04:45 11/28/17 11/29/17 11/30/17 05:59 05:59 05:59 Intake Total 2038 956 Output Total 1825 1480 200 Balance 213 -524 -200 PT 17.8 SEC (12.0-15.0) H 11/15/17 04:55 INR 1.45 (0.83-1.16) H 11/15/17 04:55 - Physical Exam Constitutional: no apparent distress, appears nourished, chronically ill appearing Eyes: PERRL Ears, Nose, Mouth, Throat: hearing normal Cardiovascular: regular rate and rhythym Respiratory: no respiratory distress Gastrointestinal: normoactive bowel sounds, ascites Skin: warm Musculoskeletal: generalized weakness Neurologic: AAOx3 Psychiatric: interacting appropriately, poor insight, poor memory ICD10 Worksheet Patient Problems: Problems Problem Status Onset Traumatic intraparenchymal hemorrhage Acute
[2017-11-30] MEDS: metFORMIN HCL 500 MG TAB PO SCH ×2 (08:00→17:00)
[2017-11-30] MEDS: LACTULOSE 20 GM/30 ML UDCUP PO SCH ×3 (08:00→22:01)
[2017-11-30] MEDS: PROPRANOLOL HCL 10 MG TAB PO SCH ×3 (08:01→21:58)
[2017-11-30] MEDS: PANTOPRAZOLE SODIUM 40 MG TAB PO SCH ×2 (08:03→22:00)
[2017-11-30] MEDS: risperiDONE 0.5 MG TAB PO SCH ×2 (08:03→21:58)
[2017-11-30] MEDS: GABAPENTIN 100 MG CAP PO SCH ×2 (08:03→22:00)
[2017-11-30] MEDS: SPIRONOLACTONE 25 MG TAB PO SCH (08:03)
[2017-11-30] MEDS: FUROSEMIDE 40 MG TAB PO SCH (08:03)
[2017-11-30] MEDS: THIAMINE HCL 100 MG TAB PO SCH (08:03)
[2017-11-30] MEDS: MULTIVITAMINS 1 EACH TAB PO SCH (08:03)
--- NOTE | 2017-11-30 09:45 | ASMTCMCOM ---
CM Note CM Note Notes: Spoke with rep Shade with [facility] this morning. Shade had a positive interaction with patient this last week and has relayed that message to [facility] application support administrator. Shade states the application support administrator will have to make the final decision on whether or not they can accept. I will call Paulette #[phone], admin, on Saturday to discuss this case. Plan: TBD Date Signed: 11/30/2017 09:44 AM Electronically Signed By:Clemencia Patterson RN
--- NOTE | 2017-11-30 13:22 | HOSPPROG ---
Hospitalist Progress Note Assessment/Plan: 62 yo male s/p trauma and has R temporal parietal skull fxs with small SDH and bi frontal temporal contusion stable on repeat imaging with continued encephalopathy. * SDH/skull fracture/IPH/Zygomatic arch fracture -no intervention per neurosurgery * Cirrhosis - due to Hep C and Etoh -consider Hep C tx as outpatient * Ascites s/p >5L paracentesis -continue Lasix + spironolactone -abdomen w ascites, but soft * Hepatic Encephalopathy (alert and oriented to himself and place, doesn't have insight) -Lactulose increased to tid due to higher ammonia level * Afib -propranolol -high risk for anti-coag * DM -home metformin * Possible UGIB -treated with empiric PPI - stable -recheck labs in the a.m. * ? positive Hep A IgM -LFT improved - if he had it, he has recovered * Agitation - very difficult for staff to care for him -start low dose Risperidone BID -he is calm and cooperative *hyponatremia -Na remains at 128 *peripheral neuropathy -increased gabapentin today *plan: awaiting placement. Subjective: Leonidas has no complaints, wants to go home w his son Objective: Vital Signs Temp Pulse Resp BP Pulse Ox 36.9 C 64 17 124/70 H 97 11/30/17 08:00 11/30/17 08:01 11/30/17 08:00 11/30/17 08:01 11/30/17 08:00 Laboratory Results 11/21/17 05:21 11/29/17 11:32 11/29/17 11/30/17 12/01/17 05:59 05:59 05:59 Intake Total 956 840 Output Total 1480 1500 Balance -524 -660 PT 17.8 SEC (12.0-15.0) H 11/15/17 04:55 INR 1.45 (0.83-1.16) H 11/15/17 04:55 - Physical Exam Constitutional: appears nourished, not in pain, chronically ill appearing Eyes: PERRL Ears, Nose, Mouth, Throat: hearing normal Cardiovascular: regular rate and rhythym Respiratory: no respiratory distress Gastrointestinal: normoactive bowel sounds, ascites Skin: warm Musculoskeletal: generalized weakness Neurologic: other (alert and oriented but has no insight) Psychiatric: interacting appropriately ICD10 Worksheet Patient Problems: Problems Problem Status Onset Traumatic intraparenchymal hemorrhage Acute
[2017-12-01] MEDS: MULTIVITAMINS 1 EACH TAB PO SCH (09:32)
[2017-12-01] MEDS: THIAMINE HCL 100 MG TAB PO SCH (09:32)
[2017-12-01] MEDS: LACTULOSE 20 GM/30 ML UDCUP PO SCH ×3 (09:32→20:48)
[2017-12-01] MEDS: metFORMIN HCL 500 MG TAB PO SCH ×2 (09:32→16:58)
[2017-12-01] MEDS: PROPRANOLOL HCL 10 MG TAB PO SCH ×3 (09:32→20:47)
[2017-12-01] MEDS: risperiDONE 0.5 MG TAB PO SCH ×2 (09:32→20:48)
[2017-12-01] MEDS: PANTOPRAZOLE SODIUM 40 MG TAB PO SCH ×2 (09:32→20:48)
[2017-12-01] MEDS: GABAPENTIN 100 MG CAP PO SCH ×2 (09:33→20:48)
[2017-12-01] MEDS: FUROSEMIDE 40 MG TAB PO SCH (09:33)
[2017-12-01] MEDS: SPIRONOLACTONE 25 MG TAB PO SCH (09:33)
--- NOTE | 2017-12-01 10:33 | HOSPPROG ---
Hospitalist Progress Note Assessment/Plan: 62 yo male s/p trauma and has R temporal parietal skull fxs with small SDH and bi frontal temporal contusion stable on repeat imaging with continued encephalopathy. * SDH/skull fracture/IPH/Zygomatic arch fracture -no intervention per neurosurgery * Cirrhosis - due to Hep C and Etoh -consider Hep C tx as outpatient * Ascites s/p >5L paracentesis -continue Lasix + spironolactone -abdomen w ascites, but soft * Hepatic Encephalopathy (alert and oriented to himself and place, doesn't have insight) -Lactulose increased to tid due to higher ammonia level * Afib -propranolol -high risk for anti-coag * DM -home metformin * Possible UGIB -treated with empiric PPI - stable -recheck labs in the a.m. * ? positive Hep A IgM -LFT improved - if he had it, he has recovered * Agitation - very difficult for staff to care for him -start low dose Risperidone BID -he is calm and cooperative *hyponatremia -Na remains at 128 *peripheral neuropathy -increased gabapentin today *plan: awaiting placement. Subjective: Leonidas has no complaints. Objective: Vital Signs Temp Pulse Resp BP Pulse Ox 36.6 C 59 L 16 122/66 H 97 12/01/17 08:00 12/01/17 09:32 12/01/17 08:00 12/01/17 09:32 12/01/17 08:00 Laboratory Results 11/21/17 05:21 11/29/17 11:32 11/30/17 12/01/17 12/02/17 05:59 05:59 05:59 Intake Total 840 740 Output Total 1500 250 Balance -660 740 -250 PT 17.8 SEC (12.0-15.0) H 11/15/17 04:55 INR 1.45 (0.83-1.16) H 11/15/17 04:55 - Physical Exam Constitutional: chronically ill appearing Eyes: PERRL Ears, Nose, Mouth, Throat: hearing normal Respiratory: no respiratory distress Gastrointestinal: normoactive bowel sounds, ascites Skin: warm Musculoskeletal: generalized weakness Psychiatric: interacting appropriately ICD10 Worksheet Patient Problems: Problems Problem Status Onset Traumatic intraparenchymal hemorrhage Acute
[2017-12-02] MEDS: metFORMIN HCL 500 MG TAB PO SCH ×2 (10:04→16:57)
[2017-12-02] MEDS: risperiDONE 0.5 MG TAB PO SCH ×2 (10:04→21:51)
[2017-12-02] MEDS: MULTIVITAMINS 1 EACH TAB PO SCH (10:05)
[2017-12-02] MEDS: SPIRONOLACTONE 25 MG TAB PO SCH (10:05)
[2017-12-02] MEDS: GABAPENTIN 100 MG CAP PO SCH ×2 (10:05→21:51)
[2017-12-02] MEDS: PANTOPRAZOLE SODIUM 40 MG TAB PO SCH ×2 (10:05→21:51)
[2017-12-02] MEDS: FUROSEMIDE 40 MG TAB PO SCH (10:05)
[2017-12-02] MEDS: LACTULOSE 20 GM/30 ML UDCUP PO SCH ×3 (10:05→21:51)
[2017-12-02] MEDS: THIAMINE HCL 100 MG TAB PO SCH (10:06)
[2017-12-02] MEDS: PROPRANOLOL HCL 10 MG TAB PO SCH ×3 (10:10→21:51)
--- NOTE | 2017-12-02 11:20 | ASMTCMCOM ---
CM Note CM Note Notes: Spoke with logistics administrator at [facility] this morning - Paulette. Paulette plans on reopening this case with their Medicaid Specialist at the building to ensure they have no financial concerns. Will try and obtain Medicaid approval letter from [email or web address] and attach to referral per Paulette's request. Paulette also wondering about a therapy contract with [facility] - stating we will help pay for therapy received at [facility] as patient has no benefit through his Medicaid. Ginger Ewing looking into these regulations and will follow-up with Paulette. CM will continue to follow. Date Signed: 12/02/2017 11:18 AM Electronically Signed By:Clemencia Patterson RN
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
[2017-12-03] MEDS: metFORMIN HCL 500 MG TAB PO SCH ×2 (10:12→17:02)
[2017-12-03] MEDS: PANTOPRAZOLE SODIUM 40 MG TAB PO SCH ×2 (10:13→22:27)
[2017-12-03] MEDS: PROPRANOLOL HCL 10 MG TAB PO SCH ×3 (10:13→22:27)
[2017-12-03] MEDS: LACTULOSE 20 GM/30 ML UDCUP PO SCH ×3 (10:13→22:27)
[2017-12-03] MEDS: FUROSEMIDE 40 MG TAB PO SCH (10:13)
[2017-12-03] MEDS: GABAPENTIN 100 MG CAP PO SCH ×2 (10:13→22:27)
[2017-12-03] MEDS: MULTIVITAMINS 1 EACH TAB PO SCH (10:13)
[2017-12-03] MEDS: THIAMINE HCL 100 MG TAB PO SCH (10:14)
[2017-12-03] MEDS: SPIRONOLACTONE 25 MG TAB PO SCH (10:15)
[2017-12-03] MEDS: risperiDONE 0.5 MG TAB PO SCH ×2 (10:24→22:27)
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
[2017-12-04] MEDS: MULTIVITAMINS 1 EACH TAB PO SCH (08:25)
[2017-12-04] MEDS: PANTOPRAZOLE SODIUM 40 MG TAB PO SCH ×2 (08:25→21:07)
[2017-12-04] MEDS: PROPRANOLOL HCL 10 MG TAB PO SCH ×3 (08:26→21:07)
[2017-12-04] MEDS: GABAPENTIN 100 MG CAP PO SCH ×2 (08:27→21:11)
[2017-12-04] MEDS: risperiDONE 0.5 MG TAB PO SCH ×2 (08:27→21:11)
[2017-12-04] MEDS: FUROSEMIDE 40 MG TAB PO SCH (08:27)
[2017-12-04] MEDS: metFORMIN HCL 500 MG TAB PO SCH ×2 (08:27→17:37)
[2017-12-04] MEDS: THIAMINE HCL 100 MG TAB PO SCH (08:27)
[2017-12-04] MEDS: LACTULOSE 20 GM/30 ML UDCUP PO SCH ×3 (08:29→21:07)
[2017-12-04] MEDS: SPIRONOLACTONE 25 MG TAB PO SCH (09:18)
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
[2017-12-05] MEDS: GABAPENTIN 100 MG CAP PO SCH ×2 (10:12→23:34)
[2017-12-05] MEDS: LACTULOSE 20 GM/30 ML UDCUP PO SCH ×3 (10:12→23:34)
[2017-12-05] MEDS: THIAMINE HCL 100 MG TAB PO SCH (10:13)
[2017-12-05] MEDS: risperiDONE 0.5 MG TAB PO SCH ×2 (10:13→23:34)
[2017-12-05] MEDS: FUROSEMIDE 40 MG TAB PO SCH (10:13)
[2017-12-05] MEDS: PANTOPRAZOLE SODIUM 40 MG TAB PO SCH ×2 (10:13→23:34)
[2017-12-05] MEDS: MULTIVITAMINS 1 EACH TAB PO SCH (10:13)
[2017-12-05] MEDS: PROPRANOLOL HCL 10 MG TAB PO SCH ×3 (10:14→23:34)
[2017-12-05] MEDS: SPIRONOLACTONE 25 MG TAB PO SCH (10:16)
[2017-12-05] MEDS: metFORMIN HCL 500 MG TAB PO SCH ×2 (10:31→18:10)
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
--- NOTE | 2017-12-05 17:27 | ASMTCMCOM ---
CM Note CM Note Notes: Finally able to connect with Paulette [facility] Forensic Manager. We have discussed the case and she is very willing to accept Mr. York. There will need to be an agreement between the hospital and [facility] while his intermediate teacher care application is pending. I will draw this up and get it to Paulette. Date Signed: 12/05/2017 05:26 PM Electronically Signed By:Ginger Ewing RN
[2017-12-06] MEDS: PROPRANOLOL HCL 10 MG TAB PO SCH ×3 (08:24→21:47)
[2017-12-06] MEDS: SPIRONOLACTONE 25 MG TAB PO SCH (08:25)
[2017-12-06] MEDS: THIAMINE HCL 100 MG TAB PO SCH (08:26)
[2017-12-06] MEDS: risperiDONE 0.5 MG TAB PO SCH ×2 (08:26→21:47)
[2017-12-06] MEDS: MULTIVITAMINS 1 EACH TAB PO SCH (08:26)
[2017-12-06] MEDS: PANTOPRAZOLE SODIUM 40 MG TAB PO SCH ×2 (08:26→21:47)
[2017-12-06] MEDS: metFORMIN HCL 500 MG TAB PO SCH ×2 (08:27→18:37)
[2017-12-06] MEDS: GABAPENTIN 100 MG CAP PO SCH ×2 (08:27→21:46)
[2017-12-06] MEDS: LACTULOSE 20 GM/30 ML UDCUP PO SCH ×3 (08:27→21:45)
[2017-12-06] MEDS: FUROSEMIDE 40 MG TAB PO SCH (08:27)
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
--- NOTE | 2017-12-06 16:29 | ASMTCMCOM ---
CM Note CM Note Notes: Spoke with Paulette, Supervisor [employer] at [facility] this afternoon. She doesn't see why they couldn't meet his needs at this time. Awaiting contract draft from Director of , Ginger. We will connect with Paulette again on Saturday. Date Signed: 12/06/2017 04:29 PM Electronically Signed By:Clemencia Patterson RN
[2017-12-07] MEDS: FUROSEMIDE 40 MG TAB PO SCH (09:38)
[2017-12-07] MEDS: LACTULOSE 20 GM/30 ML UDCUP PO SCH ×3 (09:38→21:02)
[2017-12-07] MEDS: SPIRONOLACTONE 25 MG TAB PO SCH (09:38)
[2017-12-07] MEDS: THIAMINE HCL 100 MG TAB PO SCH (09:38)
[2017-12-07] MEDS: risperiDONE 0.5 MG TAB PO SCH ×2 (09:38→21:04)
[2017-12-07] MEDS: GABAPENTIN 100 MG CAP PO SCH ×2 (09:39→21:05)
[2017-12-07] MEDS: metFORMIN HCL 500 MG TAB PO SCH ×2 (09:39→17:01)
[2017-12-07] MEDS: PANTOPRAZOLE SODIUM 40 MG TAB PO SCH ×2 (09:39→21:03)
[2017-12-07] MEDS: MULTIVITAMINS 1 EACH TAB PO SCH (09:39)
[2017-12-07] MEDS: PROPRANOLOL HCL 10 MG TAB PO SCH ×3 (09:39→21:06)
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
[2017-12-08] MEDS: THIAMINE HCL 100 MG TAB PO SCH (08:21)
[2017-12-08] MEDS: PROPRANOLOL HCL 10 MG TAB PO SCH ×3 (08:21→22:04)
[2017-12-08] MEDS: metFORMIN HCL 500 MG TAB PO SCH ×2 (08:22→18:08)
[2017-12-08] MEDS: PANTOPRAZOLE SODIUM 40 MG TAB PO SCH ×2 (08:22→22:04)
[2017-12-08] MEDS: GABAPENTIN 100 MG CAP PO SCH ×2 (08:22→22:04)
[2017-12-08] MEDS: MULTIVITAMINS 1 EACH TAB PO SCH (08:22)
[2017-12-08] MEDS: SPIRONOLACTONE 25 MG TAB PO SCH (08:23)
[2017-12-08] MEDS: risperiDONE 0.5 MG TAB PO SCH ×2 (08:23→22:04)
[2017-12-08] MEDS: FUROSEMIDE 40 MG TAB PO SCH (08:23)
[2017-12-08] MEDS: LACTULOSE 20 GM/30 ML UDCUP PO SCH ×3 (08:24→22:04)
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
[2017-12-09] MEDS: metFORMIN HCL 500 MG TAB PO SCH ×2 (10:08→18:22)
[2017-12-09] MEDS: PANTOPRAZOLE SODIUM 40 MG TAB PO SCH ×2 (10:09→22:48)
[2017-12-09] MEDS: MULTIVITAMINS 1 EACH TAB PO SCH (10:09)
[2017-12-09] MEDS: PROPRANOLOL HCL 10 MG TAB PO SCH ×3 (10:10→22:50)
[2017-12-09] MEDS: GABAPENTIN 100 MG CAP PO SCH ×2 (10:10→22:49)
[2017-12-09] MEDS: THIAMINE HCL 100 MG TAB PO SCH (10:11)
[2017-12-09] MEDS: FUROSEMIDE 40 MG TAB PO SCH (10:11)
[2017-12-09] MEDS: risperiDONE 0.5 MG TAB PO SCH ×2 (10:11→22:48)
[2017-12-09] MEDS: SPIRONOLACTONE 25 MG TAB PO SCH (10:12)
[2017-12-09] MEDS: LACTULOSE 20 GM/30 ML UDCUP PO SCH ×3 (10:12→22:49)
--- NOTE | 2017-12-09 10:48 | ASMTCMCOM ---
CM Note CM Note Notes: Director of CM, Ginger, to send contract to [facility] today. Per Paulette @ , when their staff reviews, they will let us know when they can accept patient. Case Management will follow. Date Signed: 12/09/2017 10:47 AM Electronically Signed By:Starr Stephen RN
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
[2017-12-09] MEDS: ACETAMINOPHEN 500 MG TAB PO PRN (22:47)
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
[2017-12-10] MEDS: THIAMINE HCL 100 MG TAB PO SCH (09:35)
[2017-12-10] MEDS: MULTIVITAMINS 1 EACH TAB PO SCH (09:35)
[2017-12-10] MEDS: PANTOPRAZOLE SODIUM 40 MG TAB PO SCH ×2 (09:35→20:41)
[2017-12-10] MEDS: SPIRONOLACTONE 25 MG TAB PO SCH (09:35)
[2017-12-10] MEDS: FUROSEMIDE 40 MG TAB PO SCH (09:35)
[2017-12-10] MEDS: GABAPENTIN 100 MG CAP PO SCH ×2 (09:35→20:44)
[2017-12-10] MEDS: metFORMIN HCL 500 MG TAB PO SCH (09:35)
[2017-12-10] MEDS: risperiDONE 0.5 MG TAB PO SCH ×2 (09:35→20:41)
[2017-12-10] MEDS: LACTULOSE 20 GM/30 ML UDCUP PO SCH ×3 (09:38→20:42)
[2017-12-10] MEDS: PROPRANOLOL HCL 10 MG TAB PO SCH ×3 (10:33→20:44)
[2017-12-10] MEDS ORDERED: NS 1,000 ML IV SCH (14:30)
--- NOTE | 2017-12-10 17:49 | ASMTCMCOM ---
CM Note CM Note Notes: Spoke with Paulette, production administrator at , confirmed she received the contract from Ginger Ewing and will have a response very soon. Will also need to give Paulette an update on patient's behavior the last couple of days - CM will connect with nursing staff on Saturday. CM to follow. Plan: Hopefully [facility] Date Signed: 12/10/2017 05:48 PM Electronically Signed By:Clemencia Patterson RN
[2017-12-11] MEDS: THIAMINE HCL 100 MG TAB PO SCH (10:10)
[2017-12-11] MEDS: LACTULOSE 20 GM/30 ML UDCUP PO SCH ×3 (10:10→22:08)
[2017-12-11] MEDS: GABAPENTIN 100 MG CAP PO SCH ×2 (10:11→22:08)
[2017-12-11] MEDS: PANTOPRAZOLE SODIUM 40 MG TAB PO SCH ×2 (10:11→22:09)
[2017-12-11] MEDS: MULTIVITAMINS 1 EACH TAB PO SCH (10:11)
[2017-12-11] MEDS: PROPRANOLOL HCL 10 MG TAB PO SCH ×3 (10:11→22:08)
[2017-12-11] MEDS: ACETAMINOPHEN 500 MG TAB PO PRN (10:12)
[2017-12-11] MEDS: risperiDONE 0.5 MG TAB PO SCH ×2 (10:12→22:08)
--- NOTE | 2017-12-11 17:04 | ASMTCMCOM ---
CM Note CM Note Notes: Updated labs, med list sent to [facility] in [employer]. Voicemail left for Steph Arevalo at [facility] to send pt Passr to with admission date 12/12/17. Date Signed: 12/11/2017 04:56 PM Electronically Signed By:DUSTIN Baca
--- NOTE | 2017-12-11 22:38 | HOSPPROG ---
Hospitalist Progress Note Assessment/Plan: Assessment: 62 yo male p/w traumatic SDH c/b acute encephalopathy, acute hypernatremia, KYLE Plan: # Chest pain. Acute, new problem, further w/u indicated. Reportedly left sided, varying accounts by patient, no reproducibility on exam -doubt rib fxr, as none on CXR (personally interpreted) -Q/TWI in III on EKG, but no focal wma on Echo -will check trop, EKG, monitor on tele, albeit less likely to be cardiac in origin -give tums/restart PPI # SDH. Acute, traumatic, bilateral frontal/temporal w/ repeat HCT stable -will require outpt NSGY f/u # Zygomatic arch fracture. Acute, traumatic, stabilized # Acute encephalopathy. Likely multifactoral, 2/2 metabolic effects of acidosis/ KYLE/infxn/hypernatremia + structural effects of SDH + possible hepatic component w/ rising ammonia level later in hospitalization -patient much more interactive than earlier in hospital stay, continues to have impaired concentration and anticipate difficulties w/ independent self care -cont lactulose tid to produce daily BM and monitor clinically rather than w/ NH4 lab -cont risperdal # Hypernatremia and Hyponatremia. Both acute, initially a high free water deficit requiring q1h tube boluses, now eating/drinking and has stabilized # Possible Enterococcus and Enterobacter UTIs. Tx as possible contributor to mental status impairment -s/p amoxicillin (for E. faecalis), and IV Cefepime 2g q8 (for enterobacter), now off abx # Ascites and suspected end-stage liver disease (cirrhosis). Most likely 2/2 HCV and EtOH, no e/o SBP, 5.5L symptomatically removed via US -holding lasix and aldactone 2/2 KYLE, will restart tomorrow if Cr downtrending -started low dose propranolol as possible varices -recommend consideration of outpt HCV tx through ID office # GIB. Acute, w/ microcytic anemia, likely upper source and possible varices -monitor Hgb, rec outpt colonoscopy # New onset atrial fibrillation. No anticoagulation/ASA 2/2 SDH -monitor on tele # KYLE. Improvement today s/p IVF, stop IVF and gauge whether able to maintain euvolemia w/ PO intake # DM w/ hyperglycemia. Chronic, ISS, metformin -gabapentin for neuropathy # Acute diastolic CHF exacerbation. Evidenced by LVH/diastolic dysfunction on Echo, -15kg LOS w/ diuresis # Mixed metabolic acidosis/resp alkalosis. Resolved # HTN. Chronic, cont propranolol # Coagulopathy, likely from liver disease. S/p Vit K # Alcoholism. Rec ongoing sobriety Code. Full, Malka (sister) is MDPOA. Only visitors she wants: family, friend Cirilo Diet: ADA DVT ppx: lovenox 40 Disp: cont inpatient High level of medical complexity, high risk for worsening morbidity and mortality 2/2 issues outlined above Subjective: reports left side chest pain Objective: Vital Signs Temp Pulse Resp BP Pulse Ox 36.9 C 62 16 115/66 97 12/11/17 17:01 12/11/17 22:08 12/11/17 17:01 12/11/17 22:08 12/11/17 17:01 Laboratory Results 11/21/17 05:21 12/11/17 04:56 12/10/17 12/11/17 12/12/17 05:59 05:59 05:59 Intake Total 300 250 Output Total 850 1050 600 Balance -550 -1050 -350 PT 17.8 SEC (12.0-15.0) H 11/15/17 04:55 INR 1.45 (0.83-1.16) H 11/15/17 04:55 - Physical Exam Constitutional: no apparent distress, not in pain (mild), chronically ill appearing, uncomfortable Cardiovascular: regular rate and rhythym, no murmur, rub, or gallop, edema Respiratory: reduced air movement (bilat bases), inspiratory crackles, bronchial breath sounds, No expiratory wheeze, No respiratory distress Gastrointestinal: normoactive bowel sounds, soft, non-tender abdomen, no palpable masses Neurologic: AAOx3, sensation intact bilaterally, weakness (motor bilat 5/5 UE/LE ) Psychiatric: not anxious, flat affect, poor memory, other (concentration 0/7), No agitated ICD10 Worksheet Patient Problems: Problems Problem Status Onset Traumatic intraparenchymal hemorrhage Acute
[2017-12-12 05:46] LABS: PLATELET COUNT 59 10^3/uL (150-400)
[2017-12-12 06:22] VITALS: BP 125/67
[2017-12-12] MEDS: LACTULOSE 20 GM/30 ML UDCUP PO SCH (08:44)
[2017-12-12] MEDS: THIAMINE HCL 100 MG TAB PO SCH (08:44)
[2017-12-12] MEDS: risperiDONE 0.5 MG TAB PO SCH (08:45)
[2017-12-12] MEDS: MULTIVITAMINS 1 EACH TAB PO SCH (08:45)
[2017-12-12] MEDS: PROPRANOLOL HCL 10 MG TAB PO SCH (08:45)
[2017-12-12] MEDS: PANTOPRAZOLE SODIUM 40 MG TAB PO SCH (08:45)
[2017-12-12] MEDS: GABAPENTIN 100 MG CAP PO SCH (08:45)
--- NOTE | 2017-12-12 12:27 | CPEKG ---
Test Reason : OPEN Blood Pressure : / mmHG Vent. Rate : 060 BPM Atrial Rate : 059 BPM P-R Int : 161 ms QRS Dur : 120 ms QT Int : 427 ms P-R-T Axes : 025 -28 043 degrees QTc Int : 427 ms Sinus rhythm Nonspecific intraventricular conduction delay Confirmed by Dewayne Erwin ([id number]) on 12/12/2017 12:27:05 PM Referred By: Confirmed By:Dewayne Erwin
--- NOTE | 2017-12-12 13:10 | PDIAF ---
- Diagnosis Diagnosis: SDH, cirrhosis, UTIs, encephalopathy, KYLE, hypo/hypernatremias Code Status: Full Code - Medication Management Discharge Medications: Medications to Continue on Transfer metFORMIN HCL [Glucophage 500 mg (*)] 1,000 mg PO BIDMEAL 10/07/17 [Last Taken Unknown] Acetaminophen [Tylenol ES 500 mg (*)] 1,000 mg PO Q12 PRN tab 12/12/17 [Last Taken Unknown] Calcium Carbonate [Tums 500MG (*)] 500 mg PO TID PRN #90 tabchew 12/12/17 [Last Taken Unknown] Furosemide [Lasix 40 MG (*)] 40 mg PO DAILY tab 12/12/17 [Last Taken Unknown] Gabapentin [Neurontin 100 MG (*)] 100 mg PO BID cap 12/12/17 [Last Taken Unknown] Lactulose 30 gm PO TID #90 ml 12/12/17 [Last Taken Unknown] Mbx Soln;Maalox/Diphen/Lido [Maalox/Diphenhydramine/Lido] 5 ml PO PRN PRN bottle 12/12/17 [Last Taken Unknown] Multivitamins [Multivitamin (*)] 1 each PO DAILY tab 12/12/17 [Last Taken Unknown] Pantoprazole Sodium [Protonix 40mg (*)] 40 mg PO BID tab 12/12/17 [Last Taken Unknown] Propranolol HCl [Inderal 10mg (*)] 10 mg PO TID tab 12/12/17 [Last Taken Unknown] Thiamine HCl [Vitamin B-1] 100 mg PO DAILY tab 12/12/17 [Last Taken Unknown] risperiDONE [Risperdal 0.5mg (*)] 0.5 mg PO BID tab 12/12/17 [Last Taken Unknown] Detention Antibiotics: NA Discharge Medications: Refer to the Discharge Home Medication list for PRN reason. PICC Care - Routine: N/A - Orders Services needed: Registered Nurse, Certified [employer], Master Sanforizing Machine Operator , Physical Therapy, Occupational Therapy, Speech Language Pathologist ( cognitive therapy) Isolation Type: Contact Isolation Oxygen: NA Diet Texture: Regular Texture Diet, Thin Liquids, Meds Whole w/Liquids Weigh Patient: weekly [place]: Not applicable Wound Care Instructions: Left mandible and left upper back wound care: change every other day and prn. 1. Clean with ns and gauze. 2. Wound gel to open wound bed. 3. Cover with 1/2 of a 4x4 Mepilex for jaw and an allevyn life or other foam border dressing for left upper back. Activity/Weight Bearing Restrictions: as tolerated Additional Instructions: Left mandible and left upper back wound care: change every other day and prn 1. Clean with ns and gauze 2. Wound gel to open wound bed 3. Cover with 1/2 of a 4x4 Mepilex for jaw and an allevyn life or other foam border dressing for left upper back. Alyssa BURGOS. - Labs/Radiology BMP Date: 12/16/17 (weekly) CBC w/diff Date: 12/16/17 (weekly) Call or Fax Lab and Imaging Results to: Drs. Mai and Jil - Follow Up Care Current Providers and Referrals: Wilfredo Ley MD [Medical Doctor] - follow up in 1 week (call for outpatient appointment) Patient,NotPresent [Unknown] - As per Instructions David Anderson MD [Medical Doctor] - (call office number as listed to schedule an appt 2 weeks after discharge) Alejandro Mai MD [Medical Doctor] - follow up in 2 weeks
--- NOTE | 2017-12-12 15:36 | ASMTLACE ---
LACE Length of stay for Answers: 14 days or more current admission Acuity / Level of Answers: Yes Care: Did the patient have an inpatient admission? Comorbidities - select Answers: Diabetes (uncontrolled or all that apply controlled) # of Emergency department Answers: 1-2 visits in the last 6 months Social determinants Answers: History of substance abuse (ETOH, street drugs, prescription drugs, etc.) Score: 15 Date Signed: 12/12/2017 03:35 PM Electronically Signed By:DUSTIN Baca
--- NOTE | 2017-12-12 15:48 | ASMTCMCOM ---
CM Note CM Note Notes: Pt medically stable for d/c to [facility]. Orders sent in [employer]. KATHIE Ordaz called report. [facility] stretcher transport arranged for 14:30. Pt sister Malka updated and provided BM contact information, she approves of pt placement/discharge. Pt agreeable to d/c to and still talked about wanting to go to [place]. Steph Arevalo with [facility] confirms BM has all paperwork needed for admission. Shade with [facility] admissions confirmed receipt of orders. [facility] CM notified of pt d/c. Date Signed: 12/12/2017 03:47 PM Electronically Signed By:DUSTIN Baca
--- NOTE | 2017-12-12 15:49 | ASDISCHSUM ---
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 updated and provided contact information, she approves of pt placement/discharge. Pt agreeable to d/c to and still talked about wanting to go to [place]. Steph Arevalo with [facility] confirms has all paperwork needed for admission. Shade with admissions confirmed receipt of orders. [facility] notified of pt d/c. Date Signed: 12/12/2017 03:47 PM Electronically Signed By:DUSTIN Baca Intervention Information
--- NOTE | 2017-12-12 19:00 | PDDCSUM ---
Discharge Summary Discharge Summary: DISCHARGE SUMMARY FOLLOW-UP ITEMS: 1. Repeat creatinine BUN lytes next Saturday and weekly thereafter with results to Dr. Alejandro Mai 2. Repeat CBC next Saturday and weekly with results to Dr. Wilfredo Ley DATE OF ADMISSION: 10/02/2017 DATE OF DISCHARGE: 12/12/2017 DISCHARGE DIAGNOSES: 1. Acute traumatic subdural hematoma 2. Acute zygomatic arch fracture 3. Acute encephalopathy 4. Acute hypernatremia 5. Acute hyponatremia 6. Suspected end-stage liver disease with cirrhosis 7. Possible Enterococcus and Enterobacter urinary tract infections 8. Acute gastrointestinal hemorrhage with microcytic anemia 9. New onset atrial fibrillation 10. Acute kidney injury 11. Diabetes mellitus with hyperglycemia 12. Acute diastolic congestive heart failure exacerbation 13. Acute mixed metabolic acidosis and respiratory alkalosis 14. Chronic hypertension 15. Coagulopathy 16. Chronic alcoholism 17. Acute 10th right rib fracture 18. Suspected GERD 19. Pancytopenia secondary to chronic alcoholism and bone marrow suppression 20. Coma with GCS 5 CONSULTATIONS: Neurosurgery, Nephrology, Pulmonary Critical Care PROCEDURES / IMAGING: Most recent cervical spine x-ray demonstrating no fracture 11/06/2017 follow-up head CT demonstrating development of encephalomalacia in the areas of previous subdural hematoma in the bilateral frontal and temporal lobes, right temporal bone fracture, patchy nonspecific hypodensities Spine CT demonstrating spondylosis but no acute fracture 10/09/2017 PICC line insertion 10/10/2017 echocardiogram stating hyperdynamic left ventricle, increased pulmonary pressures, no significant valvular abnormalities CHIEF COMPLAINT: Found down SUBJECTIVE: Patient is feeling well at time of discharge, is looking forward to being discharged, he denies any pain PHYSICAL EXAM ON DISCHARGE: Systolic blood pressure 120, heart rate 60, afebrile overnight, satting well on room air, discharge weight 84.8 kg, alert awake oriented times 3, patient able to follow visual cues comma motor strength 4/5 bilateral lower extremities, 5/5 bilateral upper extremities, sensation intact bilaterally, concentration is 0/7 limited by patient's lack of participation, otherwise interactive, able to engage with staff, able to communicate his needs, heart rhythm is regular, 1/6 systolic murmur at the sternum, trace bilateral lower extremity edema, abdomen is mildly distended, nontender, bowel sounds are present, lungs are clear to auscultation bilaterally LABS ON DISCHARGE: White blood cell count 2700, hemoglobin 9.7, platelets 24189, potassium 4.1, serum sodium 141, creatinine 1.1, glucose 118, troponin negative, liver panel unremarkable HOSPITAL COURSE BY PROBLEM: The patient presented on 10/02/2017 after he was found down in the [employer] parking lot and brought in as an unidentified male with a blood alcohol level greater than 200 and a GCS of 5, qualifying him as presenting in a clearly identifiable coma. He was admitted by the trauma service and found to have subdural hematomas as well as frontal scalp contusions. He also had a right temporal bone fracture and zygomatic arch fracture believed to be traumatic in nature. On presentation, he was unable to move his lower extremities and the neurosurgery team was consulted in his care. His neurologic exam consisted of only being able to grunt in response to questions but he was otherwise unresponsive and required ICU level care. Throughout the course of his hospitalization, the patient was seen by Neurosurgery, Critical Care, Hospital Medicine, trauma surgery, and the patient' s mental status very slowly began to improve. He required substantial supportive care and his hospitalization was complicated by severe electrolyte abnormalities including hypernatremia and hyponatremia, which required close management by Nephrology consultants, titrating his nasogastric tube feeds and supplemental liquids closely. He required this method of supplemental nutrition throughout a significant portion of his hospitalization secondary to impaired mental status and impaired ability to swallow. Later in his hospitalization, the patient's mental status did begin to improve and he was able to swallow safely, resulting in removal of his nasogastric feeding tube and subsequent liberalization of his oral intake of solids and liquids. He did experience acute kidney injury in the setting of increased GI volume losses from diarrhea, after lactulose was initiated to reduce his serum ammonia level, as it was believed that the patient was developing a degree of hepatic encephalopathy late his hospitalization secondary to end-stage liver disease and cirrhosis most likely secondary to chronic alcoholism and hepatitis C virus. While the patient's mental status did improve with the increased bowel movements, his renal function worsened in the setting of concomitant diuretic initiation to control his volume status. His diuretics were held and his renal function improved prior to discharge. At time of discharge, the patient is being initiated on Lasix 40 mg, with future Aldactone to be initiated and then both up titrated by the patient's outpatient broadcast meteorologist. The patient also may require outpatient paracenteses, as the patient did receive therapeutic paracenteses during this hospitalization, totaling approximately 5.5 L. He should also have outpatient follow-up by Infectious Disease to consider hepatitis C treatment if the patient's functional status improves. We recommend complete cessation from alcohol and outpatient GI follow-up to monitor his pancytopenia likely secondary to alcohol induced marrow suppression as well as consideration of outpatient colonoscopy for GI bleed experience during this hospitalization. The patient did experience a degree of reflux during this hospital stay and was initiated on proton pump inhibitor as well as as needed Maalox and Tums. We recommended twice daily proton pump inhibitor given his evidence of GI bleed during his hospitalization and the duration of PPI can be determined by outpatient Gastroenterology. In the setting of acute illness the patient did experience provoked atrial fibrillation, and his rhythm remained in a normal sinus mechanism after chemical cardioversion and initiating him on propranolol. We have not initiated him on CVA prophylaxis given his subdural hematomas. At some juncture patient should be seen in the outpatient cardiology clinic for an outpatient 30 day event monitor to gauge whether he has recurrent AFib. Overall, the patient's functional status was profoundly port during the vast majority of his hospitalization. His sister was designated as his medical proxy , and and she collaborated with our care management team to find the patient the most appropriate next level of care. The patient will require fpc facility for ongoing cognitive and physical rehabilitation, as the patient is currently completely unable to complete activities of daily living independently. Since he has no local relatives or support network, he will require fpc facility until he is able to function independently. DISCHARGE MEDICATIONS: Please see official discharge medication reconciliation sheet in chart , of note Lasix 40 mg daily, lactulose 3 times daily scheduled, 10 mg 3 times daily, pantoprazole 40 mg twice daily, Risperdal 0.5 mg twice daily, gabapentin 100 mg twice daily, discontinuation of aspirin, continuation of metformin 1000 mg twice daily. DISCHARGE INSTRUCTIONS: Please schedule outpatient follow-up with Nephrology, Neurosurgery, Gastroenterology, Infectious Disease. TIME SPENT: Greater than 30 minutes were spent on direct patient care, as well as discharge planning and preparation.
== END 2017-12-12 15:01 | DRG 55 ==
LOC: EDBD 21:00 → EEVIPCON 21:00 → MERGE 21:00 → F2N 21:30 → F3N 10-19 15:34
PROVIDERS: ADMIT Surgery; ATTEND Neurological Surgery
PROC: 30233K1 Transfusion of Nonautologous Frozen Plasma into Peripheral Vein, Percutaneous Approach (ICD-10-PCS; 2017-10-04)
PROC: 02HV33Z Insertion of Infusion Device into Superior Vena Cava, Percutaneous Approach (ICD-10-PCS; 2017-10-09)
PROC: 0W9G3ZX Drainage of Peritoneal Cavity, Percutaneous Approach, Diagnostic (ICD-10-PCS; 2017-10-22)
PROC: 0W9G3ZZ Drainage of Peritoneal Cavity, Percutaneous Approach (ICD-10-PCS; principal; 2017-10-24)
DX: S06.5X9A Traumatic subdural hemorrhage with loss of consciousness of unspecified duration, initial encounter (principal); S02.19XA Other fracture of base of skull, initial encounter for closed fracture; S02.0XXA Fracture of vault of skull, initial encounter for closed fracture; S02.40EA Zygomatic fracture, right side, initial encounter for closed fracture; S22.31XA Fracture of one rib, right side, initial encounter for closed fracture; X58.XXXA Exposure to other specified factors, initial encounter; Y92.481 Parking lot as the place of occurrence of the external cause; Y92.512 Supermarket, store or market as the place of occurrence of the external cause; I50.33 Acute on chronic diastolic (congestive) heart failure; D50.9 Iron deficiency anemia, unspecified; G62.9 Polyneuropathy, unspecified; F10.229 Alcohol dependence with intoxication, unspecified; K70.40 Alcoholic hepatic failure without coma; D68.4 Acquired coagulation factor deficiency; I48.91 Unspecified atrial fibrillation; N17.9 Acute kidney failure, unspecified; E87.4 Mixed disorder of acid-base balance; F10.239 Alcohol dependence with withdrawal, unspecified; R40.2432 Glasgow coma scale score 3-8, at arrival to emergency department; R45.1 Restlessness and agitation; E11.65 Type 2 diabetes mellitus with hyperglycemia; N39.0 Urinary tract infection, site not specified; B95.2 Enterococcus as the cause of diseases classified elsewhere; B96.89 Other specified bacterial agents as the cause of diseases classified elsewhere; E87.0 Hyperosmolality and hypernatremia; E83.42 Hypomagnesemia; E87.6 Hypokalemia; E87.1 Hypo-osmolality and hyponatremia; K70.31 Alcoholic cirrhosis of liver with ascites; K21.9 Gastro-esophageal reflux disease without esophagitis; I10 Essential (primary) hypertension
CPT/HCPCS: 80305; 82435-PO; 82565-PO; 82947-PO; 83605-PO; 84132-PO; 84295-PO; 84520-PO; 85014-PO; 86708-90; 86709-90; 92507-GN; 92523-GN; 92526-GN; 92610-GN; 96365; 97110-GP; 97112-GP; 97162-GP; 97167-GO; 97530-GO; 97530-GP; 97535-GO; C1751; G0472; G0480; G0515-GO; J0360; J0690; J0692; J0696; J1170; J1650; J1815; J1940; J1953; J2060; J2250; J2405; J2997; J3370; J3411; J3430; J3480; L0120; P9016; P9017; P9047